=== PATIENT | female | born 1940 | race Caucasian/White ===

== ENCOUNTER → 2016-03-15 | Outpatient (CLI) | payer MEDICARE ==
[2013-06-10 19:51] VITALS: BP 173/93
[~2016-03-15] MED LIST: AMLO5TAB2 PO; AMOX500T PO; CALC-104 PO; CETI10TA22 PO; CHOL200024 PO; CHOL200044 PO; COLC0.6T34 PO; COLE1TAB2 PO; DIPH1TAB5 PO; DOXY100T PO; ESCI10TA PO; FAMO40TA4 PO; FOLI20CA PO; GUAI1TBM PO; GUAI400T46 PO; IBUP200C9 PO; LANS30CA PO; LEVO750T5 PO; MULT-658 PO; VITA1TAB PO; VITA400C6 PO
--- NOTE | 2016-03-15 14:24 | KCIC ---
Bilateral digital screening mammograms with CAD: HISTORY Routine screening. COMPARISON Comparison is made to previous examination dated 09/18/2014. FINDINGS Breast density category A. The skin and nipples show no abnormalities. No abnormal lymph nodes are seen in the axilla. The breast parenchyma is predominately fatty. There continues to be small parenchymal density in the 5 o'clock B position centrally in the left breast which has not changed. There are no new dominant masses, suspicious calcifications or architectural distortions. Benign appearing calcifications are present. IMPRESSION No evidence of malignancy. Recommend routine annual mammographic screening. This study was interpreted with the benefit of Computerized Aided Detection (CAD). Mammography is not 100% sensitive in detecting breast cancer. Therefore, a self breast exam and a clinical breast exam are very important. A negative mammogram does not negate a clinically suspicious finding and should not result in a delay in biopsying a clinically suspicious abnormality. BI-RADS category 2. Benign. This patient's information has been entered into a reminder system for the patient to be notified with the results of this examination and a target date for her next mammograms. Electronically signed by: Chey Larson MD (Mar 15, 2016 14:22:59)
--- NOTE | 2016-03-18 09:53 | KCIC ---
Left breast ultrasound: Reason for examination: Followup parenchymal density. Comparison is made to previous mammogram dated 09/18/2014 and previous ultrasound dated 10/06/2014. Ultrasound examination of the left breast was performed with attention to the lateral breast. No discrete cystic or solid nodule is identified sonographically. Impression: No focal abnormality evident sonographically in the left breast. With no change seen at the parenchymal density mammographically, routine mammographic followup is recommended. BI-RADS category 2: Benign. This patient's information has been entered into a reminder system for the patient to be notified with the results of this examination and a target date for her next mammograms. Electronically signed by: Chey Larson MD (Mar 18, 2016 09:52:03)
== END | disposition home or self-care (01) ==
LOC: KCIC MAMMO 13:02
PROVIDERS: ATTEND Internal Medicine
DX: R92.8 Other abnormal and inconclusive findings on diagnostic imaging of breast (principal)
CPT/HCPCS: 76641; G0204; 77066

== ENCOUNTER 2017-01-08 06:20 | Emergency (ER) | payer MEDICARE ==
[~2017-01-08] VITALS: Ht 162.6 cm; Wt 90.7 kg
[~2017-01-08 06:20] MED LIST changes: -ESCI10TA PO; +ESCITALOPRAM OX10 MG PO
[2017-01-08] MEDS ORDERED: IV NORMAL SALINE 500ML BAG 500 ML IV ONE (07:15)
[2017-01-08 07:16] LABS: BASO # 0.1 x10^3/uL (0.0-0.2); BASO % 1 % (0-3); EOS % 2 % (0-3); HEMOGLOBIN 14.5 g/dL (12.0-15.5); LYMPH # 1.6 x10^3/uL (1.0-4.8); LYMPH % 20 % (24-48); MEAN CORPUSCULAR HEMOGLOBIN 33 pg (25-35); MEAN CORPUSCULAR HGB CONC 34 g/dL (31-37); MEAN CORPUSCULAR VOLUME 98 fL (79-100); MONO % 8 % (0-9); NEUT % 69 % (31-73); PLATELET COUNT 254 x10^3/uL (140-400); RED CELL DISTRIBUTION WIDTH 14.2 % (11.5-14.5)
--- NOTE | 2017-01-08 07:26 | RAD ---
Two view chest History:Dizziness starting this morning . PA and lateral views of the chest are submitted. Comparison: 08/22/2013 Findings: There is no significant infiltrate, pleural effusion, or pneumothorax. There is some linear fibrotic change left lung base as seen previously. There is a round nodular opacity of the mid right hemithorax, calcified granuloma seen on previous CT. There is stable mild prominence of the left left hilum. The pericardial cardiac silhouette is within normal limits in size. Impression: There is no evidence of acute cardiopulmonary disease.
[2017-01-08 07:28] LABS: CALCIUM 9.7 mg/dL (8.5-10.1); CREATININE 1.5 mg/dL (0.6-1.0); GFR 33.9; POTASSIUM 4.3 mmol/L (3.5-5.1)
--- NOTE | 2017-01-08 07:29 | PHYS DOC ---
Past Medical History Past Medical History: Arthritis, Diverticulosis, High Cholesterol, Hypertension , TIA, Other Additional Past Medical Histor: GOUT Past Surgical History: Cholecystectomy, Hip Replacement, Knee Replacement, Tonsillectomy Additional Past Surgical Histo: colonoscopy Alcohol Use: None Drug Use: None Adult General Chief Complaint Chief Complaint: MULTIPLE COMPLAINTS HPI HPI Patient is a 76 year old female who presents to the ED with her with the complaint of dizziness. Patient has had dizziness off and on "little spells for the last 2 months. It seems to be getting worse. She has to lean or hold onto her or she would fall at times. It's described as dizziness " across her forehead". She does not have a headache. It does not worsen with movement of her head but it does worsen if she sits up. She does not get her while she is laying in bed. She has some nausea but no vomiting. She has not had a fall. She's never had this before recently has had it for maybe 2 months now. It is described as a somewhat spinning type of dizziness but not worsened by position change of her head. She states she has had some small amount of left ear pain or plugged up, she used Debrox. Also last night, she had "severe" pain in her low back, hips, and her right ankle. This lasted for about 2 hours. She did not take anything for it, it seemed to go away by itself. It was helped by sitting up very straight in a chair and worsened by bending over. This type of pain is something she's been dealing with, they believe it might be arthritis. It comes and goes. She does not take any medications for it. Patient and her state that she has had "memory problems" worsening over the last few years. Patient has some chronic right ankle pain due to a right ankle fracture a few years ago that didn't heal right. She wears a Velcro stirrup splint. Patient denies any known reason for dehydration. She's been drinking plenty of fluids and has not had vomiting or diarrhea. Patient was up all night last night "carousing". She and her went to a meeting, then went out to eat, they have been in [place], they state this is not unusual for them and they are "night owl's" and they often stay up all night in sleep during the day. PCP Dr. López Medications include allopurinol for gout, amlodipine, atorvastatin, Singulair. She last took her medications about 4:30 yesterday afternoon before they went out. She typically does take them about that time. Review of Systems Review of Systems Constitutional: Denies fever or chills [] HENT: Left ear intermitted pain and plugged up as in history of present illness Respiratory: Denies cough or shortness of breath [] Cardiovascular: Denies chest pain GI: Denies abdominal pain : Denies dysuria Musculoskeletal: As in history of present illness Neurologic: As in history of present illness All other systems were reviewed and found to be within normal limits, except as documented in this note. Current Medications Current Medications Current Medications Medications (Trade) Dose Ordered Sig/Jaylin Start Time Stop Time Status Last Admin Dose Admin Sodium Chloride 500 ml @ 500 mls/hr 1X ONCE 01/08/17 07:15 01/08/17 08:14 DC 01/08/17 07:28 500 MLS/HR Allergies Allergies Allergies Coded Allergies Type Severity Reaction Last Updated Verified Sulfa (Sulfonamide Antibiotics) Allergy Intermediate hives 06/10/13 Yes sulfamethoxazole Allergy Intermediate mouth sores 06/10/13 Yes trimethoprim Allergy Intermediate mouth sores 06/10/13 Yes Physical Exam Physical Exam Constitutional: Well developed, well nourished, no acute distress, non-toxic appearance. Alert, appropriate, mentating normally, warm and dry. Pulse ox on room air 92%. HENT: Normocephalic, atraumatic, bilateral external ears normal, normal amount of cerumen bilaterally, bilateral TMs normal without redness or dullness, oropharynx moist, nose normal. [] Eyes: conjunctiva normal, no discharge. [] Neck: Normal range of motion, no stridor. [] Cardiovascular:Heart rate regular rhythm, no murmur [] Lungs & Thorax: Bilateral breath sounds clear to auscultation without wheezes, rales, rhonchi Abdomen: Bowel sounds normal, soft, no tenderness, no masses, no pulsatile masses. [] Skin: Warm, dry, no erythema, no rash. [] Extremities: No tenderness, no cyanosis, no clubbing, ROM intact, no edema. Patient is wearing a Velcro stirrup splint on the right ankle. Neurologic: Alert and oriented X 3, normal motor function, no focal deficits noted. [] Current Patient Data Vital Signs Vital Signs Date Time Temp Pulse Resp B/P (MAP) Pulse Ox O2 Delivery O2 Flow Rate FiO2 01/08/17 06:36 97.7 72 18 171/74 (106) 94 Room Air 97.7 Lab Values Laboratory Tests Test 01/08/17 06:28 01/08/17 08:23 White Blood Count 8.0 x10^3/uL (4.0-11.0) Red Blood Count 4.40 x10^6/uL (3.50-5.40) Hemoglobin 14.5 g/dL (12.0-15.5) Hematocrit 43.0 % (36.0-47.0) Mean Corpuscular Volume 98 fL (79-100) Mean Corpuscular Hemoglobin 33 pg (25-35) Mean Corpuscular Hemoglobin Concent 34 g/dL (31-37) Red Cell Distribution Width 14.2 % (11.5-14.5) Platelet Count 254 x10^3/uL (140-400) Neutrophils (%) (Auto) 69 % (31-73) Lymphocytes (%) (Auto) 20 % (24-48) L Monocytes (%) (Auto) 8 % (0-9) Eosinophils (%) (Auto) 2 % (0-3) Basophils (%) (Auto) 1 % (0-3) Neutrophils # (Auto) 5.5 x10^3uL (1.8-7.7) Lymphocytes # (Auto) 1.6 x10^3/uL (1.0-4.8) Monocytes # (Auto) 0.7 x10^3/uL (0.0-1.1) Eosinophils # (Auto) 0.2 x10^3/uL (0.0-0.7) Basophils # (Auto) 0.1 x10^3/uL (0.0-0.2) Sodium Level 142 mmol/L (136-145) Potassium Level 4.3 mmol/L (3.5-5.1) Chloride Level 105 mmol/L (98-107) Carbon Dioxide Level 29 mmol/L (21-32) Anion Gap 8 (6-14) Blood Urea Nitrogen 31 mg/dL (7-20) H Creatinine 1.5 mg/dL (0.6-1.0) H Estimated GFR (Cockcroft-Gault) 33.9 BUN/Creatinine Ratio 21 (6-20) H Glucose Level 102 mg/dL (70-99) H Calcium Level 9.7 mg/dL (8.5-10.1) Magnesium Level 2.1 mg/dL (1.8-2.4) Total Bilirubin 0.4 mg/dL (0.2-1.0) Aspartate Amino Transferase (AST) 21 U/L (15-37) Alanine Aminotransferase (ALT) 21 U/L (14-59) Alkaline Phosphatase 84 U/L (46-116) Creatine Kinase 78 U/L (26-192) Creatine Kinase MB (Mass) 0.6 ng/mL (0.0-3.6) Creatine Kinase MB Relative Index 0.8 % (0-4) Troponin I Quantitative < 0.017 ng/mL (0.000-0.055) BE-Uue-C-Type Natriuretic Peptide 262 pg/mL (0-449) Total Protein 7.0 g/dL (6.4-8.2) Albumin 4.2 g/dL (3.4-5.0) Albumin/Globulin Ratio 1.5 (1.0-1.7) Lipase 179 U/L (73-393) Thyroid Stimulating Hormone (TSH) 4.560 uIU/mL (0.358-3.74) H Urine Collection Type Unknown Urine Color Yellow Urine Clarity Clear Urine pH 7.5 Urine Specific [place] 1.020 Urine Protein Negative mg/dL (NEG-TRACE) Urine Glucose (UA) Negative mg/dL (NEG) Urine Ketones (Stick) Negative mg/dL (NEG) Urine Blood Negative (NEG) Urine Nitrite Negative (NEG) Urine Bilirubin Negative (NEG) Urine Urobilinogen Dipstick 0.2 mg/dL (0.2 mg/dL) Urine Leukocyte Esterase Moderate (NEG) Urine RBC 1-2 /HPF (0-2) Urine WBC >40 /HPF (0-4) Urine Squamous Epithelial Cells Many /LPF Urine Bacteria Many /HPF (0-FEW) Urine Mucus Slight /LPF Laboratory Tests 01/08/17 06:28 Laboratory Tests 01/08/17 06:28 EKG EKG 12-lead EKG read by me. Sinus rhythm. Heart rate 69. There are no acute ST or T wave changes indicative of ischemia or infarction. No STEMI. No rhythm disturbance. [id number][] Radiology/Procedures Radiology/Procedures [] Course & Med Decision Making Course & Med Decision Making Pertinent Labs and Imaging studies reviewed. (See chart for details) 76-year-old female presents with the complaints of a nonspecific type of dizziness for the last 2 months, worse over the last day or 2. It has some vertiginous component does not sound like benign positional vertigo. She also had an episode of pain last night that lasted a couple of hours but resolved on its own and she does not have right now, in her low back, hips, and right ankle. It's hard to determine what that pain was and it has now been gone for several hours. We will check some blood tests, chest x-ray, CT scan of her head , EKG. She's never had any problem with fluid overloaded so we will give her a bolus of normal saline to see if that helps her dizziness at all. Patient is agreeable to this plan. CT scan read by the radiologist. Atrophy that is unchanged from previous scans. Labs relatively unremarkable. TSH is slightly high, I advised the patient we will allow Dr. López to address this as he feels is appropriate. Urinalysis is contaminated. I explained this to the patient. We agreed to wait for culture results rather than start antibiotics today. I advised patient to follow up with Dr. López. She has an appointment coming up on January 20. See instructions for plan. [] Dragon Disclaimer Dragon Disclaimer This electronic medical record was generated, in whole or in part, using a voice recognition dictation system. Departure Departure Impression: Primary Impression: Dizziness, nonspecific Referrals: CORNELIUS LÓPEZ MD (PCP) Additional Instructions: As we discussed, I would like you to follow up with Dr. López. I believe it is fine to wait until your appointment on January 20. Make sure you're staying well hydrated by drinking plenty of fluids. When you see Dr. López, discuss the following findings/recommendation with him. Your thyroid level is a little bit low. He may want to give your thyroid supplement or repeat this test or do other blood tests. Urinalysis was contaminated with skin cells. Depending on what the culture result shows depends on whether we we'll treat you with antibiotics. Call Dr. López's office on Monday or Wednesday to asked them to check the culture result for you. I recommend that you consider outpatient physical therapy specializing in dizziness, gait, and balance. They can help you with strategies and also whether or not a walker or cane might be helpful, as well as exercises and treatment of dizziness and balance symptoms. Ask Dr. López his opinion on this. PETER RIVERA MD Jan 08, 2017 07:29
--- NOTE | 2017-01-08 07:33 | EKG ---
[facility] [address] [place] [address] Test Date: 2017-01-08 Test Time: 06:30:51 Pat Name: DARYL MCKEON Department: Room: Gender: F [employer]: : 1940 Requested By: PETER RIVERA Order Number: [id number] Reading MD: Ming Bermudez Measurements Intervals [place] Rate: 69 P: SD: QRS: 26 QRSD: 80 T: 52 QT: 420 QTc: 452 Interpretive Statements SINUS RHYTYHM QRS(T) CONTOUR ABNORMALITY CONSIDER ANTEROLATERAL MYOCARDIAL DAMAGE POSSIBLY ABNORMAL ECG Electronically Signed On 01-16-2017 14:22:18 SWITCH ADJUSTER by Ming Bermudez
--- NOTE | 2017-01-08 07:33 | RAD ---
Head CT without contrast History:Dizziness for a few weeks worse today Technique: Noncontrast CT imaging was acquired of the head. RS Compliance Statement: One or more of the following individualized dose reduction techniques were utilized for this examination: 1. Automated exposure control 2. Adjustment of the mA and/or kV according to patient size 3. Use of iterative reconstruction technique Comparison: 06/19/2013 Findings: No acute intracranial hemorrhage is identified. There is again mild supratentorial atrophy. There is no intra-axial mass effect or midline shift. Ventricular size is stable, proportionate to the sulcal spaces. There is again multifocal overall moderate ill-defined low-density of the supratentorial white matter bilaterally. Mastoid air cells and visualized paranasal sinuses are aerated. There is atherosclerotic calcification of the carotid siphons bilaterally. Impression: 1. No acute intracranial abnormality is identified. There is again ill-defined low-density of the supratentorial parenchyma bilaterally probably due to chronic microvascular ischemic disease. There is generalized supratentorial atrophy.
[2017-01-08 07:34] LABS: ALBUMIN 4.2 g/dL (3.4-5.0); ALBUMIN/GLOBULIN RATIO 1.5 (1.0-1.7); MAGNESIUM 2.1 mg/dL (1.8-2.4); TOTAL BILIRUBIN 0.4 mg/dL (0.2-1.0)
[2017-01-08 07:41] LABS: CKMB MASS 0.6 ng/mL (0.0-3.6)
[2017-01-08 08:32] LABS: BILIRUBIN,URINE NEGATIVE (NEG); GLUCOSE,URINE NEGATIVE (NEG); NITRITE,URINE NEGATIVE (NEG); PH,URINE 7.5; PROTEIN,URINE NEGATIVE (NEG-TRACE); UROBILINOGEN,URINE 0.2 mg/dL (0.2 mg/dL)
[2017-01-08 08:42] LABS: BACTERIA,URINE MANY /HPF (0-FEW); SQUAMOUS EPITHELIAL CELL,UR MANY /LPF; WBC,URINE >40 /HPF (0-4)
[2017-01-08 08:56] VITALS: BP 145/65
--- NOTE | 2017-01-11 16:29 | VNOTE ---
CALL BACK NOTE CALL BACK Microbiology 01/08/17 Urine Culture - Final, Complete 01/08/17 Urine Culture Result 1 (JIAN) - Final, Complete 01/08/17 Antimicrobic Susceptibility - Final, Complete Patient has positive urine culture, she was not treated when she was in the ED. Called patient, she has no voicemail. TABATHA PORTILLO APRN Jan 11, 2017 16:29
== END 2017-01-08 09:26 | disposition home or self-care (01) ==
LOC: ER 06:20
DX: R42 Dizziness and giddiness (principal); H92.02 Otalgia, left ear; M54.5 Low back pain; E78.00 Pure hypercholesterolemia, unspecified; I10 Essential (primary) hypertension; M10.9 Gout, unspecified; Z86.73 Personal history of transient ischemic attack (TIA), and cerebral infarction without residual deficits; Z90.49 Acquired absence of other specified parts of digestive tract; Z88.2 Allergy status to sulfonamides; Z88.1 Allergy status to other antibiotic agents
CPT/HCPCS: 36415; 70450; 71020; 80053; 81001; 82553; 83690; 83735; 83880; 84443; 84484; 85025; 87086; 87186; 93005; 96360; 99285; J7040; 96374

== ENCOUNTER 2017-02-26 19:18 | Emergency (ER) | payer MEDICARE, BC ==
[2017-02-26 20:33] LABS: ADD MAN DIFF? NO
[2017-02-26 20:35] LABS: BASO % 1 % (0-3); EOS # 0.1 x10^3/uL (0.0-0.7); EOS % 1 % (0-3); HEMATOCRIT 41.5 % (36.0-47.0); HEMOGLOBIN 14.1 g/dL (12.0-15.5); LYMPH # 1.4 x10^3/uL (1.0-4.8); LYMPH % 21 % (24-48); MEAN CORPUSCULAR HEMOGLOBIN 33 pg (25-35); MEAN CORPUSCULAR HGB CONC 34 g/dL (31-37); MEAN CORPUSCULAR VOLUME 97 fL (79-100); MONO # 0.6 x10^3/uL (0.0-1.1); MONO % 9 % (0-9); NEUT # 4.6 x10^3uL (1.8-7.7); NEUT % 68 % (31-73); PLATELET COUNT 235 x10^3/uL (140-400); RED BLOOD COUNT 4.27 x10^6/uL (3.50-5.40); RED CELL DISTRIBUTION WIDTH 14.7 % (11.5-14.5); WHITE BLOOD COUNT 6.7 x10^3/uL (4.0-11.0)
[2017-02-26 20:43] LABS: ANION GAP 12 (6-14); BLOOD UREA NITROGEN 23 mg/dL (7-20); CALCIUM 9.1 mg/dL (8.5-10.1); CARBON DIOXIDE 26 mmol/L (21-32); CHLORIDE 105 mmol/L (98-107); CREATININE 1.8 mg/dL (0.6-1.0); GFR 27.4; GLUCOSE 96 mg/dL (70-99); POTASSIUM 3.7 mmol/L (3.5-5.1); SODIUM 143 mmol/L (136-145)
[2017-02-26 21:21] LABS: BILIRUBIN,URINE MODERATE (NEG); CLARITY,URINE CLOUDY; GLUCOSE,URINE NEGATIVE (NEG); NITRITE,URINE POSITIVE (NEG); PH,URINE 5.5; PROTEIN,URINE 100 mg/dL (NEG-TRACE)
[2017-02-26 21:22] LABS: COLOR,URINE DK YELLOW
[2017-02-26 21:23] LABS: BACTERIA,URINE MANY /HPF (0-FEW); HYALINE CASTS, URINE MANY /HPF
== END 2017-02-26 23:30 | disposition home or self-care (01) ==
LOC: ER 19:18
DX: N93.9 Abnormal uterine and vaginal bleeding, unspecified (principal); E78.00 Pure hypercholesterolemia, unspecified; M10.9 Gout, unspecified; I10 Essential (primary) hypertension; Z86.73 Personal history of transient ischemic attack (TIA), and cerebral infarction without residual deficits; Z90.49 Acquired absence of other specified parts of digestive tract; Z96.649 Presence of unspecified artificial hip joint; Z96.659 Presence of unspecified artificial knee joint; Z88.2 Allergy status to sulfonamides; Z88.1 Allergy status to other antibiotic agents
CPT/HCPCS: 36415; 76830; 76856; 80048; 81001; 85025; 87086; 87186; 96365; 99285-25; J0690

== ENCOUNTER → 2017-05-03 | Outpatient (CLI) | payer MEDICARE, BC | END | disposition home or self-care (01) | LOC: KCIC US 14:04 | DX: Z12.31 Encounter for screening mammogram for malignant neoplasm of breast (principal); Z13.820 Encounter for screening for osteoporosis; N39.0 Urinary tract infection, site not specified; N20.0 Calculus of kidney; M85.88 Other specified disorders of bone density and structure, other site; N18.3 Chronic kidney disease, stage 3 (moderate); Z78.0 Asymptomatic menopausal state; Z87.440 Personal history of urinary (tract) infections | CPT/HCPCS: 76770; 77067; 77080 ==

== ENCOUNTER → 2018-01-16 | Day surgery (SDC) | payer MEDICARE, BC ==
[~2018-01-16] MED LIST changes: +ALLO300T PO; -AMLO5TAB2 PO; +AMLO5TAB4 PO; +AMLO5TAB7 PO; +ATOR10TA60 PO; +CEFP200T PO; +FOLI1TAB16 PO; +IV RINGERS,LACTATED 1000ML 1,000 ML IV SCH; +MONT10TA9 PO; +PROPOFOL 40 ML IV ONE
--- NOTE | 2018-01-16 11:13 | PDOC1 ---
HISTORY & PHYSICAL H&P Betty Cortes [id number] 1940 01/10/2018 02:10 PM 02/13 [facility] [employer] [facility], [facility] OUR PATIENTS [facility] [address] [place] [address]. [phone] Patient: Betty Cortes Date of : 1940 Date: 01/10/2018 2:10 PM Visit Type: Office Visit This 77 year old female presents for abdominal pain and follow up of Tapia's esophagus. History of Present Illness: 1. abdominal pain Betty Cortes is a 77 year old female who presents for evaluation of abdominal pain. The problem is ongoing. The symptoms began 2 weeks ago. It occurs daily. The location is upper abdomen. The patient describes it as aching, bloating and gnawing. There are no aggravating factors. There are no relieving factors. The pertinent history includes: h/o Tapia's esophagus and gallstone related issue and complication. Had CBC stone removed before She is not experiencing has no pertinent negatives. Patient has history of acid reflux and Tapia's esophagus. Had not followed though her EGD before due to some social issue. INTAKE COMMENTS: Intake Comments: patient states she is here for stomach pain and nauseous PROBLEM LIST: Problem Description Onset Date Chronic Clinical Status Notes Vitamin D deficiency 07/17/2012 Y Mapped from [facility] Chronic Conditions table on 09/02/2013 by the ICD9 to SNOMED Bulk Mapping Utility. The mapped diagnosis code was Vitamin D deficiency, 268.9, added by Nadia Akhtar, with responsible provider Nadia Akhtar MD. Onset date 07/17/2012; last addressed on 07/17/2012. Benign essential hypertension 12/07/2009 Y Mapped from [facility] Chronic Conditions table on 09/02/2013 by the ICD9 to SNOMED Bulk Mapping Utility. The mapped diagnosis code was Benign essential hypertension, 401.1, added by Carmita Mejia, with responsible provider . Onset date 12/07/2009; last addressed on 08/19/2013. Gastroesophageal reflux disease 12/07/2009 Y Mapped from [facility] Chronic Conditions table on 09/02/2013 by the ICD9 to SNOMED Bulk Mapping Utility. The mapped diagnosis code was Esophageal reflux, 530.81, added by Carmita Mejia , with responsible provider . Onset date 12/07/2009; last addressed on 2013. Hyperlipidemia 12/07/2009 Y Mapped from [facility] Chronic Conditions table on 2013 by the ICD9 to SNOMED Bulk Mapping Utility. The mapped diagnosis code was Other and unspecified hyperlipidemia, 272.4, added by Carmita Mejia, with responsible provider . Onset date 12/07/2009; last addressed on 07/09/2013. Seizure 12/07/2009 Y Mapped from [facility] Chronic Conditions table on 09/02/2013 by the ICD9 to SNOMED Bulk Mapping Utility. The mapped diagnosis code was Other convulsions, 780.39, added by Carmita Mejia, with responsible provider . Onset date 12/07/2009; last addressed on 12/07/2009. Obesity 12/07/2009 Y Mapped from [facility] Chronic Conditions table on 09/02/2013 by the ICD9 to SNOMED Bulk Mapping Utility. The mapped diagnosis code was Obesity, unspecified, 278.00, added by Carmita Mejia, with responsible provider . Onset date 12/07/2009; last addressed on 06/21/2013. Anemia 12/07/2009 Y Mapped from [facility] Chronic Conditions table on 09/02/2013 by the ICD9 to SNOMED Bulk Mapping Utility. The mapped diagnosis code was Anemia, unspecified, 285.9, added by Carmita Mejia, with responsible provider . Onset date 12/07/2009; last addressed on 12/07/2009. Hypothyroidism 12/07/2009 Y Mapped from [facility] Chronic Conditions table on 2013 by the ICD9 to SNOMED Bulk Mapping Utility. The mapped diagnosis code was Unspecified acquired hypothyroidism, 244.9, added by Carmita Mejia, with responsible provider . Onset date 12/07/2009; last addressed on 02/27/2013. 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 11/17/2015 Osteoarthritis 09/01/2014 Medicare annual wellness visit, subsequent 09/01/2014 Mixed hyperlipidemia 08/10/2015 Other allergic rhinitis 05/27/2015 Dyspnea on exertion 05/27/2015 Carotid artery disease, unspecified laterality 11/09/2015 Osteopenia 05/27/2015 Y Wasp sting, accidental or unintentional, initial encounter 11/09/2015 CKD (chronic kidney disease), stage III 11/09/2015 Bipolar affective disorder in remission 11/09/2015 Seizure disorder 11/09/2015 PAST MEDICAL/SURGICAL HISTORY (Detailed) Disease/disorder Onset Date Management Date Comments Tapia's esophagus 09/07/2010 EGD with biopsy 09/07/2010 Osteoarthritis 2010 Hip replacement 2010 Tapia's esophagus EGD with Biopsy 07/15/2014 Diverticulosis colonoscopy 12/19/2013 EGD with biopsy 05/03/2012 Colonic polyps colonoscopy 09/07/2010 Tibial plateau fracture 2006 Knee surgery Uetheral repair D & C Anemia GERD Hyperlipidemia Hypertension Tonsillectomy Pneumonia 06/2013 Gastritis 08/2010 Tremors Obesity Hypothyroidism Uretheral stenosis Tapia's esophagus Hiatal hernia Gastritis GYNECOLOGIC HISTORY: Patient is postmenopausal. OBSTETRIC HISTORY: Not currently . Family History (Detailed) Relationship Family Member Name Age at Condition Onset Age Cause of Father N for heart disease N Social History: (Detailed) The patient is right-handed. Preferred language is Yoruba. The patient does not need an paraprofessional interpreter. MARITAL STATUS/FAMILY/SOCIAL SUPPORT Currently . CHILDREN Does not have children. HOME ENVIRONMENT Housing status is stable/permanent. Tobacco use status: Never smoked tobacco. Smoking status: Never smoker. TOBACCO CESSATION INFORMATION Date Counseled By Order Status Description Code Tobacco Cessation Information 06/10/2013 Paul Kovacs Tobacco cessation counseling completed Tobacco cessation counseling TOBACCO/VAPING EXPOSURE No passive smoke exposure. ALCOHOL There is no history of alcohol use. CAFFEINE The patient uses caffeine: soda - 1 cup a day. LIFESTYLE Sedentary activity level. Never exercises. DIET regular. HOME ENVIRONMENT/SAFETY The home has smoke detectors. Carbon monoxide detector at home. Uses seat belts. EXPERIENCE Patient has no experience. Medications (active prior to today) Medication Name Sig Description Start Date Stop Date Refilled Rx Elsewhere B Complex 100 SR 400 mcg Tab take 1 tab daily 04/12/2011 N Caltrate-600 Plus Vitamin D3 600 mg-400 unit Tab take 1 by Oral route twice daily 06/14/2011 N Lexapro 10 mg Tab take 1 tablet (10MG) by ORAL route every day // 08/24/2012 Y Tylenol Extra Strength 500 mg tablet take 2 tablets by Oral route bid in AM and at bedtime 01/21/2014 N TIZANIDINE HCL 4 MG TABLET TAKE 1 TABLET BY MOUTH IN THE EVENING AT BEDTIME NEEDED 11/16/2015 11/16/2015 N folic acid 400 mcg tablet take 1 tablet (0.4MG) by ORAL route every day 201707/27/2017 N Colestid 1 gram tablet take 1 Tablet by ORAL route 2 times every day 12/20/2017 12/20/2017 N amlodipine 5 mg tablet TAKE 1 TABLET BY MOUTH DAILY 01/02/2018 01/02/2018 N allopurinol 300 mg tablet take 1 tablet by ORAL route every day at [facility]S. 201701/02/2018 N Singulair 10 mg tablet TAKE 1 TABLET BY MOUTH EVERY DAY IN THE EVENING 201701/02/2018 N pantoprazole 40 mg tablet,delayed release TAKE 1 TABLET BY MOUTH two times daily 01/02/2018 01/02/2018 N atorvastatin 10 mg tablet TAKE 1 TABLET BY ORAL ROUTE EVERY DAY AT BEDTIME at bedtime 01/02/2018 01/02/2018 N Medication Reconciliation Medications reconciled today. Medication Reviewed Adherence Medication Name Sig Desc Elsewhere Status taking as directed B Complex 100 SR 400 mcg Tab take 1 tab daily N Verified taking as directed Lexapro 10 mg Tab take 1 tablet (10MG) by ORAL route every day Y Verified taking as directed Caltrate-600 Plus Vitamin D3 600 mg-400 unit Tab take 1 by Oral route twice daily N Verified taking as directed TIZANIDINE HCL 4 MG TABLET TAKE 1 TABLET BY MOUTH IN THE EVENING AT BEDTIME NEEDED N Verified taking as directed Tylenol Extra Strength 500 mg tablet take 2 tablets by Oral route bid in AM and at bedtime N Verified taking as directed folic acid 400 mcg tablet take 1 tablet (0.4MG) by ORAL route every day N Verified taking as directed Colestid 1 gram tablet take 1 Tablet by ORAL route 2 times every day N Verified taking as directed amlodipine 5 mg tablet TAKE 1 TABLET BY MOUTH DAILY N Verified taking as directed pantoprazole 40 mg tablet,delayed release TAKE 1 TABLET BY MOUTH two times daily N Verified taking as directed Singulair 10 mg tablet TAKE 1 TABLET BY MOUTH EVERY DAY IN THE EVENING N Verified taking as directed allopurinol 300 mg tablet take 1 tablet by ORAL route every day at [facility] N Verified taking as directed atorvastatin 10 mg tablet TAKE 1 TABLET BY ORAL ROUTE EVERY DAY AT BEDTIME at bedtime N Verified Medications (Added, Continued or Stopped today) Start Date Medication Directions PRN Status PRN Reason Instruction Stop Date 01/02/2018 allopurinol 300 mg tablet take 1 tablet by ORAL route every day at [facility] N CALL PATIENT WHEN READY 01/02/2018 amlodipine 5 mg tablet TAKE 1 TABLET BY MOUTH DAILY N CALL PATIENT WHEN READY 01/02/2018 atorvastatin 10 mg tablet TAKE 1 TABLET BY ORAL ROUTE EVERY DAY AT BEDTIME at bedtime N CALL PATIENT WHEN READY 04/12/2011 B Complex 100 SR 400 mcg Tab take 1 tab daily N 06/14/2011 Caltrate-600 Plus Vitamin D3 600 mg-400 unit Tab take 1 by Oral route twice daily N 12/20/2017 Colestid 1 gram tablet take 1 Tablet by ORAL route 2 times every day N 07/27/2017 folic acid 400 mcg tablet take 1 tablet (0.4MG) by ORAL route every day N Lexapro 10 mg Tab take 1 tablet (10MG) by ORAL route every day N 01/02/2018 pantoprazole 40 mg tablet,delayed release TAKE 1 TABLET BY MOUTH two times daily N CALL PATIENT WHEN READY 01/02/2018 Singulair 10 mg tablet TAKE 1 TABLET BY MOUTH EVERY DAY IN THE EVENING N CALL PATIENT WHEN READY 11/16/2015 TIZANIDINE HCL 4 MG TABLET TAKE 1 TABLET BY MOUTH IN THE EVENING AT BEDTIME NEEDED N 01/21/2014 Tylenol Extra Strength 500 mg tablet take 2 tablets by Oral route bid in AM and at bedtime N Allergies: Ingredient Reaction (Severity) Medication Name Comment SULFAMETHOXAZOLE Septra TRIMETHOPRIM Septra Review of Systems System Neg/Pos Details Constitutional Negative Chills, Fever and Malaise. ENMT Negative Sore throat. Eyes Negative Double vision. Respiratory Negative Dyspnea and Wheezing. Cardio Negative Chest pain and Irregular heartbeat/palpitations. GI Positive See HPI. GI Negative See HPI. Negative Dysuria and Hematuria. Endocrine Negative Cold intolerance and Heat intolerance. Psych Negative Anxiety. Integumentary Negative Hives and Rash. MS Negative Joint pain. Eren/Lymph Negative Easy bleeding and Easy bruising. Allergic/Immuno Negative Food allergies. Reproductive Positive The patient is post-menopausal. Vital Signs Time BP mm/Hg Pulse /min Resp /min Temp F Ht ft Ht in Ht cm Wt lb Wt kg BMI kg/ m2 BSA m2 O2 Sat% 2:45 PM 112/60 88 12 5.0 4.00 162.56 171.00 77.564 29.35 1.87 95 Measured By Time Measured by 2:45 PM Annie Swygert PHYSICAL EXAM: Exam Findings Details Constitutional Normal Well developed. Eyes Normal Conjunctiva - Right: Normal, Left: Normal. Sclera - Right: Normal, Left: Normal. Nasopharynx Normal Lips/teeth/gums - Normal. Neck Exam Normal Inspection - Normal. Thyroid gland - Normal. Respiratory Normal Inspection - Normal. Auscultation - Normal. Cardiovascular Normal Regular rate and rhythm. No murmurs, gallops, or rubs. Abdomen Normal Inspection - Normal. Anterior palpation - No guarding. No abdominal tenderness. No hepatic enlargement. No spleen enlargement. No hernia. No Ascites. Skin Normal Inspection - Normal. Extremity Normal No edema. Psychiatric Normal Orientation - Oriented to time, place, person & situation. Appropriate mood and affect. Assessment/Plan # Detail Type Description 1. Assessment Pain of upper abdomen (R10.10). Patient Plan schedule EGD at [facility] CBC, LFT, Amylase and Lipase. Plan Orders Amylase to be performed today, CBC w/diff to be performed today, Lipase to be performed today and LFT to be performed today. Further diagnostic evaluations ordered today include(s) EGD to be performed today. She is to schedule a follow-up visit with Lior Akhtar MD upon completion of work-up. The patient was checked out at 3:21 PM by staff [facility]. Co-Sign Orders Order Ordering Provider Cosigned Name Cosigned Date Cosigner Comments Amylase Lior Akhtar 01/10/2018 CBC w/diff Lior Akhtar 01/10/2018 Lipase Lior Akhtar 01/10/2018 LFT Lior Akhtar 01/10/2018 EGD Lior Akhtar 01/10/2018 follow-up visit with Lior Akhtar MD upon completion of work-up Lior Akhtar 01/10/2018 Active Patient Care Team Members Name Contact Agency Type Support Role Relationship Active Date Inactive Date Specialty David Akhtar encounter provider [facility] Nadia Akhtar MD Patient provider PCP Internal Med Document Electronically signed: Lior Akhtar MD 01/10/2018 03:28 PM Document generated by: Lior Akhtar 01/10/2018 Sheba Purdy MD, Family Practice; Jean Jack MD Internal Medicine; Gilda London MD, Internal Medicine; Nadia Akhtar MD Internal Medicine; Lior Akhtar MD, Gastroenterology; Kanu Rutledge MD, Rheumatology, [employer] ------ 01/16/18 Patient seen and examined. No change in H&P. LIOR AKHTAR MD Jan 16, 2018 11:13
[2018-01-16 12:45] VITALS: BP 166/76
--- NOTE | 2018-01-17 12:09 | PATHOLOGY ---
[facility] Accession Number: [id number] . 01 Material submitted: . PART A: ANTRUM BIOPSY PART B: DISTAL ESOPHAGUS BIOPSY . 01 Clinical history: . Abdominal pain . 02 Diagnosis: A. Gastric biopsy, antrum: - Chronic gastritis, mild. . B. Esophageal biopsy, distal esophagus: - Segments of hyperplastic squamous esophageal mucosa and acute inflammatory exudate, consistent with esophageal ulcer / ulcerative esophagitis. . (JPM:mml; 01/17/18) [facility]/01/17/2018 . 02 Comment: Sections of the gastric antral biopsy show congestion and mild superficial chronic inflammation. A properly-controlled immunoperoxidase stain for Helicobacter is negative for Helicobacter organisms. . Sections of the distal esophageal biopsy reveal segments of hyperplastic squamous esophageal mucosa and acute inflammatory exudate. The squamous mucosa shows focal intraepithelial neutrophils and a few eosinophils. The findings are consistent with an esophageal ulcer or reflux esophagitis with ulceration. There is no evidence of Tapia's change, dysplasia or malignancy. . Special stain performed: Immunoperoxidase stain for Helicobacter on A1. . (JPM:mml; 01/17/18) . 02 Electronically signed: . Hung Cueto MD, Pathologist NPI- [id number] . 01 Gross description: . A. Received in formalin labeled "Budd, Betty, antrum BX," is a single segment of richard soft tissue measuring 0.7 cm in maximum dimension. The specimen is entirely submitted in cassette A1. . B. Received in formalin labeled "Budd, Betty, distal esophagus BX," is a single segment of richard soft tissue measuring 0.4 cm in maximum dimension. The specimen is entirely submitted in cassette B1. (TSD; 01/16/2018) TOB/TOB . 02 Pathologist provided ICD-10: K29.50, K22.10 . 02 CPT . 052228, 709418, [id number] Specimen Comment: A courtesy copy of this report has been sent to Specimen Comment: [phone]. Specimen Comment: Report sent to Specimen Comment: A duplicate report has been generated due to demographic updates. Performed at: 01 [facility] [address] [facility] [address], [place] [id number] MD Fredrick Russell MD Phone: [phone] Performed at: 02 [facility] [address] [place], [place] [id number] MD Hung Cueto MD Phone: [phone]
== END | disposition home or self-care (01) ==
LOC: ENDOS 10:46
PROVIDERS: ATTEND Internal Medicine Gastroenterology
DX: K26.9 Duodenal ulcer, unspecified as acute or chronic, without hemorrhage or perforation (principal); K21.0 Gastro-esophageal reflux disease with esophagitis; K29.30 Chronic superficial gastritis without bleeding; K22.10 Ulcer of esophagus without bleeding; K44.9 Diaphragmatic hernia without obstruction or gangrene; I12.9 Hypertensive chronic kidney disease with stage 1 through stage 4 chronic kidney disease, or unspecified chronic kidney disease; N18.3 Chronic kidney disease, stage 3 (moderate); E78.2 Mixed hyperlipidemia; G40.909 Epilepsy, unspecified, not intractable, without status epilepticus; E03.9 Hypothyroidism, unspecified; E55.9 Vitamin D deficiency, unspecified; E66.9 Obesity, unspecified; D64.9 Anemia, unspecified; M19.90 Unspecified osteoarthritis, unspecified site; M85.80 Other specified disorders of bone density and structure, unspecified site; F31.70 Bipolar disorder, currently in remission, most recent episode unspecified; Z86.010 Personal history of colon polyps; Z98.890 Other specified postprocedural states; Z87.01 Personal history of pneumonia (recurrent); Z82.49 Family history of ischemic heart disease and other diseases of the circulatory system; Z79.899 Other long term (current) drug therapy; Z88.2 Allergy status to sulfonamides; Z88.1 Allergy status to other antibiotic agents; Z96.649 Presence of unspecified artificial hip joint
CPT/HCPCS: 43239; 88305; 88342; J2704

== ENCOUNTER → 2018-04-02 | Outpatient (CLI) | payer MEDICARE, BC ==
[2018-01-16 12:45] VITALS: BP 166/76
[~2018-04-02] MED LIST changes: +AMLO5TAB10 PO; -AMLO5TAB7 PO; -IV RINGERS,LACTATED 1000ML 1,000 ML IV SCH; -PROPOFOL 40 ML IV ONE
--- NOTE | 2018-04-02 16:25 | KCIC ---
CT HEAD INDICATION: Confusion, new onset memory loss COMPARISON: 01/08/2017 Exposure: One or more of the following individualized dose reduction techniques were utilized for this examination: 1. Automated exposure control 2. Adjustment of the mA and/or kV according to patient size 3. Use of iterative reconstruction technique TECHNIQUE: 5 mm contiguous axial images were obtained from the skull base to the vertex in both bone and soft tissue algorithm. FINDINGS: Moderate bilateral periventricular white matter hypodensities likely chronic small vessel ischemic disease. No evidence of acute intracranial hemorrhage. No extra-axial fluid collections. No mass effect or midline shift. Ventricular size is appropriate. Basal cisterns are patent. No fractures identified.Cervantes-white differentiation is preserved.Globes and orbits are within normal limits. Paranasal sinuses and mastoid air cells are clear. IMPRESSION: No acute intracranial findings. Electronically signed by: Robert Dasilva MD (04/02/2018 4:22 PM) [place] [id number]
== END | disposition home or self-care (01) ==
LOC: KCIC CT 15:33
PROVIDERS: ATTEND Internal Medicine
DX: R41.0 Disorientation, unspecified (principal); R41.3 Other amnesia; R27.0 Ataxia, unspecified
CPT/HCPCS: 70450

== ENCOUNTER → 2019-06-27 | Outpatient (CLI) | payer MEDICARE, BC ==
[2019-06-13 08:49] VITALS: BP 120/52
[~2019-06-27] MED LIST changes: +ACET325T9 PO; +ASPI-630 PO; -CETI10TA22 PO; +CETI10TA24 PO; +CYAN-25 PO; +GABA-585 PO; +HYDR-2869 PO; +HYDR100T24 PO; +LACT1CAP19 PO; +MAGN400T5 PO; +MEMA10TA PO; +MONT10TA49 PO; -MONT10TA9 PO; +PANT20TA2 PO; +SUCR1TAB PO
--- NOTE | 2019-06-27 11:31 | RAD ---
CHEST AP ONLY 06/27/2019 12:00 AM INDICATION: Wheezing, shortness of breath COMPARISON: 06/08/2019 TECHNIQUE: Portable frontal view of the chest is provided. FINDINGS: The cardiomediastinal silhouette is similar in appearance. Densely calcified granulomas identified in the right midlung measuring 14 mm. Small to moderate bilateral pleural effusions with adjacent compressive atelectasis versus infiltrates.. No pulmonary vascular congestion. No pneumothorax. No suspicious osseous abnormality. IMPRESSION: Constellation of findings is most suggestive of congestive heart failure with moderate bilateral pleural effusions with adjacent compressive atelectasis versus infiltrates. Recommend follow-up to resolution. Electronically signed by: Maria De Jesus Thompson MD (06/27/2019 11:28 AM) [id number]
== END ==
PROVIDERS: ATTEND Internal Medicine
DX: J84.10 Pulmonary fibrosis, unspecified (principal); J90 Pleural effusion, not elsewhere classified
CPT/HCPCS: 71045

== ENCOUNTER 2020-04-09 15:29 | Inpatient (IN) | payer MEDICARE, BC ==
[~2020-04-09] VITALS: Ht 160 cm; Wt 61.4 kg
[~2020-04-09 15:29] MED LIST changes: +AMLO-186 PO; -AMLO5TAB10 PO; -CETI10TA24 PO; +CETI10TA74 PO; -FOLI20CA PO; +FOLIC ACID20 MG PO; +VITA-47 PO; -VITA400C6 PO
--- NOTE | 2020-04-09 16:46 | RAD ---
CT HEAD AND C-SPINE WO History: Fall, pain. Comparison: MRI brain 06/09/2019, CT head 08/10/2018 Technique: Noncontrast CT of the head and cervical spine. Findings: CT HEAD: There is no evidence for intracranial mass or hemorrhage. There is no hydrocephalus or midline shift. No abnormal extra-axial fluid collections are present. Cervantes/white matter differentiation is preserved. Diffuse hypodensity of the periventricular white matter. The visualized paranasal sinuses and mastoid air cells are clear. The skull and scalp are within normal limits. Bilateral lens replacements. CT CERVICAL SPINE: Decreased osseous mineralization. There is no evidence for fracture in the cervical spine. Alignment is normal. Multilevel degenerative disc and facet disease. No destructive osseous lesions are seen. Coarse calcifications of the carotid bulbs. Impression: 1. No acute intracranial findings. 2. Degenerative changes without acute osseous abnormality of the cervical spine. ------- Exposure: One or more of the following individualized dose reduction techniques were utilized for thi s examination: 1. Automated exposure control 2. Adjustment of the mA and/or kV according to patient size 3. Use of iterative reconstruction technique. Electronically signed by: Dimas Rice MD (04/09/2020 4:43 PM) [facility]
--- NOTE | 2020-04-09 17:03 | RAD ---
CT LUMBAR SPINE RECONSTRUCTION, CT ABDOMEN+PELVIS WO History: Fall, back pain. Comparison: Lumbar spine radiographs 05/24/2019, CT abdomen and pelvis 08/08/2018. Technique: Noncontrast CT of the abdomen and pelvis. Dedicated lumbar spine CT reformats. Findings: Bibasilar atelectasis/scarring and dependent changes. Heavy calcifications of the coronary arteries, mitral valve and aortic valve. No pleural or pericardial effusion. No free intra-abdominal air or free fluid. Unremarkable liver. Surgical clips at the gallbladder bella a. Unremarkable pancreas. Spleen demonstrates a few punctate calcifications consistent with old granu lomatous disease adrenal glands are unremarkable. Normal right kidney. Severely atrophic left kidney with large calcified stone in the lower pole. Moderate hiatal hernia, increased from comparison, with gastric wall thickening. No evidence of small bowel obstruction. Descending and sigmoid: Diverticulosis without diverticulitis. Partially obscured under distended bladder is unremarkable. The uterus is surgically absent versus atrophic. Calcified fibroid versus vaginal cuff calcifications. Tortuous calcified aorta and iliac arteries without aneur ysm. No abdominopelvic adenopathy. Diffusely decreased osseous mineralization. Right hip arthroplasty. There are new compression fractur es of the T10 (10 percent anterior height loss and T11 (33 percent anterior height loss) vertebral yara dies. Redemonstrated compression fractures of the L2 and L5 vertebral bodies. No significant retropul bandar into the spinal canal. The posterior elements are intact. Small fat-containing umbilical hernia. Impression: 1. New T10 and T11 vertebral body compression fractures with 10 percent and 33 percent anterior heig ht loss respectively. 2. Moderate hiatal hernia, increased from comparison with gastric wall thickening. Correlate for ga stritis. 3. Descending and sigmoid diverticulosis without evidence for diverticulitis. ------ Exposure: One or more of the following individualized dose reduction techniques were utilized for thi s examination: 1. Automated exposure control 2. Adjustment of the mA and/or kV according to patient size 3. Use of iterative reconstruction technique. Electronically signed by: Dimas Rice MD (04/09/2020 5:00 PM) [facility]
--- NOTE | 2020-04-09 17:23 | RAD ---
XR BILATERAL HIP (WITH OR WITHOUT PELVIS) LEFT 2 VIEWS History: Reason: pain fall 15 / Spl. Instructions: / History: Comparison: CT abdomen and pelvis 04/09/2020. Technique: AP pelvis. Coned-down AP view right hip. Cone-down AP and frog-leg lateral views of the le ft hip. Findings: Right total hip arthroplasty and stable appearance without evidence for complication. Decreased osseous mineralization diffusely. There is no evidence for fracture. Alignment is normal. No destructive osseous lesions are seen. Moderate degenerative changes of the right hip with femoral acetabular joint space narrowing and nicole inal osteophytes.. Multilevel degenerative changes of the lower lumbar spine. Aortic calcifications. Calcified likely ut erine fibroid in the pelvis. Impression: 1. Intact right total hip arthroplasty. 2. Degenerative changes of the left hip without acute osseous abnormality. Electronically signed by: Dimas Rice MD (04/09/2020 5:21 PM) [facility]
[2020-04-09 17:32] LABS: BASO % 0 % (0-3); EOS # 0.3 x10^3/uL (0.0-0.7); EOS % 3 % (0-3); HEMATOCRIT 29.7 % (36.0-47.0); HEMOGLOBIN 9.3 g/dL (12.0-15.5); LYMPH # 1.1 x10^3/uL (1.0-4.8); LYMPH % 12 % (24-48); MEAN CORPUSCULAR HEMOGLOBIN 24 pg (25-35); MEAN CORPUSCULAR HGB CONC 31 g/dL (31-37); MEAN CORPUSCULAR VOLUME 77 fL (79-100); MONO # 0.6 x10^3/uL (0.0-1.1); MONO % 6 % (0-9); NEUT # 7.1 x10^3/uL (1.8-7.7); NEUT % 79 % (31-73); PLATELET COUNT 310 x10^3/uL (140-400); RED BLOOD COUNT 3.84 x10^6/uL (3.50-5.40); RED CELL DISTRIBUTION WIDTH 16.5 % (11.5-14.5)
[2020-04-09 17:44] LABS: CALCIUM 8.8 mg/dL (8.5-10.1); CREATININE 1.3 mg/dL (0.6-1.0); GFR 39.6; POTASSIUM 3.6 mmol/L (3.5-5.1)
[2020-04-09 17:49] LABS: ALBUMIN 3.6 g/dL (3.4-5.0); ALBUMIN/GLOBULIN RATIO 1.2 (1.0-1.7); TOTAL BILIRUBIN 0.5 mg/dL (0.2-1.0); TOTAL PROTEIN 6.7 g/dL (6.4-8.2)
--- NOTE | 2020-04-09 17:53 | EKG ---
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
[2020-04-09 18:41] LABS: BILIRUBIN,URINE NEGATIVE (NEG); CLARITY,URINE CLOUDY; COLOR,URINE YELLOW; NITRITE,URINE NEGATIVE (NEG); PH,URINE 5.5 (<5.0-8.0); PROTEIN,URINE NEGATIVE (NEG-TRACE); UROBILINOGEN,URINE 0.2 mg/dL (0.2 mg/dL)
[2020-04-09 18:49] LABS: BACTERIA,URINE MANY /HPF (0-FEW)
[2020-04-09 18:51] LABS: RBC,URINE 0 /HPF (0-2)
[2020-04-09] MEDS ORDERED: HALOPERIDOL LACTATE 5 MG/ML VIAL. IVP ONE (20:00)
[2020-04-09 21:13] LABS: AMPHETAMINE/METHAMPHETAMINE NEG (NEG); BARBITURATES NEG (NEG); BENZODIAZEPINES NEG (NEG); CANNABINOIDS NEG (NEG); COCAINE NEG (NEG); METHADONE NEG (NEG); OPIATES NEG (NEG); PHENCYCLIDINE NEG (NEG)
[2020-04-09] MEDS ORDERED: ONDANSETRON PF 4 MG/2 ML VIAL. IV PRN (21:30)
[2020-04-09] MEDS ORDERED: ACETAMINOPHEN 325 MG TABLET. PO PRN (21:30)
[2020-04-09] MEDS ORDERED: MORPHINE SULFATE 2 MG/ML VIAL. IV PRN (21:30)
[2020-04-09] MEDS ORDERED: cefTRIAXone IV Push 1 GM VIAL. IVP ONE (22:00)
[2020-04-09] MEDS ORDERED: IV NORMAL SALINE 1000ML BAG 1,000 ML IV ONE (22:00)
--- NOTE | 2020-04-09 22:48 | PHYS DOC ---
Past Medical History Past Medical History: Arthritis, Diverticulosis, High Cholesterol, Hypertension, TIA, Other Additional Past Medical Histor: GOUT Past Surgical History: Cholecystectomy, Hip Replacement, Knee Replacement, Tonsillectomy, Other Additional Past Surgical Histo: colonoscopy Smoking Status: Never Smoker Alcohol Use: None Drug Use: None General Adult EDM: Chief Complaint: ABDOMINAL PAIN HPI: HPI: Patient is a 79 year old female with history of hypertension, high cholesterol, presenting to the ED today from a local hotel where she resides. The hotel called EMS because patient fell last night and when they went to her room the noted patient and her had bedbug infestation. Patient is complaining of left lower quadrant abdominal pain. Unable to rate the pain for me. Unable to describe the pain. Review of Systems: Review of Systems: Constitutional: Denies fever or chills. [] Eyes: Denies change in visual acuity. [] HENT: Denies nasal congestion or sore throat. [] Respiratory: Denies cough or shortness of breath. [] Cardiovascular: Denies chest pain or edema. [] GI: Reports left lower quadrant pain, denies nausea, vomiting, bloody stools or diarrhea. [] : Denies dysuria. [] Musculoskeletal: Denies back pain or joint pain. [] Integument: Denies rash. [] Neurologic: Denies headache, focal weakness or sensory changes. [] Psychiatric: Denies depression or anxiety. [] Heart Score: Risk Factors: Risk Factors: DM, Current or recent (<one month) smoker, HTN, HLP, family history of CAD, obesity. Risk Scores: Score 0 - 3: 2.5% MACE over next 6 weeks - Discharge Home Score 4 - 6: 20.3% MACE over next 6 weeks - Admit for Clinical Observation Score 7 - 10: 72.7% MACE over next 6 weeks - Early Invasive Strategies Current Medications: Current Medications Medications (Trade) Dose Ordered Sig/Jaylin Start Time Stop Time Status Last Admin Dose Admin Acetaminophen (Tylenol) 650 mg PRN Q4HRS PRN 04/09/20 21:30 04/10/20 21:29 Ceftriaxone Sodium (Rocephin) 1 gm 1X ONCE 04/09/20 22:00 04/09/20 22:01 DC 04/09/20 21:57 1 GM Haloperidol Lactate (Haldol Inj) 5 mg 1X ONCE 04/09/20 20:00 04/09/20 20:01 DC 04/09/20 20:14 5 MG Morphine Sulfate (Morphine Sulfate) 2 mg PRN Q2HR PRN 04/09/20 21:30 04/10/20 21:29 Ondansetron HCl (Zofran) 4 mg PRN Q8HRS PRN 04/09/20 21:30 04/10/20 21:29 Sodium Chloride 1,000 ml @ 125 mls/hr 1X ONCE 04/09/20 22:00 04/10/20 05:59 04/09/20 21:57 125 MLS/HR Allergies: Allergies: Allergies Coded Allergies Type Severity Reaction Last Updated Verified Sulfa (Sulfonamide Antibiotics) Allergy Intermediate hives 01/16/18 Yes sulfamethoxazole Allergy Intermediate mouth sores 01/16/18 Yes trimethoprim Allergy Intermediate mouth sores 01/16/18 Yes Physical Exam: PE: Constitutional: Well developed, well nourished, no acute distress, non-toxic appearance. [] HENT: Normocephalic, atraumatic, bilateral external ears normal, oropharynx moist, no oral exudates, nose normal. [] Eyes: PERRLA, EOMI, conjunctiva normal, no discharge. [] Neck: Normal range of motion, no tenderness, supple, no stridor. [] Cardiovascular:Heart rate regular rhythm, no murmur [] Lungs & Thorax: Bilateral breath sounds clear to auscultation [] Abdomen: Bowel sounds normal, soft, no tenderness, no masses, no pulsatile masses. [] Skin: Covered with bedbugs rashes, bedbugs crawling on her body Back: No tenderness, no CVA tenderness. [] Extremities: No tenderness, no cyanosis, no clubbing, ROM intact, no edema. [] Neurologic: Alert and oriented X 3, normal motor function, normal sensory function, no focal deficits noted. Cranial nerves II through XII intact Psychologic: Flat affect Current Patient Data: Labs: Laboratory Tests Test 04/09/20 17:20 04/09/20 17:45 04/09/20 18:04 04/09/20 20:15 White Blood Count 9.0 x10^3/uL (4.0-11.0) Red Blood Count 3.84 x10^6/uL (3.50-5.40) Hemoglobin 9.3 g/dL (12.0-15.5) L Hematocrit 29.7 % (36.0-47.0) L Mean Corpuscular Volume 77 fL (79-100) L Mean Corpuscular Hemoglobin 24 pg (25-35) L Mean Corpuscular Hemoglobin Concent 31 g/dL (31-37) Red Cell Distribution Width 16.5 % (11.5-14.5) H Platelet Count 310 x10^3/uL (140-400) Neutrophils (%) (Auto) 79 % (31-73) H Lymphocytes (%) (Auto) 12 % (24-48) L Monocytes (%) (Auto) 6 % (0-9) Eosinophils (%) (Auto) 3 % (0-3) Basophils (%) (Auto) 0 % (0-3) Neutrophils # (Auto) 7.1 x10^3/uL (1.8-7.7) Lymphocytes # (Auto) 1.1 x10^3/uL (1.0-4.8) Monocytes # (Auto) 0.6 x10^3/uL (0.0-1.1) Eosinophils # (Auto) 0.3 x10^3/uL (0.0-0.7) Basophils # (Auto) 0.0 x10^3/uL (0.0-0.2) Sodium Level 144 mmol/L (136-145) Potassium Level 3.6 mmol/L (3.5-5.1) Chloride Level 105 mmol/L (98-107) Carbon Dioxide Level 25 mmol/L (21-32) Anion Gap 14 (6-14) Blood Urea Nitrogen 23 mg/dL (7-20) H Creatinine 1.3 mg/dL (0.6-1.0) H Estimated GFR (Cockcroft-Gault) 39.6 BUN/Creatinine Ratio 18 (6-20) Glucose Level 103 mg/dL (70-99) H Calcium Level 8.8 mg/dL (8.5-10.1) Total Bilirubin 0.5 mg/dL (0.2-1.0) Aspartate Amino Transferase (AST) 14 U/L (15-37) L Alanine Aminotransferase (ALT) 15 U/L (14-59) Alkaline Phosphatase 81 U/L (46-116) Troponin I Quantitative 0.366 ng/mL (0.000-0.055) 0.308 ng/mL (0.000-0.055) ZV-Sqs-U-Type Natriuretic Peptide 722 pg/mL (0-449) H Total Protein 6.7 g/dL (6.4-8.2) Albumin 3.6 g/dL (3.4-5.0) Albumin/Globulin Ratio 1.2 (1.0-1.7) Urine Opiates Screen Neg (NEG) Urine Methadone Screen Neg (NEG) Urine Barbiturates Neg (NEG) Urine Phencyclidine Screen Neg (NEG) Urine Amphetamine/Methamphetamine Neg (NEG) Urine Benzodiazepines Screen Neg (NEG) Urine Cocaine Screen Neg (NEG) Urine Cannabinoids Screen Neg (NEG) Urine Ethyl Alcohol Neg (NEG) Urine Collection Type Void Urine Color Yellow Urine Clarity Cloudy Urine pH 5.5 (<5.0-8.0) Urine Specific [place] 1.025 (1.000-1.030) Urine Protein Negative mg/dL (NEG-TRACE) Urine Glucose (UA) Negative mg/dL (NEG) Urine Ketones (Stick) Negative mg/dL (NEG) Urine Blood Negative (NEG) Urine Nitrite Negative (NEG) Urine Bilirubin Negative (NEG) Urine Urobilinogen Dipstick 0.2 mg/dL (0.2 mg/dL) Urine Leukocyte Esterase Small (NEG) Urine RBC 0 /HPF (0-2) Urine WBC 11-20 /HPF (0-4) Urine Squamous Epithelial Cells Many /LPF Urine Bacteria Many /HPF (0-FEW) Test 04/09/20 20:31 Ethyl Alcohol Level < 10 mg/dL (0-10) Laboratory Tests 04/09/20 17:20 Laboratory Tests 04/09/20 17:20 Vital Signs: Vital Signs Date Time Temp Pulse Resp B/P (MAP) Pulse Ox O2 Delivery O2 Flow Rate FiO2 04/09/20 18:19 76 21 146/63 (90) 97 Room Air 04/09/20 16:45 98.1 98.1 EKG: EKG: Interpreted by Dr. Najera [id number] sinus rhythm HR 77 no STEMI[] Radiology/Procedures: Radiology/Procedures: []PROCEDURE: HIP LEFT 2V WITH PELVIS XR BILATERAL HIP (WITH OR WITHOUT PELVIS) LEFT 2 VIEWS History: Reason: pain fall 15 / Spl. Instructions: / History: Comparison: CT abdomen and pelvis 04/09/2020. Technique: AP pelvis. Coned-down AP view right hip. Cone-down AP and frog-leg lateral views of the left hip. Findings: Right total hip arthroplasty and stable appearance without evidence for complication. Decreased osseous mineralization diffusely. There is no evidence for fracture. Alignment is normal. No destructive osseous lesions are seen. Moderate degenerative changes of the right hip with femoral acetabular joint s pace narrowing and marginal osteophytes.. Multilevel degenerative changes of the lower lumbar spine. Aortic calcifications. Calcified likely uterine fibroid in the pelvis. Impression: 1. Intact right total hip arthroplasty. 2. Degenerative changes of the left hip without acute osseous abnormality. Electronically signed by: Dimas Martinez MD (04/09/2020 5:21 PM) [facility] DICTATED and SIGNED BY: DIMAS MARTINEZ MD DATE: 04/09/20 [id number] 0 PROCEDURE: CT LUMBAR SPINE RECONSTRUCTION CT LUMBAR SPINE RECONSTRUCTION, CT ABDOMEN+PELVIS WO History: Fall, back pain. Comparison: Lumbar spine radiographs 05/24/2019, CT abdomen and pelvis 08/08/2018. Technique: Noncontrast CT of the abdomen and pelvis. Dedicated lumbar spine CT reformats. Findings: Bibasilar atelectasis/scarring and dependent changes. Heavy calcifications of the coronary arteries, mitral valve and aortic valve. No pleural or pericardial effusion. No free intra-abdominal air or free fluid. Unremarkable liver. Surgical clips at the gallbladder fossa. Unremarkable pancreas. Spleen demonstrates a few punctate calcifications consistent with old granulomatous disease adrenal glands are unremarkable. Normal right kidney. Severely atrophic left kidney with large calcified stone in the lower pole. Moderate hiatal hernia, increased from comparison, with gastric wall thickening. No evidence of small bowel obstruction. Descending and sigmoid: Diverticulosis without diverticulitis. Partially obscured under distended bladder is unremarkable. The uterus is surgically absent versus atrophic. Calcified fibroid versus vaginal cuff calcifications. Tortuous calcified aorta and iliac arteries without aneurysm. No abdominopelvic adenopathy. Diffusely decreased osseous mineralization. Right hip arthroplasty. There are new compression fractures of the T10 (10 percent anterior height loss and T11 (33 percent anterior height loss) vertebral bodies. Redemonstrated compression fractures of the L2 and L5 vertebral bodies. No significant retropulsion into the spinal canal. The posterior elements are intact. Small fat-containing umbilical hernia. Impression: 1. New T10 and T11 vertebral body compression fractures with 10 percent and 33 percent anterior height loss respectively. 2. Moderate hiatal hernia, increased from comparison with gastric wall thickening. Correlate for gastritis. 3. Descending and sigmoid diverticulosis without evidence for diverticulitis. ------ Exposure: One or more of the following individualized dose reduction techniques were utilized for this examination: 1. Automated exposure control 2. Adjustment of the mA and/or kV according to patient size 3. Use of iterative reconstruction technique. Electronically signed by: Dimas Martinez MD (04/09/2020 5:00 PM) [facility] DICTATED and SIGNED BY: DIMAS MARTINEZ MD DATE: 04/09/20 [id number] 0 PROCEDURE: CT HEAD AND CERVICAL SPINE WO CT HEAD AND C-SPINE WO History: Fall, pain. Comparison: MRI brain 06/09/2019, CT head 08/10/2018 Technique: Noncontrast CT of the head and cervical spine. Findings: CT HEAD: There is no evidence for intracranial mass or hemorrhage. There is no hydrocephalus or midline shift. No abnormal extra-axial fluid collections are present. Cervantes/white matter differentiation is preserved. Diffuse hypodensity of the periventricular white matter. The visualized paranasal sinuses and mastoid air cells are clear. The skull and scalp are within normal limits. Bilateral lens replacements. CT CERVICAL SPINE: Decreased osseous mineralization. There is no evidence for fracture in the cervical spine. Alignment is normal. Multilevel degenerative disc and facet disease. No destructive osseous lesions are seen. Coarse calcifications of the carotid bulbs. Impression: 1. No acute intracranial findings. 2. Degenerative changes without acute osseous abnormality of the cervical spine. ------- Exposure: One or more of the following individualized dose reduction techniques were utilized for this examination: 1. Automated exposure control 2. Adjustment of the mA and/or kV according to patient size 3. Use of iterative reconstruction technique. Electronically signed by: Dimas Martinez MD (04/09/2020 4:43 PM) [facility] DICTATED and SIGNED BY: DIMAS MARTINEZ MD DATE: 04/09/20 [id number] 0 Course & Med Decision Making: Course & Med Decision Making Pertinent Labs and Imaging studies reviewed. (See chart for details) This is a 79-year-old female patient presenting to the ED today from a local hotel where she resides with her after falling. Patient was noted to have bedbug infestation as well. She is complaining of left lower quadrant abdominal pain. CT of the head and cervical spine are negative for any acute findings. Left hip x-rays are negative for any acute findings, CT of the abdomen pelvis and lumbar spine CT noted for T10, T11 vertebral body compression fractures. UA noted for small amount of leukocytes though it appears contaminated this patient is not that alert and oriented, this could have a UTI. CBC with hemoglobin of 9.3 with hematocrit of 29.7, history of anemia. Troponin 0 0.366, no chest pain, EKG is negative. spoke with Dr. Aiken-he requested we leave this value alone Spoke with Dr. Akhtar who accepted patient for admission. He requested Rocephin IV fluids and consult to Dr. meera Lloyd Disclaimer: Gabino Disclaimer: This electronic medical record was generated, in whole or in part, using a voice recognition dictation system. Departure Departure Impression: Primary Impression: Fall Qualified Codes: W19.XXXA - Unspecified fall, initial encounter Additional Impressions: Bedbug bite with infection UTI (urinary tract infection) Qualified Codes: N39.0 - Urinary tract infection, site not specified Compression fracture of T10 vertebra Qualified Codes: S22.070A - Wedge compression fracture of t9-t10 vertebra, initial encounter for closed fracture T11 vertebral fracture Qualified Codes: S22.089A - Unspecified fracture of t11-T12 vertebra, initial encounter for closed fracture Disposition: 09 ADMITTED INPT THIS HOSP Condition: STABLE Referrals: CORNELIUS AKHTAR MD (PCP) TABATHA PORTILLO APRN Apr 09, 2020 22:47
[2020-04-09 23:05] VITALS: BP 155/75
--- NOTE | 2020-04-09 23:05 | NUR ---
The patient, DARYL MCKEON, 79 y/o, F admitted by CORNELIUS LÓPEZ MD, was given written information regarding hospital policies, unit procedures and contact persons. RN received report from Linda LAZO in the ED at 2234, patient was then transported from the ED to room 412 via gurney at 2305. RN performed a head to toe assessment at that time, VSS, afebrile, and no complaint of pain at that time. Bed is in the lowest locked position and the call light is within reach. Valuables were checked and left in the room with the patient. RN will continue to monitor the patient closely.
[2020-04-10 03:00] VITALS: BP 131/65
[2020-04-10 03:30] LABS: BASO % 1 % (0-3); EOS # 0.3 x10^3/uL (0.0-0.7); EOS % 5 % (0-3); HEMATOCRIT 27.6 % (36.0-47.0); HEMOGLOBIN 8.8 g/dL (12.0-15.5); LYMPH # 1.3 x10^3/uL (1.0-4.8); LYMPH % 22 % (24-48); MEAN CORPUSCULAR HEMOGLOBIN 24 pg (25-35); MEAN CORPUSCULAR HGB CONC 32 g/dL (31-37); MEAN CORPUSCULAR VOLUME 77 fL (79-100); MONO # 0.5 x10^3/uL (0.0-1.1); MONO % 8 % (0-9); NEUT # 3.9 x10^3/uL (1.8-7.7); NEUT % 64 % (31-73); PLATELET COUNT 276 x10^3/uL (140-400); RED BLOOD COUNT 3.61 x10^6/uL (3.50-5.40); RED CELL DISTRIBUTION WIDTH 16.4 % (11.5-14.5); WHITE BLOOD COUNT 6.1 x10^3/uL (4.0-11.0)
[2020-04-10 03:44] LABS: ALBUMIN 3.4 g/dL (3.4-5.0); ALBUMIN/GLOBULIN RATIO 1.3 (1.0-1.7); CALCIUM 8.4 mg/dL (8.5-10.1); GFR 53.6; POTASSIUM 3.4 mmol/L (3.5-5.1); TOTAL BILIRUBIN 0.4 mg/dL (0.2-1.0)
[2020-04-10 07:00] VITALS: BP 133/70
[2020-04-10 08:58] LABS: CHOLESTEROL/HDL RATIO 2.7
--- NOTE | 2020-04-10 08:58 | EKG ---
[facility] [address] [place] [address] Test Date: 2020-04-10 Test Time: 08:56:36 Pat Name: DARYL MCKEON Department: Room: [facility] Gender: F Space Controller: GLADIS : 1940 Requested By: MEL PERALTA Order Number: [id number] Reading MD: Measurements Intervals [place] Rate: 69 P: FL: QRS: 45 QRSD: 78 T: 69 QT: 398 QTc: 428 Interpretive Statements SINUS ARRHYTHMIA NO SPECIFIC ECG ABNORMALITIES RI6.02 Compared to ECG 04/09/2020 17:17:12 Sinus rhythm no longer present T-wave abnormality no longer present Possible ischemia no longer present
[2020-04-10] MEDS ORDERED: ACETAMINOPHEN 325 MG TABLET. PO PRN (09:15)
[2020-04-10] MEDS ORDERED: POTASSIUM CHLORIDE 20 MEQ in IV DEXTROSE 5 %-0.45 % NACL 1,000 ML IV SCH (09:15)
--- NOTE | 2020-04-10 10:18 | PDOC ---
Provider Note Date of Service: DATE: 04/10/20 TIME: 10:18 Provider Note H&P dictated #[id number] Justifications for Admission Other Justification CORNELIUS LÓPEZ MD Apr 10, 2020 10:18
--- NOTE | 2020-04-10 10:50 | HP ---
ADMIT DATE: 04/10/2020 HISTORY OF PRESENT ILLNESS: This 79-year-old female who lives with her in a motel because they had bed bug infestation at home, but also has the same issues in the motel room, has been gradually getting weaker. She fell at home and was brought to the Emergency Room. In the Emergency Room, the patient was noted to have left lower quadrant abdominal pain. She was noted to be confused and disheveled with poor hygiene and bed bugs. She was also noted to be dehydrated with a sodium of 144 and potassium 3.6 and today's sodium is 146 and potassium 3.4. Troponin level was elevated at 0.308 and 0.266 and actually the initial troponin was 0.366. BNP was 722. Sodium today is 146, BUN 23, creatinine 1.3. Urinalysis showed wbc's 11-20 and many bacteria. WBC count was [address] scan of head and neck showed cervical degenerative changes. CT scan of abdomen and pelvis showed T10 and T11 new vertebral body compression fractures with 10% and 33% anterior height loss respectively, also was noted to have moderate hiatal hernia with gastric wall thickening. X-rays of the hip and pelvis showed intact right total hip arthroplasty and degenerative changes of the left hip. Because of the fall, confusion and compression fractures as well as elevated troponin and UTI and dehydration, the patient was admitted for further evaluation and management. REVIEW OF SYSTEMS: The patient is slow this morning, but is appropriate and denies any pain or dyspnea. She is very weak. She denies any chest pains, palpitations, dyspnea, dizziness or abdominal pain. She denies any leg pain. She is not a good historian. Other systems reviewed and are negative. 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 The patient has had pneumonia in 05/2017, 06/2013 as well as 01/2017, also has history of tremors, urethral stenosis, cognitive deficits, frequent falls, recurrent UTI, bed bug infestation at home as well as in the motel. PAST SURGICAL HISTORY: Has urethral stenosis, has had GI workup, right total hip arthroplasty. FAMILY HISTORY: Father of heart disease. SOCIAL HISTORY: No history of smoking, alcoholism or drug abuse. The patient is currently living in a motel with her . ALLERGIES: THE PATIENT IS ALLERGIC TO SULFA AND TRIMETHOPRIM. MEDICATIONS: Reviewed and partly reconciled. We will need more information from as to what medication she is actually taking. PHYSICAL EXAMINATION: GENERAL: The patient is an elderly female who is alert, very weak, chronically ill and not in acute distress. VITAL SIGNS: Temperature 98.5, pulse 76 per minute, respirations 21 per minute, blood pressure 146/63 mmHg. The patient is responding appropriately, but she is a poor historian and has some chronic cognitive deficits. EYES: Pupils reacting to light. Conjunctivae pale. Sclerae muddy. HENT: Unremarkable. SKIN: Warm and dry. There is no cyanosis. NECK: Supple. JVP normal. No thyromegaly. Trachea midline. LUNGS: Decreased breath sounds at bases. CARDIOVASCULAR: S1, S2 regular. ABDOMEN: Soft, nontender, no guarding, no rigidity. Bowel sounds present. EXTREMITIES: No edema, no cyanosis, no calf tenderness. CENTRAL NERVOUS SYSTEM: Generalized weakness. No significant tenderness of the thoracic spine in the area of compression fractures. Range of motion is decreased. She moves extremities. LABORATORY FINDINGS: As noted earlier. IMPRESSION: 1. Non-ST elevation myocardial infarction, maybe type 2 due to demand ischemia. 2. Urinary tract infection. 3. Dehydration. 4. Acute metabolic encephalopathy. 5. Compression fractures of thoracic vertebra. 6. Physical deconditioning. 7. Dementia, on memantine. 8. Bed bug infestation. 9. Hypertension. 10. Gastroesophageal reflux disease. 11. Hiatal hernia. 12. 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 13. History of hypothyroidism. 14. Hyperlipidemia. 15. Bipolar affective disorder, in remission. 16. Seizure disorder. 17. Gastritis. 18. Diverticulosis. 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 PLAN: 1. Dehydration. Start IV fluids. 2. Hypokalemia. Replace potassium. 3. Acute metabolic encephalopathy. Continue to correct infection and electrolyte imbalance. 4. Urinary tract infection. Start IV Rocephin. 5. Non-ST elevation [place]. Consult Dr. Aiken for cardiology evaluation and management. 6. Compression fractures, recurrent falls and weakness. Order PT, OT. Fall precautions. Consult Dr. Nicole for rehab evaluation and management. For details, please refer to the orders. The patient may require a long-term correction placement, which she has declined in the past. Prognosis of this patient is very poor due to her multiple medical problems. For details, please refer to the orders. CORNELIUS LÓPEZ MD DR: PEDRITO/ben JOB#: [id number] / [id number]
[2020-04-10 11:00] VITALS: BP 111/67
--- NOTE | 2020-04-10 11:05 | CONS ---
DATE OF CONSULTATION: 04/10/2020 ATTENDING PHYSICIAN: Nadia Akhtar MD REASON FOR CONSULTATION: The patient was seen at the request of Dr. Akhtar for rehab evaluation. HISTORY OF PRESENT ILLNESS: This is a 79-year-old female known to me in the past. The patient with known gouty arthritis, diverticulosis, hypercholesterolemia, hypertension, transient ischemic attack in the past, cholecystectomy, status post right hip and right knee replacement, tonsillectomy. The patient was admitted with abdominal pain after she fell last night and EMS found her and her with bedbug infestation. She complained of left lower quadrant pain. The patient had radiological studies, which revealed new T10 and T11 vertebral body compression fracture with 10% and 30% respectively of anterior height loss, moderate hiatal hernia increased from comparison with gastric wall thickening, descending and sigmoid colon diverticulosis without evidence of diverticulitis. CT scan of the brain failed to reveal any acute abnormalities except diffuse hypodensity of the periventricular white matter. CT of the cervical spine revealed decreased osseous mineralization without any fractures, but multilevel degenerative disk disease in the past, had degenerative joint disease noted and lumbar spine CT scan revealed the above compression fractures and also multilevel degenerative disk disease and degenerative joint disease of lumbar vertebrae with probable old L2-L5 vertebral body compression fractures. X-rays of the pelvis and hip revealed intact right total hip arthroplasty and degenerative changes in her left hip. PHYSICAL EXAMINATION: On physical examination today revealed an elderly, thin built female. She is somewhat lethargic, but can be awakened. She moves all 4 extremities voluntarily where she had 4+/5 grade muscle strength. She had hand and foot intrinsic muscle atrophy. Deep tendon reflexes are 1-2+ and symmetrical with absent ankle jerks. She had crepitus on range of motion of left knee joint with associated Quiroz cyst. She had tenderness to palpation over lumbar paraspinal muscles. Straight leg raising test is negative bilaterally. No significant pain on range of motion of her hip joints. She required some help with bed mobility. I have not tested her transfers or ambulation skills at this time. Her skin is intact at this time. ASSESSMENT: Elderly female with recent fall with T11-T10 vertebral body compression fracture and lumbar sprain, superimposed on degenerative disk disease and degenerative joint disease of lumbar vertebrae. No clinical evidence of ongoing lumbar radiculopathy. The patient presents with peripheral neuropathy, also degenerative joint disease of her left hip and left knee without any significant pain and degenerative disk disease and degenerative joint disease of cervical vertebrae without any clinical evidence of cervical spinal stenosis. Recommendation to try physical modalities to get her up as tolerated, to try lumbar corset if back pain is bothering her, to also consider T11 kyphoplasty if the back pain is interfering with her mobility; at this time, it does not seem to be. Dr. Akhtar, I appreciate asking me to participate in the care of this interesting patient. I will be glad to see her for followup with you on an as-needed basis. RAHEEM LOAIZA MD DR: JEM/ben JOB#: [id number] / [id number]
--- NOTE | 2020-04-10 11:08 | PDOC2 ---
MEL PERALTA SENIOR WAREHOUSE CLERK 04/10/20 1108: CARDIAC CONSULT DATE OF CONSULT Date of Consult DATE: 04/10/20 TIME: 10:41 REASON FOR CONSULT Reason for Consult: Elevated troponin REFERRING PHYSICIAN Referring Physician: Hermilo SOURCE Source: Chart review, Patient HISTORY OF PRESENT ILLNESS HISTORY OF PRESENT ILLNESS This is a pleasant 79 yo female admitted for complains of fall and and abdominal pain. Also reside in a hotel and noted with bed bug infestation per EMS. Complains of left subcostal sharp pain mostly with palpation. Denies any chest pain, SOA. Reports no dizziness, palpitations. Reports that she fell without loss of consciousness but mainly due to her knees buckling. No fever or chills. No n/v/d. She has been living with her in [facility] for about 1 yr now. No Prior outpt cardiac follow up. No prior ischemic workup. No hx of CAD, VTE or arrhythmias, PAST MEDICAL HISTORY Cardiovascular: HTN, Hyperlipidemia, Other (carotid artery disease) Pulmonary: Pneumonia CENTRAL NERVOUS SYSTEM: Dementia, Seizure GI: Diverticulosis, GERD, Other (barrets) Heme/Onc: Anemia NOS Hepatobiliary: Cholelithiasis Psych: Bipolar Musculoskeletal: Osteoarthritis, Other (frequent falls) Rheumatologic: No pertinent hx Infectious disease: No pertinent hx ENT: No pertinent hx Renal/: Chronic renal insuff (CKD3), UTI, Other (ureteralithiasis) Endocrine: Hypothyroidism, Osteopenia Dermatology: No pertinent hx PAST SURGICAL HISTORY Past Surgical History: Cholecystectomy, Total hip replacement, Total knee replacement, Tonsillectomy, No pertinent history FAMILY HISTORY Family History: Coronary Artery Disease SOCIAL HISTORY Smoke: No ALCOHOL: none Drugs: None Lives: with Family CURRENT MEDICATIONS CURRENT MEDICATIONS Current Medications Medications (Trade) Dose Ordered Sig/Jaylin Route PRN Reason Start Time Stop Time Status Last Admin Dose Admin Haloperidol Lactate (Haldol Inj) 5 mg 1X ONCE IVP 04/09/20 20:00 04/09/20 20:01 DC 04/09/20 20:14 Ceftriaxone Sodium (Rocephin) 1 gm 1X ONCE IVP 04/09/20 22:00 04/09/20 22:01 DC 04/09/20 21:57 Sodium Chloride 1,000 ml @ 125 mls/hr 1X ONCE IV 04/09/20 22:00 04/10/20 05:59 DC 04/09/20 21:57 ALLERGIES ALLERGIES: Coded Allergies: Sulfa (Sulfonamide Antibiotics) (Verified Allergy, Intermediate, hives, 01/16/18) sulfamethoxazole (Verified Allergy, Intermediate, mouth sores, 01/16/18) trimethoprim (Verified Allergy, Intermediate, mouth sores, 01/16/18) ROS Review of System 14 point ROS evaluated with pertinent positives noted per HPI PHYSICAL EXAM General: Alert, Oriented X3, Cooperative, No acute distress HEENT: Atraumatic, Mucous membr. moist/pink Lungs: Clear to auscultation, Normal air movement Heart: Regular rate (SR), Normal S1, Normal S2, No murmurs Abdomen: Soft, No tenderness Extremities: No cyanosis, No edema, Other ([place] scatterred appears to be bug bites) Skin: No breakdown, No significant lesion Neuro: Normal speech, Sensation intact Psych/Mental Status: Mental status NL, Mood NL MUSCULOSKELETAL: Osteoarthritic changes both hands VITALS/I&O VITALS/I&O: Vital Signs Date Time Temp Pulse Resp B/P (MAP) Pulse Ox O2 Delivery O2 Flow Rate FiO2 04/10/20 07:00 98.3 64 16 133/70 (91) 95 Room Air 98.3 I & O 04/09/20 04/09/20 04/10/20 15:00 23:00 07:00 Intake Total 0 ml Output Total 300 ml Balance -300 ml LABS Lab: Laboratory Tests Test 04/09/20 17:20 04/09/20 17:45 04/09/20 18:04 04/09/20 20:15 White Blood Count 9.0 x10^3/uL (4.0-11.0) Red Blood Count 3.84 x10^6/uL (3.50-5.40) Hemoglobin 9.3 g/dL (12.0-15.5) L Hematocrit 29.7 % (36.0-47.0) L Mean Corpuscular Volume 77 fL (79-100) L Mean Corpuscular Hemoglobin 24 pg (25-35) L Mean Corpuscular Hemoglobin Concent 31 g/dL (31-37) Red Cell Distribution Width 16.5 % (11.5-14.5) H Platelet Count 310 x10^3/uL (140-400) Neutrophils (%) (Auto) 79 % (31-73) H Lymphocytes (%) (Auto) 12 % (24-48) L Monocytes (%) (Auto) 6 % (0-9) Eosinophils (%) (Auto) 3 % (0-3) Basophils (%) (Auto) 0 % (0-3) Neutrophils # (Auto) 7.1 x10^3/uL (1.8-7.7) Lymphocytes # (Auto) 1.1 x10^3/uL (1.0-4.8) Monocytes # (Auto) 0.6 x10^3/uL (0.0-1.1) Eosinophils # (Auto) 0.3 x10^3/uL (0.0-0.7) Basophils # (Auto) 0.0 x10^3/uL (0.0-0.2) Sodium Level 144 mmol/L (136-145) Potassium Level 3.6 mmol/L (3.5-5.1) Chloride Level 105 mmol/L (98-107) Carbon Dioxide Level 25 mmol/L (21-32) Anion Gap 14 (6-14) Blood Urea Nitrogen 23 mg/dL (7-20) H Creatinine 1.3 mg/dL (0.6-1.0) H Estimated GFR (Cockcroft-Gault) 39.6 BUN/Creatinine Ratio 18 (6-20) Glucose Level 103 mg/dL (70-99) H Calcium Level 8.8 mg/dL (8.5-10.1) Total Bilirubin 0.5 mg/dL (0.2-1.0) Aspartate Amino Transferase (AST) 14 U/L (15-37) L Alanine Aminotransferase (ALT) 15 U/L (14-59) Alkaline Phosphatase 81 U/L (46-116) Troponin I Quantitative 0.366 ng/mL (0.000-0.055) 0.308 ng/mL (0.000-0.055) LW-Xbo-X-Type Natriuretic Peptide 722 pg/mL (0-449) H Total Protein 6.7 g/dL (6.4-8.2) Albumin 3.6 g/dL (3.4-5.0) Albumin/Globulin Ratio 1.2 (1.0-1.7) Urine Opiates Screen Neg (NEG) Urine Methadone Screen Neg (NEG) Urine Barbiturates Neg (NEG) Urine Phencyclidine Screen Neg (NEG) Urine Amphetamine/Methamphetamine Neg (NEG) Urine Benzodiazepines Screen Neg (NEG) Urine Cocaine Screen Neg (NEG) Urine Cannabinoids Screen Neg (NEG) Urine Ethyl Alcohol Neg (NEG) Urine Collection Type Void Urine Color Yellow Urine Clarity Cloudy Urine pH 5.5 (<5.0-8.0) Urine Specific [place] 1.025 (1.000-1.030) Urine Protein Negative mg/dL (NEG-TRACE) Urine Glucose (UA) Negative mg/dL (NEG) Urine Ketones (Stick) Negative mg/dL (NEG) Urine Blood Negative (NEG) Urine Nitrite Negative (NEG) Urine Bilirubin Negative (NEG) Urine Urobilinogen Dipstick 0.2 mg/dL (0.2 mg/dL) Urine Leukocyte Esterase Small (NEG) Urine RBC 0 /HPF (0-2) Urine WBC 11-20 /HPF (0-4) Urine Squamous Epithelial Cells Many /LPF Urine Bacteria Many /HPF (0-FEW) Test 04/09/20 20:31 04/10/20 01:45 Ethyl Alcohol Level < 10 mg/dL (0-10) White Blood Count 6.1 x10^3/uL (4.0-11.0) Red Blood Count 3.61 x10^6/uL (3.50-5.40) Hemoglobin 8.8 g/dL (12.0-15.5) L Hematocrit 27.6 % (36.0-47.0) L Mean Corpuscular Volume 77 fL (79-100) L Mean Corpuscular Hemoglobin 24 pg (25-35) L Mean Corpuscular Hemoglobin Concent 32 g/dL (31-37) Red Cell Distribution Width 16.4 % (11.5-14.5) H Platelet Count 276 x10^3/uL (140-400) Neutrophils (%) (Auto) 64 % (31-73) Lymphocytes (%) (Auto) 22 % (24-48) L Monocytes (%) (Auto) 8 % (0-9) Eosinophils (%) (Auto) 5 % (0-3) H Basophils (%) (Auto) 1 % (0-3) Neutrophils # (Auto) 3.9 x10^3/uL (1.8-7.7) Lymphocytes # (Auto) 1.3 x10^3/uL (1.0-4.8) Monocytes # (Auto) 0.5 x10^3/uL (0.0-1.1) Eosinophils # (Auto) 0.3 x10^3/uL (0.0-0.7) Basophils # (Auto) 0.0 x10^3/uL (0.0-0.2) Sodium Level 146 mmol/L (136-145) H Potassium Level 3.4 mmol/L (3.5-5.1) L Chloride Level 107 mmol/L (98-107) Carbon Dioxide Level 26 mmol/L (21-32) Anion Gap 13 (6-14) Blood Urea Nitrogen 19 mg/dL (7-20) Creatinine 1.0 mg/dL (0.6-1.0) Estimated GFR (Cockcroft-Gault) 53.6 BUN/Creatinine Ratio 19 (6-20) Glucose Level 84 mg/dL (70-99) Calcium Level 8.4 mg/dL (8.5-10.1) L Total Bilirubin 0.4 mg/dL (0.2-1.0) Aspartate Amino Transferase (AST) 12 U/L (15-37) L Alanine Aminotransferase (ALT) 13 U/L (14-59) L Alkaline Phosphatase 74 U/L (46-116) Creatine Kinase 40 U/L (26-192) Troponin I Quantitative 0.266 ng/mL (0.000-0.055) Total Protein 6.0 g/dL (6.4-8.2) L Albumin 3.4 g/dL (3.4-5.0) Albumin/Globulin Ratio 1.3 (1.0-1.7) Triglycerides Level 104 mg/dL (0-150) Cholesterol Level 123 mg/dL (0-200) LDL Cholesterol, Calculated 57 mg/dL (0-100) VLDL Cholesterol, Calculated 21 mg/dL (0-40) Non-HDL Cholesterol Calculated 78 mg/dL (0-129) HDL Cholesterol 45 mg/dL (40-60) Cholesterol/HDL Ratio 2.7 Thyroid Stimulating Hormone (TSH) 2.215 uIU/mL (0.358-3.74) Laboratory Tests 04/09/20 17:20 2 01:45 Laboratory Tests 04/09/20 17:20 04/10/20 01:45 ECHOCARDIOGRAM ECHOCARDIOGRAM <Conclusion> The left ventricular systolic function is near normal. EF 50% There is mild global hypokinesis. Doppler and Color Flow revealed mild aortic regurgitation. DATE: 06/10/19 1305 ASSESSMENT/PLAN ASSESSMENT/PLAN 1. Traumatic fall with T10-T11 compression fractures. Not associated wtih presyncope/syncope 2. Hx of multiple falls 3. Reported bed bug infestation 4. NSTEMI: Subtle changes to inferior leads. Peaked at 0.3 with associated MONTSE and fall with injury. No cardiac symptoms. suspect demand mediated 5. GERD exacerbation with noted gastritis per CT 6. HTN urgency: better 7. HLP 8. Dementia 9. Abdominal pain: repeatedly denied chest pain 10. Asymptomatic SB: denies syncope nor frequent dizziness 11. Hx of carotid artery disease Recommendations 1. Will obtain TTE. Will likely need at least MPI as an inpt. High risk for failed f/u 2. ASA. Continue home norvasc and statin. PPI 3. Consider for MCOT 4. Obtain TSH, lipids. 5. Monitor rhythm, supportive care No AV maximo blocking agents. JANETTE ANTONIO MD 04/10/201908: CARDIAC CONSULT ASSESSMENT/PLAN ASSESSMENT/PLAN Patient seen and examined. Agree with SAP BASIS's assessment and plan. Traumatic fall without any LOC Slight trop elevation prob demand ischemia BP better controlled since admission Check echo to assess LVF and rule out WMA Plan outpatient MPI and event monitor recording Thank you for your consultation MEL PERALTA APRN Apr 10, 2020 11:08 JANETTE ANTONIO MD Apr 10, 2020 19:09
[2020-04-10] MEDS: ASPIRIN CHEWABLE 81 MG TABLET. PO SCH (14:14)
[2020-04-10] MEDS: MAGNESIUM OXIDE 400 MG TABLET PO SCH (14:15)
[2020-04-10] MEDS: COLESTIPOL HCL 1 GM TABLET PO SCH ×2 (14:16→20:55)
[2020-04-10] MEDS: MONTELUKAST SODIUM 10 MG TABLET. PO SCH (14:16)
[2020-04-10] MEDS: PANTOPRAZOLE 40 MG TABLET.DR. PO SCH ×2 (14:16→20:55)
[2020-04-10] MEDS: VITAMIN B COMPLEX TABLET. PO SCH (14:16)
[2020-04-10] MEDS: GABAPENTIN 100 MG CAPSULE. PO SCH ×2 (14:16→20:55)
[2020-04-10] MEDS: MEMANTINE 10 MG TABLET. PO SCH ×2 (14:17→21:00)
[2020-04-10] MEDS: LACTOBACILLUS RHAMNOSUS GG 1 CAPSULE. PO SCH ×2 (14:17→20:55)
[2020-04-10] MEDS: HEPARIN for SUB-Q USE 5,000 UNIT/ML VIAL. SQ SCH ×2 (14:18→21:01)
[2020-04-10] MEDS: CYANOCOBALAMIN (VITAMIN B-12) 1,000 MCG TABLET. PO SCH (14:19)
[2020-04-10 15:00] VITALS: BP 122/62
--- NOTE | 2020-04-10 17:06 | NUR ---
rapid covid sent to lab at [id number]. for rapid test and pcr test Addendum: 04/10/20 at 1707 by ANA PEREZ RN wrong patient enetered. covid swab not done on the pt this shift
[2020-04-10] MEDS: cefTRIAXone IV Push 1 GM VIAL. IVP SCH (17:09)
[2020-04-10 19:47] VITALS: BP 134/74
[2020-04-10] MEDS: ATORVASTATIN CALCIUM 10 MG TABLET. PO SCH (20:55)
[2020-04-10 22:00] VITALS: BP 110/56
[2020-04-11 03:54] VITALS: BP 129/68
[2020-04-11] MEDS: POTASSIUM CL 20MEQ D5-0.45NACL 1,000 ML IV SCH ×2 (04:18→17:35)
[2020-04-11 07:16] LABS: BASO # 0.1 x10^3/uL (0.0-0.2); BASO % 1 % (0-3); EOS # 0.4 x10^3/uL (0.0-0.7); EOS % 7 % (0-3); HEMATOCRIT 23.6 % (36.0-47.0); HEMOGLOBIN 7.4 g/dL (12.0-15.5); LYMPH # 1.5 x10^3/uL (1.0-4.8); LYMPH % 26 % (24-48); MEAN CORPUSCULAR HEMOGLOBIN 24 pg (25-35); MEAN CORPUSCULAR HGB CONC 31 g/dL (31-37); MEAN CORPUSCULAR VOLUME 77 fL (79-100); MONO # 0.5 x10^3/uL (0.0-1.1); MONO % 10 % (0-9); NEUT # 3.2 x10^3/uL (1.8-7.7); NEUT % 56 % (31-73); PLATELET COUNT 240 x10^3/uL (140-400); RED BLOOD COUNT 3.07 x10^6/uL (3.50-5.40); RED CELL DISTRIBUTION WIDTH 16.4 % (11.5-14.5); WHITE BLOOD COUNT 5.7 x10^3/uL (4.0-11.0)
[2020-04-11 07:29] VITALS: BP 133/54
[2020-04-11 07:38] LABS: ALBUMIN 2.6 g/dL (3.4-5.0); CREATININE 1.2 mg/dL (0.6-1.0); GFR 43.4; TOTAL BILIRUBIN 0.4 mg/dL (0.2-1.0); TOTAL PROTEIN 5.1 g/dL (6.4-8.2)
[2020-04-11] MEDS: MEMANTINE 10 MG TABLET. PO SCH ×2 (10:14→21:34)
[2020-04-11] MEDS: ASPIRIN CHEWABLE 81 MG TABLET. PO SCH (10:15)
[2020-04-11] MEDS: COLESTIPOL HCL 1 GM TABLET PO SCH ×2 (10:15→21:33)
[2020-04-11] MEDS: VITAMIN B COMPLEX TABLET. PO SCH (10:15)
[2020-04-11] MEDS: MAGNESIUM OXIDE 400 MG TABLET PO SCH (10:15)
[2020-04-11] MEDS: GABAPENTIN 100 MG CAPSULE. PO SCH ×3 (10:15→21:34)
[2020-04-11] MEDS: MONTELUKAST SODIUM 10 MG TABLET. PO SCH (10:15)
[2020-04-11] MEDS: CYANOCOBALAMIN (VITAMIN B-12) 1,000 MCG TABLET. PO SCH (10:15)
[2020-04-11] MEDS: LACTOBACILLUS RHAMNOSUS GG 1 CAPSULE. PO SCH ×2 (10:15→21:33)
[2020-04-11] MEDS: PANTOPRAZOLE 40 MG TABLET.DR. PO SCH ×2 (10:15→21:34)
[2020-04-11] MEDS: HEPARIN for SUB-Q USE 5,000 UNIT/ML VIAL. SQ SCH ×2 (10:16→21:39)
[2020-04-11 10:29] VITALS: BP 139/58
--- NOTE | 2020-04-11 11:08 | PDOC ---
PROGRESS NOTES Date of Service DATE: 04/11/20 TIME: 11:06 Subjective Subjective She denies any pain. Objective Objective Vital Signs Date Time Temp Pulse Resp B/P (MAP) Pulse Ox O2 Delivery O2 Flow Rate FiO2 04/11/20 10:29 98.4 57 16 139/58 (85) 95 Room Air 98.4 Intake and Output 04/11/20 07:00 Intake Total 150 ml Balance 150 ml Intake Oral 150 ml # Voids 2 Physical Exam Physical Exam She is supine in bed and seems to be in no acute distress and she moves all 4 extremities by herself and she got up with physical therapy and refused to try abdominal binder. Assessment Assessment Problems Medical Problems: (1) Bedbug bite with infection Status: Acute (2) Compression fracture of T10 vertebra Status: Acute (3) Fall Status: Acute (4) T11 vertebral fracture Status: Acute (5) UTI (urinary tract infection) Status: Acute Plan Plan of Care To get her up as tolerated and to SNF when medically stable. Comment Review of Relevant I have reviewed the following items ellyn (where applicable) has been applied. Labs Laboratory Tests Test 04/09/20 17:20 04/09/20 17:45 04/09/20 18:04 04/09/20 20:15 White Blood Count 9.0 x10^3/uL (4.0-11.0) Red Blood Count 3.84 x10^6/uL (3.50-5.40) Hemoglobin 9.3 g/dL (12.0-15.5) Hematocrit 29.7 % (36.0-47.0) Mean Corpuscular Volume 77 fL (79-100) Mean Corpuscular Hemoglobin 24 pg (25-35) Mean Corpuscular Hemoglobin Concent 31 g/dL (31-37) Red Cell Distribution Width 16.5 % (11.5-14.5) Platelet Count 310 x10^3/uL (140-400) Neutrophils (%) (Auto) 79 % (31-73) Lymphocytes (%) (Auto) 12 % (24-48) Monocytes (%) (Auto) 6 % (0-9) Eosinophils (%) (Auto) 3 % (0-3) Basophils (%) (Auto) 0 % (0-3) Neutrophils # (Auto) 7.1 x10^3/uL (1.8-7.7) Lymphocytes # (Auto) 1.1 x10^3/uL (1.0-4.8) Monocytes # (Auto) 0.6 x10^3/uL (0.0-1.1) Eosinophils # (Auto) 0.3 x10^3/uL (0.0-0.7) Basophils # (Auto) 0.0 x10^3/uL (0.0-0.2) Sodium Level 144 mmol/L (136-145) Potassium Level 3.6 mmol/L (3.5-5.1) Chloride Level 105 mmol/L (98-107) Carbon Dioxide Level 25 mmol/L (21-32) Anion Gap 14 (6-14) Blood Urea Nitrogen 23 mg/dL (7-20) Creatinine 1.3 mg/dL (0.6-1.0) Estimated GFR (Cockcroft-Gault) 39.6 BUN/Creatinine Ratio 18 (6-20) Glucose Level 103 mg/dL (70-99) Calcium Level 8.8 mg/dL (8.5-10.1) Total Bilirubin 0.5 mg/dL (0.2-1.0) Aspartate Amino Transf (AST/SGOT) 14 U/L (15-37) Alanine Aminotransferase (ALT/SGPT) 15 U/L (14-59) Alkaline Phosphatase 81 U/L (46-116) Troponin I Quantitative 0.366 ng/mL (0.000-0.055) 0.308 ng/mL (0.000-0.055) WT-Xsy-B-Type Natriuretic Peptide 722 pg/mL (0-449) Total Protein 6.7 g/dL (6.4-8.2) Albumin 3.6 g/dL (3.4-5.0) Albumin/Globulin Ratio 1.2 (1.0-1.7) Urine Opiates Screen Neg (NEG) Urine Methadone Screen Neg (NEG) Urine Barbiturates Neg (NEG) Urine Phencyclidine Screen Neg (NEG) Urine Amphetamine/Methamphetamine Neg (NEG) Urine Benzodiazepines Screen Neg (NEG) Urine Cocaine Screen Neg (NEG) Urine Cannabinoids Screen Neg (NEG) Urine Ethyl Alcohol Neg (NEG) Urine Collection Type Void Urine Color Yellow Urine Clarity Cloudy Urine pH 5.5 (<5.0-8.0) Urine Specific [place] 1.025 (1.000-1.030) Urine Protein Negative mg/dL (NEG-TRACE) Urine Glucose (UA) Negative mg/dL (NEG) Urine Ketones (Stick) Negative mg/dL (NEG) Urine Blood Negative (NEG) Urine Nitrite Negative (NEG) Urine Bilirubin Negative (NEG) Urine Urobilinogen Dipstick 0.2 mg/dL (0.2 mg/dL) Urine Leukocyte Esterase Small (NEG) Urine RBC 0 /HPF (0-2) Urine WBC 11-20 /HPF (0-4) Urine Squamous Epithelial Cells Many /LPF Urine Bacteria Many /HPF (0-FEW) Test 04/09/20 20:31 04/10/20 01:45 04/11/20 07:00 Ethyl Alcohol Level < 10 mg/dL (0-10) White Blood Count 6.1 x10^3/uL (4.0-11.0) 5.7 x10^3/uL (4.0-11.0) Red Blood Count 3.61 x10^6/uL (3.50-5.40) 3.07 x10^6/uL (3.50-5.40) Hemoglobin 8.8 g/dL (12.0-15.5) 7.4 g/dL (12.0-15.5) Hematocrit 27.6 % (36.0-47.0) 23.6 % (36.0-47.0) Mean Corpuscular Volume 77 fL (79-100) 77 fL (79-100) Mean Corpuscular Hemoglobin 24 pg (25-35) 24 pg (25-35) Mean Corpuscular Hemoglobin Concent 32 g/dL (31-37) 31 g/dL (31-37) Red Cell Distribution Width 16.4 % (11.5-14.5) 16.4 % (11.5-14.5) Platelet Count 276 x10^3/uL (140-400) 240 x10^3/uL (140-400) Neutrophils (%) (Auto) 64 % (31-73) 56 % (31-73) Lymphocytes (%) (Auto) 22 % (24-48) 26 % (24-48) Monocytes (%) (Auto) 8 % (0-9) 10 % (0-9) Eosinophils (%) (Auto) 5 % (0-3) 7 % (0-3) Basophils (%) (Auto) 1 % (0-3) 1 % (0-3) Neutrophils # (Auto) 3.9 x10^3/uL (1.8-7.7) 3.2 x10^3/uL (1.8-7.7) Lymphocytes # (Auto) 1.3 x10^3/uL (1.0-4.8) 1.5 x10^3/uL (1.0-4.8) Monocytes # (Auto) 0.5 x10^3/uL (0.0-1.1) 0.5 x10^3/uL (0.0-1.1) Eosinophils # (Auto) 0.3 x10^3/uL (0.0-0.7) 0.4 x10^3/uL (0.0-0.7) Basophils # (Auto) 0.0 x10^3/uL (0.0-0.2) 0.1 x10^3/uL (0.0-0.2) Sodium Level 146 mmol/L (136-145) 141 mmol/L (136-145) Potassium Level 3.4 mmol/L (3.5-5.1) 4.0 mmol/L (3.5-5.1) Chloride Level 107 mmol/L (98-107) 108 mmol/L (98-107) Carbon Dioxide Level 26 mmol/L (21-32) 25 mmol/L (21-32) Anion Gap 13 (6-14) 8 (6-14) Blood Urea Nitrogen 19 mg/dL (7-20) 19 mg/dL (7-20) Creatinine 1.0 mg/dL (0.6-1.0) 1.2 mg/dL (0.6-1.0) Estimated GFR (Cockcroft-Gault) 53.6 43.4 BUN/Creatinine Ratio 19 (6-20) 16 (6-20) Glucose Level 84 mg/dL (70-99) 185 mg/dL (70-99) Calcium Level 8.4 mg/dL (8.5-10.1) 8.0 mg/dL (8.5-10.1) Total Bilirubin 0.4 mg/dL (0.2-1.0) 0.4 mg/dL (0.2-1.0) Aspartate Amino Transf (AST/SGOT) 12 U/L (15-37) 10 U/L (15-37) Alanine Aminotransferase (ALT/SGPT) 13 U/L (14-59) 12 U/L (14-59) Alkaline Phosphatase 74 U/L (46-116) 62 U/L (46-116) Creatine Kinase 40 U/L (26-192) Troponin I Quantitative 0.266 ng/mL (0.000-0.055) Total Protein 6.0 g/dL (6.4-8.2) 5.1 g/dL (6.4-8.2) Albumin 3.4 g/dL (3.4-5.0) 2.6 g/dL (3.4-5.0) Albumin/Globulin Ratio 1.3 (1.0-1.7) 1.0 (1.0-1.7) Triglycerides Level 104 mg/dL (0-150) Cholesterol Level 123 mg/dL (0-200) LDL Cholesterol, Calculated 57 mg/dL (0-100) VLDL Cholesterol, Calculated 21 mg/dL (0-40) Non-HDL Cholesterol Calculated 78 mg/dL (0-129) HDL Cholesterol 45 mg/dL (40-60) Cholesterol/HDL Ratio 2.7 Thyroid Stimulating Hormone (TSH) 2.215 uIU/mL (0.358-3.74) Laboratory Tests Test 04/11/20 07:00 White Blood Count 5.7 x10^3/uL (4.0-11.0) Red Blood Count 3.07 x10^6/uL (3.50-5.40) Hemoglobin 7.4 g/dL (12.0-15.5) Hematocrit 23.6 % (36.0-47.0) Mean Corpuscular Volume 77 fL (79-100) Mean Corpuscular Hemoglobin 24 pg (25-35) Mean Corpuscular Hemoglobin Concent 31 g/dL (31-37) Red Cell Distribution Width 16.4 % (11.5-14.5) Platelet Count 240 x10^3/uL (140-400) Neutrophils (%) (Auto) 56 % (31-73) Lymphocytes (%) (Auto) 26 % (24-48) Monocytes (%) (Auto) 10 % (0-9) Eosinophils (%) (Auto) 7 % (0-3) Basophils (%) (Auto) 1 % (0-3) Neutrophils # (Auto) 3.2 x10^3/uL (1.8-7.7) Lymphocytes # (Auto) 1.5 x10^3/uL (1.0-4.8) Monocytes # (Auto) 0.5 x10^3/uL (0.0-1.1) Eosinophils # (Auto) 0.4 x10^3/uL (0.0-0.7) Basophils # (Auto) 0.1 x10^3/uL (0.0-0.2) Sodium Level 141 mmol/L (136-145) Potassium Level 4.0 mmol/L (3.5-5.1) Chloride Level 108 mmol/L (98-107) Carbon Dioxide Level 25 mmol/L (21-32) Anion Gap 8 (6-14) Blood Urea Nitrogen 19 mg/dL (7-20) Creatinine 1.2 mg/dL (0.6-1.0) Estimated GFR (Cockcroft-Gault) 43.4 BUN/Creatinine Ratio 16 (6-20) Glucose Level 185 mg/dL (70-99) Calcium Level 8.0 mg/dL (8.5-10.1) Total Bilirubin 0.4 mg/dL (0.2-1.0) Aspartate Amino Transf (AST/SGOT) 10 U/L (15-37) Alanine Aminotransferase (ALT/SGPT) 12 U/L (14-59) Alkaline Phosphatase 62 U/L (46-116) Total Protein 5.1 g/dL (6.4-8.2) Albumin 2.6 g/dL (3.4-5.0) Albumin/Globulin Ratio 1.0 (1.0-1.7) Medications Current Medications Haloperidol Lactate (Haldol Inj) 5 mg 1X ONCE IVP Last administered on 04/09/20at 20:14; Start 04/09/20 at 20:00; Stop 04/09/20 at 20:01; Status DC Ondansetron HCl (Zofran) 4 mg PRN Q8HRS PRN IV NAUSEA/VOMITING 1ST CHOICE; Start 04/09/20 at 21:30; Stop 04/10/20 at 21:29; Status DC Morphine Sulfate (Morphine Sulfate) 2 mg PRN Q2HR PRN IV SEVERE PAIN 7-10; Start 04/09/20 at 21:30; Stop 04/10/20 at 21:29; Status DC Acetaminophen (Tylenol) 650 mg PRN Q4HRS PRN PO FEVER > 100.3'F; Start 04/09/20 at 21:30; Stop 04/10/20 at 21:29; Status DC Ceftriaxone Sodium (Rocephin) 1 gm 1X ONCE IVP Last administered on 04/09/20at 21:57; Start 04/09/20 at 22:00; Stop 04/09/20 at 22:01; Status DC Sodium Chloride 1,000 ml @ 125 mls/hr 1X ONCE IV Last administered on 04/09/20at 21:57; Start 04/09/20 at 22:00; Stop 04/10/20 at 05:59; Status DC Acetaminophen (Tylenol) 650 mg PRN Q6HRS PRN PO HEADACHE / TEMP > 100.3'F; Start 04/10/20 at 09:15 Amlodipine Besylate (Norvasc) 5 mg DAILY PO Last administered on 04/11/20at 10:14; Start 04/10/20 at 11:00 Aspirin (Aspirin Chewable) 81 mg DAILYWBKFT PO Last administered on 04/11/20at 10:15; Start 04/10/20 at 11:00 Atorvastatin Calcium (Lipitor) 10 mg HS PO Last administered on 04/10/20at 20:55; Start 04/10/20 at 21:00 Colestipol HCl (Colestid) 1 gm BID PO Last administered on 04/11/20at 10:15; Start 04/10/20 at 11:00 Cyanocobalamin (Vitamin B-12) 1,000 mcg DAILY PO Last administered on 04/11/20at 10:15; Start 04/10/20 at 11:00 Gabapentin (Neurontin) 100 mg TID PO Last administered on 04/11/20at 10:15; Start 04/10/20 at 14:00 Lactobacillus Rhamnosus (Culturelle) 1 cap BID PO Last administered on 04/11/20at 10:15; Start 04/10/20 at 11:00 Memantine (Namenda) 5 mg BID PO Last administered on 04/11/20at 10:14; Start 04/10/20 at 11:00 Montelukast Sodium (Singulair) 10 mg DAILY PO Last administered on 04/11/20at 10:15; Start 04/10/20 at 11:00 Vitamin B Complex (Lemuel B) 1 tab DAILY PO Last administered on 04/11/20at 10:15; Start 04/10/20 at 11:00 Magnesium Oxide (Magnesium Oxide) 400 mg DAILY PO Last administered on 04/11/20at 10:15; Start 04/10/20 at 11:00 Pantoprazole Sodium (Protonix) 20 mg BID PO Last administered on 04/11/20at 10:1 5; Start 04/10/20 at 11:00 Ceftriaxone Sodium (Rocephin) 1 gm Q24H IVP Last administered on 04/10/20at 17:09; Start 04/10/20 at 18:00 Heparin Sodium (Porcine) (Heparin Sodium) 5,000 unit Q12HR SQ Last administered on 04/11/20at 10:16; Start 04/10/20 at 11:00 Potassium Chloride 20 meq/ Dextrose/Sodium Chloride 1,010 ml @ 75 mls/hr [id number] IV Last administered on 04/10/20at 14:10; Start 04/10/20 at 09:15; Stop 04/11/20 at 04:05; Status DC Potassium Chloride/Dextrose/ Sod Cl 1,000 ml @ 75 mls/hr [id number] IV Last administered on 04/11/20at 04:18; Start 04/11/20 at 04:30 Active Scripts Active Magnesium Oxide 400 Mg Tablet 1 Tab PO DAILY Hydralazine Hcl 50 Mg Tablet 1 Tab PO TID Vitamin B-12 (Cyanocobalamin (Vitamin B-12)) 1,000 Mcg Tablet 1,000 Mcg PO DAILY 30 Days Culturelle (Lactobacillus Rhamnosus Gg) 1 Each Cap.sprink 1 Cap PO BID 30 Days Gabapentin (Gabapentin) 100 Mg Capsule 100 Mg PO TID 30 Days Tylenol (Acetaminophen) 325 Mg Tablet 650 Mg PO PRN Q6HRS PRN 30 Days Aspirin 81 Mg Tab.chew 81 Mg PO DAILYWBKFT 30 Days Allopurinol 300 Mg Tablet 300 Mg PO HS D3 Dots (Cholecalciferol (Vitamin D3)) 2,000 Unit Tablet 400 Unit PO DAILY Reported Namenda (Memantine Hcl) 10 Mg Tablet 5 Mg PO BID Sucralfate 1 Gm Tablet 1 Tab PO QID Protonix (Pantoprazole Sodium) 20 Mg Tablet. 1 Tab PO BID Atorvastatin Calcium 10 Mg Tablet 10 Mg PO HS Montelukast Sodium Tablet (Montelukast Sodium) 10 Mg Tablet 10 Mg PO DAILY Amlodipine Besylate 5 Mg Tablet 5 Mg PO DAILY Escitalopram Oxalate 10 Mg Tablet 10 Mg PO DAILY Colestipol Hcl 1 Gm Tablet 1 Gm PO BID Zyrtec (Cetirizine Hcl) 10 Mg Tablet 10 Mg PO Balance B-100 (Vitamin B Complex) 1 Each Tablet 1 Each PO Citracal + D Maximum Caplet (Calcium Citrate/Vitamin D3) 1 Each Tablet 1 Each PO Vitamin E (Vitamin E (Dl,Tocopheryl Acet)) 400 Unit Capsule 400 Unit PO Centrum Silver Tablet (Multivits-Min/Fa/Lycopene/Lut) 1 Each Tablet 1 Each PO Vitals/I & O Vital Sign - Last 24 Hours 04/10/20 04/10/20 04/10/20 04/10/20 14:17 15:00 19:47 20:17 Temp 97.8 99.3 97.8 99.3 Pulse 64 70 83 Resp 18 16 B/P (MAP) 111/67 122/62 (82) 134/74 (94) Pulse Ox 94 92 O2 Delivery Room Air Room Air Room Air 04/10/20 04/11/20 04/11/20 04/11/20 22:00 03:54 07:29 10:14 Temp 98.9 98.9 98.4 98.9 98.9 98.4 Pulse 85 71 65 65 Resp 16 16 16 B/P (MAP) 110/56 (74) 129/68 (88) 133/54 (80) 133/54 Pulse Ox 91 93 94 O2 Delivery Room Air Room Air Room Air 04/11/20 10:29 Temp 98.4 98.4 Pulse 57 Resp 16 B/P (MAP) 139/58 (85) Pulse Ox 95 O2 Delivery Room Air Intake and Output 04/10/20 04/10/20 04/11/20 15:00 23:00 07:00 Intake Total 100 ml 50 ml Balance 100 ml 50 ml Justifications for Admission Other Justification RAHEEM LOAIZA MD Apr 11, 2020 11:08
--- NOTE | 2020-04-11 11:16 | PDOC ---
PROGRESS NOTES Date of Service: DATE: 04/11/20 TIME: 11:14 Subjective Subjective no new problems Objective Objective Vital Signs Date Time Temp Pulse Resp B/P (MAP) Pulse Ox O2 Delivery O2 Flow Rate FiO2 04/11/20 10:29 98.4 57 16 139/58 (85) 95 Room Air 98.4 Intake and Output 04/11/20 07:00 Intake Total 150 ml Balance 150 ml Intake Oral 150 ml # Voids 2 Physical Exam Abdomen: Soft, No tenderness Heart: Regular rate (SR), Normal S1, Normal S2, No murmurs Extremities: No cyanosis, No edema, Other (LE rodney scatterred appears to be bug bites) General: Alert, Oriented X3, Cooperative, No acute distress HEENT: Atraumatic, Mucous membr. moist/pink Lungs: Clear to auscultation, Normal air movement MUSCULOSKELETAL: Osteoarthritic changes both hands Neuro: Normal speech, Sensation intact Psych/Mental Status: Mental status NL, Mood NL Skin: No breakdown, No significant lesion Diagnosis Problem List Problems Medical Problems: (1) Bedbug bite with infection Status: Acute (2) Compression fracture of T10 vertebra Status: Acute (3) Fall Status: Acute (4) T11 vertebral fracture Status: Acute (5) UTI (urinary tract infection) Status: Acute Assessment Assessment Problems Medical Problems: (1) Bedbug bite with infection Status: Acute (2) Compression fracture of T10 vertebra Status: Acute (3) Fall Status: Acute (4) T11 vertebral fracture Status: Acute (5) UTI (urinary tract infection) Status: Acute IMPRESSION: 1. Non-ST elevation myocardial infarction, maybe type 2 due to demand ischemia. 2. Urinary tract infection. 3. Dehydration. 4. Acute metabolic encephalopathy. 5. Compression fractures of thoracic vertebra. 6. Physical deconditioning. 7. Dementia, on memantine. 8. Bed bug infestation. 9. Hypertension. 10. Gastroesophageal reflux disease. 11. Hiatal hernia. 12. 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 13. History of hypothyroidism. 14. Hyperlipidemia. 15. Bipolar affective disorder, in remission. 16. Seizure disorder. 17. Gastritis. 18. Diverticulosis. 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 PLAN:No new problems pt/ot ?SNU monday. labs good. 1. Dehydration. Start IV fluids. 2. Hypokalemia. Replace potassium. 3. Acute metabolic encephalopathy. Continue to correct infection and electrolyte imbalance. 4. Urinary tract infection. Start IV Rocephin. 5. Non-ST elevation MN. Consult Dr. Aiken for cardiology evaluation and management. 6. Compression fractures, recurrent falls and weakness. Order PT, OT. Fall precautions. Consult Dr. Nicole for rehab evaluation and management. For details, please refer to the orders. The patient may require a long-term assisted placement, which she has declined in the past. Prognosis of this patient is very poor due to her multiple medical problems. For details, please refer to the orders. PRATIP Olena LÓPEZ MD DR: PEDRITO/ben JOB#: [id number] / [id number] Plan Plan of Care Problems Medical Problems: (1) Bedbug bite with infection Status: Acute (2) Compression fracture of T10 vertebra Status: Acute (3) Fall Status: Acute (4) T11 vertebral fracture Status: Acute (5) UTI (urinary tract infection) Status: Acute Comment Review of Relevant I have reviewed the following items ellyn (where applicable) has been applied. Labs Laboratory Tests Test 04/11/20 07:00 White Blood Count 5.7 x10^3/uL (4.0-11.0) Red Blood Count 3.07 x10^6/uL (3.50-5.40) Hemoglobin 7.4 g/dL (12.0-15.5) Hematocrit 23.6 % (36.0-47.0) Mean Corpuscular Volume 77 fL (79-100) Mean Corpuscular Hemoglobin 24 pg (25-35) Mean Corpuscular Hemoglobin Concent 31 g/dL (31-37) Red Cell Distribution Width 16.4 % (11.5-14.5) Platelet Count 240 x10^3/uL (140-400) Neutrophils (%) (Auto) 56 % (31-73) Lymphocytes (%) (Auto) 26 % (24-48) Monocytes (%) (Auto) 10 % (0-9) Eosinophils (%) (Auto) 7 % (0-3) Basophils (%) (Auto) 1 % (0-3) Neutrophils # (Auto) 3.2 x10^3/uL (1.8-7.7) Lymphocytes # (Auto) 1.5 x10^3/uL (1.0-4.8) Monocytes # (Auto) 0.5 x10^3/uL (0.0-1.1) Eosinophils # (Auto) 0.4 x10^3/uL (0.0-0.7) Basophils # (Auto) 0.1 x10^3/uL (0.0-0.2) Sodium Level 141 mmol/L (136-145) Potassium Level 4.0 mmol/L (3.5-5.1) Chloride Level 108 mmol/L (98-107) Carbon Dioxide Level 25 mmol/L (21-32) Anion Gap 8 (6-14) Blood Urea Nitrogen 19 mg/dL (7-20) Creatinine 1.2 mg/dL (0.6-1.0) Estimated GFR (Cockcroft-Gault) 43.4 BUN/Creatinine Ratio 16 (6-20) Glucose Level 185 mg/dL (70-99) Calcium Level 8.0 mg/dL (8.5-10.1) Total Bilirubin 0.4 mg/dL (0.2-1.0) Aspartate Amino Transf (AST/SGOT) 10 U/L (15-37) Alanine Aminotransferase (ALT/SGPT) 12 U/L (14-59) Alkaline Phosphatase 62 U/L (46-116) Total Protein 5.1 g/dL (6.4-8.2) Albumin 2.6 g/dL (3.4-5.0) Albumin/Globulin Ratio 1.0 (1.0-1.7) Medications Current Medications Atorvastatin Calcium (Lipitor) 10 mg HS PO Last administered on 04/10/20at 20:55; Start 04/10/20 at 21:00 Ceftriaxone Sodium (Rocephin) 1 gm Q24H IVP Last administered on 04/10/20at 17:09; Start 04/10/20 at 18:00 Gabapentin (Neurontin) 100 mg TID PO Last administered on 04/11/20at 10:15; Start 04/10/20 at 14:00 Potassium Chloride/Dextrose/ Sod Cl 1,000 ml @ 75 mls/hr [id number] IV Last administered on 04/11/20at 04:18; Start 04/11/20 at 04:30 Vitals/I & O Vital Sign - Last 24 Hours 04/10/20 04/10/20 04/10/20 04/10/20 14:17 15:00 19:47 20:17 Temp 97.8 99.3 97.8 99.3 Pulse 64 70 83 Resp 18 16 B/P (MAP) 111/67 122/62 (82) 134/74 (94) Pulse Ox 94 92 O2 Delivery Room Air Room Air Room Air 04/10/20 04/11/20 04/11/20 04/11/20 22:00 03:54 07:29 10:14 Temp 98.9 98.9 98.4 98.9 98.9 98.4 Pulse 85 71 65 65 Resp 16 16 16 B/P (MAP) 110/56 (74) 129/68 (88) 133/54 (80) 133/54 Pulse Ox 91 93 94 O2 Delivery Room Air Room Air Room Air 04/11/20 10:29 Temp 98.4 98.4 Pulse 57 Resp 16 B/P (MAP) 139/58 (85) Pulse Ox 95 O2 Delivery Room Air Intake and Output 04/10/20 04/10/20 04/11/20 15:00 23:00 07:00 Intake Total 100 ml 50 ml Balance 100 ml 50 ml Justifications for Admission Other Justification FRANCINE GAN MD Apr 11, 2020 11:16
[2020-04-11 14:36] VITALS: BP 116/47
--- NOTE | 2020-04-11 17:24 | PDOC ---
PROGRESS NOTES Date of Service: DATE: 04/11/20 TIME: 17:24 Subjective Subjective No new complaints Objective Objective Vital Signs Date Time Temp Pulse Resp B/P (MAP) Pulse Ox O2 Delivery O2 Flow Rate FiO2 04/11/20 14:36 98.3 65 16 116/47 (70) 94 Room Air 98.3 Intake and Output 04/11/20 07:00 Intake Total 150 ml Balance 150 ml Intake Oral 150 ml # Voids 2 Physical Exam Abdomen: Soft, No tenderness Heart: Regular rate (SR), Normal S1, Normal S2, No murmurs Extremities: No cyanosis, No edema, Other (LE rodney scatterred appears to be bug bites) General: Alert, Oriented X3, Cooperative, No acute distress HEENT: Atraumatic, Mucous membr. moist/pink Lungs: Clear to auscultation, Normal air movement Neuro: Normal speech, Sensation intact Psych/Mental Status: Mental status NL, Mood NL Skin: No breakdown Assessment Assessment 1. Traumatic fall with T10-T11 compression fractures. Not associated wtih presyncope/syncope. Tele did not show any arrhythmias. Plan outpatient event monitor 2. Hx of multiple falls 3. Reported bed bug infestation 4. NSTEMI: Subtle changes to inferior leads. Peaked at 0.3 with associated MONTSE and fall with injury. No cardiac symptoms. suspect demand mediated. Plan ischemic evaluation as outpatient 5. GERD exacerbation with noted gastritis per CT 6. HTN urgency: better controlled 7. HLP 8. Dementia Plan Plan of Care Problems Medical Problems: (1) Bedbug bite with infection Status: Acute (2) Compression fracture of T10 vertebra Status: Acute (3) Fall Status: Acute (4) T11 vertebral fracture Status: Acute (5) UTI (urinary tract infection) Status: Acute Comment Review of Relevant I have reviewed the following items ellyn (where applicable) has been applied. Labs Laboratory Tests Test 04/11/20 07:00 White Blood Count 5.7 x10^3/uL (4.0-11.0) Red Blood Count 3.07 x10^6/uL (3.50-5.40) Hemoglobin 7.4 g/dL (12.0-15.5) Hematocrit 23.6 % (36.0-47.0) Mean Corpuscular Volume 77 fL (79-100) Mean Corpuscular Hemoglobin 24 pg (25-35) Mean Corpuscular Hemoglobin Concent 31 g/dL (31-37) Red Cell Distribution Width 16.4 % (11.5-14.5) Platelet Count 240 x10^3/uL (140-400) Neutrophils (%) (Auto) 56 % (31-73) Lymphocytes (%) (Auto) 26 % (24-48) Monocytes (%) (Auto) 10 % (0-9) Eosinophils (%) (Auto) 7 % (0-3) Basophils (%) (Auto) 1 % (0-3) Neutrophils # (Auto) 3.2 x10^3/uL (1.8-7.7) Lymphocytes # (Auto) 1.5 x10^3/uL (1.0-4.8) Monocytes # (Auto) 0.5 x10^3/uL (0.0-1.1) Eosinophils # (Auto) 0.4 x10^3/uL (0.0-0.7) Basophils # (Auto) 0.1 x10^3/uL (0.0-0.2) Sodium Level 141 mmol/L (136-145) Potassium Level 4.0 mmol/L (3.5-5.1) Chloride Level 108 mmol/L (98-107) Carbon Dioxide Level 25 mmol/L (21-32) Anion Gap 8 (6-14) Blood Urea Nitrogen 19 mg/dL (7-20) Creatinine 1.2 mg/dL (0.6-1.0) Estimated GFR (Cockcroft-Gault) 43.4 BUN/Creatinine Ratio 16 (6-20) Glucose Level 185 mg/dL (70-99) Calcium Level 8.0 mg/dL (8.5-10.1) Total Bilirubin 0.4 mg/dL (0.2-1.0) Aspartate Amino Transf (AST/SGOT) 10 U/L (15-37) Alanine Aminotransferase (ALT/SGPT) 12 U/L (14-59) Alkaline Phosphatase 62 U/L (46-116) Total Protein 5.1 g/dL (6.4-8.2) Albumin 2.6 g/dL (3.4-5.0) Albumin/Globulin Ratio 1.0 (1.0-1.7) Microbiology 04/09/20 Urine Culture - Preliminary, Resulted Medications Current Medications Atorvastatin Calcium (Lipitor) 10 mg HS PO Last administered on 04/10/20at 20:55; Start 04/10/20 at 21:00 Ceftriaxone Sodium (Rocephin) 1 gm Q24H IVP Last administered on 04/10/20at 17:09; Start 04/10/20 at 18:00 Potassium Chloride/Dextrose/ Sod Cl 1,000 ml @ 75 mls/hr [id number] IV Last administered on 04/11/20at 04:18; Start 04/11/20 at 04:30 Vitals/I & O Vital Sign - Last 24 Hours 04/10/20 04/10/20 04/10/20 04/11/20 19:47 20:17 22:00 03:54 Temp 99.3 98.9 98.9 99.3 98.9 98.9 Pulse 83 85 71 Resp 16 16 16 B/P (MAP) 134/74 (94) 110/56 (74) 129/68 (88) Pulse Ox 92 91 93 O2 Delivery Room Air Room Air Room Air Room Air 04/11/20 04/11/20 04/11/20 04/11/20 07:29 10:14 10:29 14:36 Temp 98.4 98.4 98.3 98.4 98.4 98.3 Pulse 65 65 57 65 Resp 16 16 16 B/P (MAP) 133/54 (80) 133/54 139/58 (85) 116/47 (70) Pulse Ox 94 95 94 O2 Delivery Room Air Room Air Room Air Intake and Output 04/10/20 04/10/20 04/11/20 15:00 23:00 07:00 Intake Total 100 ml 50 ml Balance 100 ml 50 ml JANETTE ANTONIO MD Apr 11, 2020 17:24
[2020-04-11] MEDS: cefTRIAXone IV Push 1 GM VIAL. IVP SCH (17:35)
[2020-04-11 19:31] VITALS: BP 135/63
[2020-04-11] MEDS: ATORVASTATIN CALCIUM 10 MG TABLET. PO SCH (21:34)
[2020-04-11 22:44] VITALS: BP 153/71
[2020-04-12 03:50] VITALS: BP 121/60
[2020-04-12] MEDS: POTASSIUM CL 20MEQ D5-0.45NACL 1,000 ML IV SCH (05:36)
[2020-04-12 07:00] VITALS: BP 140/65
[2020-04-12 08:28] LABS: BASO # 0.1 x10^3/uL (0.0-0.2); BASO % 1 % (0-3); EOS # 0.4 x10^3/uL (0.0-0.7); EOS % 7 % (0-3); HEMATOCRIT 24.3 % (36.0-47.0); HEMOGLOBIN 7.7 g/dL (12.0-15.5); LYMPH # 1.4 x10^3/uL (1.0-4.8); LYMPH % 26 % (24-48); MEAN CORPUSCULAR HEMOGLOBIN 24 pg (25-35); MEAN CORPUSCULAR HGB CONC 32 g/dL (31-37); MEAN CORPUSCULAR VOLUME 76 fL (79-100); MONO # 0.4 x10^3/uL (0.0-1.1); MONO % 9 % (0-9); NEUT # 2.9 x10^3/uL (1.8-7.7); NEUT % 57 % (31-73); PLATELET COUNT 239 x10^3/uL (140-400); RED BLOOD COUNT 3.19 x10^6/uL (3.50-5.40); RED CELL DISTRIBUTION WIDTH 16.3 % (11.5-14.5); WHITE BLOOD COUNT 5.1 x10^3/uL (4.0-11.0)
--- NOTE | 2020-04-12 08:43 | PDOC ---
PROGRESS NOTES Date of Service: DATE: 04/12/20 TIME: 08:43 Subjective Subjective feels ok,no new problems Objective Objective Vital Signs Date Time Temp Pulse Resp B/P (MAP) Pulse Ox O2 Delivery O2 Flow Rate FiO2 04/12/20 07:00 98.4 63 16 140/65 (90) 92 Room Air 98.4 Intake and Output 04/12/20 06:59 Intake Total 400 ml Balance 400 ml Intake Oral 400 ml # Voids 4 # Bowel Movements 1 Physical Exam Abdomen: Soft, No tenderness Heart: Regular rate (SR), Normal S1, Normal S2, No murmurs Extremities: No cyanosis, No edema, Other (LE chiragponsalome scatterred appears to be bug bites) General: Alert, Oriented X3, Cooperative, No acute distress HEENT: Atraumatic, Mucous membr. moist/pink Lungs: Clear to auscultation, Normal air movement Neuro: Normal speech, Sensation intact Psych/Mental Status: Mental status NL, Mood NL Skin: No breakdown Diagnosis Problem List Problems Medical Problems: (1) Bedbug bite with infection Status: Acute (2) Compression fracture of T10 vertebra Status: Acute (3) Fall Status: Acute (4) T11 vertebral fracture Status: Acute (5) UTI (urinary tract infection) Status: Acute Assessment Assessment Problems Medical Problems: (1) Bedbug bite with infection Status: Acute (2) Compression fracture of T10 vertebra Status: Acute (3) Fall Status: Acute (4) T11 vertebral fracture Status: Acute (5) UTI (urinary tract infection) Status: Acute IMPRESSION: 1. Non-ST elevation myocardial infarction, maybe type 2 due to demand ischemia. 2. Urinary tract infection. 3. Dehydration. 4. Acute metabolic encephalopathy. 5. Compression fractures of thoracic vertebra. 6. Physical deconditioning. 7. Dementia, on memantine. 8. Bed bug infestation. 9. Hypertension. 10. Gastroesophageal reflux disease. 11. Hiatal hernia. 12. 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 13. History of hypothyroidism. 14. Hyperlipidemia. 15. Bipolar affective disorder, in remission. 16. Seizure disorder. 17. Gastritis. 18. Diverticulosis. 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 PLAN: d/c iv fluids po omnicef No new problems pt/ot ?SNU monday. labs good. GREATER THAN 100,000 CFU/ML GRAM NEGATIVE RODS on 04/11/20 at 0818 FINAL ID= [ENTEROBACTER CLOACAE COMPLEX] 20,000 CFU/ML [PROTEUS MIRABILIS/PENNERI] on 04/11/20 at 0819 Three or more organisms isolated. Results consistent with colonization or contamination during the collection process. Recollection recommended using a method to minimize contamination. Testing Performed by: [address] [address] For Inquires, the Physician may contact the Microbiology department at [phone] ENTEROBACTER CLOACAE COMPLEX PROTEUS MIRABILIS/PENNERI ANTIMICROBIAL SUSCEPTIBILITY Final Comment Comment NEG JIAN 56 ENTEROBACTER CLOACAE COMPLEX ANTIBIOTIC RESULT INTERPRETATION AMPICILLIN/SULBACTAM <=4/2 R* AMIKACIN <=16 S AMPICILLIN <=8 R* AMOXICILLIN/K CLAVULANATE >16/8 R AZTREONAM <=4 S CEFTRIAXONE <=1 S CEFTAZIDIME <=1 S CEFOTAXIME <=2 S CEFOXITIN >16 R CEFAZOLIN >16 R CIPROFLOXACIN <=0.25 S CEFEPIME <=2 S CEFUROXIME 8 R* ERTAPENEM <=0.5 S NITROFURANTOIN >64 R Plan Plan of Care Problems Medical Problems: (1) Bedbug bite with infection Status: Acute (2) Compression fracture of T10 vertebra Status: Acute (3) Fall Status: Acute (4) T11 vertebral fracture Status: Acute (5) UTI (urinary tract infection) Status: Acute Comment Review of Relevant I have reviewed the following items ellyn (where applicable) has been applied. Labs Laboratory Tests Test 04/12/20 07:15 White Blood Count 5.1 x10^3/uL (4.0-11.0) Red Blood Count 3.19 x10^6/uL (3.50-5.40) Hemoglobin 7.7 g/dL (12.0-15.5) Hematocrit 24.3 % (36.0-47.0) Mean Corpuscular Volume 76 fL (79-100) Mean Corpuscular Hemoglobin 24 pg (25-35) Mean Corpuscular Hemoglobin Concent 32 g/dL (31-37) Red Cell Distribution Width 16.3 % (11.5-14.5) Platelet Count 239 x10^3/uL (140-400) Neutrophils (%) (Auto) 57 % (31-73) Lymphocytes (%) (Auto) 26 % (24-48) Monocytes (%) (Auto) 9 % (0-9) Eosinophils (%) (Auto) 7 % (0-3) Basophils (%) (Auto) 1 % (0-3) Neutrophils # (Auto) 2.9 x10^3/uL (1.8-7.7) Lymphocytes # (Auto) 1.4 x10^3/uL (1.0-4.8) Monocytes # (Auto) 0.4 x10^3/uL (0.0-1.1) Eosinophils # (Auto) 0.4 x10^3/uL (0.0-0.7) Basophils # (Auto) 0.1 x10^3/uL (0.0-0.2) Microbiology 04/09/20 Urine Culture - Preliminary, Resulted Vitals/I & O Vital Sign - Last 24 Hours 04/11/20 04/11/20 04/11/20 04/11/20 10:14 10:29 14:36 19:31 Temp 98.4 98.3 98.6 98.4 98.3 98.6 Pulse 65 57 65 75 Resp 16 16 16 B/P (MAP) 133/54 139/58 (85) 116/47 (70) 135/63 (87) Pulse Ox 95 94 92 O2 Delivery Room Air Room Air Room Air 04/11/20 04/12/20 04/12/20 22:44 03:50 07:00 Temp 97.9 99.1 98.4 97.9 99.1 98.4 Pulse 79 72 63 Resp 16 16 16 B/P (MAP) 153/71 (98) 121/60 (80) 140/65 (90) Pulse Ox 91 90 92 O2 Delivery Room Air Room Air Room Air Intake and Output 04/11/20 04/11/20 04/12/20 14:59 22:59 06:59 Intake Total 100 ml 300 ml Balance 100 ml 300 ml Justifications for Admission Other Justification FRANCINE GAN MD Apr 12, 2020 08:43
[2020-04-12] MEDS: COLESTIPOL HCL 1 GM TABLET PO SCH ×2 (09:31→21:05)
[2020-04-12] MEDS: MONTELUKAST SODIUM 10 MG TABLET. PO SCH (09:31)
[2020-04-12] MEDS: ASPIRIN CHEWABLE 81 MG TABLET. PO SCH (09:31)
[2020-04-12] MEDS: MAGNESIUM OXIDE 400 MG TABLET PO SCH (09:31)
[2020-04-12] MEDS: VITAMIN B COMPLEX TABLET. PO SCH (09:31)
[2020-04-12] MEDS: CYANOCOBALAMIN (VITAMIN B-12) 1,000 MCG TABLET. PO SCH (09:31)
[2020-04-12] MEDS: MEMANTINE 10 MG TABLET. PO SCH ×2 (09:31→21:05)
[2020-04-12] MEDS: LACTOBACILLUS RHAMNOSUS GG 1 CAPSULE. PO SCH ×2 (09:31→21:04)
[2020-04-12] MEDS: GABAPENTIN 100 MG CAPSULE. PO SCH ×3 (09:32→21:04)
[2020-04-12] MEDS: PANTOPRAZOLE 40 MG TABLET.DR. PO SCH ×2 (09:32→21:05)
[2020-04-12] MEDS: HEPARIN for SUB-Q USE 5,000 UNIT/ML VIAL. SQ SCH ×2 (09:33→21:09)
[2020-04-12 10:43] VITALS: BP 137/69
[2020-04-12] MEDS: CEFDINIR 300 MG CAPSULE PO SCH ×2 (10:43→21:04)
--- NOTE | 2020-04-12 12:25 | PDOC ---
PROGRESS NOTES Date of Service: DATE: 04/12/20 TIME: 12:24 Subjective Subjective Comfortable, no new complaints Objective Objective Vital Signs Date Time Temp Pulse Resp B/P (MAP) Pulse Ox O2 Delivery O2 Flow Rate FiO2 04/12/20 10:43 97.6 61 16 137/69 (91) 96 Room Air 97.6 Intake and Output 04/12/20 07:00 Intake Total 400 ml Balance 400 ml Intake Oral 400 ml # Voids 4 # Bowel Movements 1 Physical Exam Abdomen: Soft, No tenderness Heart: Regular rate (SR), Normal S1, Normal S2, No murmurs Extremities: No cyanosis, No edema, Other (LE [place] scatterred appears to be bug bites) General: Alert, Oriented X3, Cooperative, No acute distress HEENT: Atraumatic, Mucous membr. moist/pink Lungs: Clear to auscultation, Normal air movement Neuro: Normal speech, Sensation intact Psych/Mental Status: Mental status NL, Mood NL Skin: No breakdown Assessment Assessment 1. Traumatic fall with T10-T11 compression fractures. Not associated wtih presyncope/syncope. Tele did not show any arrhythmias. Plan outpatient event monitor 2. Hx of multiple falls 3. Reported bed bug infestation 4. NSTEMI: Subtle changes to inferior leads. Peaked at 0.3 with associated MONTSE and fall with injury. No cardiac symptoms. suspect demand mediated. Plan ischemic evaluation as outpatient 5. GERD exacerbation with noted gastritis per CT 6. HTN urgency: better controlled 7. HLP 8. Dementia Plan Plan of Care Problems Medical Problems: (1) Bedbug bite with infection Status: Acute (2) Compression fracture of T10 vertebra Status: Acute (3) Fall Status: Acute (4) T11 vertebral fracture Status: Acute (5) UTI (urinary tract infection) Status: Acute Comment Review of Relevant I have reviewed the following items ellyn (where applicable) has been applied. Labs Laboratory Tests Test 04/12/20 07:15 White Blood Count 5.1 x10^3/uL (4.0-11.0) Red Blood Count 3.19 x10^6/uL (3.50-5.40) Hemoglobin 7.7 g/dL (12.0-15.5) Hematocrit 24.3 % (36.0-47.0) Mean Corpuscular Volume 76 fL (79-100) Mean Corpuscular Hemoglobin 24 pg (25-35) Mean Corpuscular Hemoglobin Concent 32 g/dL (31-37) Red Cell Distribution Width 16.3 % (11.5-14.5) Platelet Count 239 x10^3/uL (140-400) Neutrophils (%) (Auto) 57 % (31-73) Lymphocytes (%) (Auto) 26 % (24-48) Monocytes (%) (Auto) 9 % (0-9) Eosinophils (%) (Auto) 7 % (0-3) Basophils (%) (Auto) 1 % (0-3) Neutrophils # (Auto) 2.9 x10^3/uL (1.8-7.7) Lymphocytes # (Auto) 1.4 x10^3/uL (1.0-4.8) Monocytes # (Auto) 0.4 x10^3/uL (0.0-1.1) Eosinophils # (Auto) 0.4 x10^3/uL (0.0-0.7) Basophils # (Auto) 0.1 x10^3/uL (0.0-0.2) Microbiology 04/09/20 Urine Culture - Final, Complete 04/09/20 Antimicrobic Susceptibility - Final, Complete Medications Current Medications Cefdinir (Omnicef) 300 mg BID PO Last administered on 04/12/20at 10:43; Start 04/12/20 at 09:00 Vitals/I & O Vital Sign - Last 24 Hours 04/11/20 04/11/20 04/11/20 04/12/20 14:36 19:31 22:44 03:50 Temp 98.3 98.6 97.9 99.1 98.3 98.6 97.9 99.1 Pulse 65 75 79 72 Resp 16 16 16 16 B/P (MAP) 116/47 (70) 135/63 (87) 153/71 (98) 121/60 (80) Pulse Ox 94 92 91 90 O2 Delivery Room Air Room Air Room Air Room Air 04/12/20 04/12/20 04/12/20 07:00 09:32 10:43 Temp 98.4 97.6 98.4 97.6 Pulse 63 63 61 Resp 16 16 B/P (MAP) 140/65 (90) 140/65 137/69 (91) Pulse Ox 92 96 O2 Delivery Room Air Room Air Intake and Output 04/11/20 04/11/20 04/12/20 15:00 23:00 07:00 Intake Total 100 ml 300 ml Balance 100 ml 300 ml JANETTE ANTONIO MD Apr 12, 2020 12:25
[2020-04-12 14:47] VITALS: BP 97/50
[2020-04-12 19:33] VITALS: BP 113/53
[2020-04-12] MEDS: SUCRALFATE 1 GM TABLET. PO SCH (21:05)
[2020-04-12] MEDS: ATORVASTATIN CALCIUM 10 MG TABLET. PO SCH (21:05)
[2020-04-12 23:36] VITALS: BP 119/63
[2020-04-13 03:11] VITALS: BP 120/59
[2020-04-13 07:45] VITALS: BP 139/59
[2020-04-13] MEDS: MEMANTINE 10 MG TABLET. PO SCH ×2 (08:53→21:16)
[2020-04-13] MEDS: MONTELUKAST SODIUM 10 MG TABLET. PO SCH (08:53)
[2020-04-13] MEDS: PANTOPRAZOLE 40 MG TABLET.DR. PO SCH ×2 (08:53→21:15)
[2020-04-13] MEDS: COLESTIPOL HCL 1 GM TABLET PO SCH ×2 (08:53→21:18)
[2020-04-13] MEDS: LACTOBACILLUS RHAMNOSUS GG 1 CAPSULE. PO SCH ×2 (08:54→21:16)
[2020-04-13] MEDS: VITAMIN B COMPLEX TABLET. PO SCH (08:54)
[2020-04-13] MEDS: CEFDINIR 300 MG CAPSULE PO SCH ×2 (08:54→21:16)
[2020-04-13] MEDS: MAGNESIUM OXIDE 400 MG TABLET PO SCH (08:54)
[2020-04-13] MEDS: SUCRALFATE 1 GM TABLET. PO SCH ×2 (08:54→21:16)
[2020-04-13] MEDS: CYANOCOBALAMIN (VITAMIN B-12) 1,000 MCG TABLET. PO SCH (08:54)
[2020-04-13] MEDS: ASPIRIN CHEWABLE 81 MG TABLET. PO SCH (08:54)
[2020-04-13] MEDS: HEPARIN for SUB-Q USE 5,000 UNIT/ML VIAL. SQ SCH ×2 (08:56→21:16)
[2020-04-13] MEDS: GABAPENTIN 100 MG CAPSULE. PO SCH ×3 (08:58→21:15)
--- NOTE | 2020-04-13 09:01 | PDOC ---
PROGRESS NOTES Date of Service DATE: 04/13/20 TIME: 08:58 Subjective Subjective She complains of abdominal pain. Objective Objective Vital Signs Date Time Temp Pulse Resp B/P (MAP) Pulse Ox O2 Delivery O2 Flow Rate FiO2 04/13/20 03:11 98.7 67 16 120/59 (79) 93 Room Air 98.7 Intake and Output 04/13/20 07:00 Intake Total 720 ml Balance 720 ml Intake Oral 720 ml # Voids 5 Physical Exam Physical Exam She is eating breakfast in bed with head end propped up and she did get up and walked for 25' with roller walker with physical therapy with minimal assistance. Assessment Assessment Problems Medical Problems: (1) Bedbug bite with infection Status: Acute (2) Compression fracture of T10 vertebra Status: Acute (3) Fall Status: Acute (4) T11 vertebral fracture Status: Acute (5) UTI (urinary tract infection) Status: Acute Plan Plan of Care To SNF when medically stable. Comment Review of Relevant I have reviewed the following items ellyn (where applicable) has been applied. Labs Laboratory Tests Test 04/12/20 07:15 White Blood Count 5.1 x10^3/uL (4.0-11.0) Red Blood Count 3.19 x10^6/uL (3.50-5.40) Hemoglobin 7.7 g/dL (12.0-15.5) Hematocrit 24.3 % (36.0-47.0) Mean Corpuscular Volume 76 fL (79-100) Mean Corpuscular Hemoglobin 24 pg (25-35) Mean Corpuscular Hemoglobin Concent 32 g/dL (31-37) Red Cell Distribution Width 16.3 % (11.5-14.5) Platelet Count 239 x10^3/uL (140-400) Neutrophils (%) (Auto) 57 % (31-73) Lymphocytes (%) (Auto) 26 % (24-48) Monocytes (%) (Auto) 9 % (0-9) Eosinophils (%) (Auto) 7 % (0-3) Basophils (%) (Auto) 1 % (0-3) Neutrophils # (Auto) 2.9 x10^3/uL (1.8-7.7) Lymphocytes # (Auto) 1.4 x10^3/uL (1.0-4.8) Monocytes # (Auto) 0.4 x10^3/uL (0.0-1.1) Eosinophils # (Auto) 0.4 x10^3/uL (0.0-0.7) Basophils # (Auto) 0.1 x10^3/uL (0.0-0.2) Microbiology 04/09/20 Urine Culture - Final, Complete 04/09/20 Antimicrobic Susceptibility - Final, Complete Medications Current Medications Haloperidol Lactate (Haldol Inj) 5 mg 1X ONCE IVP Last administered on 04/09/20at 20:14; Start 04/09/20 at 20:00; Stop 04/09/20 at 20:01; Status DC Ondansetron HCl (Zofran) 4 mg PRN Q8HRS PRN IV NAUSEA/VOMITING 1ST CHOICE; Start 04/09/20 at 21:30; Stop 04/10/20 at 21:29; Status DC Morphine Sulfate (Morphine Sulfate) 2 mg PRN Q2HR PRN IV SEVERE PAIN 7-10; Start 04/09/20 at 21:30; Stop 04/10/20 at 21:29; Status DC Acetaminophen (Tylenol) 650 mg PRN Q4HRS PRN PO FEVER > 100.3'F; Start 04/09/20 at 21:30; Stop 04/10/20 at 21:29; Status DC Ceftriaxone Sodium (Rocephin) 1 gm 1X ONCE IVP Last administered on 04/09/20at 21:57; Start 04/09/20 at 22:00; Stop 04/09/20 at 22:01; Status DC Sodium Chloride 1,000 ml @ 125 mls/hr 1X ONCE IV Last administered on 04/09/20at 21:57; Start 04/09/20 at 22:00; Stop 04/10/20 at 05:59; Status DC Acetaminophen (Tylenol) 650 mg PRN Q6HRS PRN PO HEADACHE / TEMP > 100.3'F; Start 04/10/20 at 09:15 Amlodipine Besylate (Norvasc) 5 mg DAILY PO Last administered on 04/12/20at 09:32; Start 04/10/20 at 11:00 Aspirin (Aspirin Chewable) 81 mg DAILYWBKFT PO Last administered on 04/12/20at 09:31; Start 04/10/20 at 11:00 Atorvastatin Calcium (Lipitor) 10 mg HS PO Last administered on 04/12/20 21:05; Start 04/10/20 at 21:00 Colestipol HCl (Colestid) 1 gm BID PO Last administered on 04/12/20 21:05; Start 04/10/20 at 11:00 Cyanocobalamin (Vitamin B-12) 1,000 mcg DAILY PO Last administered on 04/12/20 09:31; Start 04/10/20 at 11:00 Gabapentin (Neurontin) 100 mg TID PO Last administered on 04/12/20 21:04; Start 04/10/20 at 14:00 Lactobacillus Rhamnosus (Culturelle) 1 cap BID PO Last administered on 04/12/20 21:04; Start 04/10/20 at 11:00 Memantine (Namenda) 5 mg BID PO Last administered on 04/12/20 21:05; Start 04/10/20 at 11:00 Montelukast Sodium (Singulair) 10 mg DAILY PO Last administered on 04/12/20 09:31; Start 04/10/20 at 11:00 Vitamin B Complex (Lemuel B) 1 tab DAILY PO Last administered on 04/12/20 09:31; Start 04/10/20 at 11:00 Magnesium Oxide (Magnesium Oxide) 400 mg DAILY PO Last administered on 04/12/20 09:31; Start 04/10/20 at 11:00 Pantoprazole Sodium (Protonix) 20 mg BID PO Last administered on 04/12/20 21:05; Start 04/10/20 at 11:00 Ceftriaxone Sodium (Rocephin) 1 gm Q24H IVP Last administered on 04/11/20 17:35; Start 04/10/20 at 18:00; Stop 04/12/20 at 08:46; Status DC Heparin Sodium (Porcine) (Heparin Sodium) 5,000 unit Q12HR SQ Last administered on 04/12/20 21:09; Start 04/10/20 at 11:00 Potassium Chloride 20 meq/ Dextrose/Sodium Chloride 1,010 ml @ 75 mls/hr [id number] IV Last administered on 04/10/20 14:10; Start 04/10/20 at 09:15; Stop 04/11/20 at 04:05; Status DC Potassium Chloride/Dextrose/ Sod Cl 1,000 ml @ 75 mls/hr [id number] IV Last administered on 04/12/20at 05:36; Start 04/11/20 at 04:30; Stop 04/12/20 at 08:46; Status DC Cefdinir (Omnicef) 300 mg BID PO Last administered on 04/12/20at 21:04; Start 04/12/20 at 09:00 Sucralfate (Carafate) 1 gm BID PO Last administered on 04/12/20at 21:05; Start 04/12/20 at 21:00 Active Scripts Active Magnesium Oxide 400 Mg Tablet 1 Tab PO DAILY Hydralazine Hcl 50 Mg Tablet 1 Tab PO TID Vitamin B-12 (Cyanocobalamin (Vitamin B-12)) 1,000 Mcg Tablet 1,000 Mcg PO DAILY 30 Days Culturelle (Lactobacillus Rhamnosus Gg) 1 Each Cap.sprink 1 Cap PO BID 30 Days Gabapentin (Gabapentin) 100 Mg Capsule 100 Mg PO TID 30 Days Tylenol (Acetaminophen) 325 Mg Tablet 650 Mg PO PRN Q6HRS PRN 30 Days Aspirin 81 Mg Tab.chew 81 Mg PO DAILYWBKFT 30 Days Allopurinol 300 Mg Tablet 300 Mg PO HS D3 Dots (Cholecalciferol (Vitamin D3)) 2,000 Unit Tablet 400 Unit PO DAILY Reported Namenda (Memantine Hcl) 10 Mg Tablet 5 Mg PO BID Sucralfate 1 Gm Tablet 1 Tab PO QID Protonix (Pantoprazole Sodium) 20 Mg Tablet.dr 1 Tab PO BID Atorvastatin Calcium 10 Mg Tablet 10 Mg PO HS Montelukast Sodium Tablet (Montelukast Sodium) 10 Mg Tablet 10 Mg PO DAILY Amlodipine Besylate 5 Mg Tablet 5 Mg PO DAILY Escitalopram Oxalate 10 Mg Tablet 10 Mg PO DAILY Colestipol Hcl 1 Gm Tablet 1 Gm PO BID Zyrtec (Cetirizine Hcl) 10 Mg Tablet 10 Mg PO Balance B-100 (Vitamin B Complex) 1 Each Tablet 1 Each PO Citracal + D Maximum Caplet (Calcium Citrate/Vitamin D3) 1 Each Tablet 1 Each PO Vitamin E (Vitamin E (Dl,Tocopheryl Acet)) 400 Unit Capsule 400 Unit PO Centrum Silver Tablet (Multivits-Min/Fa/Lycopene/Lut) 1 Each Tablet 1 Each PO Vitals/I & O Vital Sign - Last 24 Hours 04/12/20 04/12/20 04/12/20 04/12/20 09:32 10:43 14:47 19:33 Temp 97.6 98.0 98.4 97.6 98.0 98.4 Pulse 63 61 60 72 Resp 16 16 16 B/P (MAP) 140/65 137/69 (91) 97/50 (66) 113/53 (73) Pulse Ox 96 92 92 O2 Delivery Room Air Room Air Room Air 04/12/20 04/13/20 23:36 03:11 Temp 98.9 98.7 98.9 98.7 Pulse 72 67 Resp 16 16 B/P (MAP) 119/63 (81) 120/59 (79) Pulse Ox 94 93 O2 Delivery Room Air Room Air Intake and Output 04/12/20 04/12/20 04/13/20 15:00 23:00 07:00 Intake Total 500 ml 220 ml Balance 500 ml 220 ml Justifications for Admission Other Justification RAHEEM LOAIZA MD Apr 13, 2020 09:01
--- NOTE | 2020-04-13 09:55 | CARD ---
MR#: [id number] Date of Study: 04/13/2020 Ordering Physician: MEL PERALTA, Referring Physician: MEL PERALTA Tech: Valeri Lee [facility] APPROVED REPORT EXAM: Two-dimensional and M-mode echocardiogram with Doppler and color Doppler. Other Information Quality : AverageHR: 60bpm Rhythm : NSRAtrial Fibrillation INDICATION Murmur RISK FACTORS Hypertension 2D DIMENSIONS RVDd2.8 (2.9-3.5cm)Left Atrium(2D)4.0 (1.6-4.0cm) IVSd1.1 (0.7-1.1cm)Aortic Root(2D)3.2 (2.0-3.7cm) LVDd4.3 (3.9-5.9cm)LVOT Diameter1.8 (1.8-2.4cm) PWd1.0 (0.7-1.1cm)LVDs1.8 (2.5-4.0cm) FS (%) 59.1 %SV74.9 ml LVEF(%)89.0 (>50%) Aortic Valve AoV Peak Zeus.433.7cm/sAoV VTI86.0cm AO Peak GR.75.3mmHgLVOT Peak Zeus.126.6cm/s AO Mean GR.36mmHgAVA (VMAX)0.73cm2 AI P 1/2 Omuz333jv Mitral Valve MV E Jubknwns85.0cm/sMV DECEL TSSP690uf MV A Gaqaebps07.0cm/sE/A Ratio1.1 Pulmonary Valve PV Peak Xftedwmq978.4cm/s Tricuspid Valve TR P. Jjhanfgi909uj/sTR Peak Gr.32mmHg Pulmonary Vein S1 Yjvffapv51.4cm/sD2 Erpjbgki24.7cm/s PVa sbnjubvf545rnjm LEFT VENTRICLE The left ventricle is normal size. There is mild concentric left ventricular hypertrophy. The left ve ntricular systolic function is normal. Estimated ejection fraction 60-65%. There is normal LV segment al wall motion. RIGHT VENTRICLE The right ventricle is normal size. There is normal right ventricular wall thickness. The right ventr icular systolic function is normal. ATRIA The left atrium is moderately dilated. The right atrium size is normal. The interatrial septum is int act with no evidence for an atrial septal defect or patent foramen ovale as noted on 2-D or Doppler i maging. AORTIC VALVE The aortic valve is severely calcified. Doppler and Color Flow revealed mild aortic regurgitation. Th ere is moderate to severe valvular aortic stenosis. MITRAL VALVE The mitral valve is calcified but opens well. Mitral annular calcification is mild. There is no evide nce of mitral valve prolapse. There is no mitral valve stenosis. Doppler and Color-flow revealed mild mitral regurgitation. TRICUSPID VALVE The tricuspid valve is normal in structure and function. Doppler and Color Flow revealed trace tricus pid regurgitation. Estimated PAP 42 mmHg. There is no tricuspid valve stenosis. PULMONIC VALVE The pulmonary valve is normal in structure and function. Doppler and Color Flow revealed trace to mil d pulmonic valvular regurgitation. GREAT VESSELS The aortic root is normal in size. The ascending aorta is normal in size. The IVC is normal in size a nd collapses <50% with inspiration. PERICARDIAL EFFUSION There is no evidence of significant pericardial effusion. Critical Notification Critical Value: No <Conclusion> The left ventricular systolic function is normal. Estimated ejection fraction 60-65%. There is normal LV segmental wall motion. Moderate to severe valvular aortic stenosis. Mild aortic regurgitation. Mild mitral regurgitation. Trace tricuspid regurgitation. Estimated PAP 42 mmHg. There is no evidence of significant pericardial effusion. Signed by : Ming Bermudez, Electronically Approved : 04/13/2020 09:55:16
--- NOTE | 2020-04-13 10:01 | PDOC ---
IM PROGRESS NOTES- Subjective Subjective Patient still is very forgetful and unable to express her thoughts. She is eating slowly but better. Weakness is improving. Still has some abdominal pain and back pain. Objective Vitals/I&O Vital Signs Date Time Temp Pulse Resp B/P (MAP) Pulse Ox O2 Delivery O2 Flow Rate FiO2 04/13/20 08:54 67 120/59 04/13/20 07:45 97.8 20 93 Room Air 97.8 I & O 04/12/20 04/12/20 04/13/20 15:00 23:00 07:00 Intake Total 500 ml 220 ml Balance 500 ml 220 ml Physical Exam Physical Exam General appearance - alert, very weak and forgetful. Chronically ill Mental Status - alert, forgetful Head - normal Chest - clear to auscultation, no wheezes, rales or rhonchi, symmetric air entry Heart - S1 and S2 normal Abdomen - soft, nontender Neurological - alert and forgetful Musculoskeletal -generalized weakness Extremities - no pedal edema Meds Current Medications Medications (Trade) Dose Ordered Sig/Jaylin Route PRN Reason Start Time Stop Time Status Last Admin Dose Admin Sucralfate (Carafate) 1 gm BID PO 04/12/20 21:00 04/13/20 08:54 Assessment Assessment Problems Medical Problems: (1) Bedbug bite with infection Status: Acute (2) Compression fracture of T10 vertebra Status: Acute (3) Fall Status: Acute (4) T11 vertebral fracture Status: Acute (5) UTI (urinary tract infection) Status: Acute 1. Non-ST elevation myocardial infarction, maybe type 2 due to demand ischemia. 2. Urinary tract infection. 3. Dehydration. 4. Acute metabolic encephalopathy. 5. Compression fractures of thoracic vertebra. 6. Physical deconditioning. 7. Dementia, on memantine. 8. Bed bug infestation. 9. Hypertension. 10. Gastroesophageal reflux disease. 11. Hiatal hernia. 12. 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 13. History of hypothyroidism. 14. Hyperlipidemia. 15. Bipolar affective disorder, in remission. 16. Seizure disorder. 17. Gastritis. 18. Diverticulosis. 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 PLAN: 1. Dehydration. Start IV fluids. 2. Hypokalemia. Replace potassium. 3. Acute metabolic encephalopathy. Continue to correct infection and electrolyte imbalance. 4. Urinary tract infection. Start IV Rocephin. 5. Non-ST elevation HI. Consult Dr. Aiken for cardiology evaluation and management. 6. Compression fractures, recurrent falls and weakness. Order PT, OT. Fall precautions. Consult Dr. Nicole for rehab evaluation and management. For details, please refer to the orders. The patient may require a long-term prison placement, which she has declined in the past. Prognosis of this patient is very poor due to her multiple medical problems. For details, please refer to the orders. GREATER THAN 100,000 CFU/ML GRAM NEGATIVE RODS on 04/11/20 at 0818 FINAL ID= [ENTEROBACTER CLOACAE COMPLEX] 20,000 CFU/ML [PROTEUS MIRABILIS/PENNERI] on 04/11/20 at 0819 Three or more organisms isolated. Results consistent with colonization or contamination during the collection process. Recollection recommended using a method to minimize contamination. Testing Performed by: [address] [address] For Inquires, the Physician may contact the Microbiology department at [phone] ENTEROBACTER CLOACAE COMPLEX PROTEUS MIRABILIS/PENNERI ANTIMICROBIAL SUSCEPTIBILITY Final Comment Comment NEG JIAN 56 ENTEROBACTER CLOACAE COMPLEX ANTIBIOTIC RESULT INTERPRETATION AMPICILLIN/SULBACTAM <=4/2 R* AMIKACIN <=16 S AMPICILLIN <=8 R* AMOXICILLIN/K CLAVULANATE >16/8 R AZTREONAM <=4 S CEFTRIAXONE <=1 S CEFTAZIDIME <=1 S CEFOTAXIME <=2 S CEFOXITIN >16 R CEFAZOLIN >16 R CIPROFLOXACIN <=0.25 S CEFEPIME <=2 S CEFUROXIME 8 R* ERTAPENEM <=0.5 S NITROFURANTOIN >64 R Now on p.o. cefdinir Condition, treatment and options extensively discussed with the patient and her . She needs to go to a correction unit. They are agreeable. Plan Plan For more details regarding further plans, please refer to the orders. Justifications for Admission Other Justification CORNELIUS LÓPEZ MD Apr 13, 2020 10:01
[2020-04-13] MEDS ORDERED: CEFD300C PO (10:04)
--- NOTE | 2020-04-13 10:06 | SNU/HH DC ---
DISCHARGE ORDERS DISCHARGE INFORMATION: FINAL DIAGNOSIS Problems Medical Problems: (1) Bedbug bite with infection Status: Acute (2) Compression fracture of T10 vertebra Status: Acute (3) Fall Status: Acute (4) T11 vertebral fracture Status: Acute (5) UTI (urinary tract infection) Status: Acute CONDITION ON DISCHARGE: Stable SENIOR LIVING: SNF STAY <30 DAYS: Yes POST DISCHARGE ORDERS: ACTIVITY ORDERS: Activity as tolerated (With physical therapy, Occupational Therapy and staff supervision with walker) WEIGHT BEARING STATUS: Full weight bearing DIET AFTER DISCHARGE: Regular OTHER ORDERS: Fall precautions CHECKS AFTER DISCHARGE: CHECKS AFTER DISCHARGE: Check blood press - daily FOLLOW-UP: LAB ORDERS FOR FOLLOW-UP: CBC,CMP once a week for 4 weeks. TREATMENT/EQUIPMENT ORDERS: ADAPTIVE EQUIPMENT NEEDED: None, Wheelchair Physical Therapy For: Evalulation/Treatment Occupational Therapy For: Evaluation/Treatment Speech Language Pathology For: Evaluation/Treatment DISCHARGE MEDICATIONS: Home Meds Active Scripts Cefdinir (CEFDINIR) 300 Mg Capsule, 300 MG PO BID for UTI for 5 Days, #10 CAP Prov:CORNELIUS LÓPEZ MD 04/13/20 Magnesium Oxide (MAGNESIUM OXIDE) 400 Mg Tablet, 1 TAB PO DAILY for hyponagnesemia, #30 TAB 5 Refills Prov:CORNELIUS LÓPEZ MD 06/13/19 Hydralazine Hcl (HYDRALAZINE HCL) 50 Mg Tablet, 1 TAB PO TID for hypertension, #90 TAB 5 Refills Prov:CORNELIUS LÓPEZ MD 06/10/19 Cyanocobalamin (Vitamin B-12) (VITAMIN B-12) 1,000 Mcg Tablet, 1000 MCG PO DAILY for B12 deficiency for 30 Days, #30 TAB 5 Refills Prov:CORNELIUS LÓPEZ MD 06/10/19 Lactobacillus Rhamnosus Gg (CULTURELLE) 1 Each Cap.sprink, 1 CAP PO BID for antibiotic use for 30 Days, #60 CAP Prov:CORNELIUS LÓPEZ MD 06/10/19 Gabapentin (GABAPENTIN ) 100 Mg Capsule, 100 MG PO TID for neuropathy for 30 Days, #90 CAP 5 Refills Prov:CORNELIUS LÓPEZ MD 06/10/19 Acetaminophen (TYLENOL) 325 Mg Tablet, 650 MG PO PRN Q6HRS PRN for HEADACHE / TEMP > 100.3'F for 30 Days, #120 TAB Prov:CORNELIUS LÓPEZ MD 06/10/19 Aspirin (ASPIRIN) 81 Mg Tab.chew, 81 MG PO DAILYWBKFT for Small vessel ischemia for 30 Days, #30 TAB.CHEW 5 Refills Prov:CORNELIUS LÓPEZ MD 06/10/19 Allopurinol (ALLOPURINOL) 300 Mg Tablet, 300 MG PO HS, #90 TAB Prov:MALISSA PARKER PLUG GROWER 06/12/17 Cholecalciferol (Vitamin D3) (D3 DOTS) 2,000 Unit Tablet, 400 UNIT PO DAILY, #90 TAB Prov:MALISSA PARKER PLUG GROWER 06/12/17 Reported Medications Memantine Hcl (NAMENDA) 10 Mg Tablet, 5 MG PO BID for dementia, TAB 06/07/19 Sucralfate (SUCRALFATE) 1 Gm Tablet, 1 TAB PO QID for ., #120 TAB 3 Refills 08/07/18 Pantoprazole Sodium (PROTONIX) 20 Mg Tablet.dr, 1 TAB PO BID for ., #30 TAB 08/07/18 Atorvastatin Calcium (ATORVASTATIN CALCIUM) 10 Mg Tablet, 10 MG PO HS for FOR CHOLESTEROL, #30 TAB 0 Refills 06/09/17 Montelukast Sodium (MONTELUKAST SODIUM TABLET ) 10 Mg Tablet, 10 MG PO DAILY for FOR ASTHMA, #30 TAB 0 Refills 06/09/17 Amlodipine Besylate (AMLODIPINE BESYLATE) 5 Mg Tablet, 5 MG PO DAILY, TAB 08/28/13 Escitalopram Oxalate (ESCITALOPRAM OXALATE) 10 Mg Tablet, 10 MG PO DAILY for ANTI-DEPRESSANT, #30 TAB 0 Refills 08/28/13 Colestipol Hcl (COLESTIPOL HCL) 1 Gm Tablet, 1 GM PO BID for . 08/28/13 Cetirizine Hcl (ZYRTEC) 10 Mg Tablet, 10 MG PO 08/28/13 Vitamin B Complex (BALANCE B-100) 1 Each Tablet, 1 EACH PO 08/28/13 Calcium Citrate/Vitamin D3 (CITRACAL + D MAXIMUM CAPLET) 1 Each Tablet, 1 EACH PO 08/28/13 Vitamin E (Dl,Tocopheryl Acet) (VITAMIN E) 400 Unit Capsule, 400 UNIT PO 08/28/13 Multivits-Min/Fa/Lycopene/Lut (CENTRUM SILVER TABLET) 1 Each Tablet, 1 EACH PO 08/28/13 CORNELIUS LÓPEZ MD Apr 13, 2020 10:06
[2020-04-13 11:00] VITALS: BP 105/49
--- NOTE | 2020-04-13 11:52 | PDOC ---
PAMELA ALSTON [place] 04/13/20 1152: CARDIO Progress Notes Date and Time Date of Service 04/13/20 Time of Evaluation 1150 Subjective Subjective: No Chest Pain, No shortness of breath, No Palpitations, Other (feels weak) Vitals Vitals Vital Signs Date Time Temp Pulse Resp B/P (MAP) Pulse Ox O2 Delivery O2 Flow Rate FiO2 04/13/20 08:54 67 120/59 04/13/20 07:45 97.8 20 93 Room Air 97.8 Weight Weight [ ] Input and Output Intake and Output Intake and Output 04/13/20 07:00 Intake Total 720 ml Balance 720 ml Intake Oral 720 ml # Voids 5 Microbiology Micro Microbiology 04/09/20 Urine Culture - Final, Complete 04/09/20 Antimicrobic Susceptibility - Final, Complete Physical Exam HEENT: Neck Supple W Full Motion Chest: Symmetric LUNGS: Other (diminished bases) Heart: RRR Abdomen: Soft N/T Extremities: No Edema Neurology: alert, follow commands, other (forgetful) Assessment Assessment 1. Traumatic fall with T10-T11 compression fractures. Not associated with presyncope/syncope. Tele did not show any arrhythmias. Plan outpatient event monitor 2. Hx of multiple falls 3. Reported bed bug infestation 4. NSTEMI: Subtle changes to inferior leads. Peaked at 0.3 with associated MONTSE and fall with injury. No cardiac symptoms. suspect demand mediated. 5. GERD exacerbation with noted gastritis per CT 6. HTN urgency: now controlled 7. HLP; statin 8. Dementia Recommendations Outpatient event monitor to r/o contributing arrhythmias ASA, statin therapy Plan ischemic evaluation as outpatient Follow up in our office with Dr. Bermudez as scheduled. Justicifation of Admission Dx: Justifications for Admission: Justification of Admission Dx: Yes Comments: Thoracic compression fracture Weakness Falls NSTEMI JANETTE BERMUDEZ MD 04/13/201928: CARDIO Progress Notes Assessment Assessment Patient seen and examined. Agree with [facility] CONSULTANT's assessment and plan. 2D echo showed normal LVF with moderate to severe Tele did not show any significant arrhythmias Plan outpatient ischemic eval and event monitor recording GAMALIELPAMELA BOYLE Apr 13, 2020 11:52 JANETTE BERMUDEZ MD Apr 13, 2020 19:29
--- NOTE | 2020-04-13 13:26 | NUR ---
SS following for discharge planning. SS reviewed pt chart and discussed with pt RN. Pt is from home with spouse and is currently on room air. COVID19 test pending. PT/OT recommended group home unit. Discharge orders received for group home unit. SS met with pt and pt's spouse in room to discuss discharge planning. Pt and pt's spouse agreeable to group home unit and requested referral be phoned and faxed to [facility], ; fax [phone]. SS phoned and faxed referral as requested. Pt needing COVID19 test resulted prior to discharge. SS will continue to follow for discharge planning. Addendum: 04/13/20 at 1330 by LEO CANTOR Pt and pt's spouse reported that they are currently living at [facility] in [place], [place]. [facility] notified.
[2020-04-13 15:00] VITALS: BP 139/68
[2020-04-13 19:00] VITALS: BP 118/62
[2020-04-13] MEDS: ATORVASTATIN CALCIUM 10 MG TABLET. PO SCH (21:15)
[2020-04-13 23:00] VITALS: BP 130/61
[2020-04-14 03:00] VITALS: BP 128/59
[2020-04-14 07:58] VITALS: BP 130/65
--- NOTE | 2020-04-14 08:50 | PDOC ---
PROGRESS NOTES Date of Service DATE: 04/14/20 TIME: 08:48 Subjective Subjective No new complaints. Objective Objective Vital Signs Date Time Temp Pulse Resp B/P (MAP) Pulse Ox O2 Delivery O2 Flow Rate FiO2 04/14/20 07:58 99.0 62 19 130/65 (86) 94 Room Air 99.0 Intake and Output 04/14/20 07:00 Intake Total 1000 ml Balance 1000 ml Intake Oral 1000 ml # Voids 4 # Bowel Movements 1 Physical Exam Physical Exam She is supine in bed and sleepy but can easily be awakened and she did not eat her breakfast yet. Assessment Assessment Problems Medical Problems: (1) Bedbug bite with infection Status: Acute (2) Compression fracture of T10 vertebra Status: Acute (3) Fall Status: Acute (4) T11 vertebral fracture Status: Acute (5) UTI (urinary tract infection) Status: Acute Plan Plan of Care To continue present rehab efforts as tolerated. Comment Review of Relevant I have reviewed the following items ellyn (where applicable) has been applied. Labs Microbiology 04/09/20 Urine Culture - Final, Complete 04/09/20 Antimicrobic Susceptibility - Final, Complete Medications Current Medications Haloperidol Lactate (Haldol Inj) 5 mg 1X ONCE IVP Last administered on 04/09/20at 20:14; Start 04/09/20 at 20:00; Stop 04/09/20 at 20:01; Status DC Ondansetron HCl (Zofran) 4 mg PRN Q8HRS PRN IV NAUSEA/VOMITING 1ST CHOICE; Start 04/09/20 at 21:30; Stop 04/10/20 at 21:29; Status DC Morphine Sulfate (Morphine Sulfate) 2 mg PRN Q2HR PRN IV SEVERE PAIN 7-10; Start 04/09/20 at 21:30; Stop 04/10/20 at 21:29; Status DC Acetaminophen (Tylenol) 650 mg PRN Q4HRS PRN PO FEVER > 100.3'F; Start 04/09/20 at 21:30; Stop 04/10/20 at 21:29; Status DC Ceftriaxone Sodium (Rocephin) 1 gm 1X ONCE IVP Last administered on 04/09/20at 21:57; Start 04/09/20 at 22:00; Stop 04/09/20 at 22:01; Status DC Sodium Chloride 1,000 ml @ 125 mls/hr 1X ONCE IV Last administered on 04/09/20 21:57; Start 04/09/20 at 22:00; Stop 04/10/20 at 05:59; Status DC Acetaminophen (Tylenol) 650 mg PRN Q6HRS PRN PO HEADACHE / TEMP > 100.3'F; Start 04/10/20 at 09:15 Amlodipine Besylate (Norvasc) 5 mg DAILY PO Last administered on 04/13/20 08:54; Start 04/10/20 at 11:00 Aspirin (Aspirin Chewable) 81 mg DAILYWBKFT PO Last administered on 04/13/20 08:54; Start 04/10/20 at 11:00 Atorvastatin Calcium (Lipitor) 10 mg HS PO Last administered on 04/13/20 21:15; Start 04/10/20 at 21:00 Colestipol HCl (Colestid) 1 gm BID PO Last administered on 04/13/20 21:18; Sta rt 04/10/20 at 11:00 Cyanocobalamin (Vitamin B-12) 1,000 mcg DAILY PO Last administered on 04/13/20 08:54; Start 04/10/20 at 11:00 Gabapentin (Neurontin) 100 mg TID PO Last administered on 04/13/20 21:15; Start 04/10/20 at 14:00 Lactobacillus Rhamnosus (Culturelle) 1 cap BID PO Last administered on 04/13/20 21:16; Start 04/10/20 at 11:00 Memantine (Namenda) 5 mg BID PO Last administered on 04/13/20 21:16; Start 04/10/20 at 11:00 Montelukast Sodium (Singulair) 10 mg DAILY PO Last administered on 04/13/20 08:53; Start 04/10/20 at 11:00 Vitamin B Complex (Lemuel B) 1 tab DAILY PO Last administered on 04/13/20 08:54; Start 04/10/20 at 11:00 Magnesium Oxide (Magnesium Oxide) 400 mg DAILY PO Last administered on 04/13/20 08:54; Start 04/10/20 at 11:00 Pantoprazole Sodium (Protonix) 20 mg BID PO Last administered on 04/13/20 21:15; Start 04/10/20 at 11:00 Ceftriaxone Sodium (Rocephin) 1 gm Q24H IVP Last administered on 04/11/20at 17:35; Start 04/10/20 at 18:00; Stop 04/12/20 at 08:46; Status DC Heparin Sodium (Porcine) (Heparin Sodium) 5,000 unit Q12HR SQ Last administered on 04/13/20at 21:16; Start 04/10/20 at 11:00 Potassium Chloride 20 meq/ Dextrose/Sodium Chloride 1,010 ml @ 75 mls/hr [id number] IV Last administered on 04/10/20at 14:10; Start 04/10/20 at 09:15; Stop 04/11/20 at 04:05; Status DC Potassium Chloride/Dextrose/ Sod Cl 1,000 ml @ 75 mls/hr [id number] IV Last administered on 04/12/20at 05:36; Start 04/11/20 at 04:30; Stop 04/12/20 at 08:46; Status DC Cefdinir (Omnicef) 300 mg BID PO Last administered on 04/13/20at 21:16; Start 04/12/20 at 09:00 Sucralfate (Carafate) 1 gm BID PO Last administered on 04/13/20at 21:16; Start 04/12/20 at 21:00 Active Scripts Active Cefdinir 300 Mg Capsule 300 Mg PO BID 5 Days Magnesium Oxide 400 Mg Tablet 1 Tab PO DAILY Hydralazine Hcl 50 Mg Tablet 1 Tab PO TID Vitamin B-12 (Cyanocobalamin (Vitamin B-12)) 1,000 Mcg Tablet 1,000 Mcg PO DAILY 30 Days Culturelle (Lactobacillus Rhamnosus Gg) 1 Each Cap.sprink 1 Cap PO BID 30 Days Gabapentin (Gabapentin) 100 Mg Capsule 100 Mg PO TID 30 Days Tylenol (Acetaminophen) 325 Mg Tablet 650 Mg PO PRN Q6HRS PRN 30 Days Aspirin 81 Mg Tab.chew 81 Mg PO DAILYWBKFT 30 Days Allopurinol 300 Mg Tablet 300 Mg PO HS D3 Dots (Cholecalciferol (Vitamin D3)) 2,000 Unit Tablet 400 Unit PO DAILY Reported Namenda (Memantine Hcl) 10 Mg Tablet 5 Mg PO BID Sucralfate 1 Gm Tablet 1 Tab PO QID Protonix (Pantoprazole Sodium) 20 Mg Tablet.dr 1 Tab PO BID Atorvastatin Calcium 10 Mg Tablet 10 Mg PO HS Montelukast Sodium Tablet (Montelukast Sodium) 10 Mg Tablet 10 Mg PO DAILY Amlodipine Besylate 5 Mg Tablet 5 Mg PO DAILY Escitalopram Oxalate 10 Mg Tablet 10 Mg PO DAILY Colestipol Hcl 1 Gm Tablet 1 Gm PO BID Zyrtec (Cetirizine Hcl) 10 Mg Tablet 10 Mg PO Balance B-100 (Vitamin B Complex) 1 Each Tablet 1 Each PO Citracal + D Maximum Caplet (Calcium Citrate/Vitamin D3) 1 Each Tablet 1 Each PO Vitamin E (Vitamin E (Dl,Tocopheryl Acet)) 400 Unit Capsule 400 Unit PO Centrum Silver Tablet (Multivits-Min/Fa/Lycopene/Lut) 1 Each Tablet 1 Each PO Vitals/I & O Vital Sign - Last 24 Hours 04/13/20 04/13/20 04/13/20 04/13/20 08:54 11:00 15:00 19:00 Temp 97.9 97.7 100.0 97.9 97.7 100.0 Pulse 67 60 72 68 Resp 20 18 19 B/P (MAP) 120/59 105/49 (67) 139/68 (91) 118/62 (80) Pulse Ox 94 92 93 O2 Delivery Room Air Room Air Room Air 04/13/20 04/13/20 04/14/20 04/14/20 20:00 23:00 03:00 07:58 Temp 99.0 99.6 99.0 99.0 99.6 99.0 Pulse 68 65 62 Resp 19 19 19 B/P (MAP) 130/61 (84) 128/59 (82) 130/65 (86) Pulse Ox 94 92 94 O2 Delivery Room Air Room Air Room Air Room Air l Intake and Output 04/13/20 04/13/20 04/14/20 15:00 23:00 07:00 Intake Total 400 ml 300 ml 300 ml Balance 400 ml 300 ml 300 ml Justifications for Admission Other Justification RAHEEM LOAIZA MD Apr 14, 2020 08:50
[2020-04-14] MEDS: LACTOBACILLUS RHAMNOSUS GG 1 CAPSULE. PO SCH (09:27)
[2020-04-14] MEDS: MEMANTINE 10 MG TABLET. PO SCH (09:27)
[2020-04-14] MEDS: CYANOCOBALAMIN (VITAMIN B-12) 1,000 MCG TABLET. PO SCH (09:27)
[2020-04-14] MEDS: SUCRALFATE 1 GM TABLET. PO SCH (09:27)
[2020-04-14] MEDS: MAGNESIUM OXIDE 400 MG TABLET PO SCH (09:27)
[2020-04-14] MEDS: CEFDINIR 300 MG CAPSULE PO SCH (09:27)
[2020-04-14] MEDS: ASPIRIN CHEWABLE 81 MG TABLET. PO SCH (09:27)
[2020-04-14] MEDS: VITAMIN B COMPLEX TABLET. PO SCH (09:28)
[2020-04-14] MEDS: GABAPENTIN 100 MG CAPSULE. PO SCH (09:28)
[2020-04-14] MEDS: MONTELUKAST SODIUM 10 MG TABLET. PO SCH (09:28)
[2020-04-14] MEDS: COLESTIPOL HCL 1 GM TABLET PO SCH (09:28)
[2020-04-14] MEDS: PANTOPRAZOLE 40 MG TABLET.DR. PO SCH (09:28)
--- NOTE | 2020-04-14 09:39 | PDOC ---
PROGRESS NOTES- Subjective Subjective Patient still is very forgetful and unable to express her thoughts. She is eating slowly but better. Weakness is improving. Still has some abdominal pain and back pain. She had fever last night. Objective Vitals/I&O Vital Signs Date Time Temp Pulse Resp B/P (MAP) Pulse Ox O2 Delivery O2 Flow Rate FiO2 04/14/20 09:28 80 04/14/20 07:58 99.0 19 130/65 (86) 94 Room Air 99.0 I & O 04/13/20 04/13/20 04/14/20 15:00 23:00 07:00 Intake Total 400 ml 300 ml 300 ml Balance 400 ml 300 ml 300 ml Physical Exam Physical Exam General appearance - alert, very weak and forgetful. Chronically ill Mental Status - alert, forgetful Head - normal Chest - clear to auscultation, no wheezes, rales or rhonchi, symmetric air entry Heart - S1 and S2 normal Abdomen - soft, nontender Neurological - alert and forgetful Musculoskeletal -generalized weakness Extremities - no pedal edema Assessment Assessment Problems Medical Problems: (1) Bedbug bite with infection Status: Acute (2) Compression fracture of T10 vertebra Status: Acute (3) Fall Status: Acute (4) T11 vertebral fracture Status: Acute (5) UTI (urinary tract infection) Status: Acute 1. Non-ST elevation myocardial infarction, maybe type 2 due to demand ischemia. 2. Urinary tract infection. 3. Dehydration. 4. Acute metabolic encephalopathy. 5. Compression fractures of thoracic vertebra. 6. Physical deconditioning. 7. Dementia, on memantine. 8. Bed bug infestation. 9. Hypertension. 10. Gastroesophageal reflux disease. 11. Hiatal hernia. 12. 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 13. History of hypothyroidism. 14. Hyperlipidemia. 15. Bipolar affective disorder, in remission. 16. Seizure disorder. 17. Gastritis. 18. Diverticulosis. 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 PLAN: 1. Dehydration. Start IV fluids. 2. Hypokalemia. Replace potassium. 3. Acute metabolic encephalopathy. Continue to correct infection and electrolyte imbalance. 4. Urinary tract infection. Start IV Rocephin. 5. Non-ST elevation CT. Likely demand mediated. consult Dr. Aiken for cardiology evaluation and management. Echocardiogram The left ventricular systolic function is normal. Estimated ejection fraction 60-65%. There is normal LV segmental wall motion. Moderate to severe valvular aortic stenosis. Mild aortic regurgitation. Mild mitral regurgitation. Trace tricuspid regurgitation. Estimated PAP 42 mmHg. There is no evidence of significant pericardial effusion. Patient will need to follow-up with the personnel security assistant as outpatient for ischemia evaluation. 6. Compression fractures, recurrent falls and weakness. Order PT, OT. Fall precautions. Consult Dr. Nicole for rehab evaluation and management. For details, please refer to the orders. The patient may require a long-term detention placement, which she has declined in the past. Prognosis of this patient is very poor due to her multiple medical problems. For details, please refer to the orders. GREATER THAN 100,000 CFU/ML GRAM NEGATIVE RODS on 04/11/20 at 0818 FINAL ID= [ENTEROBACTER CLOACAE COMPLEX] 20,000 CFU/ML [PROTEUS MIRABILIS/PENNERI] on 04/11/20 at 0819 Three or more organisms isolated. Results consistent with colonization or contamination during the collection process. Recollection recommended using a method to minimize contamination. Testing Performed by: [address] [address] For Inquires, the Physician may contact the Microbiology department at [phone] ENTEROBACTER CLOACAE COMPLEX PROTEUS MIRABILIS/PENNERI ANTIMICROBIAL SUSCEPTIBILITY Final Comment Comment NEG JIAN 56 ENTEROBACTER CLOACAE COMPLEX ANTIBIOTIC RESULT INTERPRETATION AMPICILLIN/SULBACTAM <=4/2 R* AMIKACIN <=16 S AMPICILLIN <=8 R* AMOXICILLIN/K CLAVULANATE >16/8 R AZTREONAM <=4 S CEFTRIAXONE <=1 S CEFTAZIDIME <=1 S CEFOTAXIME <=2 S CEFOXITIN >16 R CEFAZOLIN >16 R CIPROFLOXACIN <=0.25 S CEFEPIME <=2 S CEFUROXIME 8 R* ERTAPENEM <=0.5 S NITROFURANTOIN >64 R Condition, treatment and options discussed with the patient and her . Fever etiology not clear. Discontinue cefdinir and start Rocephin again. Consult Dr. Sergei Lowe for infectious disease evaluation and management. Hold discharge today. Plan Plan For more details regarding further plans, please refer to the orders. Justifications for Admission Other Justification CORNELIUS LÓPEZ MD Apr 14, 2020 09:39
[2020-04-14] MEDS: HEPARIN for SUB-Q USE 5,000 UNIT/ML VIAL. SQ SCH (09:41)
[2020-04-14] MEDS ORDERED: cefTRIAXone IV Push 1 GM VIAL. IVP SCH (10:00)
--- NOTE | 2020-04-14 10:34 | PDOC ---
Infectious Disease Note Vital Sign Vital Signs Vital Signs Date Time Temp Pulse Resp B/P (MAP) Pulse Ox O2 Delivery O2 Flow Rate FiO2 04/14/20 09:28 80 04/14/20 07:58 99.0 19 130/65 (86) 94 Room Air 99.0 Labs Micro Microbiology 04/09/20 Urine Culture - Final, Complete 04/09/20 Antimicrobic Susceptibility - Final, Complete Objective Assessment pt seen, consult dictated Plan Plan of Care / MIKAL FARAH MD Apr 14, 2020 10:34
[2020-04-14 10:52] LABS: BASO # 0.1 x10^3/uL (0.0-0.2); BASO % 1 % (0-3); EOS # 0.2 x10^3/uL (0.0-0.7); EOS % 4 % (0-3); HEMATOCRIT 27.2 % (36.0-47.0); HEMOGLOBIN 8.4 g/dL (12.0-15.5); LYMPH # 0.9 x10^3/uL (1.0-4.8); LYMPH % 15 % (24-48); MEAN CORPUSCULAR HEMOGLOBIN 24 pg (25-35); MEAN CORPUSCULAR HGB CONC 31 g/dL (31-37); MEAN CORPUSCULAR VOLUME 77 fL (79-100); MONO # 0.5 x10^3/uL (0.0-1.1); MONO % 7 % (0-9); NEUT # 4.5 x10^3/uL (1.8-7.7); NEUT % 73 % (31-73); PLATELET COUNT 268 x10^3/uL (140-400); RED BLOOD COUNT 3.54 x10^6/uL (3.50-5.40); RED CELL DISTRIBUTION WIDTH 16.8 % (11.5-14.5); WHITE BLOOD COUNT 6.2 x10^3/uL (4.0-11.0)
[2020-04-14 10:57] VITALS: BP 100/55
--- NOTE | 2020-04-14 10:58 | CONS ---
DATE OF CONSULTATION: 04/14/2020 REQUESTING PHYSICIAN: Nadia Akhtar MD REASON FOR CONSULTATION: Fever and UTI. HISTORY OF PRESENT ILLNESS: This is a 79-year-old very frail, debilitated female who apparently had gone to [facility] because of the bed bugs at home. There, she either fell, hence she came in, although the says that the fall was a while ago and she was brought in because of the weakness. The patient does not have any urinary symptoms, did not have any nausea, vomiting, diarrhea. More testing found that she had compression fracture. She did have a low-grade temperature of 100.0 yesterday and the patient had been receiving cefdinir that has been changed to Rocephin. Her urine culture has showed Enterobacter cloacae and Proteus. The patient is alert, awake, sitting in a chair, she says no complaints. Denies any pain. Denies any nausea, vomiting, diarrhea or urinary symptoms. No complaints. She has difficulty walking. She says she has to be very careful. PAST MEDICAL HISTORY: Positive for recurrent UTI, encephalopathy, Tapia's esophagus, vitamin D deficiency, osteoarthritis, dementia, bipolar disorder, renal insufficiency, hyperlipidemia, seizure disorder. SOCIAL HISTORY: Negative for smoking, alcohol or illicit drug use. ALLERGIES: LISTED ALLERGIC TO SULFA. CURRENT MEDICATIONS: Reviewed. REVIEW OF SYSTEMS: As in HPI. All other systems reviewed are negative. PHYSICAL EXAMINATION: GENERAL: Alert, oriented female, not in distress. VITAL SIGNS: Temperature 99.0, T-max 100.0, pulse 62, respirations 19, blood pressure 130/65. HEENT: Both pupils are round and reacting. No conjunctival lesion, no lesion in the mouth. NECK: Supple, no JVP, no lymphadenopathy. LUNGS: Clear. HEART: S1, S2 regular. ABDOMEN: Benign. EXTREMITIES: No edema, cyanosis. SKIN: Unremarkable. NEUROLOGIC: The patient does have dementia, but able to move all the extremities. LABORATORY DATA: White count is 5.1. BUN and creatinine is 19 and 1.2. Urinalysis showed 11-20 wbc's. Urine culture, as I mentioned. Abdominal CT was unremarkable other than T10-T11 compression fracture. IMPRESSION: 1. Fever. 2. Urinary tract infection. 3. Compression fracture. 4. Debility. 5. Dementia. RECOMMENDATIONS: We would use ciprofloxacin p.o. We will discontinue Rocephin and I would give for 5 days Cipro 250 p.o. b.i.d. Also, probiotics advised. Thank you very much, Dr. Akhtar, for giving me the opportunity to participate in this patient's care. MIKAL FARAH MD DR: ANGELLA/ben JOB#: [id number] / [id number]
[2020-04-14] MEDS ORDERED: CIPROFLOXACIN HCL 250 MG TABLET. PO SCH (11:00)
[2020-04-14 11:05] LABS: CALCIUM 8.4 mg/dL (8.5-10.1); CREATININE 1.1 mg/dL (0.6-1.0); POTASSIUM 3.9 mmol/L (3.5-5.1)
--- NOTE | 2020-04-14 11:51 | NUR ---
SS following up with discharge planning. SS reviewed pt chart and discussed with pt RN. Pt is currently on room air. COVID19 test pending. PT/OT [facility] Pt accepted at [facility], ; fax [phone], pending COVID19 test result. SS will continue to follow for discharge planning.
--- NOTE | 2020-04-14 13:01 | NUR ---
SS following up with discharge planning. COVID[address] negative[address] Lowe discontinued Rocephin and placed pt on PO antibiotic. Dr. Akhtar signed off on discharge. Discharge orders and negative COVID19 test phoned and faxed to [facility], ; fax [phone]. Pt will discharge today and go to [facility] at 1430 via [facility] transport, [phone]. Pt, pt's RN, and pt's spouse notified.
[2020-04-14 14:26] VITALS: BP 139/51
--- NOTE | 2020-04-14 14:46 | NUR ---
discharge: Patient assisted with dressing. No belongings with patient. Patients took all belongings home. 2 IV's removed without complications, catheter tip in tact. Report called to [facility] [phone], spoke with Taylor. Copy of chart sent with patient.
[2020-04-14] MEDS ORDERED: PANTOPRAZOLE 40 MG TABLET.DR. PO SCH (16:30)
[2020-04-14] MEDS ORDERED: SUCRALFATE 1 GM TABLET. PO SCH (22:00)
--- NOTE | 2020-04-27 09:21 | PDOC3 ---
IM DISCHARGE SUMMARY Date of Admission Date of Admission Date of Admission: Apr 09, 2020 at 20:49 Date of Discharge Date of Discharge April Primary Diagnosis Primary Diagnosis 1. Non-ST elevation myocardial infarction, maybe type 2 due to demand ischemia. 2. Urinary tract infection. 3. Dehydration. 4. Acute metabolic encephalopathy. 5. Compression fractures of thoracic vertebra. 6. Physical deconditioning. 7. Dementia, on memantine. 8. Bed bug infestation. 9. Hypertension. 10. Gastroesophageal reflux disease. 11. Hiatal hernia. 12. 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 13. History of hypothyroidism. 14. Hyperlipidemia. 15. Bipolar affective disorder, in remission. 16. Seizure disorder. 17. Gastritis. 18. Diverticulosis. 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 Consults Consults Rey Nicole MD; Zion Aiken MD; Sergei Lowe MD Brief hospital course Brief hospital course This 79-year-old female who lives with her in a motel because they had bed bug infestation at home, but also has the same issues in the motel room, has been gradually getting weaker. She fell at home and was brought to the Emergency Room. In the Emergency Room, the patient was noted to have left lower quadrant abdominal pain. She was noted to be confused and disheveled with poor hygiene and bed bugs. She was also noted to be dehydrated with a sodium of 144 and potassium 3.6 and today's sodium is 146 and potassium 3.4. Troponin level was elevated at 0.308 and 0.266 and actually the initial troponin was 0.366. BNP was 722. Sodium today is 146, BUN 23, creatinine 1.3. Urinalysis showed wbc's 11-20 and many bacteria. WBC count was [address] scan of head and neck showed cervical degenerative changes. CT scan of abdomen and pelvis showed T10 and T11 new vertebral body compression fractures with 10% and 33% anterior height loss respectively, also was noted to have moderate hiatal hernia with gastric wall thickening. X-rays of the hip and pelvis showed intact right total hip arthroplasty and degenerative changes of the left hip. Because of the fall, confusion and compression fractures as well as elevated troponin and UTI and dehydration, the patient was admitted for further evaluation and management. For more details regarding the past history, family history, social history, surgical history and other details, please refer to History and Physical. 1. Non-ST elevation myocardial infarction, maybe type 2 due to demand ischemia. 2. Urinary tract infection. 3. Dehydration. 4. Acute metabolic encephalopathy. 5. Compression fractures of thoracic vertebra. 6. Physical deconditioning. 7. Dementia, on memantine. 8. Bed bug infestation. 9. Hypertension. 10. Gastroesophageal reflux disease. 11. Hiatal hernia. 12. 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 13. History of hypothyroidism. 14. Hyperlipidemia. 15. Bipolar affective disorder, in remission. 16. Seizure disorder. 17. Gastritis. 18. Diverticulosis. 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 PLAN: 1. Dehydration. Better with IV fluids. 2. Hypokalemia. Replace potassium. 3. Acute metabolic encephalopathy. Continue to correct infection and electrolyte imbalance. 4. Urinary tract infection. Start IV Rocephin. 5. Non-ST elevation ME. Likely demand mediated. consult Dr. Aiken for cardiology evaluation and management. Echocardiogram The left ventricular systolic function is normal. Estimated ejection fraction 60-65%. There is normal LV segmental wall motion. Moderate to severe valvular aortic stenosis. Mild aortic regurgitation. Mild mitral regurgitation. Trace tricuspid regurgitation. Estimated PAP 42 mmHg. There is no evidence of significant pericardial effusion. Patient will need to follow-up with the supervisor packing as outpatient for ischemia evaluation. 6. Compression fractures, recurrent falls and weakness. Order PT, OT. Fall precautions. Consult Dr. Nicole for rehab evaluation and management. For details, please refer to the orders. The patient may require a long-term retirement placement, which she has declined in the past. Prognosis of this patient is very poor due to her multiple medical problems. For details, please refer to the orders. GREATER THAN 100,000 CFU/ML GRAM NEGATIVE RODS on 04/11/20 at 0818 FINAL ID= [ENTEROBACTER CLOACAE COMPLEX] 20,000 CFU/ML [PROTEUS MIRABILIS/PENNERI] on 04/11/20 at 0819 Three or more organisms isolated. Results consistent with colonization or contamination during the collection process. Recollection recommended using a method to minimize contamination. Testing Performed by: [address] [address] For Inquires, the Physician may contact the Microbiology department at [phone] ENTEROBACTER CLOACAE COMPLEX PROTEUS MIRABILIS/PENNERI ANTIMICROBIAL SUSCEPTIBILITY Final Comment Comment NEG JIAN 56 ENTEROBACTER CLOACAE COMPLEX ANTIBIOTIC RESULT INTERPRETATION AMPICILLIN/SULBACTAM <=4/2 R* AMIKACIN <=16 S AMPICILLIN <=8 R* AMOXICILLIN/K CLAVULANATE >16/8 R AZTREONAM <=4 S CEFTRIAXONE <=1 S CEFTAZIDIME <=1 S CEFOTAXIME <=2 S CEFOXITIN >16 R CEFAZOLIN >16 R CIPROFLOXACIN <=0.25 S CEFEPIME <=2 S CEFUROXIME 8 R* ERTAPENEM <=0.5 S NITROFURANTOIN >64 R Condition, treatment and options discussed with the patient and her . Fever etiology not clear. Discontinue cefdinir . Consult Dr. Sergei Lowe for infectious disease evaluation and management.He started her on Cipro 250 mg po bid for 5 days and the patient was discharged to SNF. She is improving. Her long and short term prognosis is poor due to her multiple medical problems. Medications Medications reviewed and reconciled for discharge. Allergy Allergies Coded Allergies Type Severity Reaction Last Updated Verified Sulfa (Sulfonamide Antibiotics) Allergy Intermediate hives 01/16/18 Yes sulfamethoxazole Allergy Intermediate mouth sores 01/16/18 Yes trimethoprim Allergy Intermediate mouth sores 01/16/18 Yes Follow up in 5 days after discharge from SNF. DISPOSITION: [facility] facility Comments Discharge Management - 35 minutes. For other details please refer to discharge instructions Justicifation of Admission Dx: Justifications for Admission: Justification of Admission Dx: Yes CORNELIUS LÓPEZ MD Apr 27, 2020 09:21
[2020-06-01] MEDS ORDERED: CEPH500C PO (10:08)
[2020-06-02] MEDS ORDERED: FERR325T14 PO (10:06)
== END 2020-04-14 14:45 | DRG 551 ==
LOC: ER 15:29 → 4 NORTH 20:49 → 2 NORTH 04-10 10:25
PROVIDERS: ADMIT Internal Medicine; ATTEND Internal Medicine
DX: S22.089A Unspecified fracture of T11-T12 vertebra, initial encounter for closed fracture (principal); I21.A1 Myocardial infarction type 2; G93.41 Metabolic encephalopathy; N17.9 Acute kidney failure, unspecified; N39.0 Urinary tract infection, site not specified; S22.070A Wedge compression fracture of T9-T10 vertebra, initial encounter for closed fracture; Z96.651 Presence of right artificial knee joint; Z96.641 Presence of right artificial hip joint; W57.XXXA Bitten or stung by nonvenomous insect and other nonvenomous arthropods, initial encounter; W18.30XA Fall on same level, unspecified, initial encounter; R29.6 Repeated falls; N35.92 Unspecified urethral stricture, female; N18.30 Chronic kidney disease, stage 3 unspecified; M85.80 Other specified disorders of bone density and structure, unspecified site; M47.816 Spondylosis without myelopathy or radiculopathy, lumbar region; M16.12 Unilateral primary osteoarthritis, left hip; K57.30 Diverticulosis of large intestine without perforation or abscess without bleeding; K44.9 Diaphragmatic hernia without obstruction or gangrene; K29.70 Gastritis, unspecified, without bleeding; K21.9 Gastro-esophageal reflux disease without esophagitis; I16.0 Hypertensive urgency; I12.9 Hypertensive chronic kidney disease with stage 1 through stage 4 chronic kidney disease, or unspecified chronic kidney disease; G62.9 Polyneuropathy, unspecified; G40.909 Epilepsy, unspecified, not intractable, without status epilepticus; F31.9 Bipolar disorder, unspecified; F03.90 Unspecified dementia, unspecified severity, without behavioral disturbance, psychotic disturbance, mood disturbance, and anxiety; E78.5 Hyperlipidemia, unspecified; E78.00 Pure hypercholesterolemia, unspecified; E03.9 Hypothyroidism, unspecified; B88.8 Other specified infestations; E86.0 Dehydration; E55.9 Vitamin D deficiency, unspecified; M10.9 Gout, unspecified; M50.30 Other cervical disc degeneration, unspecified cervical region; M51.36 Other intervertebral disc degeneration, lumbar region; E87.6 Hypokalemia; Z20.822 Contact with and (suspected) exposure to COVID-19; K22.70 Barrett's esophagus without dysplasia; I08.3 Combined rheumatic disorders of mitral, aortic and tricuspid valves; B96.4 Proteus (mirabilis) (morganii) as the cause of diseases classified elsewhere; Z87.440 Personal history of urinary (tract) infections; Z86.73 Personal history of transient ischemic attack (TIA), and cerebral infarction without residual deficits; Z91.81 History of falling; Z82.49 Family history of ischemic heart disease and other diseases of the circulatory system; Y92.009 Unspecified place in unspecified non-institutional (private) residence as the place of occurrence of the external cause; Y93.89 Activity, other specified; Y99.8 Other external cause status; Z87.01 Personal history of pneumonia (recurrent); Z90.49 Acquired absence of other specified parts of digestive tract
CPT/HCPCS: 36415; 70450; 72125; 73502; 74176; 80048; 80053; 80061; 80307; 81001; 82550; 83880; 84443; 84484; 85025; 87077; 87086; 87186; 93005; 93306; 96361; 96374; 96375; G0480; J0696; J1630; J1644; J3480; J7030; J7042; U0003; 97110-GP; 97116-GP; 97530-GO; 97530-GP; 97535-GO; 99285-25; G0378

== ENCOUNTER 2021-03-08 10:54 | Inpatient (IN) | payer MEDICARE, BC ==
[~2021-03-08] VITALS: Ht 167.6 cm; Wt 59.0 kg
[~2021-03-08 10:54] MED LIST changes: +CEFD300C PO; +CEPH500C PO; +FERR325T14 PO; +MAGN400T48 PO; -MAGN400T5 PO
[2021-03-08] MEDS ORDERED: IV NORMAL SALINE 1000ML BAG 1,000 ML IV ONE (11:15)
[2021-03-08 11:17] LABS: BILIRUBIN,URINE SMALL (NEG); CLARITY,URINE CLEAR; COLOR,URINE YELLOW; NITRITE,URINE NEGATIVE (NEG); PROTEIN,URINE 30 mg/dL (NEG-TRACE)
[2021-03-08 11:29] LABS: BACTERIA,URINE MANY /HPF (0-FEW); RBC,URINE OCC /HPF (0-2)
--- NOTE | 2021-03-08 11:39 | PHYS DOC ---
Past Medical History Past Medical History: Arthritis, Diverticulosis, High Cholesterol, Hypert ension, TIA, Other Additional Past Medical Histor: GOUT,BARAHONA'S ESOPHAGUS Past Surgical History: Cholecystectomy, Hip Replacement, Knee Replacement, Tonsillectomy, Other Additional Past Surgical Histo: colonoscopy Smoking Status: Never Smoker Alcohol Use: None Drug Use: None General Adult EDM: Chief Complaint: ABDOMINAL PAIN HPI: HPI: Patient is a 80-year-old female who presents to the emergency department today via EMS for abdominal pain. EMS reported that patient was complaining of right lower quadrant pain for the last 2 days. When asked patient states that she is having left lower quadrant pain. Patient has a history of dementia, hypertension, A. fib. She did not take her blood pressure medication today and her blood pressure is elevated. Her states that she is not on a blood thinner for her A. fib. Patient is also reporting nausea and had one episode of diarrhea today. She denies vomiting, urinary symptoms, shortness of breath, chest pain. [facility] with her who cares for her. Review of Systems: Review of Systems: Constitutional: negative unless reported in HPI Eyes: negative unless reported in HPI HENT: negative unless reported in HPI Respiratory: negative unless reported in HPI Cardiovascular: negative unless reported in HPI GI: negative unless reported in HPI : negative unless reported in HPI Musculoskeletal: negative unless reported in HPI Integument: negative unless reported in HPI Neurologic: negative unless reported in HPI Endocrine: negative unless reported in HPI Lymphatic: negative unless reported in HPI Psychiatric: negative unless reported in HPI Heart Score: C/O Chest Pain: No Risk Factors: Risk Factors: DM, Current or recent (<one month) smoker, HTN, HLP, family history of CAD, obesity. Risk Scores: Score 0 - 3: 2.5% MACE over next 6 weeks - Discharge Home Score 4 - 6: 20.3% MACE over next 6 weeks - Admit for Clinical Observation Score 7 - 10: 72.7% MACE over next 6 weeks - Early Invasive Strategies Current Medications: Current Medications Medications (Trade) Dose Ordered Sig/Jaylin Start Time Stop Time Status Last Admin Dose Admin Sodium Chloride 1,000 ml @ 1,000 mls/hr 1X ONCE 03/08/21 11:15 03/08/21 12:14 Allergies: Allergies: Allergies Coded Allergies Type Severity Reaction Last Updated Verified Sulfa (Sulfonamide Antibiotics) Allergy Intermediate hives 01/16/18 Yes sulfamethoxazole Allergy Intermediate mouth sores 01/16/18 Yes trimethoprim Allergy Intermediate mouth sores 01/16/18 Yes Physical Exam: PE: Constitutional: Well developed, well nourished, no acute distress, non-toxic appearance. [] HENT: Normocephalic, atraumatic, bilateral external ears normal, oropharynx moist, no oral exudates, nose normal. [] Eyes: PERRL, EOMI, conjunctiva normal, no discharge. [] Neck: Normal range of motion, no stridor Cardiovascular:Heart rate regular rhythm, no murmur [] Lungs & Thorax: Bilateral breath sounds clear to auscultation [] Abdomen: Bowel sounds normal, soft, no tenderness, negative Terrazas sign, no negative Rovsing sign, no rebound tenderness, no abdominal rigidity or guarding, no masses, no pulsatile masses. [] Skin: Warm, dry, no erythema, no rash. [] Back: No tenderness, no CVA tenderness. [] Extremities: No tenderness, no cyanosis, no clubbing, ROM intact, no edema. [] Neurologic: Alert and oriented X 3, normal motor function, normal sensory function, no focal deficits noted. [] Psychologic: Affect normal, judgement normal, mood normal. [] Current Patient Data: Labs: Laboratory Tests Test 03/08/21 11:08 Urine Collection Type U cath Urine Color Yellow Urine Clarity Clear Urine pH 5.0 (<5.0-8.0) Urine Specific [place] >=1.030 (1.000-1.030) Urine Protein 30 mg/dL (NEG-TRACE) Urine Glucose (UA) Negative mg/dL (NEG) Urine Ketones (Stick) 15 mg/dL (NEG) Urine Blood Negative (NEG) Urine Nitrite Negative (NEG) Urine Bilirubin Small (NEG) Urine Urobilinogen Dipstick 1.0 mg/dL (0.2 mg/dL) Urine Leukocyte Esterase Negative (NEG) Urine RBC Occ /HPF (0-2) Urine WBC 5-10 /HPF (0-4) Urine Squamous Epithelial Cells Few /LPF Urine Bacteria Many /HPF (0-FEW) Urine Mucus Slight /LPF Vital Signs: Vital Signs Date Time Temp Pulse Resp B/P (MAP) Pulse Ox O2 Delivery O2 Flow Rate FiO2 03/08/21 10:54 97.8 82 20 180/111 (134) 97 Room Air 97.8 EKG: EKG: EKG performed by ER staff at 1113 shows A. fib with a rate of 117 with PVCs, no STEMI read by Dr. Johnson [] Radiology/Procedures: Radiology/Procedures: []PROCEDURE: CT ABD PELV W/ IV CONTRST ONLY EXAM: Abdomen and pelvis CT with intravenous contrast. HISTORY: Pain. TECHNIQUE: Computed tomographic images of the abdomen and pelvis were obtained following the administration of intravenous contrast. Multiplanar reformatting was performed. *One or more of the following individualized dose reduction techniques were utilized for this examination: 1. Automated exposure control. 2. Adjustment of the mA and/or kV according to patient size. 3. Use of iterative reconstruction technique. COMPARISON: 05/28/2020. FINDINGS: Evaluation of the lower thorax demonstrates cardiomegaly and a stable small pericardial effusion. There is heavily calcified atherosclerotic plaque involving the coronary arteries. There is calcification of the aortic valve and mitral valve annulus. There is a patulous fluid-filled esophagus and moderate hiatal hernia. There are is bilateral lower lobe atelectasis with possible superimposed interstitial infiltrate. There is no consolidation. No suspicious hepatic lesion is seen. There is biliary ductal dilatation likely due to prior cholecystectomy. The pancreas is unremarkable. There are a few splenic granulomas. There is a small incidental partially calcified splenic artery aneurysm within the splenic hilum. There is mild adrenal gland thickening without a discrete lesion. The left kidney is atrophic and contains a lower pole calcification. There is no suspicious right renal lesion. There is no evidence of bowel obstruction. There is no abnormal bowel wall thickening. There is distal colonic diverticulosis. There is no diverticulitis. The bladder is nearly empty. There are calcified uterine fibroids. There is atherosclerotic plaque involving a tortuous aorta and iliac bifurcation. There is a proximal duodenal diverticulum containing gas and debris. There is a right hip arthroplasty. There is degenerative change throughout the spine. There is bone demineralization. There are chronic appearing compression fractures of T11, L2, L4 and L5 IMPRESSION: 1. Colonic diverticulosis. There is no convincing diverticulitis. 2. Patulous distal esophagus with moderate hiatal hernia. 3. Large proximal duodenal diverticulum. 4. Bilateral lower lobe atelectasis with possible superimposed interstitial infiltrate. Correlate with symptomatology. 5. Cardiomegaly with stable small pericardial effusion. 6. Left renal atrophy. Electronically signed by: Justa Rockwell MD (03/08/2021 12:26 PM) [id number] DICTATED and SIGNED BY: JUSTA ROCKWELL MD DATE: 03/08/21 [id number] Course & Med Decision Making: Course & Med Decision Making Pertinent Labs and Imaging studies reviewed. (See chart for details) [] Patient presents for abdominal pain with nausea and diarrhea. EMS reports the patient was complaining of right lower quadrant pain, now she is reporting left lower quadrant pain. Physical exam is reassuring she does not have any guarding, rebound tenderness, rigidity or tenderness with palpation of her abdomen. Work-up in the ER cystoscopy blood work, urinalysis and CT scan of abdomen and pelvis. Patient was treated with IV fluids. Patient does have a history of A. fib and is currently in A. fib with a rate of 93-1 17, patient will be referred to cardiology, she is not taking any medications for her afib. CBC unremarkable, bun elevated consistent with previous findings. UA shows 5-10 wbc, many bacteria and it was a straight cath sample. Patient will be treated for UTI with an antibiotic. patients CT scan shows diverticulosis, patulous distal esophagus which patient has hx of. Patient reports that her abdominal pain has resolved. Her BP was treated in the ER, she takes 50mg hydralazine and 5mg amlodipine at home but did not take today. Patients heart rate increased and was remaining at 130-165bpm, 5mg metoprolol ordered, this did improve her heart rate and it was 93-110bpm following. I discussed these findings with patients pcp, Dr. Akhtar and he would like patient admitted for afib rvr with a cardiology consult. I discussed these findings with patient and and they are a greeable to care plan. Case discussed with supervising physician. Gabino Disclaimer: Gabino Disclaimer: This electronic medical record was generated, in whole or in part, using a voice recognition dictation system. Departure Departure Impression: Primary Impression: UTI (urinary tract infection) Qualified Codes: N30.00 - Acute cystitis without hematuria Additional Impression: Atrial fibrillation with RVR Disposition: ADMITTED INPATIENT Admitting Physician: Cornelius Akhtar Condition: GOOD Referrals: CORNELIUS AKHTAR MD (PCP) OG BARGER MD, KIANA L APRN Mar 08, 2021 11:39
[2021-03-08 11:42] LABS: BASO # 0.1 x10^3/uL (0.0-0.2); BASO % 1 % (0-3); EOS # 0.1 x10^3/uL (0.0-0.7); EOS % 1 % (0-3); HEMATOCRIT 40.1 % (36.0-47.0); HEMOGLOBIN 12.8 g/dL (12.0-15.5); LYMPH # 1.3 x10^3/uL (1.0-4.8); LYMPH % 13 % (24-48); MEAN CORPUSCULAR HEMOGLOBIN 26 pg (25-35); MEAN CORPUSCULAR HGB CONC 32 g/dL (31-37); MEAN CORPUSCULAR VOLUME 82 fL (79-100); MONO # 0.7 x10^3/uL (0.0-1.1); MONO % 6 % (0-9); NEUT # 8.4 x10^3/uL (1.8-7.7); NEUT % 80 % (31-73); PLATELET COUNT 387 x10^3/uL (140-400); RED BLOOD COUNT 4.88 x10^6/uL (3.50-5.40); RED CELL DISTRIBUTION WIDTH 17.9 % (11.5-14.5); WHITE BLOOD COUNT 10.5 x10^3/uL (4.0-11.0)
[2021-03-08 11:47] LABS: CALCIUM 8.8 mg/dL (8.5-10.1); CREATININE 0.9 mg/dL (0.6-1.0); GFR 60.4; POTASSIUM 4.1 mmol/L (3.5-5.1)
[2021-03-08 11:53] LABS: ALBUMIN 3.1 g/dL (3.4-5.0); ALBUMIN/GLOBULIN RATIO 0.9 (1.0-1.7); TOTAL BILIRUBIN 0.6 mg/dL (0.2-1.0); TOTAL PROTEIN 6.6 g/dL (6.4-8.2)
[2021-03-08] MEDS ORDERED: CONTRAST GIVEN. MC PRN (12:00)
[2021-03-08] MEDS ORDERED: IOHEXOL 300 MG/ML 100ML VIAL. IV ONE (12:00)
--- NOTE | 2021-03-08 12:28 | RAD ---
EXAM: Abdomen and pelvis CT with intravenous contrast. HISTORY: Pain. TECHNIQUE: Computed tomographic images of the abdomen and pelvis were obtained following the administ ration of intravenous contrast. Multiplanar reformatting was performed. *One or more of the following individualized dose reduction techniques were utilized for this examina tion: 1. Automated exposure control. 2. Adjustment of the mA and/or kV according to patient size. 3. Use of iterative reconstruction technique. COMPARISON: 05/28/2020. FINDINGS: Evaluation of the lower thorax demonstrates cardiomegaly and a stable small pericardial eff usion. There is heavily calcified atherosclerotic plaque involving the coronary arteries. There is ca lcification of the aortic valve and mitral valve annulus. There is a patulous fluid-filled esophagus and moderate hiatal hernia. There are is bilateral lower lobe atelectasis with possible superimposed interstitial infiltrate. There is no consolidation. No suspicious hepatic lesion is seen. There is biliary ductal dilatation likely due to prior cholecys tectomy. The pancreas is unremarkable. There are a few splenic granulomas. There is a small incidenta l partially calcified splenic artery aneurysm within the splenic hilum. There is mild adrenal gland t hickening without a discrete lesion. The left kidney is atrophic and contains a lower pole calcificat ion. There is no suspicious right renal lesion. There is no evidence of bowel obstruction. There is no abnormal bowel wall thickening. There is dista l colonic diverticulosis. There is no diverticulitis. The bladder is nearly empty. There are calcifie d uterine fibroids. There is atherosclerotic plaque involving a tortuous aorta and iliac bifurcation. There is a proximal duodenal diverticulum containing gas and debris. There is a right hip arthroplasty. There is degenerative change throughout the spine. There is bone d emineralization. There are chronic appearing compression fractures of T11, L2, L4 and L5 IMPRESSION: 1. Colonic diverticulosis. There is no convincing diverticulitis. 2. Patulous distal esophagus with moderate hiatal hernia. 3. Large proximal duodenal diverticulum. 4. Bilateral lower lobe atelectasis with possible superimposed interstitial infiltrate. Correlate wit h symptomatology. 5. Cardiomegaly with stable small pericardial effusion. 6. Left renal atrophy. Electronically signed by: Justa Jerez MD (03/08/2021 12:26 PM) [id number]
[2021-03-08] MEDS ORDERED: hydrALAZINE 20 MG/ML VIAL. IVP ONE (12:30)
[2021-03-08] MEDS ORDERED: CEPH500T PO (12:46)
[2021-03-08] MEDS ORDERED: METOPROLOL IV PUSH 5 MG/5 ML VIAL. IVP ONE (13:00)
[2021-03-08] MEDS ORDERED: fentaNYL PF VIAL 100 MCG/2 ML VIAL IVP PRN (14:00)
[2021-03-08] MEDS ORDERED: ONDANSETRON PF 4 MG/2 ML VIAL. IVP PRN (14:00)
[2021-03-08] MEDS ORDERED: cefTRIAXone IV Push 1 GM VIAL. IVP ONE (14:00)
[2021-03-08] MEDS: IV NORMAL SALINE 1000ML BAG 1,000 ML IV SCH ×2 (14:07→23:57)
[2021-03-08 16:30] VITALS: BP 159/117
--- NOTE | 2021-03-08 18:54 | EKG ---
[facility] [address] [place] [address] Test Date: 2021-03-08 Test Time: 11:13:44 Pat Name: DARYL MCKEON Department: Room: 1 1 Gender: F Program Coordinator Executive Education: : 1940 Requested By: RAÚL CHOI Order Number: [id number] Reading MD: Measurements Intervals [place] Rate: 117 P: 90 AR: 184 QRS: 12 QRSD: 76 T: -36 QT: 298 QTc: 420 Interpretive Statements SINUS TACHYCARDIA COMPLEX(ES) WITH ABERRANT INTRAVENTRICULAR CONDUCTION VENTRICULAR PREMATURE COMPLEX(ES) ATRIAL PREMATURE COMPLEX(ES) ST & T ABNORMALITY, CONSIDER ANTERIOR ISCHEMIA OR LEFT VENTRICULAR STRAIN INFEROLATERAL ISCHEMIA OR LEFT VENTRICULAR STRAIN ABNORMAL ECG
[2021-03-08] MEDS ORDERED: ACETAMINOPHEN 325 MG TABLET. PO PRN (19:00)
--- NOTE | 2021-03-08 19:37 | PDOC ---
Provider Note Date of Service: DATE: 03/08/21 TIME: 19:36 Provider Note H&P dictated #[id number] Justifications for Admission Other Justification CORNELIUS LÓPEZ MD Mar 08, 2021 19:36
[2021-03-08 19:51] VITALS: BP 168/97
--- NOTE | 2021-03-08 20:14 | HP ---
DATE OF SERVICE: 03/08/2021 ADMIT DATE: 03/08/2021 ADMITTING PHYSICIAN: Nadia Akhtar MD HISTORY OF PRESENT ILLNESS: This 80-year-old female who has been admitted to this institution several times in the past and who lives in a hotel with her and has a history of multiple medical problems and who has not been seen in the office since her last admission in 05/2020. Her family called our office today with information that her condition was declining. She was not eating. She was much weaker and getting confused. She also had abdominal pain, especially in the right lower quadrant. She apparently has not been taking her medications regularly. In the Emergency Room, the patient was noted to have atrial fibrillation that is new onset with fast ventricular rate and she was started on IV Cardizem drip and admitted for further evaluation and management. She was also noted to have fever with urinary tract infection. Urinalysis showed 5-10 wbc's, many bacteria, negative nitrite. SARS-COVID rapid test was negative. Sodium 142, potassium 4.1, BUN 25, creatinine 0.9, calcium 8.8, albumin 3.1, lipase 108. Troponin 23. WBC count 10.5, hemoglobin 12.8, polys 80, platelet count 387,000. CT scan of abdomen and pelvis showed colonic diverticulosis, patulous distal esophagus with moderate hiatal hernia, large proximal duodenal diverticulum, bilateral lower lobe atelectasis with possible superimposed interstitial infiltrate, cardiomegaly with small pericardial effusion, left renal atrophy. Because of her change in mental status, new onset atrial fibrillation, UTI, possible pneumonia, dehydration, physical deconditioning, the patient was admitted for further evaluation and management. SYSTEMS REVIEW: The patient is a very poor historian. She is forgetful. She does know me. She admits to pain all over. She is not sure about her abdominal pain. She denies any nausea or vomiting. Her oral intake appears to be very poor. She is not eating well. She denies any dyspnea. She is coughing in the room. She is very weak, frail and forgetful. Unable to do full systems review. PAST MEDICAL HISTORY: The patient was last admitted here in 05/2020. At that time, she was treated for acute UTI, weakness, tremors, hypertension, dementia, physical deconditioning, dehydration, hyponatremia, hypokalemia, history of bedbug infestation gastroesophageal reflux disease, compression fractures of thoracic vertebra, 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, hiatal hernia, history of hypothyroidism, hyperlipidemia, bipolar affective disorder, in remission, seizure disorder, gastritis, diverticulosis, urethral stenosis. She had pneumonia in 05/2017, in 06/2013 as well as in 01/2017. She has chronic cognitive deficits. Her last echocardiogram in 05/2020 showed ejection fraction of 60-65% and [id number] aortic stenosis. PAST SURGICAL HISTORY: Urethral stenosis, had GI workup, right total hip arthroplasty. FAMILY HISTORY: Father of heart disease. SOCIAL HISTORY: No history of smoking, alcoholism, or drug abuse. She is currently living in a motel with her . She has bed issues with bedbug infestation at home as well as at the motel. ALLERGIES: THE PATIENT IS ALLERGIC TO SULFA AND TRIMETHOPRIM. MEDICATIONS: The patient is currently likely not taking any medications. I will check with her to see if she is taking any medications. Previously, she was on amlodipine 5 mg daily, aspirin 81 mg daily, atorvastatin 10 mg daily, allopurinol 300 mg daily, colestipol 1 tablet twice daily for diarrhea, vitamin B12 5000 mcg sublingual twice a week, gabapentin 100 mg 3 times a day, hydralazine 50 mg twice a day, Lexapro 10 mg daily, memantine 5 mg twice daily, montelukast 10 mg daily, pantoprazole 40 mg daily, Carafate 1 gram twice daily, tramadol 50 mg q. 6 hours p.r.n. for pain and Tylenol Extra Strength 500 mg 2 twice a day. However, I am not sure if she has not been taking any of these medications. PHYSICAL EXAMINATION: VITAL SIGNS: Temperature 99.7, pulse max was 153 per minute, blood pressure 139/110 mmHg. Currently, blood pressure is 159/117 mmHg. GENERAL: The patient is very weak, frail, malnourished, chronically ill and not in any acute distress. She is speaking very slowly and is forgetful. She is a very poor historian. EYES: Pupils reactive to light. Conjunctivae pale. Sclerae muddy. HENT: Partial exam. Mouth is dry. She has some congestion. She has been coughing. SKIN: Warm and dry. Skin turgor decreased. As per staff, she does not have any wounds. NECK: Supple. JVP normal. No thyromegaly. Trachea midline. LUNGS: Decreased breath sounds bilaterally with occasional coarse breath sounds. CARDIOVASCULAR: S1, S2, regular. ABDOMEN: Soft, nontender, no guarding, no rigidity. Bowel sounds present. EXTREMITIES: No edema. CENTRAL NERVOUS SYSTEM: Weak, but responsive, forgetful, alert. Generalized weakness, unable to follow all commands. LABORATORY FINDINGS: As noted earlier. IMPRESSION: 1. Acute urinary tract infection. 2. Likely pneumonia. COVID rapid test is negative. RT-PCR is pending. 3. Tremors. 4. Dehydration. 5. Physical deconditioning. 6. Dementia. 7. Possible aspiration pneumonia. 8. Hypertension, not controlled. 9. New onset atrial fibrillation. 10. Zogghgou-bi-aecgyz aortic stenosis. 11. History of bedbug infestation. 12. Gastroesophageal reflux disease. 13. 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 14. Compression fractures of thoracic vertebra. 15. Hiatal hernia. 16. History of hypothyroidism. 17. Hyperlipidemia. 18. Bipolar affective disorder, in remission. 19. Seizure disorder. 20. Gastritis. 21. Diverticulosis. 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 PLAN: 1. Urinary tract infection. Start IV fluids and start IV Rocephin. 2. Dehydration. Start IV fluids. 3. New onset atrial fibrillation. Consult Dr. Aiken for cardiology evaluation and management. The patient has been started on IV Cardizem drip. 4. Hypertension, not controlled. I will restart hydralazine. For details, please refer to the orders. 5. Physical deconditioning. Consult Dr. Nicole for rehab evaluation and management. 6. Dementia. Continue memantine. 7. Acute metabolic encephalopathy. Correct electrolyte imbalance, dehydration and infection. 8. Pneumonia. Consult Dr. Dasilva for pulmonary evaluation and management. The patient may be aspirating. Also, check for COVID infection. Prognosis of this patient is very poor. I will discuss with her . She will likely need to be [facility] to a pen[facility]iary [facility]. For details, please refer to the orders. AMRS BRICENO: Ira TID: [id number] MTDD
[2021-03-08 20:56] VITALS: BP 145/78
[2021-03-08] MEDS ORDERED: ENOXAPARIN 30 MG/0.3 ML SYRINGE. SQ SCH (21:00)
[2021-03-08 22:00] VITALS: BP 159/89
[2021-03-08 22:52] VITALS: BP 159/89
[2021-03-09] VITALS (13 sets, daily range): BP systolic 123–164; BP diastolic 77–99
[2021-03-09 07:53] LABS: BASO # 0.1 x10^3/uL (0.0-0.2); BASO % 1 % (0-3); EOS # 0.1 x10^3/uL (0.0-0.7); EOS % 1 % (0-3); HEMATOCRIT 36.2 % (36.0-47.0); LYMPH # 1.1 x10^3/uL (1.0-4.8); LYMPH % 16 % (24-48); MEAN CORPUSCULAR HEMOGLOBIN 27 pg (25-35); MEAN CORPUSCULAR HGB CONC 33 g/dL (31-37); MEAN CORPUSCULAR VOLUME 82 fL (79-100); MONO # 0.4 x10^3/uL (0.0-1.1); MONO % 6 % (0-9); NEUT # 5.4 x10^3/uL (1.8-7.7); NEUT % 77 % (31-73); PLATELET COUNT 329 x10^3/uL (140-400); RED BLOOD COUNT 4.43 x10^6/uL (3.50-5.40); RED CELL DISTRIBUTION WIDTH 18.1 % (11.5-14.5)
[2021-03-09 08:16] LABS: ALBUMIN/GLOBULIN RATIO 1.1 (1.0-1.7); CALCIUM 8.1 mg/dL (8.5-10.1); CREATININE 0.6 mg/dL (0.6-1.0); GFR 96.4; MAGNESIUM 1.8 mg/dL (1.8-2.4); POTASSIUM 3.8 mmol/L (3.5-5.1); TOTAL BILIRUBIN 0.6 mg/dL (0.2-1.0); TOTAL PROTEIN 5.8 g/dL (6.4-8.2)
--- NOTE | 2021-03-09 08:29 | PDOC ---
IM PROGRESS NOTES- Subjective Subjective No pain or dyspnea. She is a poor historian. Unable to do systems review. Objective Vitals/I&O Vital Signs Date Time Temp Pulse Resp B/P (MAP) Pulse Ox O2 Delivery O2 Flow Rate FiO2 03/09/21 06:15 82 154/87 (109) 03/09/21 02:54 98.6 16 95 Room Air 98.6 I & O 03/08/21 03/08/21 03/09/21 15:00 23:00 07:00 Intake Total 1000 ml 60 ml 1125 ml Balance 1000 ml 60 ml 1125 ml Physical Exam Physical Exam General Appearance - weak,chronically ill,malnourished and in no distress Chest - decreased breath sounds at bases Heart - S1 and S2 normal Abdomen - soft, non tender Neurological - confused Musculoskeletal - generalized weakness Extremities - no edema Labs Laboratory Tests Test 03/08/21 11:08 03/08/21 11:34 03/08/21 15:55 03/09/21 06:45 Urine Collection Type U cath Urine Color Yellow Urine Clarity Clear Urine pH 5.0 (<5.0-8.0) Urine Specific [place] >=1.030 (1.000-1.030) Urine Protein 30 mg/dL (NEG-TRACE) Urine Glucose (UA) Negative mg/dL (NEG) Urine Ketones (Stick) 15 mg/dL (NEG) Urine Blood Negative (NEG) Urine Nitrite Negative (NEG) Urine Bilirubin Small (NEG) Urine Urobilinogen Dipstick 1.0 mg/dL (0.2 mg/dL) Urine Leukocyte Esterase Negative (NEG) Urine RBC Occ /HPF (0-2) Urine WBC 5-10 /HPF (0-4) Urine Squamous Epithelial Cells Few /LPF Urine Bacteria Many /HPF (0-FEW) Urine Mucus Slight /LPF White Blood Count 10.5 x10^3/uL (4.0-11.0) 7.0 x10^3/uL (4.0-11.0) Red Blood Count 4.88 x10^6/uL (3.50-5.40) 4.43 x10^6/uL (3.50-5.40) Hemoglobin 12.8 g/dL (12.0-15.5) 12.0 g/dL (12.0-15.5) Hematocrit 40.1 % (36.0-47.0) 36.2 % (36.0-47.0) Mean Corpuscular Volume 82 fL (79-100) 82 fL (79-100) Mean Corpuscular Hemoglobin 26 pg (25-35) 27 pg (25-35) Mean Corpuscular Hemoglobin Concent 32 g/dL (31-37) 33 g/dL (31-37) Red Cell Distribution Width 17.9 % (11.5-14.5) H 18.1 % (11.5-14.5) H Platelet Count 387 x10^3/uL (140-400) 329 x10^3/uL (140-400) Neutrophils (%) (Auto) 80 % (31-73) H 77 % (31-73) H Lymphocytes (%) (Auto) 13 % (24-48) L 16 % (24-48) L Monocytes (%) (Auto) 6 % (0-9) 6 % (0-9) Eosinophils (%) (Auto) 1 % (0-3) 1 % (0-3) Basophils (%) (Auto) 1 % (0-3) 1 % (0-3) Neutrophils # (Auto) 8.4 x10^3/uL (1.8-7.7) H 5.4 x10^3/uL (1.8-7.7) Lymphocytes # (Auto) 1.3 x10^3/uL (1.0-4.8) 1.1 x10^3/uL (1.0-4.8) Monocytes # (Auto) 0.7 x10^3/uL (0.0-1.1) 0.4 x10^3/uL (0.0-1.1) Eosinophils # (Auto) 0.1 x10^3/uL (0.0-0.7) 0.1 x10^3/uL (0.0-0.7) Basophils # (Auto) 0.1 x10^3/uL (0.0-0.2) 0.1 x10^3/uL (0.0-0.2) Sodium Level 142 mmol/L (136-145) 141 mmol/L (136-145) Potassium Level 4.1 mmol/L (3.5-5.1) 3.8 mmol/L (3.5-5.1) Chloride Level 108 mmol/L (98-107) H 107 mmol/L (98-107) Carbon Dioxide Level 24 mmol/L (21-32) 23 mmol/L (21-32) Anion Gap 10 (6-14) 11 (6-14) Blood Urea Nitrogen 25 mg/dL (7-20) H 14 mg/dL (7-20) Creatinine 0.9 mg/dL (0.6-1.0) 0.6 mg/dL (0.6-1.0) Estimated GFR (Cockcroft-Gault) 60.4 96.4 BUN/Creatinine Ratio 28 (6-20) H 23 (6-20) H Glucose Level 103 mg/dL (70-99) H 89 mg/dL (70-99) Calcium Level 8.8 mg/dL (8.5-10.1) 8.1 mg/dL (8.5-10.1) L Total Bilirubin 0.6 mg/dL (0.2-1.0) 0.6 mg/dL (0.2-1.0) Aspartate Amino Transferase (AST) 9 U/L (15-37) L 14 U/L (15-37) L Alanine Aminotransferase (ALT) 14 U/L (14-59) 15 U/L (14-59) Alkaline Phosphatase 69 U/L (46-116) 65 U/L (46-116) Troponin I High Sensitivity 23 ng/L (4-50) Total Protein 6.6 g/dL (6.4-8.2) 5.8 g/dL (6.4-8.2) L Albumin 3.1 g/dL (3.4-5.0) L 3.0 g/dL (3.4-5.0) L Albumin/Globulin Ratio 0.9 (1.0-1.7) L 1.1 (1.0-1.7) Lipase 108 U/L (73-393) SARS-CoV-2 Antigen (Rapid) Negative (NEGATIVE) Magnesium Level 1.8 mg/dL (1.8-2.4) Laboratory Tests 03/08/21 11:34 03/09/21 06:45 Laboratory Tests 03/08/21 11:34 03/09/21 06:45 Meds Current Medications Medications (Trade) Dose Ordered Sig/Jaylin Route PRN Reason Start Time Stop Time Status Last Admin Dose Admin Sodium Chloride 1,000 ml @ 1,000 mls/hr 1X ONCE IV 03/08/21 11:15 03/08/21 12:14 DC 03/08/21 11:39 Iohexol (Omnipaque 300 Mg/ml) 75 ml 1X ONCE IV 03/08/21 12:00 03/08/21 12:01 DC 03/08/21 11:58 Hydralazine HCl (Apresoline Inj) 10 mg 1X ONCE IVP 03/08/21 12:30 03/08/21 12:31 DC 03/08/21 12:34 Metoprolol Tartrate (Lopressor Vial) 5 mg 1X ONCE IVP 03/08/21 13:00 03/08/21 13:01 DC 03/08/21 13:22 Ceftriaxone Sodium (Rocephin) 1 gm 1X ONCE IVP 03/08/21 14:00 03/08/21 14:01 DC 03/08/21 14:07 Sodium Chloride 1,000 ml @ 100 mls/hr Q10H IV 03/08/21 14:00 03/09/21 13:59 03/08/21 23:57 Diltiazem HCl 125 mg/Sodium Chloride 125 ml @ 5 mls/hr CONT PRN IV PER PROTOCOL 03/08/21 18:00 03/09/21 04:24 Enoxaparin Sodium (Lovenox 30mg Syringe) 30 mg Q24H SQ 03/08/21 21:00 03/08/21 20:51 Assessment Assessment 1. Acute urinary tract infection. 2. Likely pneumonia. COVID rapid test is negative. RT-PCR is pending. 3. Tremors. 4. Dehydration. 5. Physical deconditioning. 6. Dementia. 7. Possible aspiration pneumonia. 8. Hypertension, not controlled. 9. New onset atrial fibrillation. 10. Blyzqmjw-ag-qudrwc aortic stenosis. 11. History of bedbug infestation. 12. Gastroesophageal reflux disease. 13. 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 14. Compression fractures of thoracic vertebra. 15. Hiatal hernia. 16. History of hypothyroidism. 17. Hyperlipidemia. 18. Bipolar affective disorder, in remission. 19. Seizure disorder. 20. Gastritis. 21. Diverticulosis. 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 PLAN: 1. Urinary tract infection. Start IV fluids and start IV Rocephin. 2. Dehydration. Start IV fluids. 3. New onset atrial fibrillation. Consult Dr. Aiken for cardiology evaluation and management. The patient has been started on IV Cardizem drip. 4. Hypertension, not controlled. I will restart hydralazine.Control is improving. 5. Physical deconditioning. Consult Dr. Nicole for rehab evaluation and management. 6. Dementia. Getting worse. 7. Acute metabolic encephalopathy. Correct electrolyte imbalance, dehydration and infection. 8. Pneumonia. Consult Dr. Dasilva for pulmonary evaluation and management. The patient may be aspirating. Also, check for COVID infection. Prognosis of this patient is very poor. I discussed with her , Jose Juan- not taking medications for 3 months. Has been more confused. Condition,treatment ,options,prognosis extensively d/w him. She will likely need to be [facility] to a [facility]iary [facility]. For details, please refer to the orders. Plan Plan For more details regarding further plans, please refer to the orders. Justifications for Admission Other Justification CORNELIUS LÓPEZ MD Mar 09, 2021 08:29
[2021-03-09] MEDS ORDERED: POTASSIUM CHLORIDE 20 MEQ in IV NORMAL SALINE 1000ML BAG 1,000 ML IV SCH (08:30)
--- NOTE | 2021-03-09 08:30 | RAD ---
XR CHEST 1V INDICATION: fever . COMPARISON STUDY: Chest radiograph 05/27/2020. CT abdomen pelvis 03/08/2021 FINDINGS: Lungs: Normal lung volume. Mild interstitial prominence. Pleura: Pleural thickening versus trace effusions. Heart and Mediastinum: Cardiomegaly. Atherosclerosis of the thoracic aorta. IMPRESSION: 1. Mild interstitial prominence, which may reflect interstitial edema. 2. Pleural thickening versus trace effusions. Electronically signed by: Omkar Lopez MD (03/09/2021 8:27 AM) [id number]
[2021-03-09] MEDS: IV NORMAL SALINE 1000ML BAG 1,000 ML IV SCH (09:03)
[2021-03-09] MEDS: PANTOPRAZOLE 40 MG TABLET.DR. PO SCH (09:06)
--- NOTE | 2021-03-09 09:38 | PDOC ---
PULMONARY PROGRESS NOTES DATE: 03/09/21 TIME: 09:36 Vitals Vital Signs Date Time Temp Pulse Resp B/P (MAP) Pulse Ox O2 Delivery O2 Flow Rate FiO2 03/09/21 09:05 80 164/95 03/09/21 07:00 98.1 18 95 Room Air 98.1 General: Alert, Oriented X4 Lungs: Clear Cardiovascular: S1, S2 Abdomen: Soft, Non-tender Extremities: No Edema Labs Laboratory Tests Test 03/08/21 11:08 03/08/21 11:34 03/08/21 15:55 03/09/21 06:45 Urine Collection Type U cath Urine Color Yellow Urine Clarity Clear Urine pH 5.0 (<5.0-8.0) Urine Specific [place] >=1.030 (1.000-1.030) Urine Protein 30 mg/dL (NEG-TRACE) Urine Glucose (UA) Negative mg/dL (NEG) Urine Ketones (Stick) 15 mg/dL (NEG) Urine Blood Negative (NEG) Urine Nitrite Negative (NEG) Urine Bilirubin Small (NEG) Urine Urobilinogen Dipstick 1.0 mg/dL (0.2 mg/dL) Urine Leukocyte Esterase Negative (NEG) Urine RBC Occ /HPF (0-2) Urine WBC 5-10 /HPF (0-4) Urine Squamous Epithelial Cells Few /LPF Urine Bacteria Many /HPF (0-FEW) Urine Mucus Slight /LPF White Blood Count 10.5 x10^3/uL (4.0-11.0) 7.0 x10^3/uL (4.0-11.0) Red Blood Count 4.88 x10^6/uL (3.50-5.40) 4.43 x10^6/uL (3.50-5.40) Hemoglobin 12.8 g/dL (12.0-15.5) 12.0 g/dL (12.0-15.5) Hematocrit 40.1 % (36.0-47.0) 36.2 % (36.0-47.0) Mean Corpuscular Volume 82 fL (79-100) 82 fL (79-100) Mean Corpuscular Hemoglobin 26 pg (25-35) 27 pg (25-35) Mean Corpuscular Hemoglobin Concent 32 g/dL (31-37) 33 g/dL (31-37) Red Cell Distribution Width 17.9 % (11.5-14.5) 18.1 % (11.5-14.5) Platelet Count 387 x10^3/uL (140-400) 329 x10^3/uL (140-400) Neutrophils (%) (Auto) 80 % (31-73) 77 % (31-73) Lymphocytes (%) (Auto) 13 % (24-48) 16 % (24-48) Monocytes (%) (Auto) 6 % (0-9) 6 % (0-9) Eosinophils (%) (Auto) 1 % (0-3) 1 % (0-3) Basophils (%) (Auto) 1 % (0-3) 1 % (0-3) Neutrophils # (Auto) 8.4 x10^3/uL (1.8-7.7) 5.4 x10^3/uL (1.8-7.7) Lymphocytes # (Auto) 1.3 x10^3/uL (1.0-4.8) 1.1 x10^3/uL (1.0-4.8) Monocytes # (Auto) 0.7 x10^3/uL (0.0-1.1) 0.4 x10^3/uL (0.0-1.1) Eosinophils # (Auto) 0.1 x10^3/uL (0.0-0.7) 0.1 x10^3/uL (0.0-0.7) Basophils # (Auto) 0.1 x10^3/uL (0.0-0.2) 0.1 x10^3/uL (0.0-0.2) Sodium Level 142 mmol/L (136-145) 141 mmol/L (136-145) Potassium Level 4.1 mmol/L (3.5-5.1) 3.8 mmol/L (3.5-5.1) Chloride Level 108 mmol/L (98-107) 107 mmol/L (98-107) Carbon Dioxide Level 24 mmol/L (21-32) 23 mmol/L (21-32) Anion Gap 10 (6-14) 11 (6-14) Blood Urea Nitrogen 25 mg/dL (7-20) 14 mg/dL (7-20) Creatinine 0.9 mg/dL (0.6-1.0) 0.6 mg/dL (0.6-1.0) Estimated GFR (Cockcroft-Gault) 60.4 96.4 BUN/Creatinine Ratio 28 (6-20) 23 (6-20) Glucose Level 103 mg/dL (70-99) 89 mg/dL (70-99) Calcium Level 8.8 mg/dL (8.5-10.1) 8.1 mg/dL (8.5-10.1) Total Bilirubin 0.6 mg/dL (0.2-1.0) 0.6 mg/dL (0.2-1.0) Aspartate Amino Transf (AST/SGOT) 9 U/L (15-37) 14 U/L (15-37) Alanine Aminotransferase (ALT/SGPT) 14 U/L (14-59) 15 U/L (14-59) Alkaline Phosphatase 69 U/L (46-116) 65 U/L (46-116) Troponin I High Sensitivity 23 ng/L (4-50) Total Protein 6.6 g/dL (6.4-8.2) 5.8 g/dL (6.4-8.2) Albumin 3.1 g/dL (3.4-5.0) 3.0 g/dL (3.4-5.0) Albumin/Globulin Ratio 0.9 (1.0-1.7) 1.1 (1.0-1.7) Lipase 108 U/L (73-393) SARS-CoV-2 Antigen (Rapid) Negative (NEGATIVE) Magnesium Level 1.8 mg/dL (1.8-2.4) Vitamin B12 Level 423 pg/mL (247-911) Thyroid Stimulating Hormone (TSH) 1.285 uIU/mL (0.358-3.74) Laboratory Tests Test 03/08/21 11:08 03/08/21 11:34 03/08/21 15:55 03/09/21 06:45 Urine Collection Type U cath Urine Color Yellow Urine Clarity Clear Urine pH 5.0 (<5.0-8.0) Urine Specific [place] >=1.030 (1.000-1.030) Urine Protein 30 mg/dL (NEG-TRACE) Urine Glucose (UA) Negative mg/dL (NEG) Urine Ketones (Stick) 15 mg/dL (NEG) Urine Blood Negative (NEG) Urine Nitrite Negative (NEG) Urine Bilirubin Small (NEG) Urine Urobilinogen Dipstick 1.0 mg/dL (0.2 mg/dL) Urine Leukocyte Esterase Negative (NEG) Urine RBC Occ /HPF (0-2) Urine WBC 5-10 /HPF (0-4) Urine Squamous Epithelial Cells Few /LPF Urine Bacteria Many /HPF (0-FEW) Urine Mucus Slight /LPF White Blood Count 10.5 x10^3/uL (4.0-11.0) 7.0 x10^3/uL (4.0-11.0) Red Blood Count 4.88 x10^6/uL (3.50-5.40) 4.43 x10^6/uL (3.50-5.40) Hemoglobin 12.8 g/dL (12.0-15.5) 12.0 g/dL (12.0-15.5) Hematocrit 40.1 % (36.0-47.0) 36.2 % (36.0-47.0) Mean Corpuscular Volume 82 fL (79-100) 82 fL (79-100) Mean Corpuscular Hemoglobin 26 pg (25-35) 27 pg (25-35) Mean Corpuscular Hemoglobin Concent 32 g/dL (31-37) 33 g/dL (31-37) Red Cell Distribution Width 17.9 % (11.5-14.5) 18.1 % (11.5-14.5) Platelet Count 387 x10^3/uL (140-400) 329 x10^3/uL (140-400) Neutrophils (%) (Auto) 80 % (31-73) 77 % (31-73) Lymphocytes (%) (Auto) 13 % (24-48) 16 % (24-48) Monocytes (%) (Auto) 6 % (0-9) 6 % (0-9) Eosinophils (%) (Auto) 1 % (0-3) 1 % (0-3) Basophils (%) (Auto) 1 % (0-3) 1 % (0-3) Neutrophils # (Auto) 8.4 x10^3/uL (1.8-7.7) 5.4 x10^3/uL (1.8-7.7) Lymphocytes # (Auto) 1.3 x10^3/uL (1.0-4.8) 1.1 x10^3/uL (1.0-4.8) Monocytes # (Auto) 0.7 x10^3/uL (0.0-1.1) 0.4 x10^3/uL (0.0-1.1) Eosinophils # (Auto) 0.1 x10^3/uL (0.0-0.7) 0.1 x10^3/uL (0.0-0.7) Basophils # (Auto) 0.1 x10^3/uL (0.0-0.2) 0.1 x10^3/uL (0.0-0.2) Sodium Level 142 mmol/L (136-145) 141 mmol/L (136-145) Potassium Level 4.1 mmol/L (3.5-5.1) 3.8 mmol/L (3.5-5.1) Chloride Level 108 mmol/L (98-107) 107 mmol/L (98-107) Carbon Dioxide Level 24 mmol/L (21-32) 23 mmol/L (21-32) Anion Gap 10 (6-14) 11 (6-14) Blood Urea Nitrogen 25 mg/dL (7-20) 14 mg/dL (7-20) Creatinine 0.9 mg/dL (0.6-1.0) 0.6 mg/dL (0.6-1.0) Estimated GFR (Cockcroft-Gault) 60.4 96.4 BUN/Creatinine Ratio 28 (6-20) 23 (6-20) Glucose Level 103 mg/dL (70-99) 89 mg/dL (70-99) Calcium Level 8.8 mg/dL (8.5-10.1) 8.1 mg/dL (8.5-10.1) Total Bilirubin 0.6 mg/dL (0.2-1.0) 0.6 mg/dL (0.2-1.0) Aspartate Amino Transf (AST/SGOT) 9 U/L (15-37) 14 U/L (15-37) Alanine Aminotransferase (ALT/SGPT) 14 U/L (14-59) 15 U/L (14-59) Alkaline Phosphatase 69 U/L (46-116) 65 U/L (46-116) Troponin I High Sensitivity 23 ng/L (4-50) Total Protein 6.6 g/dL (6.4-8.2) 5.8 g/dL (6.4-8.2) Albumin 3.1 g/dL (3.4-5.0) 3.0 g/dL (3.4-5.0) Albumin/Globulin Ratio 0.9 (1.0-1.7) 1.1 (1.0-1.7) Lipase 108 U/L (73-393) SARS-CoV-2 Antigen (Rapid) Negative (NEGATIVE) Magnesium Level 1.8 mg/dL (1.8-2.4) Vitamin B12 Level 423 pg/mL (247-911) Thyroid Stimulating Hormone (TSH) 1.285 uIU/mL (0.358-3.74) Medications Active Scripts Medications Dose Route/Sig Max Daily Dose Days Date Category Ferrous Sulfate 325 Mg Tablet 1 Tab PO DAILY 06/02/20 Rx Keflex (Cephalexin) 500 Mg Capsule 1 Cap PO BID 5 06/01/20 Rx Magnesium Oxide 400 Mg Tablet 1 Tab PO DAILY 06/13/19 Rx Hydralazine Hcl 50 Mg Tablet 1 Tab PO TID 06/10/19 Rx Vitamin B-12 (Cyanocobalamin (Vitamin B-12)) 1,000 Mcg Tablet 1,000 Mcg PO DAILY 30 06/10/19 Rx Culturelle (Lactobacillus Rhamnosus Gg) 1 Each Cap.sprink 1 Cap PO BID 30 06/10/19 Rx Gabapentin (Gabapentin) 100 Mg Capsule 100 Mg PO TID 30 06/10/19 Rx Tylenol (Acetaminophen) 325 Mg Tablet 650 Mg PO PRN Q6HRS PRN 30 06/10/19 Rx Aspirin 81 Mg Tab.chew 81 Mg PO DAILYWBKFT 30 06/10/19 Rx Namenda (Memantine Hcl) 10 Mg Tablet 5 Mg PO BID 06/07/19 Reported Sucralfate 1 Gm Tablet 1 Tab PO QID 08/07/18 Reported Protonix (Pantoprazole Sodium) 20 Mg Tablet.dr 1 Tab PO BID 08/07/18 Reported Allopurinol 300 Mg Tablet 300 Mg PO HS 06/12/17 Rx D3 Dots (Cholecalciferol (Vitamin D3)) 2,000 Unit Tablet 400 Unit PO DAILY 06/12/17 Rx Atorvastatin Calcium 10 Mg Tablet 10 Mg PO HS 06/09/17 Reported Montelukast Sodium Tablet (Montelukast Sodium) 10 Mg Tablet 10 Mg PO DAILY 06/09/17 Reported Amlodipine Besylate 5 Mg Tablet 5 Mg PO DAILY 08/28/13 Reported Escitalopram Oxalate 10 Mg Tablet 10 Mg PO DAILY 08/28/13 Reported Colestipol Hcl 1 Gm Tablet 1 Gm PO BID 08/28/13 Reported Zyrtec (Cetirizine Hcl) 10 Mg Tablet 10 Mg PO 08/28/13 Reported Balance B-100 (Vitamin B Complex) 1 Each Tablet 1 Each PO 08/28/13 Reported Citracal + D Maximum Caplet (Calcium Citrate/Vitamin D3) 1 Each Tablet 1 Each PO 08/28/13 Reported Vitamin E (Vitamin E (Dl,Tocopheryl Acet)) 400 Unit Capsule 400 Unit PO 08/28/13 Reported Centrum Silver Tablet (Multivits-Min/Fa/Lycopene/Lut) 1 Each Tablet 1 Each PO 08/28/13 Reported Impression . Consult dictated Possible aspiration pneumonia Consult speech ISSAC CARLIN MD Mar 09, 2021 09:38
--- NOTE | 2021-03-09 10:24 | CONS ---
DATE OF CONSULTATION: 03/09/2021 ATTENDING PHYSICIAN: Nadia Akhtar MD REASON FOR CONSULTATION: The patient was seen at the request of Dr. Akhtar for rehab evaluation. HISTORY OF PRESENT ILLNESS: This is a 80-year-old female known to me. The patient lives in a motel with her . Had history of multiple medical problems. The patient apparently having declining medical condition, not eating, much weaker and getting confused, with abdominal pain, right lower quadrant, apparently has not been taking her medication regularly. She was found in the Emergency Room with atrial fibrillation that is new onset with fast ventricular rate and was started on IV Cardizem drip, admitted for further evaluation and treatment on 03/08/2021. Also, noted to have fever with urinary tract infection. SARS-COVID rapid test was negative. Urinalysis showed 5-10 wbc's, many bacteria, negative for nitrite. PAST MEDICAL HISTORY: The patient with known degenerative joint disease, diverticulosis, hypercholesterolemia, hypertension, previous transient ischemic attack, gouty arthritis, cholecystectomy, status post hip replacement and right knee arthroplasty, tonsillectomy. SOCIAL HISTORY: Nonsmoker. ALLERGIES: KNOWN ALLERGIC TO SULFA. PHYSICAL EXAMINATION: Today revealed an elderly, thin built female. She is alert, oriented to place and person, follows commands appropriately. Moves all 4 extremities voluntarily where she had generalized muscle weakness. Deep tendon reflexes are decreased overall with absent knee and ankle jerks. No significant pain on range of motion of her left knee. The patient had equal perception of touch and pinprick sensation bilaterally. She had exaggerated thoracic kyphotic deformity. The patient requires some help with bed mobility. I have not tested her transfers or ambulation skills at this time. ASSESSMENT: Elderly female with degenerative joint disease of left knee, chronic back pain from degenerative disk disease and degenerative joint disease, status post previous vertebral body compression fractures without any significant back pain, status post right total knee arthroplasty and hip arthroplasty, clinical evidence of peripheral neuropathy. RECOMMENDATIONS: Agree with the plans for physical therapy and occupational therapy to get her up as tolerated. Dr. Akhtar appreciate asking me to participate in the care of this interesting patient. I will be glad to see her for a followup with you on as needed basis. ИРИНА DR: Edis TID: [id number]
[2021-03-09] MEDS ORDERED: METOPROLOL IV PUSH 5 MG/5 ML VIAL. IVP PRN (11:15)
--- NOTE | 2021-03-09 11:24 | PDOC2 ---
MEL PERALTA [employer] ARCHITECT 03/09/21 1124: CARDIAC CONSULT DATE OF CONSULT Date of Consult DATE: 03/09/21 TIME: 10:48 REASON FOR CONSULT Reason for Consult: AFIB RVR REFERRING PHYSICIAN Referring Physician: Jose SOURCE Source: Chart review, Patient HISTORY OF PRESENT ILLNESS HISTORY OF PRESENT ILLNESS This is a 80 yo femlae admitted for complains of abdominal pain. Presently she is not in any distress. She is confused pleasantly. Denies any chest pain or SOA. Unclear if she has been following up with any call or contact centre team leader in regards to . She was noted with AFIB RVR which is a new onset and rate controlled with cardizem. PAST MEDICAL HISTORY Past Medical History Cardiovascular: HTN, Hyperlipidemia, Other (carotid artery disease) Pulmonary: Pneumonia CENTRAL NERVOUS SYSTEM: Dementia, Seizure GI: Diverticulosis, GERD, Other (barrets) Heme/Onc: Anemia NOS Hepatobiliary: Cholelithiasis Psych: Bipolar Musculoskeletal: Osteoarthritis, Other (frequent falls), T10-11 compression fracture Rheumatologic: No pertinent hx Infectious disease: No pertinent hx ENT: No pertinent hx Renal/: Chronic renal insuff (CKD3), UTI, Other (ureteralithiasis) Endocrine: Hypothyroidism, Osteopenia Dermatology: No pertinent hx PAST SURGICAL HISTORY Past Surgical History Cholecystectomy, Total hip replacement, Total knee replacement, Tonsillectomy FAMILY HISTORY Family History: Heart Disease SOCIAL HISTORY Smoke: No ALCOHOL: none Drugs: None Lives: with Family CURRENT MEDICATIONS CURRENT MEDICATIONS Current Medications Medications (Trade) Dose Ordered Sig/Jaylin Route PRN Reason Start Time Stop Time Status Last Admin Dose Admin Sodium Chloride 1,000 ml @ 1,000 mls/hr 1X ONCE IV 03/08/21 11:15 03/08/21 12:14 DC 03/08/21 11:39 Iohexol (Omnipaque 300 Mg/ml) 75 ml 1X ONCE IV 03/08/21 12:00 03/08/21 12:01 DC 03/08/21 11:58 Hydralazine HCl (Apresoline Inj) 10 mg 1X ONCE IVP 03/08/21 12:30 03/08/21 12:31 DC 03/08/21 12:34 Metoprolol Tartrate (Lopressor Vial) 5 mg 1X ONCE IVP 03/08/21 13:00 03/08/21 13:01 DC 03/08/21 13:22 Ceftriaxone Sodium (Rocephin) 1 gm 1X ONCE IVP 03/08/21 14:00 03/08/21 14:01 DC 03/08/21 14:07 Sodium Chloride 1,000 ml @ 100 mls/hr Q10H IV 03/08/21 14:00 03/09/21 13:59 03/08/21 23:57 Diltiazem HCl 125 mg/Sodium Chloride 125 ml @ 5 mls/hr CONT PRN IV PER PROTOCOL 03/08/21 18:00 03/09/21 04:24 Enoxaparin Sodium (Lovenox 30mg Syringe) 30 mg Q24H SQ 03/08/21 21:00 03/08/21 20:51 Pantoprazole Sodium (Protonix) 40 mg DAILYAC PO 03/09/21 07:30 03/09/21 09:06 Potassium Chloride/Sodium Chloride 1,000 ml @ 75 mls/hr [id number] IV 03/09/21 08:45 03/09/21 09:05 Hydralazine HCl (Apresoline) 50 mg TID PO 03/09/21 09:00 03/09/21 09:05 ALLERGIES ALLERGIES: Coded Allergies: Sulfa (Sulfonamide Antibiotics) (Verified Allergy, Intermediate, hives, 01/16/18) sulfamethoxazole (Verified Adverse Reaction, Intermediate, mouth sores, 03/09/21) trimethoprim (Verified Adverse Reaction, Intermediate, mouth sores, 03/09/21) ROS Review of System unreliable PHYSICAL EXAM General: Alert, Cooperative, No acute distress HEENT: Atraumatic, Mucous membr. moist/pink Lungs: Clear to auscultation, Normal air movement Heart: Other (AFIB rate controlled, 6/6 systolic murmur loudest to apex) Abdomen: Soft Extremities: No cyanosis, No edema Skin: No breakdown Neuro: Normal speech, Sensation intact Psych/Mental Status: Other (confused) MUSCULOSKELETAL: Osteoarthritic changes both hands VITALS/I&O VITALS/I&O: Vital Signs Date Time Temp Pulse Resp B/P (MAP) Pulse Ox O2 Delivery O2 Flow Rate FiO2 03/09/21 09:05 80 164/95 03/09/21 07:00 98.1 18 95 Room Air 98.1 I & O 03/08/21 03/08/21 03/09/21 15:00 23:00 07:00 Intake Total 1000 ml 60 ml 1125 ml Balance 1000 ml 60 ml 1125 ml LABS Lab: Laboratory Tests Test 03/08/21 11:08 03/08/21 11:34 03/08/21 15:55 03/09/21 06:45 Urine Collection Type U cath Urine Color Yellow Urine Clarity Clear Urine pH 5.0 (<5.0-8.0) Urine Specific [place] >=1.030 (1.000-1.030) Urine Protein 30 mg/dL (NEG-TRACE) Urine Glucose (UA) Negative mg/dL (NEG) Urine Ketones (Stick) 15 mg/dL (NEG) Urine Blood Negative (NEG) Urine Nitrite Negative (NEG) Urine Bilirubin Small (NEG) Urine Urobilinogen Dipstick 1.0 mg/dL (0.2 mg/dL) Urine Leukocyte Esterase Negative (NEG) Urine RBC Occ /HPF (0-2) Urine WBC 5-10 /HPF (0-4) Urine Squamous Epithelial Cells Few /LPF Urine Bacteria Many /HPF (0-FEW) Urine Mucus Slight /LPF White Blood Count 10.5 x10^3/uL (4.0-11.0) 7.0 x10^3/uL (4.0-11.0) Red Blood Count 4.88 x10^6/uL (3.50-5.40) 4.43 x10^6/uL (3.50-5.40) Hemoglobin 12.8 g/dL (12.0-15.5) 12.0 g/dL (12.0-15.5) Hematocrit 40.1 % (36.0-47.0) 36.2 % (36.0-47.0) Mean Corpuscular Volume 82 fL (79-100) 82 fL (79-100) Mean Corpuscular Hemoglobin 26 pg (25-35) 27 pg (25-35) Mean Corpuscular Hemoglobin Concent 32 g/dL (31-37) 33 g/dL (31-37) Red Cell Distribution Width 17.9 % (11.5-14.5) H 18.1 % (11.5-14.5) H Platelet Count 387 x10^3/uL (140-400) 329 x10^3/uL (140-400) Neutrophils (%) (Auto) 80 % (31-73) H 77 % (31-73) H Lymphocytes (%) (Auto) 13 % (24-48) L 16 % (24-48) L Monocytes (%) (Auto) 6 % (0-9) 6 % (0-9) Eosinophils (%) (Auto) 1 % (0-3) 1 % (0-3) Basophils (%) (Auto) 1 % (0-3) 1 % (0-3) Neutrophils # (Auto) 8.4 x10^3/uL (1.8-7.7) H 5.4 x10^3/uL (1.8-7.7) Lymphocytes # (Auto) 1.3 x10^3/uL (1.0-4.8) 1.1 x10^3/uL (1.0-4.8) Monocytes # (Auto) 0.7 x10^3/uL (0.0-1.1) 0.4 x10^3/uL (0.0-1.1) Eosinophils # (Auto) 0.1 x10^3/uL (0.0-0.7) 0.1 x10^3/uL (0.0-0.7) Basophils # (Auto) 0.1 x10^3/uL (0.0-0.2) 0.1 x10^3/uL (0.0-0.2) Sodium Level 142 mmol/L (136-145) 141 mmol/L (136-145) Potassium Level 4.1 mmol/L (3.5-5.1) 3.8 mmol/L (3.5-5.1) Chloride Level 108 mmol/L (98-107) H 107 mmol/L (98-107) Carbon Dioxide Level 24 mmol/L (21-32) 23 mmol/L (21-32) Anion Gap 10 (6-14) 11 (6-14) Blood Urea Nitrogen 25 mg/dL (7-20) H 14 mg/dL (7-20) Creatinine 0.9 mg/dL (0.6-1.0) 0.6 mg/dL (0.6-1.0) Estimated GFR (Cockcroft-Gault) 60.4 96.4 BUN/Creatinine Ratio 28 (6-20) H 23 (6-20) H Glucose Level 103 mg/dL (70-99) H 89 mg/dL (70-99) Calcium Level 8.8 mg/dL (8.5-10.1) 8.1 mg/dL (8.5-10.1) L Total Bilirubin 0.6 mg/dL (0.2-1.0) 0.6 mg/dL (0.2-1.0) Aspartate Amino Transferase (AST) 9 U/L (15-37) L 14 U/L (15-37) L Alanine Aminotransferase (ALT) 14 U/L (14-59) 15 U/L (14-59) Alkaline Phosphatase 69 U/L (46-116) 65 U/L (46-116) Troponin I High Sensitivity 23 ng/L (4-50) Total Protein 6.6 g/dL (6.4-8.2) 5.8 g/dL (6.4-8.2) L Albumin 3.1 g/dL (3.4-5.0) L 3.0 g/dL (3.4-5.0) L Albumin/Globulin Ratio 0.9 (1.0-1.7) L 1.1 (1.0-1.7) Lipase 108 U/L (73-393) SARS-CoV-2 RNA (SONI) Negative (Negative) SARS-CoV-2 Antigen (Rapid) Negative (NEGATIVE) Magnesium Level 1.8 mg/dL (1.8-2.4) Vitamin B12 Level 423 pg/mL (247-911) Thyroid Stimulating Hormone (TSH) 1.285 uIU/mL (0.358-3.74) Laboratory Tests 03/08/21 11:34 03/09/21 06:45 Laboratory Tests 03/08/21 11:34 03/09/21 06:45 ECHOCARDIOGRAM ECHOCARDIOGRAM <Conclusion> The left ventricular systolic function is normal. Estimated ejection fraction 60-65%. There is normal LV segmental wall motion. Moderate to severe valvular aortic stenosis. Mild aortic regurgitation. Mild mitral regurgitation. Trace tricuspid regurgitation. Estimated PAP 42 mmHg. There is no evidence of significant pericardial effusion. DATE: 04/13/20 [id number] 0 ASSESSMENT/PLAN ASSESSMENT/PLAN 1. Abdominal pain: per PCP. Patulous distal esophagus with moderate hiatal hernia and diverticulosis per CT per PCP 2. AFIB RVR; presently on cardizem drip. New in the setting of likely severe 3. : possibly severe. known prior 4. 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 Dementia 6. Hypothyrodism: per PCP Recommendations 1. DC cardizem drip, Start on metoprolol rate control. Possibly not a good candidate for anticoagulation with dementia and hx of falls. If she could supervise closely then will start on low dose eliquis for stroke prevention. Will start low dose eliquis for now and will discuss further with spouse 2. TTE with further eval . FLP. Monitor BP trend 3. Will need to clarify goals of care with spouse. SS consult 4. Unclear if she is following up with any call or contact centre team leader. She was suppose to follow up in our office about a yr but failed to show up. She will eventually need TAVR referral pending TTE. JANETTE ANTONIO MD 03/10/21 1307: CARDIAC CONSULT ASSESSMENT/PLAN ASSESSMENT/PLAN Patient seen and examined 03/09/2021 (late entry). Agree with REPAIR OPERATOR's assessment and plan. Atrial fibrillation, new onset, rate better controlled Agree with stopping Cardizem infusion and starting metoprolol for rate control She is probably a poor candidate for long-term anticoagulation Check 2D echocardiogram to assess LVEF and Continue management of abdominal pain per IM thank you for your consultation MEL PERALTA APRN Mar 09, 2021 11:24 JANETTE ANTONIO MD Mar 10, 2021 13:07
[2021-03-09] MEDS: METOPROLOL TART IMMED RELEASE 25 MG TABLET. PO SCH ×2 (11:40→21:47)
[2021-03-09] MEDS: APIXABAN 2.5 MG TABLET. PO SCH ×2 (11:40→21:46)
[2021-03-09 11:44] LABS: CHOLESTEROL/HDL RATIO 4.7
--- NOTE | 2021-03-09 13:58 | NUR ---
SS following for discharge planning. SS reviewed pt chart and discussed with pt RN. Pt is from home with spouse and is currently on room air. COVID19 negative. Pt on IV Rocephin. Cardiology and Dr. Nicole consulted. PT/OT/ST ordered. SS left voicemail for pt's spouse, Jose Juan, , to discuss discharge planning. SS will continue to follow for discharge planning.
[2021-03-09] MEDS: cefTRIAXone IV Push 1 GM VIAL. IVP SCH (13:59)
--- NOTE | 2021-03-09 14:52 | CONS ---
DATE OF CONSULTATION: 03/09/2021 ATTENDING PHYSICIAN: Nadia Akhtar MD REASON FOR CONSULTATION: The patient is seen in Pulmonary consultation at the request of Dr. Akhtar for abnormal x-ray. HISTORY OF PRESENT ILLNESS: The patient is a 80-year-old who is a very poor historian. She was admitted with weakness, confusion, abdominal discomfort. In the Emergency Room, she was noted to have AFib, new onset, with rapid ventricular response, was started on IV Cardizem drip. She was also noted to have a fever, positive UA. Rapid test for COVID-19 was negative. She had a chest x-ray, which revealed some increased interstitial lung markings. I was asked to see her in consultation. The patient denies any increasing shortness of breath. She denies fever, chills or vomiting. REVIEW OF SYSTEMS: Unobtainable secondary to the patient's poor mental status and poor historian. 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 She has a history of seizure disorder, gastritis, diverticulosis, previous pneumonia. PAST SURGICAL HISTORY: Total hip arthroplasty. FAMILY HISTORY: Heart disease. SOCIAL HISTORY: Apparently, she is currently living in the [facility] with her . CURRENT MEDICATIONS: List is reviewed. PHYSICAL EXAMINATION: VITAL SIGNS: The patient was on room air, O2 saturation was greater than 92%. HEENT: Eyes: The sclerae were nonicteric. NECK: Jugular venous distention was not elevated. No lymphadenopathy. CHEST: Full expansion. LUNGS: Crackles. CARDIOVASCULAR: Regular rate and rhythm with S1 and S2, no S3. ABDOMEN: Soft. EXTREMITIES: No clubbing, cyanosis or edema. LABORATORY DATA: SARS-CoV-2 testing was negative. UA was noted. White count was normal. Hemoglobin and hematocrit were noted. DIAGNOSTIC DATA: Chest x-ray reviewed. IMPRESSION: 1. Possible pneumonia. Abnormal x-ray compatible with possible pneumonia, chronic interstitial lung disease. 2. Urinary tract infection. 3. Deconditioning. 4. Dementia. 5. Possible aspiration pneumonia, dysphagia. PLAN: 1. Continue current empiric antibiotics. 2. Speech evaluation. 3. We will make further recommendation depending on the patient's clinical response and speech eval. SAMY DR: Antonella TID: [id number]
--- NOTE | 2021-03-09 18:48 | NUR ---
patients blood pressure at admission was 159/117 HR-118, a Addendum: 03/08/21 at 1931 by ALEJANDRO HUGGINS LPN LPN [id number] patients blood pressure was 159/117 HR-118. when retaken it was 175/108 HR-132. notified Dr. Son. He ordered a Cardizem drip per protocol. CLIFTON Allen placed the order and started the Cardizem drip.
[2021-03-10 02:40] VITALS: BP 133/85
[2021-03-10 06:05] LABS: BASO # 0.1 x10^3/uL (0.0-0.2); BASO % 1 % (0-3); EOS # 0.1 x10^3/uL (0.0-0.7); EOS % 2 % (0-3); HEMATOCRIT 33.9 % (36.0-47.0); HEMOGLOBIN 11.1 g/dL (12.0-15.5); LYMPH # 1.3 x10^3/uL (1.0-4.8); LYMPH % 18 % (24-48); MEAN CORPUSCULAR HEMOGLOBIN 27 pg (25-35); MEAN CORPUSCULAR HGB CONC 33 g/dL (31-37); MEAN CORPUSCULAR VOLUME 82 fL (79-100); MONO # 0.6 x10^3/uL (0.0-1.1); MONO % 8 % (0-9); NEUT # 5.2 x10^3/uL (1.8-7.7); NEUT % 71 % (31-73); PLATELET COUNT 344 x10^3/uL (140-400); RED BLOOD COUNT 4.14 x10^6/uL (3.50-5.40); RED CELL DISTRIBUTION WIDTH 18.1 % (11.5-14.5); WHITE BLOOD COUNT 7.4 x10^3/uL (4.0-11.0)
[2021-03-10 06:17] VITALS: BP 161/101
[2021-03-10 06:33] LABS: CREATININE 0.8 mg/dL (0.6-1.0); GFR 69.2; POTASSIUM 3.7 mmol/L (3.5-5.1)
[2021-03-10] MEDS ORDERED: PERFLUTREN PROTEIN-A MICROSPHR 0.22 MG/ML 3 ML VIAL. IV ONE (07:25)
--- NOTE | 2021-03-10 08:40 | PDOC ---
IM PROGRESS NOTES- Subjective Subjective No pain or dyspnea. She is a poor historian. Unable to do systems review. Objective Vitals/I&O Vital Signs Date Time Temp Pulse Resp B/P (MAP) Pulse Ox O2 Delivery O2 Flow Rate FiO2 03/10/21 06:17 98.3 102 18 161/101 (121) 97 Room Air 98.3 I & O 03/09/21 03/09/21 03/10/21 15:00 23:00 07:00 Intake Total 258 ml 400 ml 50 ml Balance 258 ml 400 ml 50 ml Physical Exam Physical Exam General Appearance - alert,weak and in no distress Chest - decreased breath sounds at bases Heart - S1 and S2 normal Abdomen - soft, non tender Neurological - alert and confused Musculoskeletal - generalized weakness Extremities - no edema Labs Laboratory Tests Test 03/10/21 04:55 White Blood Count 7.4 x10^3/uL (4.0-11.0) Red Blood Count 4.14 x10^6/uL (3.50-5.40) Hemoglobin 11.1 g/dL (12.0-15.5) L Hematocrit 33.9 % (36.0-47.0) L Mean Corpuscular Volume 82 fL (79-100) Mean Corpuscular Hemoglobin 27 pg (25-35) Mean Corpuscular Hemoglobin Concent 33 g/dL (31-37) Red Cell Distribution Width 18.1 % (11.5-14.5) H Platelet Count 344 x10^3/uL (140-400) Neutrophils (%) (Auto) 71 % (31-73) Lymphocytes (%) (Auto) 18 % (24-48) L Monocytes (%) (Auto) 8 % (0-9) Eosinophils (%) (Auto) 2 % (0-3) Basophils (%) (Auto) 1 % (0-3) Neutrophils # (Auto) 5.2 x10^3/uL (1.8-7.7) Lymphocytes # (Auto) 1.3 x10^3/uL (1.0-4.8) Monocytes # (Auto) 0.6 x10^3/uL (0.0-1.1) Eosinophils # (Auto) 0.1 x10^3/uL (0.0-0.7) Basophils # (Auto) 0.1 x10^3/uL (0.0-0.2) Sodium Level 142 mmol/L (136-145) Potassium Level 3.7 mmol/L (3.5-5.1) Chloride Level 111 mmol/L (98-107) H Carbon Dioxide Level 20 mmol/L (21-32) L Anion Gap 11 (6-14) Blood Urea Nitrogen 14 mg/dL (7-20) Creatinine 0.8 mg/dL (0.6-1.0) Estimated GFR (Cockcroft-Gault) 69.2 Glucose Level 95 mg/dL (70-99) Calcium Level 8.0 mg/dL (8.5-10.1) L Laboratory Tests 03/10/21 04:55 Laboratory Tests 03/10/21 04:55 Meds Current Medications Medications (Trade) Dose Ordered Sig/Jaylin Route PRN Reason Start Time Stop Time Status Last Admin Dose Admin Ceftriaxone Sodium (Rocephin) 1 gm Q24H IVP 03/09/21 14:00 03/09/21 13:59 Potassium Chloride/Sodium Chloride 1,000 ml @ 75 mls/hr [id number] IV 03/09/21 08:45 03/09/21 21:47 Hydralazine HCl (Apresoline) 50 mg TID PO 03/09/21 09:00 03/09/21 21:46 Metoprolol Tartrate (Lopressor) 25 mg BID PO 03/09/21 11:15 03/09/21 21:47 Apixaban (Eliquis) 2.5 mg BID PO 03/09/21 11:30 03/09/21 21:46 Assessment Assessment 1. Acute urinary tract infection. 2. Likely pneumonia. COVID rapid test is negative. RT-PCR is pending. 3. Tremors. 4. Dehydration. 5. Physical deconditioning. 6. Dementia. 7. Possible aspiration pneumonia. 8. Hypertension, not controlled. 9. New onset atrial fibrillation. 10. [id number] aortic stenosis. 11. History of bedbug infestation. 12. Gastroesophageal reflux disease. 13. 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 14. Compression fractures of thoracic vertebra. 15. Hiatal hernia. 16. History of hypothyroidism. 17. Hyperlipidemia. 18. Bipolar affective disorder, in remission. 19. Seizure disorder. 20. Gastritis. 21. Diverticulosis. 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 PLAN: 1. Urinary tract infection. Start IV fluids and start IV Rocephin.Urine c/s negative. 2. Dehydration. Start IV fluids.BUN,Creatinine are improving. 3. New onset atrial fibrillation. Consult Dr. Aiken for cardiology evaluation and management. The patient has been started on IV Cardizem drip. 4. Hypertension, not controlled. I will restart hydralazine.Control is improving. 5. Physical deconditioning. Consult Dr. Nicole for rehab evaluation and management. 6. Dementia. Getting worse. Restart Memantine. 7. Acute metabolic encephalopathy. Correct electrolyte imbalance, dehydration and infection. 8. Pneumonia. Consult Dr. Dasilva for pulmonary evaluation and management. The patient may be aspirating. Also, check for COVID infection. Prognosis of this patient is very poor. I discussed with her , Jose Juan on 03/09/21- not taking medications for 3 months. Has been more confused. Condit ion,treatment ,options,prognosis extensively d/w him on 03/10/21. She will likely need to be admitted to a longterm permanently. For details, please refer to the orders. Plan Plan For more details regarding further plans, please refer to the orders. Justifications for Admission Other Justification CORNELIUS LÓPEZ MD Mar 10, 2021 08:40
[2021-03-10] MEDS: MEMANTINE 5 MG TABLET. PO SCH ×2 (09:00→20:12)
[2021-03-10] MEDS: POTASSIUM CHLORIDE 20 MEQ TABLET.ER. PO SCH ×2 (09:00→09:30)
[2021-03-10] MEDS: APIXABAN 2.5 MG TABLET. PO SCH ×2 (09:00→20:11)
[2021-03-10] MEDS: METOPROLOL TART IMMED RELEASE 25 MG TABLET. PO SCH (09:00)
[2021-03-10] MEDS: PANTOPRAZOLE 40 MG TABLET.DR. PO SCH (09:01)
--- NOTE | 2021-03-10 09:42 | PDOC ---
PROGRESS NOTES Date of Service DATE: 03/10/21 TIME: 09:39 Subjective Subjective She c/o low back pain with radiation to right lower extremity. Objective Objective Vital Signs Date Time Temp Pulse Resp B/P (MAP) Pulse Ox O2 Delivery O2 Flow Rate FiO2 03/10/21 09:00 102 161/101 03/10/21 06:17 98.3 18 97 Room Air 98.3 Intake and Output 03/10/21 06:59 Intake Total 708 ml Balance 708 ml Intake Oral 708 ml # Voids 2 Physical Exam Physical Exam She is awake,sitting at edge of bed and working with occupational therapy and she requires assistance for bed mobility. Tenderness to palpation over right sacroiliac joint area. Assessment Assessment Problems Medical Problems: (1) Atrial fibrillation with RVR Status: Acute (2) UTI (urinary tract infection) Status: Acute Plan Plan of Care To try lidoderm patch and heat to low back area and she is not interested in injection to her low back. To arrange for SNF screen. Comment Review of Relevant I have reviewed the following items ellyn (where applicable) has been applied. Labs Laboratory Tests Test 03/08/21 11:08 03/08/21 11:34 03/08/21 15:55 03/09/21 06:45 Urine Collection Type U cath Urine Color Yellow Urine Clarity Clear Urine pH 5.0 (<5.0-8.0) Urine Specific [place] >=1.030 (1.000-1.030) Urine Protein 30 mg/dL (NEG-TRACE) Urine Glucose (UA) Negative mg/dL (NEG) Urine Ketones (Stick) 15 mg/dL (NEG) Urine Blood Negative (NEG) Urine Nitrite Negative (NEG) Urine Bilirubin Small (NEG) Urine Urobilinogen Dipstick 1.0 mg/dL (0.2 mg/dL) Urine Leukocyte Esterase Negative (NEG) Urine RBC Occ /HPF (0-2) Urine WBC 5-10 /HPF (0-4) Urine Squamous Epithelial Cells Few /LPF Urine Bacteria Many /HPF (0-FEW) Urine Mucus Slight /LPF White Blood Count 10.5 x10^3/uL (4.0-11.0) 7.0 x10^3/uL (4.0-11.0) Red Blood Count 4.88 x10^6/uL (3.50-5.40) 4.43 x10^6/uL (3.50-5.40) Hemoglobin 12.8 g/dL (12.0-15.5) 12.0 g/dL (12.0-15.5) Hematocrit 40.1 % (36.0-47.0) 36.2 % (36.0-47.0) Mean Corpuscular Volume 82 fL (79-100) 82 fL (79-100) Mean Corpuscular Hemoglobin 26 pg (25-35) 27 pg (25-35) Mean Corpuscular Hemoglobin Concent 32 g/dL (31-37) 33 g/dL (31-37) Red Cell Distribution Width 17.9 % (11.5-14.5) 18.1 % (11.5-14.5) Platelet Count 387 x10^3/uL (140-400) 329 x10^3/uL (140-400) Neutrophils (%) (Auto) 80 % (31-73) 77 % (31-73) Lymphocytes (%) (Auto) 13 % (24-48) 16 % (24-48) Monocytes (%) (Auto) 6 % (0-9) 6 % (0-9) Eosinophils (%) (Auto) 1 % (0-3) 1 % (0-3) Basophils (%) (Auto) 1 % (0-3) 1 % (0-3) Neutrophils # (Auto) 8.4 x10^3/uL (1.8-7.7) 5.4 x10^3/uL (1.8-7.7) Lymphocytes # (Auto) 1.3 x10^3/uL (1.0-4.8) 1.1 x10^3/uL (1.0-4.8) Monocytes # (Auto) 0.7 x10^3/uL (0.0-1.1) 0.4 x10^3/uL (0.0-1.1) Eosinophils # (Auto) 0.1 x10^3/uL (0.0-0.7) 0.1 x10^3/uL (0.0-0.7) Basophils # (Auto) 0.1 x10^3/uL (0.0-0.2) 0.1 x10^3/uL (0.0-0.2) Sodium Level 142 mmol/L (136-145) 141 mmol/L (136-145) Potassium Level 4.1 mmol/L (3.5-5.1) 3.8 mmol/L (3.5-5.1) Chloride Level 108 mmol/L (98-107) 107 mmol/L (98-107) Carbon Dioxide Level 24 mmol/L (21-32) 23 mmol/L (21-32) Anion Gap 10 (6-14) 11 (6-14) Blood Urea Nitrogen 25 mg/dL (7-20) 14 mg/dL (7-20) Creatinine 0.9 mg/dL (0.6-1.0) 0.6 mg/dL (0.6-1.0) Estimated GFR (Cockcroft-Gault) 60.4 96.4 BUN/Creatinine Ratio 28 (6-20) 23 (6-20) Glucose Level 103 mg/dL (70-99) 89 mg/dL (70-99) Calcium Level 8.8 mg/dL (8.5-10.1) 8.1 mg/dL (8.5-10.1) Total Bilirubin 0.6 mg/dL (0.2-1.0) 0.6 mg/dL (0.2-1.0) Aspartate Amino Transf (AST/SGOT) 9 U/L (15-37) 14 U/L (15-37) Alanine Aminotransferase (ALT/SGPT) 14 U/L (14-59) 15 U/L (14-59) Alkaline Phosphatase 69 U/L (46-116) 65 U/L (46-116) Troponin I High Sensitivity 23 ng/L (4-50) Total Protein 6.6 g/dL (6.4-8.2) 5.8 g/dL (6.4-8.2) Albumin 3.1 g/dL (3.4-5.0) 3.0 g/dL (3.4-5.0) Albumin/Globulin Ratio 0.9 (1.0-1.7) 1.1 (1.0-1.7) Lipase 108 U/L (73-393) SARS-CoV-2 RNA (SONI) Negative (Negative) SARS-CoV-2 Antigen (Rapid) Negative (NEGATIVE) Magnesium Level 1.8 mg/dL (1.8-2.4) Triglycerides Level 119 mg/dL (0-150) Cholesterol Level 185 mg/dL (0-200) LDL Cholesterol, Calculated 122 mg/dL (0-100) VLDL Cholesterol, Calculated 24 mg/dL (0-40) Non-HDL Cholesterol Calculated 146 mg/dL (0-129) HDL Cholesterol 39 mg/dL (40-60) Cholesterol/HDL Ratio 4.7 Vitamin B12 Level 423 pg/mL (247-911) Thyroid Stimulating Hormone (TSH) 1.285 uIU/mL (0.358-3.74) Test 03/10/21 04:55 White Blood Count 7.4 x10^3/uL (4.0-11.0) Red Blood Count 4.14 x10^6/uL (3.50-5.40) Hemoglobin 11.1 g/dL (12.0-15.5) Hematocrit 33.9 % (36.0-47.0) Mean Corpuscular Volume 82 fL (79-100) Mean Corpuscular Hemoglobin 27 pg (25-35) Mean Corpuscular Hemoglobin Concent 33 g/dL (31-37) Red Cell Distribution Width 18.1 % (11.5-14.5) Platelet Count 344 x10^3/uL (140-400) Neutrophils (%) (Auto) 71 % (31-73) Lymphocytes (%) (Auto) 18 % (24-48) Monocytes (%) (Auto) 8 % (0-9) Eosinophils (%) (Auto) 2 % (0-3) Basophils (%) (Auto) 1 % (0-3) Neutrophils # (Auto) 5.2 x10^3/uL (1.8-7.7) Lymphocytes # (Auto) 1.3 x10^3/uL (1.0-4.8) Monocytes # (Auto) 0.6 x10^3/uL (0.0-1.1) Eosinophils # (Auto) 0.1 x10^3/uL (0.0-0.7) Basophils # (Auto) 0.1 x10^3/uL (0.0-0.2) Sodium Level 142 mmol/L (136-145) Potassium Level 3.7 mmol/L (3.5-5.1) Chloride Level 111 mmol/L (98-107) Carbon Dioxide Level 20 mmol/L (21-32) Anion Gap 11 (6-14) Blood Urea Nitrogen 14 mg/dL (7-20) Creatinine 0.8 mg/dL (0.6-1.0) Estimated GFR (Cockcroft-Gault) 69.2 Glucose Level 95 mg/dL (70-99) Calcium Level 8.0 mg/dL (8.5-10.1) Laboratory Tests Test 03/10/21 04:55 White Blood Count 7.4 x10^3/uL (4.0-11.0) Red Blood Count 4.14 x10^6/uL (3.50-5.40) Hemoglobin 11.1 g/dL (12.0-15.5) Hematocrit 33.9 % (36.0-47.0) Mean Corpuscular Volume 82 fL (79-100) Mean Corpuscular Hemoglobin 27 pg (25-35) Mean Corpuscular Hemoglobin Concent 33 g/dL (31-37) Red Cell Distribution Width 18.1 % (11.5-14.5) Platelet Count 344 x10^3/uL (140-400) Neutrophils (%) (Auto) 71 % (31-73) Lymphocytes (%) (Auto) 18 % (24-48) Monocytes (%) (Auto) 8 % (0-9) Eosinophils (%) (Auto) 2 % (0-3) Basophils (%) (Auto) 1 % (0-3) Neutrophils # (Auto) 5.2 x10^3/uL (1.8-7.7) Lymphocytes # (Auto) 1.3 x10^3/uL (1.0-4.8) Monocytes # (Auto) 0.6 x10^3/uL (0.0-1.1) Eosinophils # (Auto) 0.1 x10^3/uL (0.0-0.7) Basophils # (Auto) 0.1 x10^3/uL (0.0-0.2) Sodium Level 142 mmol/L (136-145) Potassium Level 3.7 mmol/L (3.5-5.1) Chloride Level 111 mmol/L (98-107) Carbon Dioxide Level 20 mmol/L (21-32) Anion Gap 11 (6-14) Blood Urea Nitrogen 14 mg/dL (7-20) Creatinine 0.8 mg/dL (0.6-1.0) Estimated GFR (Cockcroft-Gault) 69.2 Glucose Level 95 mg/dL (70-99) Calcium Level 8.0 mg/dL (8.5-10.1) Microbiology 03/08/21 Urine Culture - Final, Complete Medications Current Medications Sodium Chloride 1,000 ml @ 1,000 mls/hr 1X ONCE IV Last administered on 03/08/21at 11:39; Start 03/08/21 at 11:15; Stop 03/08/21 at 12:14; Status DC Iohexol (Omnipaque 300 Mg/ml) 75 ml 1X ONCE IV Last administered on 03/08/21at 11:58; Start 03/08/21 at 12:00; Stop 03/08/21 at 12:01; Status DC Info (CONTRAST GIVEN -- Rx MONITORING) 1 each PRN DAILY PRN MC SEE COMMENTS; Start 03/08/21 at 12:00; Stop 03/10/21 at 11:59 Hydralazine HCl (Apresoline Inj) 10 mg 1X ONCE IVP Last administered on 03/08/21at 12:34; Start 03/08/21 at 12:30; Stop 03/08/21 at 12:31; Status DC Metoprolol Tartrate (Lopressor Vial) 5 mg 1X ONCE IVP Last administered on 03/08/21at 13:22; Start 03/08/21 at 13:00; Stop 03/08/21 at 13:01; Status DC Ceftriaxone Sodium (Rocephin) 1 gm 1X ONCE IVP Last administered on 03/08/21at 14:07; Start 03/08/21 at 14:00; Stop 03/08/21 at 14:01; Status DC Ondansetron HCl (Zofran) 4 mg PRN Q8HRS PRN IVP NAUSEA/VOMITING; Start 03/08/21 at 14:00; Stop 03/09/21 at 13:59; Status DC Fentanyl Citrate (Fentanyl 2ml Vial) 50 mcg PRN Q1HR PRN IVP PAIN; Start 03/08/21 at 14:00; Stop 03/09/21 at 13:59; Status DC Sodium Chloride 1,000 ml @ 100 mls/hr Q10H IV Last administered on 03/08/21at 23:57; Start 03/08/21 at 14:00; Stop 03/09/21 at 13:59; Status DC Diltiazem HCl 125 mg/Sodium Chloride 125 ml @ 5 mls/hr CONT PRN IV PER PROTOCOL Last administered on 03/09/21at 04:24; Start 03/08/21 at 18:00; Stop 03/09/21 at 11:19; Status DC Acetaminophen (Tylenol) 650 mg PRN Q6HRS PRN PO MILD PAIN / TEMP > 100.3'F; Start 03/08/21 at 19:00 Ceftriaxone Sodium (Rocephin) 1 gm Q24H IVP Last administered on 03/09/21at 13:59; Start 03/09/21 at 14:00 Enoxaparin Sodium (Lovenox 30mg Syringe) 30 mg Q24H SQ Last administered on 03/08/21at 20:51; Start 03/08/21 at 21:00; Stop 03/09/21 at 11:23; Status DC Pantoprazole Sodium (Protonix) 40 mg DAILYAC PO Last administered on 03/10/21at 09:01; Start 03/09/21 at 07:30 Potassium Chloride 20 meq/ Sodium Chloride 1,010 ml @ 75 mls/hr [id number] IV ; Start 03/09/21 at 08:30; Status UNV Potassium Chloride/Sodium Chloride 1,000 ml @ 75 mls/hr [id number] IV Last administered on 03/09/21at 21:47; Start 03/09/21 at 08:45 Hydralazine HCl (Apresoline) 50 mg TID PO Last administered on 03/10/21at 09:00; Start 03/09/21 at 09:00 Metoprolol Tartrate (Lopressor) 25 mg BID PO Last administered on 03/10/21at 09:00; Start 03/09/21 at 11:15 Metoprolol Tartrate (Lopressor Vial) 5 mg PRN Q5MIN PRN IVP TACHYCARDIA; Start 03/09/21 at 11:15 Apixaban (Eliquis) 2.5 mg BID PO Last administered on 03/10/21at 09:00; Start 03/09/21 at 11:30 Perflutren Protein Type A Microsphe (Optison) 0.66 mg STK-MED ONCE IV ; Start 03/10/21 at 07:25; Stop 03/10/21 at 07:26; Status DC Potassium Chloride (Klor-Con) 20 meq DAILYWBKFT PO Last administered on 03/10/21at 09:00; Start 03/10/21 at 09:30 Memantine (Namenda) 5 mg BID PO Last administered on 03/10/21at 09:00; Start 03/10/21 at 09:30 Active Scripts Active Ferrous Sulfate 325 Mg Tablet 1 Tab PO DAILY Keflex (Cephalexin) 500 Mg Capsule 1 Cap PO BID 5 Days Magnesium Oxide 400 Mg Tablet 1 Tab PO DAILY Hydralazine Hcl 50 Mg Tablet 1 Tab PO TID Vitamin B-12 (Cyanocobalamin (Vitamin B-12)) 1,000 Mcg Tablet 1,000 Mcg PO DAILY 30 Days Culturelle (Lactobacillus Rhamnosus Gg) 1 Each Cap.sprink 1 Cap PO BID 30 Days Gabapentin (Gabapentin) 100 Mg Capsule 100 Mg PO TID 30 Days Tylenol (Acetaminophen) 325 Mg Tablet 650 Mg PO PRN Q6HRS PRN 30 Days Aspirin 81 Mg Tab.chew 81 Mg PO DAILYWBKFT 30 Days Allopurinol 300 Mg Tablet 300 Mg PO HS D3 Dots (Cholecalciferol (Vitamin D3)) 2,000 Unit Tablet 400 Unit PO DAILY Reported Namenda (Memantine Hcl) 10 Mg Tablet 5 Mg PO BID Sucralfate 1 Gm Tablet 1 Tab PO QID Protonix (Pantoprazole Sodium) 20 Mg Tablet.dr 1 Tab PO BID Atorvastatin Calcium 10 Mg Tablet 10 Mg PO HS Montelukast Sodium Tablet (Montelukast Sodium) 10 Mg Tablet 10 Mg PO DAILY Amlodipine Besylate 5 Mg Tablet 5 Mg PO DAILY Escitalopram Oxalate 10 Mg Tablet 10 Mg PO DAILY Colestipol Hcl 1 Gm Tablet 1 Gm PO BID Zyrtec (Cetirizine Hcl) 10 Mg Tablet 10 Mg PO Balance B-100 (Vitamin B Complex) 1 Each Tablet 1 Each PO Citracal + D Maximum Caplet (Calcium Citrate/Vitamin D3) 1 Each Tablet 1 Each PO Vitamin E (Vitamin E (Dl,Tocopheryl Acet)) 400 Unit Capsule 400 Unit PO Centrum Silver Tablet (Multivits-Min/Fa/Lycopene/Lut) 1 Each Tablet 1 Each PO Vitals/I & O Vital Sign - Last 24 Hours 03/09/21 03/09/21 03/09/21 03/09/21 11:01 11:40 14:00 15:00 Temp 96.9 97.9 96.9 97.9 Pulse 89 89 89 75 Resp 18 16 B/P (MAP) 133/85 (101) 133/85 133/85 138/82 (100) Pulse Ox 96 95 O2 Delivery Room Air Room Air 03/09/21 03/09/21 03/09/21 03/09/21 19:35 19:43 21:46 21:47 Temp 98.0 98.0 Pulse 105 105 105 Resp 18 B/P (MAP) 150/99 (116) 150/99 150/99 Pulse Ox 98 O2 Delivery Room Air Room Air 03/09/21 03/10/21 03/10/21 03/10/21 22:20 02:40 06:17 09:00 Temp 98.1 98.0 98.3 98.1 98.0 98.3 Pulse 93 89 102 102 Resp 18 18 18 B/P (MAP) 123/77 (92) 133/85 (101) 161/101 (121) 161/101 Pulse Ox 99 95 97 O2 Delivery Room Air Room Air Room Air 03/10/21 09:00 Pulse 102 B/P (MAP) 161/101 Intake and Output 03/09/21 03/09/21 03/10/21 14:59 22:59 06:59 Intake Total 258 ml 400 ml 50 ml Balance 258 ml 400 ml 50 ml Justifications for Admission Other Justification RAHEEM LOAIZA MD Mar 10, 2021 09:42
--- NOTE | 2021-03-10 09:46 | PDOC ---
PULMONARY PROGRESS NOTES DATE: 03/10/21 TIME: 09:46 Subjective Patient not more short of air, having difficulty swallowing at times Vitals Vital Signs Date Time Temp Pulse Resp B/P (MAP) Pulse Ox O2 Delivery O2 Flow Rate FiO2 03/10/21 09:00 102 161/101 03/10/21 06:17 98.3 18 97 Room Air 98.3 ROS: No Nausea, No Chest Pain, No Abdominal Pain, No Increase Cough General: Alert Lungs: Clear Cardiovascular: S1, S2 Abdomen: Soft, Non-tender Extremities: No Edema Labs Laboratory Tests Test 03/08/21 11:08 03/08/21 11:34 03/08/21 15:55 03/09/21 06:45 Urine Collection Type U cath Urine Color Yellow Urine Clarity Clear Urine pH 5.0 (<5.0-8.0) Urine Specific [place] >=1.030 (1.000-1.030) Urine Protein 30 mg/dL (NEG-TRACE) Urine Glucose (UA) Negative mg/dL (NEG) Urine Ketones (Stick) 15 mg/dL (NEG) Urine Blood Negative (NEG) Urine Nitrite Negative (NEG) Urine Bilirubin Small (NEG) Urine Urobilinogen Dipstick 1.0 mg/dL (0.2 mg/dL) Urine Leukocyte Esterase Negative (NEG) Urine RBC Occ /HPF (0-2) Urine WBC 5-10 /HPF (0-4) Urine Squamous Epithelial Cells Few /LPF Urine Bacteria Many /HPF (0-FEW) Urine Mucus Slight /LPF White Blood Count 10.5 x10^3/uL (4.0-11.0) 7.0 x10^3/uL (4.0-11.0) Red Blood Count 4.88 x10^6/uL (3.50-5.40) 4.43 x10^6/uL (3.50-5.40) Hemoglobin 12.8 g/dL (12.0-15.5) 12.0 g/dL (12.0-15.5) Hematocrit 40.1 % (36.0-47.0) 36.2 % (36.0-47.0) Mean Corpuscular Volume 82 fL (79-100) 82 fL (79-100) Mean Corpuscular Hemoglobin 26 pg (25-35) 27 pg (25-35) Mean Corpuscular Hemoglobin Concent 32 g/dL (31-37) 33 g/dL (31-37) Red Cell Distribution Width 17.9 % (11.5-14.5) 18.1 % (11.5-14.5) Platelet Count 387 x10^3/uL (140-400) 329 x10^3/uL (140-400) Neutrophils (%) (Auto) 80 % (31-73) 77 % (31-73) Lymphocytes (%) (Auto) 13 % (24-48) 16 % (24-48) Monocytes (%) (Auto) 6 % (0-9) 6 % (0-9) Eosinophils (%) (Auto) 1 % (0-3) 1 % (0-3) Basophils (%) (Auto) 1 % (0-3) 1 % (0-3) Neutrophils # (Auto) 8.4 x10^3/uL (1.8-7.7) 5.4 x10^3/uL (1.8-7.7) Lymphocytes # (Auto) 1.3 x10^3/uL (1.0-4.8) 1.1 x10^3/uL (1.0-4.8) Monocytes # (Auto) 0.7 x10^3/uL (0.0-1.1) 0.4 x10^3/uL (0.0-1.1) Eosinophils # (Auto) 0.1 x10^3/uL (0.0-0.7) 0.1 x10^3/uL (0.0-0.7) Basophils # (Auto) 0.1 x10^3/uL (0.0-0.2) 0.1 x10^3/uL (0.0-0.2) Sodium Level 142 mmol/L (136-145) 141 mmol/L (136-145) Potassium Level 4.1 mmol/L (3.5-5.1) 3.8 mmol/L (3.5-5.1) Chloride Level 108 mmol/L (98-107) 107 mmol/L (98-107) Carbon Dioxide Level 24 mmol/L (21-32) 23 mmol/L (21-32) Anion Gap 10 (6-14) 11 (6-14) Blood Urea Nitrogen 25 mg/dL (7-20) 14 mg/dL (7-20) Creatinine 0.9 mg/dL (0.6-1.0) 0.6 mg/dL (0.6-1.0) Estimated GFR (Cockcroft-Gault) 60.4 96.4 BUN/Creatinine Ratio 28 (6-20) 23 (6-20) Glucose Level 103 mg/dL (70-99) 89 mg/dL (70-99) Calcium Level 8.8 mg/dL (8.5-10.1) 8.1 mg/dL (8.5-10.1) Total Bilirubin 0.6 mg/dL (0.2-1.0) 0.6 mg/dL (0.2-1.0) Aspartate Amino Transf (AST/SGOT) 9 U/L (15-37) 14 U/L (15-37) Alanine Aminotransferase (ALT/SGPT) 14 U/L (14-59) 15 U/L (14-59) Alkaline Phosphatase 69 U/L (46-116) 65 U/L (46-116) Troponin I High Sensitivity 23 ng/L (4-50) Total Protein 6.6 g/dL (6.4-8.2) 5.8 g/dL (6.4-8.2) Albumin 3.1 g/dL (3.4-5.0) 3.0 g/dL (3.4-5.0) Albumin/Globulin Ratio 0.9 (1.0-1.7) 1.1 (1.0-1.7) Lipase 108 U/L (73-393) SARS-CoV-2 RNA (SONI) Negative (Negative) SARS-CoV-2 Antigen (Rapid) Negative (NEGATIVE) Magnesium Level 1.8 mg/dL (1.8-2.4) Triglycerides Level 119 mg/dL (0-150) Cholesterol Level 185 mg/dL (0-200) LDL Cholesterol, Calculated 122 mg/dL (0-100) VLDL Cholesterol, Calculated 24 mg/dL (0-40) Non-HDL Cholesterol Calculated 146 mg/dL (0-129) HDL Cholesterol 39 mg/dL (40-60) Cholesterol/HDL Ratio 4.7 Vitamin B12 Level 423 pg/mL (247-911) Thyroid Stimulating Hormone (TSH) 1.285 uIU/mL (0.358-3.74) Test 03/10/21 04:55 White Blood Count 7.4 x10^3/uL (4.0-11.0) Red Blood Count 4.14 x10^6/uL (3.50-5.40) Hemoglobin 11.1 g/dL (12.0-15.5) Hematocrit 33.9 % (36.0-47.0) Mean Corpuscular Volume 82 fL (79-100) Mean Corpuscular Hemoglobin 27 pg (25-35) Mean Corpuscular Hemoglobin Concent 33 g/dL (31-37) Red Cell Distribution Width 18.1 % (11.5-14.5) Platelet Count 344 x10^3/uL (140-400) Neutrophils (%) (Auto) 71 % (31-73) Lymphocytes (%) (Auto) 18 % (24-48) Monocytes (%) (Auto) 8 % (0-9) Eosinophils (%) (Auto) 2 % (0-3) Basophils (%) (Auto) 1 % (0-3) Neutrophils # (Auto) 5.2 x10^3/uL (1.8-7.7) Lymphocytes # (Auto) 1.3 x10^3/uL (1.0-4.8) Monocytes # (Auto) 0.6 x10^3/uL (0.0-1.1) Eosinophils # (Auto) 0.1 x10^3/uL (0.0-0.7) Basophils # (Auto) 0.1 x10^3/uL (0.0-0.2) Sodium Level 142 mmol/L (136-145) Potassium Level 3.7 mmol/L (3.5-5.1) Chloride Level 111 mmol/L (98-107) Carbon Dioxide Level 20 mmol/L (21-32) Anion Gap 11 (6-14) Blood Urea Nitrogen 14 mg/dL (7-20) Creatinine 0.8 mg/dL (0.6-1.0) Estimated GFR (Cockcroft-Gault) 69.2 Glucose Level 95 mg/dL (70-99) Calcium Level 8.0 mg/dL (8.5-10.1) Laboratory Tests Test 03/10/21 04:55 White Blood Count 7.4 x10^3/uL (4.0-11.0) Red Blood Count 4.14 x10^6/uL (3.50-5.40) Hemoglobin 11.1 g/dL (12.0-15.5) Hematocrit 33.9 % (36.0-47.0) Mean Corpuscular Volume 82 fL (79-100) Mean Corpuscular Hemoglobin 27 pg (25-35) Mean Corpuscular Hemoglobin Concent 33 g/dL (31-37) Red Cell Distribution Width 18.1 % (11.5-14.5) Platelet Count 344 x10^3/uL (140-400) Neutrophils (%) (Auto) 71 % (31-73) Lymphocytes (%) (Auto) 18 % (24-48) Monocytes (%) (Auto) 8 % (0-9) Eosinophils (%) (Auto) 2 % (0-3) Basophils (%) (Auto) 1 % (0-3) Neutrophils # (Auto) 5.2 x10^3/uL (1.8-7.7) Lymphocytes # (Auto) 1.3 x10^3/uL (1.0-4.8) Monocytes # (Auto) 0.6 x10^3/uL (0.0-1.1) Eosinophils # (Auto) 0.1 x10^3/uL (0.0-0.7) Basophils # (Auto) 0.1 x10^3/uL (0.0-0.2) Sodium Level 142 mmol/L (136-145) Potassium Level 3.7 mmol/L (3.5-5.1) Chloride Level 111 mmol/L (98-107) Carbon Dioxide Level 20 mmol/L (21-32) Anion Gap 11 (6-14) Blood Urea Nitrogen 14 mg/dL (7-20) Creatinine 0.8 mg/dL (0.6-1.0) Estimated GFR (Cockcroft-Gault) 69.2 Glucose Level 95 mg/dL (70-99) Calcium Level 8.0 mg/dL (8.5-10.1) Medications Active Scripts Medications Dose Route/Sig Max Daily Dose Days Date Category Ferrous Sulfate 325 Mg Tablet 1 Tab PO DAILY 06/02/20 Rx Keflex (Cephalexin) 500 Mg Capsule 1 Cap PO BID 5 06/01/20 Rx Magnesium Oxide 400 Mg Tablet 1 Tab PO DAILY 06/13/19 Rx Hydralazine Hcl 50 Mg Tablet 1 Tab PO TID 06/10/19 Rx Vitamin B-12 (Cyanocobalamin (Vitamin B-12)) 1,000 Mcg Tablet 1,000 Mcg PO DAILY 30 06/10/19 Rx Culturelle (Lactobacillus Rhamnosus Gg) 1 Each Cap.sprink 1 Cap PO BID 30 06/10/19 Rx Gabapentin (Gabapentin) 100 Mg Capsule 100 Mg PO TID 30 06/10/19 Rx Tylenol (Acetaminophen) 325 Mg Tablet 650 Mg PO PRN Q6HRS PRN 30 06/10/19 Rx Aspirin 81 Mg Tab.chew 81 Mg PO DAILYWBKFT 30 06/10/19 Rx Namenda (Memantine Hcl) 10 Mg Tablet 5 Mg PO BID 06/07/19 Reported Sucralfate 1 Gm Tablet 1 Tab PO QID 08/07/18 Reported Protonix (Pantoprazole Sodium) 20 Mg Tablet.dr 1 Tab PO BID 08/07/18 Reported Allopurinol 300 Mg Tablet 300 Mg PO HS 06/12/17 Rx D3 Dots (Cholecalciferol (Vitamin D3)) 2,000 Unit Tablet 400 Unit PO DAILY 06/12/17 Rx Atorvastatin Calcium 10 Mg Tablet 10 Mg PO HS 06/09/17 Reported Montelukast Sodium Tablet (Montelukast Sodium) 10 Mg Tablet 10 Mg PO DAILY 06/09/17 Reported Amlodipine Besylate 5 Mg Tablet 5 Mg PO DAILY 08/28/13 Reported Escitalopram Oxalate 10 Mg Tablet 10 Mg PO DAILY 08/28/13 Reported Colestipol Hcl 1 Gm Tablet 1 Gm PO BID 08/28/13 Reported Zyrtec (Cetirizine Hcl) 10 Mg Tablet 10 Mg PO 08/28/13 Reported Balance B-100 (Vitamin B Complex) 1 Each Tablet 1 Each PO 08/28/13 Reported Citracal + D Maximum Caplet (Calcium Citrate/Vitamin D3) 1 Each Tablet 1 Each PO 08/28/13 Reported Vitamin E (Vitamin E (Dl,Tocopheryl Acet)) 400 Unit Capsule 400 Unit PO 08/28/13 Reported Centrum Silver Tablet (Multivits-Min/Fa/Lycopene/Lut) 1 Each Tablet 1 Each PO 08/28/13 Reported Impression . IMPRESSION: 1. Possible pneumonia. Abnormal x-ray compatible with possible pneumonia, chronic interstitial lung disease. 2. Urinary tract infection. 3. Deconditioning. 4. Dementia. 5. Possible aspiration pneumonia, dysphagia. Video dysphagia IMPRESSION: 1. Aspiration and penetration of multiple barium consistencies, without elicitation of a cough reflex. 2. Significant delayed initiation of swallowing and poor oral bolus formation. 3. Please refer to the separate report by the speech pathologist for clinical recommendations. Plan . Discussed with speech, video dysphagia positive for aspiration Dr. Akhtar to discuss options with Continue current support ISSAC CARLIN MD Mar 10, 2021 09:46
[2021-03-10] MEDS ORDERED: BARIUM SULFATE 40% (APPLE) 148 GM PWD. PO ONE (10:00)
--- NOTE | 2021-03-10 10:29 | NUR ---
SS following up with discharge planning. SS reviewed pt chart and discussed with pt RN. Pt is currently on room air. COVID19 negative. PO diet. Pt on IV Rocephin. PT/OT ordered. Pt having some confusion. SS spoke with pt's spouse via phone and discussed discharge planning. Pt's spouse reported that pt was in [facility], ; fax [phone], last May and would like pt to go to [facility] if recommended. SS currently awaiting PT/OT evaluations at this time. SS will continue to follow for discharge planning. Addendum: 03/10/21 at 1412 by LEO CANTOR SS PT/OT recommended prison unit. Referrals sent to [facility], [facility], and [facility]. Pt declined at [facility].
[2021-03-10 10:57] VITALS: BP 157/94
--- NOTE | 2021-03-10 11:29 | RAD ---
EXAM: Video swallow evaluation. HISTORY: Dysphagia. TECHNIQUE: Fluoroscopic imaging was performed with a speech pathologist during the oral administratio n of barium contrast of varying consistencies. 0 fluoroscopic spot images were obtained. The total fl uoroscopy time was greater than 5 minutes. COMPARISON: None. FINDINGS: There is intermittent aspiration and penetration of thin, nectar, honey thick and puree con sistencies. There is also suspected aspiration of solid barium consistency between fluoroscopic imagi ng intervals due to contrast within the airway between swallowing attempts. There is no elicitation o f a cough reflex. There is significant delayed initiation of swallowing and poor oral bolus formation . IMPRESSION: 1. Aspiration and penetration of multiple barium consistencies, without elicitation of a cough reflex . 2. Significant delayed initiation of swallowing and poor oral bolus formation. 3. Please refer to the separate report by the speech pathologist for clinical recommendations. Electronically signed by: Justa Jerez MD (03/10/2021 11:27 AM) [id number]
[2021-03-10] MEDS: METOPROLOL TART IMMED RELEASE 50 MG TABLET. PO SCH ×2 (11:30→20:12)
[2021-03-10] MEDS: LIDOCAINE (700MG/PATCH) PATCH. TD SCH (11:51)
[2021-03-10] MEDS: METOPROLOL TART IMMED RELEASE 25 MG TABLET. PO ONE ×2 (11:51→15:40)
--- NOTE | 2021-03-10 12:01 | PDOC ---
MEL PERALTA ELECTRONIC INTELLIGENCE OFFICER 03/10/21 1201: CARDIO Progress Notes Date and Time Date of Service 03/10/2021 Time of Evaluation 1030 Subjective Subjective: No Chest Pain, No shortness of breath, No Palpitations Vitals Vitals Vital Signs Date Time Temp Pulse Resp B/P (MAP) Pulse Ox O2 Delivery O2 Flow Rate FiO2 03/10/21 10:57 98.7 107 18 157/94 (115) 97 Room Air 98.7 Weight Weight [ ] Input and Output Intake and Output Intake and Output 03/10/21 07:00 Intake Total 708 ml Balance 708 ml Intake Oral 708 ml # Voids 2 Laboratory Labs Laboratory Tests Test 03/10/21 04:55 White Blood Count 7.4 x10^3/uL (4.0-11.0) Red Blood Count 4.14 x10^6/uL (3.50-5.40) Hemoglobin 11.1 g/dL (12.0-15.5) Hematocrit 33.9 % (36.0-47.0) Mean Corpuscular Volume 82 fL (79-100) Mean Corpuscular Hemoglobin 27 pg (25-35) Mean Corpuscular Hemoglobin Concent 33 g/dL (31-37) Red Cell Distribution Width 18.1 % (11.5-14.5) Platelet Count 344 x10^3/uL (140-400) Neutrophils (%) (Auto) 71 % (31-73) Lymphocytes (%) (Auto) 18 % (24-48) Monocytes (%) (Auto) 8 % (0-9) Eosinophils (%) (Auto) 2 % (0-3) Basophils (%) (Auto) 1 % (0-3) Neutrophils # (Auto) 5.2 x10^3/uL (1.8-7.7) Lymphocytes # (Auto) 1.3 x10^3/uL (1.0-4.8) Monocytes # (Auto) 0.6 x10^3/uL (0.0-1.1) Eosinophils # (Auto) 0.1 x10^3/uL (0.0-0.7) Basophils # (Auto) 0.1 x10^3/uL (0.0-0.2) Sodium Level 142 mmol/L (136-145) Potassium Level 3.7 mmol/L (3.5-5.1) Chloride Level 111 mmol/L (98-107) Carbon Dioxide Level 20 mmol/L (21-32) Anion Gap 11 (6-14) Blood Urea Nitrogen 14 mg/dL (7-20) Creatinine 0.8 mg/dL (0.6-1.0) Estimated GFR (Cockcroft-Gault) 69.2 Glucose Level 95 mg/dL (70-99) Calcium Level 8.0 mg/dL (8.5-10.1) Vitamin B12 Level 387 pg/mL (247-911) Microbiology Micro Microbiology 03/08/21 Urine Culture - Final, Complete Physical Exam HEENT: Neck Supple W Full Motion Chest: Symmetric LUNGS: Other (diminished) Heart: irregularly irregular (AFIB) Abdomen: Soft N/T Extremities: No Edema Neurology: alert, follow commands, confused Assessment Assessment 1. Abdominal pain: per PCP. Patulous distal esophagus with moderate hiatal hernia and diverticulosis per CT per PCP 2. AFIB RVR; New in the setting of likely severe . HR remains at 100-120 3. : possibly severe. known prior 4. HTN: labile 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 Dementia 6. Hypothyrodism: per PCP Recommendations 1. Increase metoprolol. DC hydralazine and start norvasc. Statin. eliquis for stroke prevention for now. Will discuss further with spouse. Not a skilled nursing candidate for anticoagulation due to fall risk and dementia but she will be supervised as she is going to rehab 2. TTE with further eval 3. Unclear if she is following up with any personal carer. She was suppose to follow up in our office about a yr but failed to show up. She will eventually need TAVR referral pending TTE. 5. SNU eval. SS on the case clarify goals of care with spouse. Justicifation of Admission Dx: Justifications for Admission: Justification of Admission Dx: Yes JANETTE ANTONIO MD 03/10/21 4425: CARDIO Progress Notes Assessment Assessment Patient seen and examined. Agree with FIRE WATCHMAN's assessment and plan. Atrial fibrillation, new onset, rate better controlled but still elevated Agree with increasing metoprolol dose She is probably a poor candidate for long-term anticoagulation Check 2D echocardiogram to assess LVEF and Continue management of abdominal pain per MEL YANG APRN Mar 10, 2021 12:01 JANETTE ANTONIO MD Mar 10, 2021 16:48
[2021-03-10 15:00] VITALS: BP 117/68
[2021-03-10] MEDS: cefTRIAXone IV Push 1 GM VIAL. IVP SCH (15:39)
[2021-03-10 19:17] VITALS: BP 160/111
[2021-03-10] MEDS ORDERED: ATORVASTATIN CALCIUM 20 MG TABLET PO SCH (21:00)
[2021-03-10] MEDS ORDERED: PATCH REMOVAL. MC SCH (21:00)
[2021-03-10 22:27] VITALS: BP 148/97
[2021-03-11 02:09] VITALS: BP 126/89
[2021-03-11 05:23] LABS: CREATININE 0.8 mg/dL (0.6-1.0); GFR 69.2; POTASSIUM 3.9 mmol/L (3.5-5.1)
[2021-03-11 07:43] VITALS: BP 149/81
--- NOTE | 2021-03-11 08:43 | PDOC ---
IM PROGRESS NOTES- Subjective Subjective No pain or dyspnea. She is a poor historian. Unable to do systems review. Objective Vitals/I&O Vital Signs Date Time Temp Pulse Resp B/P (MAP) Pulse Ox O2 Delivery O2 Flow Rate FiO2 03/11/21 07:43 97.9 99 18 149/81 (103) 97 Room Air 97.9 I & O 03/10/21 03/10/21 03/11/21 15:00 23:00 07:00 Intake Total 100 ml 420 ml 0 ml Output Total 1 ml 1 ml Balance 99 ml 419 ml 0 ml Physical Exam Physical Exam General Appearance - alert, chronically ill, weak and in no distress Chest - decreased breath sounds at bases Heart - S1 and S2 normal Abdomen - soft, non tender Neurological - alert, confused Musculoskeletal - generalized weakness Extremities - no edema Labs Laboratory Tests Test 03/11/21 04:00 Sodium Level 141 mmol/L (136-145) Potassium Level 3.9 mmol/L (3.5-5.1) Chloride Level 108 mmol/L (98-107) H Carbon Dioxide Level 23 mmol/L (21-32) Anion Gap 10 (6-14) Blood Urea Nitrogen 12 mg/dL (7-20) Creatinine 0.8 mg/dL (0.6-1.0) Estimated GFR (Cockcroft-Gault) 69.2 Glucose Level 83 mg/dL (70-99) Calcium Level 8.0 mg/dL (8.5-10.1) L Laboratory Tests 03/11/21 04:00 Meds Current Medications Medications (Trade) Dose Ordered Sig/Jaylin Route PRN Reason Start Time Stop Time Status Last Admin Dose Admin Memantine (Namenda) 5 mg BID PO 03/10/21 09:30 03/10/21 20:12 Lidocaine (Lidoderm) 1 patch DAILY TD 03/10/21 10:00 03/10/21 11:51 Miscellaneous (Lidoderm Patch Removal) 1 ea QHS MC 03/10/21 21:00 03/10/21 20:11 Barium Sulfate (Varibar Thin Liquid Apple) 148 gm 1X ONCE PO 03/10/21 10:00 03/10/21 10:01 DC 03/10/21 10:00 Metoprolol Tartrate (Lopressor) 50 mg BID PO 03/10/21 11:30 03/10/21 20:12 Metoprolol Tartrate (Lopressor) 25 mg 1X ONCE PO 03/10/21 11:30 03/10/21 11:31 DC 03/10/21 15:40 Atorvastatin Calcium (Lipitor) 20 mg QHS PO 03/10/21 21:00 03/10/21 20:11 Assessment Assessment 1. Acute urinary tract infection. 2. Likely pneumonia. COVID rapid test is negative. RT-PCR is pending. 3. Tremors. 4. Dehydration. 5. Physical deconditioning. 6. Dementia. 7. Possible aspiration pneumonia. 8. Hypertension, not controlled. 9. New onset atrial fibrillation. 10. Sugxfkxg-ui-wbdhel aortic stenosis. 11. History of bedbug infestation. 12. Gastroesophageal reflux disease. 13. 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 14. Compression fractures of thoracic vertebra. 15. Hiatal hernia. 16. History of hypothyroidism. 17. Hyperlipidemia. 18. Bipolar affective disorder, in remission. 19. Seizure disorder. 20. Gastritis. 21. Diverticulosis. 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 PLAN: 1. Urinary tract infection. Start IV fluids and start IV Rocephin.Urine c/s negative. 2. Dehydration. Start IV fluids.BUN,Creatinine are improving. 3. New onset atrial fibrillation. Consult Dr. Aiken for cardiology evaluation and management. The patient has been started on IV Cardizem drip. 4. Hypertension, not controlled. I will restart hydralazine.Control is improving. 5. Physical deconditioning. Consult Dr. Nicole for rehab evaluation and management. 6. Dementia. Getting worse. Restart Memantine. 7. Acute metabolic encephalopathy. Correct electrolyte imbalance, dehydration and infection. 8. Pneumonia. Due to aspiration. Consult Dr. Dasilva for pulmonary evaluation and management. The patient may be aspirating. Also, check for COVID infection. Video dysphagia study IMPRESSION: 1. Aspiration and penetration of multiple barium consistencies, without elicitation of a cough reflex. 2. Significant delayed initiation of swallowing and poor oral bolus formation. 3. Please refer to the separate report by the speech pathologist for clinical recommendations. Speech therapy report Initial Videoswallow Study Report Videoswallow study completed per order. Full rpt to follow after review of study. Initial findings as follows: -SILENT ASPIRATION of thin, nectar and puree consistencies; strongly suspected a spiration of solids as penetration and aspiration increasing between imaging (fluoroscopy on/off d/t time required for swallow) -Significant oropharyngeal delay of swallow impacting efficiency of intake and likely contributing to 's rpt that pt has lost weight x6 mos. -No safe diet consistency and pt is unable to follow instructions for maneuvers, strategies. Poor candidate for tx d/t inability to follow commands to participate at a level to benefit. RECOMMENDATIONS: Consider goals of care; NPO vs alt. non-oral nutrition. Full rpt to follow. Prognosis of this patient is very poor. I have extensively discussed with the patient's Jose Juan about chronic aspiration, need to be n.p.o., tube feeding, pros and cons of tube feeding versus eating, hospice care, physical therapy etc. He does not want her to have any tube feeding. He would continue oral feeding. I have recommended. Feeding with thickened liquids. I made him aware of the risks of , pneumonia, malnutrition, weight loss with aspiration. He understands that and wants to continue her oral feeding. She will likely need to be admitted to a fci permanently. He wants her transfer to long-term unit for further care when ready. Transfer to long-term unit when accepted. Change to oral Augmentin for 3 more days on discharge. Discharge management 35 minutes. For details, please refer to the orders. Plan Plan For more details regarding further plans, please refer to the orders. Justifications for Admission Other Justification CORNELIUS LÓPEZ MD Mar 11, 2021 08:43
[2021-03-11] MEDS: MEMANTINE 5 MG TABLET. PO SCH (08:46)
[2021-03-11] MEDS: PANTOPRAZOLE 40 MG TABLET.DR. PO SCH (08:47)
[2021-03-11] MEDS: POTASSIUM CHLORIDE 20 MEQ TABLET.ER. PO SCH (08:48)
[2021-03-11] MEDS: METOPROLOL TART IMMED RELEASE 50 MG TABLET. PO SCH (08:48)
[2021-03-11] MEDS: APIXABAN 2.5 MG TABLET. PO SCH (08:48)
[2021-03-11] MEDS: LIDOCAINE (700MG/PATCH) PATCH. TD SCH (08:49)
[2021-03-11] MEDS ORDERED: AMLO-186 PO (09:12)
[2021-03-11] MEDS ORDERED: AMOX1TAB58 PO (09:12)
[2021-03-11] MEDS ORDERED: ATOR10TA60 PO (09:12)
[2021-03-11] MEDS ORDERED: METO50TA6 PO (09:12)
[2021-03-11] MEDS ORDERED: APIX2.5T PO (09:12)
--- NOTE | 2021-03-11 09:16 | SNU/HH DC ---
DISCHARGE ORDERS DISCHARGE INFORMATION: FINAL DIAGNOSIS Problems Medical Problems: (1) Atrial fibrillation with RVR Status: Acute (2) UTI (urinary tract infection) Status: Acute CONDITION ON DISCHARGE: Stable LONG TERM: SNF STAY <30 DAYS: Yes POST DISCHARGE ORDERS: ACTIVITY ORDERS: Activity as tolerated (Two person assist. Needs help with physical therapy. Occupational Therapy) WEIGHT BEARING STATUS: Full weight bearing, As tolerated DIET AFTER DISCHARGE: Dysphagia 3 diet with Ensure 1 can 3 times daily. WOUND/INCISION CARE: No wound care needed OTHER ORDERS: Fall precautions CHECKS AFTER DISCHARGE: CHECKS AFTER DISCHARGE: Check blood press - daily FOLLOW-UP: PHYSICIAN FOLLOW-UP: Dr. Cornelius López in 1 week after discharge LAB ORDERS FOR FOLLOW-UP: CBC, CMP once a week for 3 weeks Additional Instructions: Fall precautions Follow precautions for aspiration. TREATMENT/EQUIPMENT ORDERS: ADAPTIVE EQUIPMENT NEEDED: None Physical Therapy For: Evalulation/Treatment Occupational Therapy For: Evaluation/Treatment Speech Language Pathology For: Evaluation/Treatment DISCHARGE MEDICATIONS: Home Meds Active Scripts Amoxicillin/Potassium Clav (AUGMENTIN 500-125 TABLET) 1 Each Tablet, 1 TAB PO BID for Pneumonia for 3 Days, #6 TAB 0 Refills Prov:CORNELIUS LÓPEZ MD 03/11/21 Metoprolol Tartrate (METOPROLOL TARTRATE) 50 Mg Tablet, 50 MG PO BID for a fib for 30 Days, #60 TAB Prov:CORNELIUS LÓPEZ MD 03/11/21 Apixaban (ELIQUIS) 2.5 Mg Tablet, 2.5 MG PO BID for A fib for 30 Days, #60 TAB Prov:CORNELIUS LÓPEZ MD 03/11/21 Atorvastatin Calcium (ATORVASTATIN CALCIUM) 10 Mg Tablet, 20 MG PO HS for FOR CHOLESTEROL, #30 TAB 0 Refills Prov:CORNELIUS LÓPEZ MD 03/11/21 Amlodipine Besylate (AMLODIPINE BESYLATE) 5 Mg Tablet, 10 MG PO DAILY for HTN for 30 Days, #60 TAB Prov:CORNELIUS LÓPEZ MD 03/11/21 Ferrous Sulfate (FERROUS SULFATE) 325 Mg Tablet, 1 TAB PO DAILY for anemia, #30 TAB 3 Refills Prov:CORNELIUS LÓPEZ MD 06/02/20 Hydralazine Hcl (HYDRALAZINE HCL) 50 Mg Tablet, 1 TAB PO TID for hypertension, #90 TAB 5 Refills Prov:CORNELIUS LÓPEZ MD 06/10/19 Cyanocobalamin (Vitamin B-12) (VITAMIN B-12) 1,000 Mcg Tablet, 1000 MCG PO DAILY for B12 deficiency for 30 Days, #30 TAB 5 Refills Prov:CORNELIUS LÓPEZ MD 06/10/19 Lactobacillus Rhamnosus Gg (CULTURELLE) 1 Each Cap.sprink, 1 CAP PO BID for antibiotic use for 30 Days, #60 CAP Prov:CORNELIUS LÓPEZ MD 06/10/19 Acetaminophen (TYLENOL) 325 Mg Tablet, 650 MG PO PRN Q6HRS PRN for HEADACHE / TEMP > 100.3'F for 30 Days, #120 TAB Prov:CORNELIUS LÓPEZ MD 06/10/19 Aspirin (ASPIRIN) 81 Mg Tab.chew, 81 MG PO DAILYWBKFT for Small vessel ischemia for 30 Days, #30 TAB.CHEW 5 Refills Prov:CORNELIUS LÓPEZ MD 06/10/19 Cholecalciferol (Vitamin D3) (D3 DOTS) 2,000 Unit Tablet, 400 UNIT PO DAILY, #90 TAB Prov:MALISSA PARKER HARDWARE INSTALLATION COORDINATOR 06/12/17 Reported Medications Memantine Hcl (NAMENDA) 10 Mg Tablet, 5 MG PO BID for dementia, TAB 06/07/19 Pantoprazole Sodium (PROTONIX) 20 Mg Tablet.dr, 1 TAB PO BID for ., #30 TAB 08/07/18 Cetirizine Hcl (ZYRTEC) 10 Mg Tablet, 10 MG PO 08/28/13 Calcium Citrate/Vitamin D3 (CITRACAL + D MAXIMUM CAPLET) 1 Each Tablet, 1 EACH PO 08/28/13 Multivits-Min/Fa/Lycopene/Lut (CENTRUM SILVER TABLET) 1 Each Tablet, 1 EACH PO 08/28/13 Discontinued Reported Medications Sucralfate (SUCRALFATE) 1 Gm Tablet, 1 TAB PO QID for ., #120 TAB 3 Refills 08/07/18 Montelukast Sodium (MONTELUKAST SODIUM TABLET ) 10 Mg Tablet, 10 MG PO DAILY for FOR ASTHMA, #30 TAB 0 Refills 06/09/17 Escitalopram Oxalate (ESCITALOPRAM OXALATE) 10 Mg Tablet, 10 MG PO DAILY for ANTI-DEPRESSANT, #30 TAB 0 Refills 08/28/13 Colestipol Hcl (COLESTIPOL HCL) 1 Gm Tablet, 1 GM PO BID for . 08/28/13 Vitamin B Complex (BALANCE B-100) 1 Each Tablet, 1 EACH PO 08/28/13 Vitamin E (Dl,Tocopheryl Acet) (VITAMIN E) 400 Unit Capsule, 400 UNIT PO 08/28/13 Discontinued Scripts Cephalexin (KEFLEX) 500 Mg Capsule, 1 CAP PO BID for UTI for 5 Days, #10 CAP Prov:CORNELIUS LÓPEZ MD 06/01/20 Magnesium Oxide (MAGNESIUM OXIDE) 400 Mg Tablet, 1 TAB PO DAILY for hyponagnesemia, #30 TAB 5 Refills Prov:CORNELIUS LÓPEZ MD 06/13/19 Gabapentin (GABAPENTIN ) 100 Mg Capsule, 100 MG PO TID for neuropathy for 30 Days, #90 CAP 5 Refills Prov:CORNELIUS LÓPEZ MD 06/10/19 Allopurinol (ALLOPURINOL) 300 Mg Tablet, 300 MG PO HS, #90 TAB Prov:MALISSA PARKER APRN 06/12/17 CORNELIUS LÓPEZ MD Mar 11, 2021 09:16
--- NOTE | 2021-03-11 09:23 | PDOC ---
PULMONARY PROGRESS NOTES DATE: 03/11/21 TIME: 09:21 Subjective Patient not more short of air, having difficulty swallowing at times Currently on room air Vitals Vital Signs Date Time Temp Pulse Resp B/P (MAP) Pulse Ox O2 Delivery O2 Flow Rate FiO2 03/11/21 08:48 99 149/81 03/11/21 07:43 97.9 18 97 Room Air 97.9 ROS: No Nausea, No Chest Pain, No Abdominal Pain, No Increase Cough General: Alert, Oriented X4 Lungs: Clear Cardiovascular: S1, S2 Abdomen: Soft, Non-tender Extremities: No Edema Skin: Warm, No Rashes Labs Laboratory Tests Test 03/10/21 04:55 03/11/21 04:00 White Blood Count 7.4 x10^3/uL (4.0-11.0) Red Blood Count 4.14 x10^6/uL (3.50-5.40) Hemoglobin 11.1 g/dL (12.0-15.5) Hematocrit 33.9 % (36.0-47.0) Mean Corpuscular Volume 82 fL (79-100) Mean Corpuscular Hemoglobin 27 pg (25-35) Mean Corpuscular Hemoglobin Concent 33 g/dL (31-37) Red Cell Distribution Width 18.1 % (11.5-14.5) Platelet Count 344 x10^3/uL (140-400) Neutrophils (%) (Auto) 71 % (31-73) Lymphocytes (%) (Auto) 18 % (24-48) Monocytes (%) (Auto) 8 % (0-9) Eosinophils (%) (Auto) 2 % (0-3) Basophils (%) (Auto) 1 % (0-3) Neutrophils # (Auto) 5.2 x10^3/uL (1.8-7.7) Lymphocytes # (Auto) 1.3 x10^3/uL (1.0-4.8) Monocytes # (Auto) 0.6 x10^3/uL (0.0-1.1) Eosinophils # (Auto) 0.1 x10^3/uL (0.0-0.7) Basophils # (Auto) 0.1 x10^3/uL (0.0-0.2) Sodium Level 142 mmol/L (136-145) 141 mmol/L (136-145) Potassium Level 3.7 mmol/L (3.5-5.1) 3.9 mmol/L (3.5-5.1) Chloride Level 111 mmol/L (98-107) 108 mmol/L (98-107) Carbon Dioxide Level 20 mmol/L (21-32) 23 mmol/L (21-32) Anion Gap 11 (6-14) 10 (6-14) Blood Urea Nitrogen 14 mg/dL (7-20) 12 mg/dL (7-20) Creatinine 0.8 mg/dL (0.6-1.0) 0.8 mg/dL (0.6-1.0) Estimated GFR (Cockcroft-Gault) 69.2 69.2 Glucose Level 95 mg/dL (70-99) 83 mg/dL (70-99) Calcium Level 8.0 mg/dL (8.5-10.1) 8.0 mg/dL (8.5-10.1) Vitamin B12 Level 387 pg/mL (247-911) Laboratory Tests Test 03/11/21 04:00 Sodium Level 141 mmol/L (136-145) Potassium Level 3.9 mmol/L (3.5-5.1) Chloride Level 108 mmol/L (98-107) Carbon Dioxide Level 23 mmol/L (21-32) Anion Gap 10 (6-14) Blood Urea Nitrogen 12 mg/dL (7-20) Creatinine 0.8 mg/dL (0.6-1.0) Estimated GFR (Cockcroft-Gault) 69.2 Glucose Level 83 mg/dL (70-99) Calcium Level 8.0 mg/dL (8.5-10.1) Medications Active Scripts Medications Dose Route/Sig Max Daily Dose Days Date Category Ferrous Sulfate 325 Mg Tablet 1 Tab PO DAILY 06/02/20 Rx Keflex (Cephalexin) 500 Mg Capsule 1 Cap PO BID 5 06/01/20 Rx Magnesium Oxide 400 Mg Tablet 1 Tab PO DAILY 06/13/19 Rx Hydralazine Hcl 50 Mg Tablet 1 Tab PO TID 06/10/19 Rx Vitamin B-12 (Cyanocobalamin (Vitamin B-12)) 1,000 Mcg Tablet 1,000 Mcg PO DAILY 30 06/10/19 Rx Culturelle (Lactobacillus Rhamnosus Gg) 1 Each Cap.sprink 1 Cap PO BID 30 06/10/19 Rx Gabapentin (Gabapentin) 100 Mg Capsule 100 Mg PO TID 30 06/10/19 Rx Tylenol (Acetaminophen) 325 Mg Tablet 650 Mg PO PRN Q6HRS PRN 30 06/10/19 Rx Aspirin 81 Mg Tab.chew 81 Mg PO DAILYWBKFT 30 06/10/19 Rx Namenda (Memantine Hcl) 10 Mg Tablet 5 Mg PO BID 06/07/19 Reported Sucralfate 1 Gm Tablet 1 Tab PO QID 08/07/18 Reported Protonix (Pantoprazole Sodium) 20 Mg Tablet.dr 1 Tab PO BID 08/07/18 Reported Allopurinol 300 Mg Tablet 300 Mg PO HS 06/12/17 Rx D3 Dots (Cholecalciferol (Vitamin D3)) 2,000 Unit Tablet 400 Unit PO DAILY 06/12/17 Rx Atorvastatin Calcium 10 Mg Tablet 10 Mg PO HS 06/09/17 Reported Montelukast Sodium Tablet (Montelukast Sodium) 10 Mg Tablet 10 Mg PO DAILY 06/09/17 Reported Amlodipine Besylate 5 Mg Tablet 5 Mg PO DAILY 08/28/13 Reported Escitalopram Oxalate 10 Mg Tablet 10 Mg PO DAILY 08/28/13 Reported Colestipol Hcl 1 Gm Tablet 1 Gm PO BID 08/28/13 Reported Zyrtec (Cetirizine Hcl) 10 Mg Tablet 10 Mg PO 08/28/13 Reported Balance B-100 (Vitamin B Complex) 1 Each Tablet 1 Each PO 08/28/13 Reported Citracal + D Maximum Caplet (Calcium Citrate/Vitamin D3) 1 Each Tablet 1 Each PO 08/28/13 Reported Vitamin E (Vitamin E (Dl,Tocopheryl Acet)) 400 Unit Capsule 400 Unit PO 08/28/13 Reported Centrum Silver Tablet (Multivits-Min/Fa/Lycopene/Lut) 1 Each Tablet 1 Each PO 08/28/13 Reported Impression . IMPRESSION: 1. Possible pneumonia. Abnormal x-ray compatible with possible pneumonia, chronic interstitial lung disease. 2. Urinary tract infection. 3. Deconditioning. 4. Dementia. 5. Possible aspiration pneumonia, dysphagia. Video dysphagia IMPRESSION: 1. Aspiration and penetration of multiple barium consistencies, without elicitation of a cough reflex. 2. Significant delayed initiation of swallowing and poor oral bolus formation. 3. Please refer to the separate report by the speech pathologist for clinical recommendations. Plan . Updated 03/11 Continue current support We will sign off at this time, please contact us with any further needs Discussed with speech, video dysphagia positive for aspiration Dr. Akhtar to discuss options with Continue current support ISSAC CARLIN MD Mar 11, 2021 09:23
[2021-03-11 10:33] VITALS: BP 131/88
--- NOTE | 2021-03-11 10:43 | NUR ---
SS following up with discharge planning. SS reviewed pt chart and discussed with pt RN. Pt is currently on room air. COVID19 negative. PT/OT recommended group home unit. Pt declined at [facility]. [place] currently on admission hold at this time. Pt accepted at [facility], ; fax [phone]. Discharge orders received for group home unit and phoned and faxed to [facility]. SS met with pt and spouse in room and discussed and both agreeable at this time. Pt will discharge today and go to [facility] 1300 [facility] 1330[facility] Pt, pt's RN, and pt's spouse notified.
--- NOTE | 2021-03-11 10:56 | PDOC ---
MEL PERALTA MOLD SETTER 03/11/21 1056: CARDIO Progress Notes Date and Time Date of Service 03/11/2021 Time of Evaluation 0930 Subjective Subjective: No Chest Pain, No shortness of breath, No Palpitations Vitals Vitals Vital Signs Date Time Temp Pulse Resp B/P (MAP) Pulse Ox O2 Delivery O2 Flow Rate FiO2 03/11/21 10:33 98.0 77 20 131/88 (102) 98 Room Air 98.0 Weight Weight [ ] Input and Output Intake and Output Intake and Output 03/11/21 07:00 Intake Total 520 ml Output Total 2 ml Balance 518 ml Intake Oral 520 ml Output Urine Total 2 ml # Voids 3 Laboratory Labs Laboratory Tests Test 03/11/21 04:00 Sodium Level 141 mmol/L (136-145) Potassium Level 3.9 mmol/L (3.5-5.1) Chloride Level 108 mmol/L (98-107) Carbon Dioxide Level 23 mmol/L (21-32) Anion Gap 10 (6-14) Blood Urea Nitrogen 12 mg/dL (7-20) Creatinine 0.8 mg/dL (0.6-1.0) Estimated GFR (Cockcroft-Gault) 69.2 Glucose Level 83 mg/dL (70-99) Calcium Level 8.0 mg/dL (8.5-10.1) Microbiology Micro Microbiology 03/08/21 Urine Culture - Final, Complete Physical Exam HEENT: Neck Supple W Full Motion Chest: Symmetric LUNGS: Other (basilar crackles) Heart: murmurs (systolic murmur 5/6), irregularly irregular (AFIB) Abdomen: Soft N/T Extremities: No Edema Neurology: alert, follow commands, confused Assessment Assessment 1. Abdominal pain: per PCP. Patulous distal esophagus with moderate hiatal hernia and diverticulosis per CT per PCP 2. AFIB RVR; rate controlled 3. Severe 4. HTN: better controlled 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 Dementia 6. Hypothyrodism: per PCP Recommendations 1. Continue metoprolol. Discussed and AFIB with spouse. Continue eliquis fos troke prevention. Awaiting full report TTE 2. TAVR referral as an outpt 3. SNU eval. 4. Secondary prevention measures Justicifation of Admission Dx: Justifications for Admission: Justification of Admission Dx: Yes JANETTE ANTONIO MD 03/11/211816: CARDIO Progress Notes Assessment Assessment Patient seen and examined. Agree with CATERING SERVER's assessment and plan. Atrial fibrillation, new onset, rate better controlled She is probably a poor candidate for long-term anticoagulation Plan outpatient referral for TAVR for MEL PERALTA APRN Mar 11, 2021 10:56 JANETTE ANTONIO MD Mar 11, 2021 18:17
== END 2021-03-11 13:08 | DRG 177 ==
LOC: ER 10:54 → ED HOLD 13:53 → 6 SOUTH 14:55
PROVIDERS: ADMIT Internal Medicine; ATTEND Internal Medicine
DX: J69.0 Pneumonitis due to inhalation of food and vomit (principal); G93.41 Metabolic encephalopathy; I31.3 Pericardial effusion (noninflammatory); M48.54XA Collapsed vertebra, not elsewhere classified, thoracic region, initial encounter for fracture; N30.00 Acute cystitis without hematuria; I48.91 Unspecified atrial fibrillation; B88.8 Other specified infestations; E03.9 Hypothyroidism, unspecified; E78.00 Pure hypercholesterolemia, unspecified; E78.5 Hyperlipidemia, unspecified; E86.0 Dehydration; F03.90 Unspecified dementia, unspecified severity, without behavioral disturbance, psychotic disturbance, mood disturbance, and anxiety; F31.9 Bipolar disorder, unspecified; G40.909 Epilepsy, unspecified, not intractable, without status epilepticus; G89.29 Other chronic pain; I12.9 Hypertensive chronic kidney disease with stage 1 through stage 4 chronic kidney disease, or unspecified chronic kidney disease; I35.0 Nonrheumatic aortic (valve) stenosis; K21.9 Gastro-esophageal reflux disease without esophagitis; K22.70 Barrett's esophagus without dysplasia; K29.70 Gastritis, unspecified, without bleeding; K44.9 Diaphragmatic hernia without obstruction or gangrene; K57.50 Diverticulosis of both small and large intestine without perforation or abscess without bleeding; M17.12 Unilateral primary osteoarthritis, left knee; M85.80 Other specified disorders of bone density and structure, unspecified site; N18.30 Chronic kidney disease, stage 3 unspecified; N35.92 Unspecified urethral stricture, female; Z20.822 Contact with and (suspected) exposure to COVID-19; Z82.49 Family history of ischemic heart disease and other diseases of the circulatory system; Z86.73 Personal history of transient ischemic attack (TIA), and cerebral infarction without residual deficits; Z87.01 Personal history of pneumonia (recurrent); Z87.440 Personal history of urinary (tract) infections; Z96.641 Presence of right artificial hip joint; Z91.14 Patient's other noncompliance with medication regimen; Z96.651 Presence of right artificial knee joint; M10.9 Gout, unspecified; M19.90 Unspecified osteoarthritis, unspecified site
CPT/HCPCS: 36415; 71045; 74177; 74230; 80048; 80053; 80061; 81001; 82607; 83690; 83735; 84443; 84484; 85025; 87086; 87426; 93005; 93306; 96361; 96374; 96375; J0360; J0696; J1650; J3480; J3490; J7030; Q9967; U0003; U0005; 92526-GN; 92610-GN; 92611-GN; 97116-GP; 97535-GO; 99285-25; C8929; G0378

== ENCOUNTER 2021-04-26 14:25 | Inpatient (IN) | payer MEDICARE, BC ==
[~2021-04-26] VITALS: Ht 162.6 cm; Wt 49.6 kg
[~2021-04-26 14:25] MED LIST changes: +AMOX1TAB58 PO; +APIX2.5T PO; +CEPH500T PO; +METO50TA6 PO
[2021-04-26] MEDS ORDERED: IV NORMAL SALINE 500ML BAG 500 ML IV ONE (14:45)
[2021-04-26 14:55] LABS: BASO # 0.1 x10^3/uL (0.0-0.2); BASO % 1 % (0-3); EOS % 0 % (0-3); HEMATOCRIT 44.7 % (36.0-47.0); HEMOGLOBIN 14.4 g/dL (12.0-15.5); LYMPH # 1.1 x10^3/uL (1.0-4.8); LYMPH % 10 % (24-48); MEAN CORPUSCULAR HEMOGLOBIN 28 pg (25-35); MEAN CORPUSCULAR HGB CONC 32 g/dL (31-37); MEAN CORPUSCULAR VOLUME 86 fL (79-100); MONO # 0.7 x10^3/uL (0.0-1.1); MONO % 7 % (0-9); NEUT # 9.5 x10^3/uL (1.8-7.7); NEUT % 83 % (31-73); PLATELET COUNT 411 x10^3/uL (140-400); RED CELL DISTRIBUTION WIDTH 18.5 % (11.5-14.5); WHITE BLOOD COUNT 11.4 x10^3/uL (4.0-11.0)
[2021-04-26 15:09] LABS: CALCIUM 9.2 mg/dL (8.5-10.1); CREATININE 0.8 mg/dL (0.6-1.0); GFR 69.2; POTASSIUM 3.9 mmol/L (3.5-5.1)
[2021-04-26 15:11] LABS: PROTHROMBIN TIME PATIENT 14.5 SEC (11.7-14.0)
[2021-04-26 15:16] LABS: ALBUMIN 3.1 g/dL (3.4-5.0); ALBUMIN/GLOBULIN RATIO 0.8 (1.0-1.7); TOTAL BILIRUBIN 0.9 mg/dL (0.2-1.0); TOTAL PROTEIN 6.8 g/dL (6.4-8.2)
--- NOTE | 2021-04-26 15:23 | RAD ---
EXAM: Chest, single view. HISTORY: Weakness. COMPARISON: 03/09/2021 FINDINGS: A frontal view of the chest is obtained. There is stable blunting of the left costophrenic angle likely due to previously demonstrated basilar pleural parenchymal scarring. There is cardiomega ly. There is dense calcification of the mitral valve annulus. There is a large calcified granuloma wi thin the lateral right mid thorax. There is no pneumothorax. IMPRESSION: Stable chronic interstitial changes with cardiomegaly and left basilar pleural parenchyma l scarring. Electronically signed by: Justa Jerez MD (04/26/2021 3:21 PM) [id number]
[2021-04-26 15:41] LABS: BILIRUBIN,URINE MODERATE (NEG); CLARITY,URINE CLEAR; COLOR,URINE YELLOW; NITRITE,URINE NEGATIVE (NEG); PH,URINE 5.5 (<5.0-8.0); PROTEIN,URINE 100 mg/dL (NEG-TRACE); UROBILINOGEN,URINE 0.2 mg/dL (0.2 mg/dL)
[2021-04-26 15:43] LABS: HYALINE CASTS, URINE MODERATE /HPF
[2021-04-26 15:44] LABS: AMORPHOUS SEDIMENT,UR PRESENT /HPF; BACTERIA,URINE 0 /HPF (0-FEW)
--- NOTE | 2021-04-26 16:01 | PHYS DOC ---
Past Medical History Past Medical History: Arthritis, Diverticulosis, High Cholesterol, Hypertension, TIA, Other Additional Past Medical Histor: GOUT,BARAHONA'S ESOPHAGUS,A-FIB/RVR Past Surgical History: Cholecystectomy, Hip Replacement, Knee Replacement, Tonsillectomy, Other Additional Past Surgical Histo: colonoscopy Smoking Status: Never Smoker Alcohol Use: None Drug Use: None Adult General Chief Complaint Chief Complaint: WEAKNESS/GENERALIZED HPI HPI The patient is a 80-year-old comorbid female with a history of hypertension, hyperlipidemia, atrial fibrillation, moderate to severe aortic stenosis, hypothyroidism, seizure disorder, bipolar affective disorder, dementia. She lives in an extended stay hotel with her and has had longstanding problems with failure to thrive and deconditioning. She has repeatedly been admitted to the hospital and repeatedly been recommended for SNF but has refused placement. She presents from her extended stay hotel for evaluation of multiple concerns. Home health evidently saw patient at her hotel room for the first time on April 23; she was hotlined by the home health nurse. [facility] report that patient has not moved or changed position in her bed since Monday. She has also not eaten in 2 days. She was found laying in bed covered in urine and stool. Upon arrival, patient is noted to be in atrial fibrillation with rapid ventricular response. She is noted to be alert and appropriately responsive, moving all extremities equally, but a little confused. She denies pain anywhere. Vital signs are appropriate aside from tachycardia. Review of Systems Review of Systems A 12 point review of systems was completed and was negative except where noted in HPI above. Current Medications Current Medications Current Medications Medications (Trade) Dose Ordered Sig/Jaylin Start Time Stop Time Status Last Admin Dose Admin Diltiazem HCl (Cardizem Iv Push) 10 mg 1X ONCE 04/26/21 14:45 04/26/21 14:46 DC 04/26/21 15:14 10 MG Diltiazem HCl 125 mg/Sodium Chloride 125 ml @ 5 mls/hr CONT PRN 04/26/21 15:45 04/26/21 15:57 5 MLS/HR Sodium Chloride 500 ml @ 500 mls/hr 1X ONCE 04/26/21 14:45 04/26/21 15:44 DC 04/26/21 15:13 500 MLS/HR Allergies Allergies Allergies Coded Allergies Type Severity Reaction Last Updated Verified Sulfa (Sulfonamide Antibiotics) Allergy Intermediate hives 01/16/18 Yes sulfamethoxazole Adverse Reaction Intermediate mouth sores 03/09/21 Yes trimethoprim Adverse Reaction Intermediate mouth sores 03/09/21 Yes Physical Exam Physical Exam 80-year-old female appearing pale, cachectic and chronically ill. Head is normocephalic and atraumatic, with temporal wasting. Neck is supple and nontender. Oropharynx is tacky. Lungs are clear to auscultation at all stations. There is a normal S1 and S2 without rubs or gallops and capillary ref ill is appropriate, less than 2 seconds globally. There is a tachycardic, irregular rhythm. Abdomen is soft, nontender nondistended. Skin is warm and dry without cyanosis, clubbing or edema. Psychiatrically, the patient demonstrates appropriate mood and affect and is alert. Neurologically, patient moves all extremities equally, is alert and responsive and no lateralizing deficits are seen. Evaluation of the extremities reveals BUEs and BLEs neurovascularly intact distally with strength out of 5, sensation intact light touch in all nerve distributions, radial, DP and PT pulses 2+ equal bilaterally, capillary refill less than 2 seconds, hands and feet warm and well-perfused. No dependent peripheral edema distally. No calf tenderness or swelling bilaterally. Homans test is negative bilaterally Current Patient Data Vital Signs Vital Signs Date Time Temp Pulse Resp B/P (MAP) Pulse Ox O2 Delivery O2 Flow Rate FiO2 04/26/21 15:29 108 24 146/87 (106) 95 Room Air 04/26/21 14:25 98.3 98.3 Lab Values Laboratory Tests Test 04/26/21 14:36 04/26/21 14:55 White Blood Count 11.4 x10^3/uL (4.0-11.0) H Red Blood Count 5.20 x10^6/uL (3.50-5.40) Hemoglobin 14.4 g/dL (12.0-15.5) Hematocrit 44.7 % (36.0-47.0) Mean Corpuscular Volume 86 fL (79-100) Mean Corpuscular Hemoglobin 28 pg (25-35) Mean Corpuscular Hemoglobin Concent 32 g/dL (31-37) Red Cell Distribution Width 18.5 % (11.5-14.5) H Platelet Count 411 x10^3/uL (140-400) H Neutrophils (%) (Auto) 83 % (31-73) H Lymphocytes (%) (Auto) 10 % (24-48) L Monocytes (%) (Auto) 7 % (0-9) Eosinophils (%) (Auto) 0 % (0-3) Basophils (%) (Auto) 1 % (0-3) Neutrophils # (Auto) 9.5 x10^3/uL (1.8-7.7) H Lymphocytes # (Auto) 1.1 x10^3/uL (1.0-4.8) Monocytes # (Auto) 0.7 x10^3/uL (0.0-1.1) Eosinophils # (Auto) 0.0 x10^3/uL (0.0-0.7) Basophils # (Auto) 0.1 x10^3/uL (0.0-0.2) Prothrombin Time 14.5 SEC (11.7-14.0) H Prothrombin Time INR 1.1 (0.8-1.1) Activated Partial Thromboplast Time 28 SEC (24-38) Sodium Level 145 mmol/L (136-145) Potassium Level 3.9 mmol/L (3.5-5.1) Chloride Level 107 mmol/L (98-107) Carbon Dioxide Level 22 mmol/L (21-32) Anion Gap 16 (6-14) H Blood Urea Nitrogen 26 mg/dL (7-20) H Creatinine 0.8 mg/dL (0.6-1.0) Estimated GFR (Cockcroft-Gault) 69.2 BUN/Creatinine Ratio 33 (6-20) H Glucose Level 105 mg/dL (70-99) H Lactic Acid Level 1.6 mmol/L (0.4-2.0) Calcium Level 9.2 mg/dL (8.5-10.1) Total Bilirubin 0.9 mg/dL (0.2-1.0) Aspartate Amino Transferase (AST) 12 U/L (15-37) L Alanine Aminotransferase (ALT) 14 U/L (14-59) Alkaline Phosphatase 85 U/L (46-116) Troponin I High Sensitivity 66 ng/L (4-50) H NB-Pkm-U-Type Natriuretic Peptide 4377 pg/mL (0-449) H Total Protein 6.8 g/dL (6.4-8.2) Albumin 3.1 g/dL (3.4-5.0) L Albumin/Globulin Ratio 0.8 (1.0-1.7) L Urine Collection Type U cath Urine Color Yellow Urine Clarity Clear Urine pH 5.5 (<5.0-8.0) Urine Specific [place] >=1.030 (1.000-1.030) Urine Protein 100 mg/dL (NEG-TRACE) Urine Glucose (UA) Negative mg/dL (NEG) Urine Ketones (Stick) 40 mg/dL (NEG) Urine Blood Small (NEG) Urine Nitrite Negative (NEG) Urine Bilirubin Moderate (NEG) Urine Urobilinogen Dipstick 0.2 mg/dL (0.2 mg/dL) Urine Leukocyte Esterase Negative (NEG) Urine RBC 6-10 /HPF (0-2) Urine WBC 1-4 /HPF (0-4) Urine Amorphous Sediment Present /HPF Urine Bacteria 0 /HPF (0-FEW) Urine Hyaline Casts Moderate /HPF Urine Mucus Marked /LPF Laboratory Tests 04/26/21 14:36 Laboratory Tests 04/26/21 14:36 EKG EKG Atrial fibrillation, rate 142, no acute ST elevation, nonspecific mild generalized ST depressions, EP interpretation. Radiology/Procedures Radiology/Procedures EXAM: Chest, single view. HISTORY: Weakness. COMPARISON: 03/09/2021 FINDINGS: A frontal view of the chest is obtained. There is stable blunting of the left costophrenic angle likely due to previously demonstrated basilar pleural parenchymal scarring. There is cardiomegaly. There is dense calcification of the mitral valve annulus. There is a large calcified granuloma within the lateral right mid thorax. There is no pneumothorax. IMPRESSION: Stable chronic interstitial changes with cardiomegaly and left basilar pleural parenchymal scarring. Electronically signed by: Justa Rockwell MD (04/26/2021 3:21 PM) [id number] DICTATED and SIGNED BY: JUSTA ROCKWELL MD DATE: 04/26/21 [id number] [] Course & Med Decision Making Course & Med Decision Making Work-up as above. Cardizem push dose transiently slowed down heart rate but it is back up. Have initiated a Cardizem drip. Have also given a single dose of IV digoxin to hopefully decrease the need for IV Cardizem over the next few hours. Patient resting comfortably in no acute distress on serial reassessments. Unfortunate situation with the patient who absolutely needs a retirement facility but has not been placed into one due to family resistance. Will readmit for attention from cardiology, social science analyst and further care. Graciously excepted for admission by Dr. Augustin. Critical care time 47 minutes for atrial fibrillation with rapid ventricular response, independent of any separately billed procedure time. Dragon Disclaimer Dragon Disclaimer This electronic medical record was generated, in whole or in part, using a voice recognition dictation system. Departure Departure Impression: Primary Impression: Atrial fibrillation with RVR Additional Impressions: Physical deconditioning Failure to thrive in adult Disposition: 09 ADMITTED INPATIENT Condition: GUARDED Referrals: CORNELIUS LÓPEZ MD (PCP) Problem Qualifiers RAJNI ROSS MD Apr 26, 2021 16:01
[2021-04-26] MEDS ORDERED: ACETAMINOPHEN 325 MG TABLET. PO PRN (16:15)
[2021-04-26] MEDS ORDERED: ONDANSETRON PF 4 MG/2 ML VIAL. IVP PRN (16:15)
[2021-04-26] MEDS ORDERED: DIGOXIN IV 500 MCG/2 ML AMPUL. IV ONE (16:45)
--- NOTE | 2021-04-26 17:17 | HP ---
DATE OF SERVICE: 04/26/2021 ADMIT DATE: 04/26/2021 CHIEF COMPLAINT: Weakness. HISTORY OF PRESENT ILLNESS: The patient is a pleasant 80-year-old female with multiple-multiple comorbidities. She also has dementia. Basically, she presented with generalized weakness. While in the ER, we noticed that she is in AFib with RVR. I have discussed the case with ER physician. We have started Cardizem drip. We are going to be consulting Cardiology. PAST MEDICAL HISTORY: Advanced age, arthritis, diverticulosis, hypertension, hyperlipidemia, TIA, dementia, Tapia's esophagitis, AFib, gout, cholecystectomy, hip replacement, knee replacement, tonsillectomy, colonoscopy. ALLERGIES: SULFA. FAMILY HISTORY: Diabetes. SOCIAL HISTORY: She does not drink, smoke or take drugs. MEDICATIONS: Reviewed, please refer to the MRAD. REVIEW OF SYSTEMS: Unable to obtain. She is too weak and confused. PHYSICAL EXAMINATION: VITALS: Within normal limits and are stable. GENERAL: She is very weak and confused. HEENT: Normal cephalic atraumatic, external auditory canals are patent. EYES: Extraocular muscles are intact, pupils are equally round and reactive to light and accommodation. MUSCULOSKELETAL: Well developed, well nourished, good range of motion. ENDOCRINE: No thyromegaly was palpated. LYMPHATICS: No cervical chain or axillary nodes were noted. HEMATOPOIETIC: No bruising. NECK: Supple, no JVD, no thyromegaly was noted. LUNGS: Clear to auscultation in all lung price without rhonchi or wheezing. HEART: She has irregular S1, S2. ABDOMEN: Soft, nontender. Positive bowel sounds no organomegaly, normal bowel sounds. EXTREMITIES: Without any cyanosis, clubbing, or edema. Pedal pulses intact, Homans sign is negative. NEUROLOGIC: She is very weak and confused. PSYCHIATRIC: She is very weak and confused. SKIN: No ulcerations or rashes, good skin turgor, no jaundice. VASCULAR: Good capillary refill, neurovascular bundle appears to be intact. ASSESSMENT AND PLAN: Atrial fibrillation with rapid ventricular response. The patient has been admitted. We started Cardizem drip. Consult Cardiology. Home meds. Deep venous thrombosis prophylaxis. Full code. Long-term prognosis is guarded. YOAN/TANESHA DR: YOAN/ben TID: [id number]
[2021-04-26 19:00] VITALS: BP 144/76
--- NOTE | 2021-04-26 19:05 | NUR ---
Pt in bed assessment completed pt denied pain vs stable pt alert and oriented to self pt reoriented to surroundings and call light pt at bedside pt help with health history as best to his ability he was not sure of her current home medications.Poc explained to him questions and concerns answered will continue to monitor pt. Pt bed alarm is set.
--- NOTE | 2021-04-26 19:32 | EKG ---
[facility] [address] [place] [address] Test Date: 2021-04-26 Test Time: 14:55:52 Pat Name: DARYL MCKEON Department: Room: Gender: F System Auditor: : 1940 Requested By: RAJNI ROSS Order Number: [id number] Reading MD: Measurements Intervals [place] Rate: 142 P: 48 MT: 102 QRS: 0 QRSD: 74 T: 209 QT: 294 QTc: 452 Interpretive Statements SINUS TACHYCARDIA LEFTWARD AXIS ST & T ABNORMALITY, CONSIDER ANTERIOR ISCHEMIA OR LEFT VENTRICULAR STRAIN LATERAL ISCHEMIA OR LEFT VENTRICULAR STRAIN INFEROLATERAL ISCHEMIA OR LEFT VENTRICULAR STRAIN ABNORMAL ECG RI6.02 No previous ECG available for comparison
[2021-04-26 20:19] VITALS: BP 112/68
[2021-04-26 21:19] VITALS: BP 146/72
[2021-04-26 22:19] VITALS: BP 118/64
[2021-04-26 22:39] VITALS: BP 118/64
[2021-04-26] MEDS ORDERED: ANTI-COAG MONITOR BY PHARMACY. MC PRN (22:45)
[2021-04-26] MEDS ORDERED: ATORVASTATIN CALCIUM 10 MG TABLET. PO SCH (23:00)
[2021-04-26 23:19] VITALS: BP 118/71
[2021-04-26] MEDS: LACTOBACILLUS RHAMNOSUS GG 1 CAPSULE. PO SCH (23:39)
[2021-04-26] MEDS: ATORVASTATIN CALCIUM 20 MG TABLET PO SCH (23:39)
[2021-04-26] MEDS: APIXABAN 2.5 MG TABLET. PO SCH (23:39)
[2021-04-26] MEDS: METOPROLOL TART IMMED RELEASE 50 MG TABLET. PO SCH (23:39)
[2021-04-26] MEDS: MEMANTINE 5 MG TABLET. PO SCH (23:39)
[2021-04-27] VITALS (12 sets, daily range): BP systolic 103–154; BP diastolic 59–98
[2021-04-27] MEDS ORDERED: dilTIAZem HCL 125 MG in IV DEXTROSE 5% 100ML 100 ML IV PRN (02:30)
--- NOTE | 2021-04-27 05:53 | EKG ---
[facility] [address] [place] [address] Test Date: 2021-04-27 Test Time: 04:37:49 Pat Name: DARYL MCKEON Department: Room: [facility] Gender: F Heavy Equipment Supervisor: ALVARO : 1940 Requested By: FRANCINE GAN Order Number: [id number] Reading MD: Measurements Intervals [place] Rate: 82 P: 118 AL: 146 QRS: -7 QRSD: 78 T: 191 QT: 420 QTc: 494 Interpretive Statements SINUS RHYTHM LEFTWARD AXIS CONSIDER RIGHT VENTRICULAR HYPERTROPHY ST & T ABNORMALITY, CONSIDER ANTERIOR ISCHEMIA OR LEFT VENTRICULAR STRAIN LATERAL ISCHEMIA OR LEFT VENTRICULAR STRAIN INFEROLATERAL ISCHEMIA OR LEFT VENTRICULAR STRAIN ABNORMAL ECG RI6.02 Compared to ECG 04/26/2021 14:55:52 Sinus tachycardia no longer present T-wave abnormality still present Possible ischemia still present
[2021-04-27] MEDS: PANTOPRAZOLE 40 MG TABLET.DR. PO SCH ×2 (06:12→15:23)
[2021-04-27 07:11] LABS: BASO # 0.1 x10^3/uL (0.0-0.2); BASO % 1 % (0-3); EOS # 0.1 x10^3/uL (0.0-0.7); EOS % 1 % (0-3); HEMATOCRIT 37.8 % (36.0-47.0); HEMOGLOBIN 12.1 g/dL (12.0-15.5); LYMPH # 0.9 x10^3/uL (1.0-4.8); LYMPH % 9 % (24-48); MEAN CORPUSCULAR HEMOGLOBIN 28 pg (25-35); MEAN CORPUSCULAR HGB CONC 32 g/dL (31-37); MEAN CORPUSCULAR VOLUME 86 fL (79-100); MONO # 0.7 x10^3/uL (0.0-1.1); MONO % 7 % (0-9); NEUT # 8.2 x10^3/uL (1.8-7.7); NEUT % 83 % (31-73); PLATELET COUNT 308 x10^3/uL (140-400); RED BLOOD COUNT 4.39 x10^6/uL (3.50-5.40); RED CELL DISTRIBUTION WIDTH 18.2 % (11.5-14.5)
[2021-04-27 07:27] LABS: ALBUMIN 2.7 g/dL (3.4-5.0); CALCIUM 8.6 mg/dL (8.5-10.1); CREATININE 0.7 mg/dL (0.6-1.0); GFR 80.7; POTASSIUM 3.5 mmol/L (3.5-5.1); TOTAL BILIRUBIN 0.8 mg/dL (0.2-1.0); TOTAL PROTEIN 5.4 g/dL (6.4-8.2)
[2021-04-27] MEDS: ASPIRIN CHEWABLE 81 MG TABLET. PO SCH (08:23)
[2021-04-27] MEDS: CYANOCOBALAMIN (VITAMIN B-12) 1,000 MCG TABLET. PO SCH (08:23)
[2021-04-27] MEDS: MEMANTINE 5 MG TABLET. PO SCH ×2 (08:23→21:10)
[2021-04-27] MEDS: CHOLECALCIFEROL (VITAMIN D3) 1,000 UNIT TABLET PO SCH (08:23)
[2021-04-27] MEDS: LACTOBACILLUS RHAMNOSUS GG 1 CAPSULE. PO SCH ×2 (08:23→21:10)
[2021-04-27] MEDS: APIXABAN 2.5 MG TABLET. PO SCH ×2 (08:23→21:10)
[2021-04-27] MEDS: METOPROLOL TART IMMED RELEASE 50 MG TABLET. PO SCH ×2 (09:00→21:10)
--- NOTE | 2021-04-27 09:30 | PDOC ---
PROGRESS NOTES Date of Service: DATE: 04/27/21 TIME: 09:26 Subjective Subjective pt seen for Dr Akhtar Objective Objective Vital Signs Date Time Temp Pulse Resp B/P (MAP) Pulse Ox O2 Delivery O2 Flow Rate FiO2 04/27/21 07:19 98.4 81 20 125/76 (92) 90 Room Air 98.4 Intake and Output 04/27/21 07:00 Intake Total 0 ml Output Total 0 ml Balance 0 ml Intake Oral 0 ml Output Urine Total 0 ml # Voids 2 Physical Exam Abdomen: Soft Heart: Normal S1, Normal S2 Extremities: No edema General: No acute distress HEENT: Atraumatic Lungs: Normal air movement MUSCULOSKELETAL: Osteoarthritic changes both hands Neck: Supple Psych/Mental Status: Mood NL Skin: No significant lesion Diagnosis Problem List Problems Medical Problems: (1) Atrial fibrillation with RVR Status: Acute (2) Failure to thrive in adult Status: Acute (3) Physical deconditioning Status: Acute Assessment Assessment Problems Medical Problems: (1) Atrial fibrillation with RVR Status: Acute (2) Failure to thrive in adult Status: Acute (3) Physical deconditioning Status: Acute IMPRESSION: 1. Atrial fibrillation. cardizam drip+eliquis Consult Dr. Aiken for cardiology evaluation and management. The patient has been started on IV Cardizem drip. 2. Hypertension, not controlled. I will restart hydralazine.Control is improving. 3. Physical deconditioning. Consult Dr. Nicole for rehab evaluation and management. 4. Dementia. Getting worse. Restart Memantine. 5. Acute metabolic encephalopathy. Correct electrolyte imbalance, dehydration 6. Pneumonia. Due to aspiration. social service consult ,needs [facility] head[facility] operator [facility] placement Plan: IV cardizam eliquis resume home meds labs ok cxr -ve urine -neg needs placement 1. Aspiration and penetration of multiple barium consistencies, without elicitation of a cough reflex. 2. Significant delayed initiation of swallowing and poor oral bolus formation. 3. Please refer to the separate report by the speech pathologist for clinical recommendations. Speech therapy report poor prognosis Plan Plan of Care Problems Medical Problems: (1) Atrial fibrillation with RVR Status: Acute (2) Failure to thrive in adult Status: Acute (3) Physical deconditioning Status: Acute Comment Review of Relevant I have reviewed the following items ellyn (where applicable) has been applied. Labs Laboratory Tests Test 04/26/21 14:36 04/26/21 14:55 04/26/21 18:30 04/26/21 21:23 White Blood Count 11.4 x10^3/uL (4.0-11.0) Red Blood Count 5.20 x10^6/uL (3.50-5.40) Hemoglobin 14.4 g/dL (12.0-15.5) Hematocrit 44.7 % (36.0-47.0) Mean Corpuscular Volume 86 fL (79-100) Mean Corpuscular Hemoglobin 28 pg (25-35) Mean Corpuscular Hemoglobin Concent 32 g/dL (31-37) Red Cell Distribution Width 18.5 % (11.5-14.5) Platelet Count 411 x10^3/uL (140-400) Neutrophils (%) (Auto) 83 % (31-73) Lymphocytes (%) (Auto) 10 % (24-48) Monocytes (%) (Auto) 7 % (0-9) Eosinophils (%) (Auto) 0 % (0-3) Basophils (%) (Auto) 1 % (0-3) Neutrophils # (Auto) 9.5 x10^3/uL (1.8-7.7) Lymphocytes # (Auto) 1.1 x10^3/uL (1.0-4.8) Monocytes # (Auto) 0.7 x10^3/uL (0.0-1.1) Eosinophils # (Auto) 0.0 x10^3/uL (0.0-0.7) Basophils # (Auto) 0.1 x10^3/uL (0.0-0.2) Prothrombin Time 14.5 SEC (11.7-14.0) Prothromb Time International Ratio 1.1 (0.8-1.1) Activated Partial Thromboplast Time 28 SEC (24-38) Sodium Level 145 mmol/L (136-145) Potassium Level 3.9 mmol/L (3.5-5.1) Chloride Level 107 mmol/L (98-107) Carbon Dioxide Level 22 mmol/L (21-32) Anion Gap 16 (6-14) Blood Urea Nitrogen 26 mg/dL (7-20) Creatinine 0.8 mg/dL (0.6-1.0) Estimated GFR (Cockcroft-Gault) 69.2 BUN/Creatinine Ratio 33 (6-20) Glucose Level 105 mg/dL (70-99) Lactic Acid Level 1.6 mmol/L (0.4-2.0) Calcium Level 9.2 mg/dL (8.5-10.1) Total Bilirubin 0.9 mg/dL (0.2-1.0) Aspartate Amino Transf (AST/SGOT) 12 U/L (15-37) Alanine Aminotransferase (ALT/SGPT) 14 U/L (14-59) Alkaline Phosphatase 85 U/L (46-116) Troponin I High Sensitivity 66 ng/L (4-50) 57 ng/L (4-50) UL-Cjx-U-Type Natriuretic Peptide 4377 pg/mL (0-449) Total Protein 6.8 g/dL (6.4-8.2) Albumin 3.1 g/dL (3.4-5.0) Albumin/Globulin Ratio 0.8 (1.0-1.7) Procalcitonin < 0.10 ng/mL (0.00-0.10) Urine Collection Type U cath Urine Color Yellow Urine Clarity Clear Urine pH 5.5 (<5.0-8.0) Urine Specific [place] >=1.030 (1.000-1.030) Urine Protein 100 mg/dL (NEG-TRACE) Urine Glucose (UA) Negative mg/dL (NEG) Urine Ketones (Stick) 40 mg/dL (NEG) Urine Blood Small (NEG) Urine Nitrite Negative (NEG) Urine Bilirubin Moderate (NEG) Urine Urobilinogen Dipstick 0.2 mg/dL (0.2 mg/dL) Urine Leukocyte Esterase Negative (NEG) Urine RBC 6-10 /HPF (0-2) Urine WBC 1-4 /HPF (0-4) Urine Amorphous Sediment Present /HPF Urine Bacteria 0 /HPF (0-FEW) Urine Hyaline Casts Moderate /HPF Urine Mucus Marked /LPF Glucose (Fingerstick) 104 mg/dL (70-99) Test 04/26/21 21:40 04/27/21 06:50 04/27/21 07:33 Troponin I High Sensitivity 63 ng/L (4-50) 63 ng/L (4-50) White Blood Count 10.0 x10^3/uL (4.0-11.0) Red Blood Count 4.39 x10^6/uL (3.50-5.40) Hemoglobin 12.1 g/dL (12.0-15.5) Hematocrit 37.8 % (36.0-47.0) Mean Corpuscular Volume 86 fL (79-100) Mean Corpuscular Hemoglobin 28 pg (25-35) Mean Corpuscular Hemoglobin Concent 32 g/dL (31-37) Red Cell Distribution Width 18.2 % (11.5-14.5) Platelet Count 308 x10^3/uL (140-400) Neutrophils (%) (Auto) 83 % (31-73) Lymphocytes (%) (Auto) 9 % (24-48) Monocytes (%) (Auto) 7 % (0-9) Eosinophils (%) (Auto) 1 % (0-3) Basophils (%) (Auto) 1 % (0-3) Neutrophils # (Auto) 8.2 x10^3/uL (1.8-7.7) Lymphocytes # (Auto) 0.9 x10^3/uL (1.0-4.8) Monocytes # (Auto) 0.7 x10^3/uL (0.0-1.1) Eosinophils # (Auto) 0.1 x10^3/uL (0.0-0.7) Basophils # (Auto) 0.1 x10^3/uL (0.0-0.2) Sodium Level 146 mmol/L (136-145) Potassium Level 3.5 mmol/L (3.5-5.1) Chloride Level 110 mmol/L (98-107) Carbon Dioxide Level 24 mmol/L (21-32) Anion Gap 12 (6-14) Blood Urea Nitrogen 23 mg/dL (7-20) Creatinine 0.7 mg/dL (0.6-1.0) Estimated GFR (Cockcroft-Gault) 80.7 BUN/Creatinine Ratio 33 (6-20) Glucose Level 107 mg/dL (70-99) Calcium Level 8.6 mg/dL (8.5-10.1) Total Bilirubin 0.8 mg/dL (0.2-1.0) Aspartate Amino Transf (AST/SGOT) 13 U/L (15-37) Alanine Aminotransferase (ALT/SGPT) 18 U/L (14-59) Alkaline Phosphatase 70 U/L (46-116) Total Protein 5.4 g/dL (6.4-8.2) Albumin 2.7 g/dL (3.4-5.0) Albumin/Globulin Ratio 1.0 (1.0-1.7) Glucose (Fingerstick) 118 mg/dL (70-99) Medications Current Medications Acetaminophen (Tylenol) 650 mg PRN Q4HRS PRN PO FEVER > 100.3'F; Start 04/26/21 at 16:15; Stop 04/26/21 at 22:41; Status DC Acetaminophen (Tylenol) 650 mg PRN Q6HRS PRN PO HEADACHE / TEMP > 100.3'F; Start 04/26/21 at 22:45 Amlodipine Besylate (Norvasc) 10 mg DAILY PO ; Start 04/27/21 at 09:00 Apixaban (Eliquis) 2.5 mg BID PO Last administered on 04/27/21at 08:23; Start 04/26/21 at 23:00 Aspirin (Aspirin Chewable) 81 mg DAILYWBKFT PO Last administered on 04/27/21at 08:23; Start 04/27/21 at 08:00 Atorvastatin Calcium (Lipitor) 20 mg HS PO ; Start 04/26/21 at 23:00; Stop 04/26/21 at 22:40; Status DC Atorvastatin Calcium (Lipitor) 20 mg HS PO Last administered on 04/26/21at 23:39; Start 04/26/21 at 23:00 Cyanocobalamin (Vitamin B-12) 1,000 mcg DAILY PO Last administered on 04/27/21at 08:23; Start 04/27/21 at 09:00 Digoxin (Lanoxin) 250 mcg 1X ONCE IV Last administered on 04/26/21at 16:45; Start 04/26/21 at 16:45; Stop 04/26/21 at 16:46; Status DC Diltiazem HCl (Cardizem Iv Push) 10 mg 1X ONCE IVP Last administered on 04/26/21at 15:14; Start 04/26/21 at 14:45; Stop 04/26/21 at 14:46; Status DC Diltiazem HCl 125 mg/Dextrose 125 ml @ 5 mls/hr CONT PRN PRN IV AFIB Last administered on 04/27/21at 02:27; Start 04/27/21 at 02:30 Diltiazem HCl 125 mg/Sodium Chloride 125 ml @ 5 mls/hr CONT PRN IV PER PROTOCOL Last administered on 04/26/21at 15:57; Start 04/26/21 at 15:45; Stop 04/27/21 at 02:18; Status DC Hydralazine HCl (Apresoline) 50 mg TID PO ; Start 04/26/21 at 23:00 Info (Anti-Coagulation Monitoring By Pharmacy) 1 each PRN DAILY PRN MC PER PROTOCOL Last administered on 04/27/21at 01:33; Start 04/26/21 at 22:45 Lactobacillus Rhamnosus (Culturelle) 1 cap BID PO Last administered on 04/27/21at 08:23; Start 04/26/21 at 23:00 Memantine (Namenda) 5 mg BID PO Last administered on 04/27/21at 08:23; Start 04/26/21 at 23:00 Metoprolol Tartrate (Lopressor) 50 mg BID PO ; Start 04/26/21 at 23:00 Ondansetron HCl (Zofran) 4 mg PRN Q8HRS PRN IVP NAUSEA/VOMITING; Start 04/26/21 at 16:15; Stop 04/27/21 at 16:14 Pantoprazole Sodium (Protonix) 40 mg BIDAC PO Last administered on 04/27/21at 06:12; Start 04/27/21 at 07:30 Sodium Chloride 500 ml @ 500 mls/hr 1X ONCE IV Last administered on 04/26/21at 15:13; Start 04/26/21 at 14:45; Stop 04/26/21 at 15:44; Status DC Vitamin D (Vitamin D3) 500 unit DAILY PO Last administered on 04/27/21at 08:23; Start 04/27/21 at 09:00 Vitals/I & O Vital Sign - Last 24 Hours 04/26/21 04/26/21 04/26/21 04/26/21 14:25 15:11 15:14 15:29 Temp 98.3 98.3 Pulse 142 148 131 108 Resp 20 32 24 B/P (MAP) 156/103 (120) 154/117 (129) 154/117 146/87 (106) Pulse Ox 96 96 95 O2 Delivery Room Air Room Air Room Air 04/26/21 04/26/21 04/26/21 04/26/21 16:29 16:44 16:45 16:48 Pulse 140 142 141 140 Resp B/P (MAP) 132/66 (88) 149/97 (114) 146/97 141/96 (111) Pulse Ox 94 94 94 O2 Delivery Room Air Room Air Room Air 04/26/21 04/26/21 04/26/21 04/26/21 17:29 17:32 19:00 19:10 Temp 97.9 97.9 Pulse 110 106 81 Resp B/P (MAP) 151/78 (102) 156/78 (104) 144/76 (98) Pulse Ox 93 94 O2 Delivery Room Air Room Air Room Air Room Air 04/26/21 04/26/21 04/26/21 04/26/21 20:19 21:19 22:19 22:39 Temp 97.7 97.7 Pulse 80 80 80 81 Resp 16 B/P (MAP) 112/68 (83) 146/72 (96) 118/64 (82) 118/64 (82) Pulse Ox 98 O2 Delivery Room Air 04/26/21 04/26/21 04/27/21 04/27/21 23:19 23:40 00:19 01:19 Pulse 82 83 82 82 B/P (MAP) 118/71 (87) 118/71 103/62 (76) 111/77 (88) 04/27/21 04/27/21 04/27/21 04/27/21 02:19 02:51 03:19 04:19 Temp 97.6 97.6 Pulse 80 82 82 Resp 16 B/P (MAP) 118/71 (87) 149/74 (99) 138/76 (96) Pulse Ox 98 O2 Delivery Room Air 04/27/21 04/27/21 04/27/21 05:22 06:19 07:19 Temp 98.4 98.4 Pulse 82 82 81 Resp 20 B/P (MAP) 125/75 (92) 124/71 (88) 125/76 (92) Pulse Ox 90 O2 Delivery Room Air Intake and Output 04/26/21 04/26/21 04/27/21 15:00 23:00 07:00 Intake Total 0 ml 0 ml Output Total 0 ml 0 ml Balance 0 ml 0 ml Justifications for Admission Other Justification FRANCINE GAN MD Apr 27, 2021 09:30
--- NOTE | 2021-04-27 13:55 | PDOC2 ---
MEL PERALTA PROJECTION TECHNICIAN 04/27/21 1355: CARDIAC CONSULT DATE OF CONSULT Date of Consult DATE: 04/27/21 TIME: 13:41 REASON FOR CONSULT Reason for Consult: AFIB RVR REFERRING PHYSICIAN Referring Physician: Linh SOURCE Source: Chart review, Patient HISTORY OF PRESENT ILLNESS HISTORY OF PRESENT ILLNESS This is a 80 yo female admitted for noted deconditioning. She has not been eating and able to take care of self. She has been residing in a hotel with spouse. Upon admission she was noted with AFIB RVR. AFIB is known. She was also recently DC from [facility]. She does not say much and not a good historian. No family at the bedside. She has not been eating even as an inpt. PAST MEDICAL HISTORY Past Medical History Cardiovascular: HTN, Hyperlipidemia, Other (carotid artery disease) Pulmonary: Pneumonia CENTRAL NERVOUS SYSTEM: Dementia, Seizure GI: Diverticulosis, GERD, Other (barrets) Heme/Onc: Anemia NOS Hepatobiliary: Cholelithiasis Psych: Bipolar Musculoskeletal: Osteoarthritis, Other (frequent falls), T10-11 compression fracture Rheumatologic: No pertinent hx Infectious disease: No pertinent hx ENT: No pertinent hx Renal/: Chronic renal insuff (CKD3), UTI, Other (ureteralithiasis) Endocrine: Hypothyroidism, Osteopenia Dermatology: No pertinent hx PAST SURGICAL HISTORY Past Surgical History Cholecystectomy, Total hip replacement, Total knee replacement, Tonsillectomy FAMILY HISTORY Family History: Heart Disease SOCIAL HISTORY Smoke: No ALCOHOL: none Drugs: None Lives: with Family CURRENT MEDICATIONS CURRENT MEDICATIONS Current Medications Medications (Trade) Dose Ordered Sig/Jaylin Route PRN Reason Start Time Stop Time Status Last Admin Dose Admin Diltiazem HCl (Cardizem Iv Push) 10 mg 1X ONCE IVP 04/26/21 14:45 04/26/21 14:46 DC 04/26/21 15:14 Sodium Chloride 500 ml @ 500 mls/hr 1X ONCE IV 04/26/21 14:45 04/26/21 15:44 DC 04/26/21 15:13 Diltiazem HCl 125 mg/Sodium Chloride 125 ml @ 5 mls/hr CONT PRN IV PER PROTOCOL 04/26/21 15:45 04/27/21 02:18 DC 04/26/21 15:57 Digoxin (Lanoxin) 250 mcg 1X ONCE IV 04/26/21 16:45 04/26/21 16:46 DC 04/26/21 16:45 Apixaban (Eliquis) 2.5 mg BID PO 04/26/21 23:00 04/27/21 08:23 Aspirin (Aspirin Chewable) 81 mg [id number] PO 04/27/21 08:00 04/27/21 08:23 Cyanocobalamin (Vitamin B-12) 1,000 mcg DAILY PO 04/27/21 09:00 04/27/21 08:23 Lactobacillus Rhamnosus (Culturelle) 1 cap BID PO 04/26/21 23:00 04/27/21 08:23 Memantine (Namenda) 5 mg BID PO 04/26/21 23:00 04/27/21 08:23 Vitamin D (Vitamin D3) 500 unit DAILY PO 04/27/21 09:00 04/27/21 08:23 Pantoprazole Sodium (Protonix) 40 mg BIDAC PO 04/27/21 07:30 04/27/21 06:12 Atorvastatin Calcium (Lipitor) 20 mg HS PO 04/26/21 23:00 04/26/21 23:39 Info (Anti-Coagulation Monitoring By Pharmacy) 1 each PRN DAILY PRN MC PER PROTOCOL 04/26/21 22:45 04/27/21 01:33 Diltiazem HCl 125 mg/Dextrose 125 ml @ 5 mls/hr CONT PRN PRN IV AFIB 04/27/21 02:30 04/27/21 02:27 ALLERGIES ALLERGIES: Coded Allergies: Sulfa (Sulfonamide Antibiotics) (Verified Allergy, Intermediate, hives, 01/16/18) sulfamethoxazole (Verified Adverse Reaction, Intermediate, mouth sores, 03/09/21) trimethoprim (Verified Adverse Reaction, Intermediate, mouth sores, 03/09/21) ROS Review of System unreliable PHYSICAL EXAM General: Alert, No acute distress, Other (kyphotic) HEENT: Atraumatic, Mucous membr. moist/pink Lungs: Other (diminished bases) Heart: Other (AFIB; systolic murmur 4/6 to ANTONIETA border) Abdomen: Soft Extremities: No cyanosis, No edema Skin: No rashes Neuro: Sensation intact Psych/Mental Status: Other (flat affect, questionable orientation) MUSCULOSKELETAL: Osteoarthritic changes both hands VITALS/I&O VITALS/I&O: Vital Signs Date Time Temp Pulse Resp B/P (MAP) Pulse Ox O2 Delivery O2 Flow Rate FiO2 04/27/21 08:00 Room Air 04/27/21 07:19 98.4 81 20 125/76 (92) 90 98.4 I & O 04/26/21 04/26/21 04/27/21 15:00 23:00 07:00 Intake Total 0 ml 0 ml Output Total 0 ml 0 ml Balance 0 ml 0 ml LABS Lab: Laboratory Tests Test 04/26/21 14:36 04/26/21 14:55 04/26/21 18:30 04/26/21 21:23 White Blood Count 11.4 x10^3/uL (4.0-11.0) H Red Blood Count 5.20 x10^6/uL (3.50-5.40) Hemoglobin 14.4 g/dL (12.0-15.5) Hematocrit 44.7 % (36.0-47.0) Mean Corpuscular Volume 86 fL (79-100) Mean Corpuscular Hemoglobin 28 pg (25-35) Mean Corpuscular Hemoglobin Concent 32 g/dL (31-37) Red Cell Distribution Width 18.5 % (11.5-14.5) H Platelet Count 411 x10^3/uL (140-400) H Neutrophils (%) (Auto) 83 % (31-73) H Lymphocytes (%) (Auto) 10 % (24-48) L Monocytes (%) (Auto) 7 % (0-9) Eosinophils (%) (Auto) 0 % (0-3) Basophils (%) (Auto) 1 % (0-3) Neutrophils # (Auto) 9.5 x10^3/uL (1.8-7.7) H Lymphocytes # (Auto) 1.1 x10^3/uL (1.0-4.8) Monocytes # (Auto) 0.7 x10^3/uL (0.0-1.1) Eosinophils # (Auto) 0.0 x10^3/uL (0.0-0.7) Basophils # (Auto) 0.1 x10^3/uL (0.0-0.2) Prothrombin Time 14.5 SEC (11.7-14.0) H Prothrombin Time INR 1.1 (0.8-1.1) Activated Partial Thromboplast Time 28 SEC (24-38) Sodium Level 145 mmol/L (136-145) Potassium Level 3.9 mmol/L (3.5-5.1) Chloride Level 107 mmol/L (98-107) Carbon Dioxide Level 22 mmol/L (21-32) Anion Gap 16 (6-14) H Blood Urea Nitrogen 26 mg/dL (7-20) H Creatinine 0.8 mg/dL (0.6-1.0) Estimated GFR (Cockcroft-Gault) 69.2 BUN/Creatinine Ratio 33 (6-20) H Glucose Level 105 mg/dL (70-99) H Lactic Acid Level 1.6 mmol/L (0.4-2.0) Calcium Level 9.2 mg/dL (8.5-10.1) Total Bilirubin 0.9 mg/dL (0.2-1.0) Aspartate Amino Transferase (AST) 12 U/L (15-37) L Alanine Aminotransferase (ALT) 14 U/L (14-59) Alkaline Phosphatase 85 U/L (46-116) Troponin I High Sensitivity 66 ng/L (4-50) H 57 ng/L (4-50) H PB-Fmg-Y-Type Natriuretic Peptide 4377 pg/mL (0-449) H Total Protein 6.8 g/dL (6.4-8.2) Albumin 3.1 g/dL (3.4-5.0) L Albumin/Globulin Ratio 0.8 (1.0-1.7) L Procalcitonin < 0.10 ng/mL (0.00-0.10) Urine Collection Type U cath Urine Color Yellow Urine Clarity Clear Urine pH 5.5 (<5.0-8.0) Urine Specific [place] >=1.030 (1.000-1.030) Urine Protein 100 mg/dL (NEG-TRACE) Urine Glucose (UA) Negative mg/dL (NEG) Urine Ketones (Stick) 40 mg/dL (NEG) Urine Blood Small (NEG) Urine Nitrite Negative (NEG) Urine Bilirubin Moderate (NEG) Urine Urobilinogen Dipstick 0.2 mg/dL (0.2 mg/dL) Urine Leukocyte Esterase Negative (NEG) Urine RBC 6-10 /HPF (0-2) Urine WBC 1-4 /HPF (0-4) Urine Amorphous Sediment Present /HPF Urine Bacteria 0 /HPF (0-FEW) Urine Hyaline Casts Moderate /HPF Urine Mucus Marked /LPF Glucose (Fingerstick) 104 mg/dL (70-99) H Test 04/26/21 21:40 04/27/21 06:50 04/27/21 07:33 04/27/21 11:48 Troponin I High Sensitivity 63 ng/L (4-50) H 63 ng/L (4-50) H White Blood Count 10.0 x10^3/uL (4.0-11.0) Red Blood Count 4.39 x10^6/uL (3.50-5.40) Hemoglobin 12.1 g/dL (12.0-15.5) Hematocrit 37.8 % (36.0-47.0) Mean Corpuscular Volume 86 fL (79-100) Mean Corpuscular Hemoglobin 28 pg (25-35) Mean Corpuscular Hemoglobin Concent 32 g/dL (31-37) Red Cell Distribution Width 18.2 % (11.5-14.5) H Platelet Count 308 x10^3/uL (140-400) Neutrophils (%) (Auto) 83 % (31-73) H Lymphocytes (%) (Auto) 9 % (24-48) L Monocytes (%) (Auto) 7 % (0-9) Eosinophils (%) (Auto) 1 % (0-3) Basophils (%) (Auto) 1 % (0-3) Neutrophils # (Auto) 8.2 x10^3/uL (1.8-7.7) H Lymphocytes # (Auto) 0.9 x10^3/uL (1.0-4.8) L Monocytes # (Auto) 0.7 x10^3/uL (0.0-1.1) Eosinophils # (Auto) 0.1 x10^3/uL (0.0-0.7) Basophils # (Auto) 0.1 x10^3/uL (0.0-0.2) Sodium Level 146 mmol/L (136-145) H Potassium Level 3.5 mmol/L (3.5-5.1) Chloride Level 110 mmol/L (98-107) H Carbon Dioxide Level 24 mmol/L (21-32) Anion Gap 12 (6-14) Blood Urea Nitrogen 23 mg/dL (7-20) H Creatinine 0.7 mg/dL (0.6-1.0) Estimated GFR (Cockcroft-Gault) 80.7 BUN/Creatinine Ratio 33 (6-20) H Glucose Level 107 mg/dL (70-99) H Calcium Level 8.6 mg/dL (8.5-10.1) Total Bilirubin 0.8 mg/dL (0.2-1.0) Aspartate Amino Transferase (AST) 13 U/L (15-37) L Alanine Aminotransferase (ALT) 18 U/L (14-59) Alkaline Phosphatase 70 U/L (46-116) Total Protein 5.4 g/dL (6.4-8.2) L Albumin 2.7 g/dL (3.4-5.0) L Albumin/Globulin Ratio 1.0 (1.0-1.7) Glucose (Fingerstick) 118 mg/dL (70-99) H 101 mg/dL (70-99) H Laboratory Tests 04/26/21 14:36 04/27/21 06:50 Laboratory Tests 04/26/21 14:36 04/27/21 06:50 ECHOCARDIOGRAM ECHOCARDIOGRAM <Conclusion> The left ventricular systolic function is normal. Estimated ejection fraction 60-65%. There is normal LV segmental wall motion. Moderate to severe valvular aortic stenosis. Mild aortic regurgitation. Mild mitral regurgitation. Trace tricuspid regurgitation. Estimated PAP 42 mmHg. There is no evidence of significant pericardial effusion. DATE: 04/13/20 [id number] 0 ASSESSMENT/PLAN ASSESSMENT/PLAN 1. Failure to thrive: remains not eating 2. AFIB RVR; rate controlled. suspect compliance issue with treatment. 3. Severe 4. HTN: better controlled 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 Dementia 6. Hypothyrodism: per PCP Recommendations 1. On cardizem drip. Restart metoprolol and IV PRN 2. Eliquis for stroke prevention 3. Secondary prevention measures. TAVR referral depending on goals of care 4. Consider hospice evaluation JANETTE ANTONIO MD 04/28/21 0741: CARDIAC CONSULT ASSESSMENT/PLAN ASSESSMENT/PLAN Patient seen and examined 04/27/2021. Agree with CONTROLLED AREA CHECKER's assessment and plan. Atrial fibrillation rate better controlled. Agree with metoprolol for rate control and continue Eliquis. Prophylaxis. Patient probably a poor candidate for any interventions on her severe aortic stenosis secondary to her comorbidities Agree with hospice evaluation Thank you for your consultation MEL PERALTA APRN Apr 27, 2021 13:55 JANETTE ANTONIO MD Apr 28, 2021 07:41
[2021-04-27] MEDS ORDERED: METOPROLOL IV PUSH 5 MG/5 ML VIAL. IVP PRN (14:00)
[2021-04-27] MEDS: ACETAMINOPHEN 325 MG TABLET. PO PRN (14:34)
--- NOTE | 2021-04-27 15:24 | NUR ---
Pt refusing certain medications throughout the day. Pt states "I don't want to do this anymore". When asked if pt could go into detail regarding what she means pt states "nevermind". Pt refusing to eat or drink, pt does allow staff to turn at times. Pt remains free from any open wounds. Slight redness to left side. Pt in bed resting at this time. Bed in low position with call light within reach.
--- NOTE | 2021-04-27 19:05 | NUR ---
Pt in bed assessment completed pt at bedside poc explained to him. Pt denied pain at this time will resume care and continue to monitor pt.Call light in reach bed alarm is set.
[2021-04-27] MEDS: ATORVASTATIN CALCIUM 20 MG TABLET PO SCH (21:10)
[2021-04-28 02:02] VITALS: BP 131/77
[2021-04-28] MEDS: PANTOPRAZOLE 40 MG TABLET.DR. PO SCH ×2 (06:02→16:30)
[2021-04-28 07:00] VITALS: BP 154/94
[2021-04-28] MEDS: MEMANTINE 5 MG TABLET. PO SCH ×2 (08:43→21:17)
[2021-04-28] MEDS: LACTOBACILLUS RHAMNOSUS GG 1 CAPSULE. PO SCH ×2 (08:43→21:17)
[2021-04-28] MEDS: ASPIRIN CHEWABLE 81 MG TABLET. PO SCH (08:43)
[2021-04-28] MEDS: CYANOCOBALAMIN (VITAMIN B-12) 1,000 MCG TABLET. PO SCH (08:43)
[2021-04-28] MEDS: METOPROLOL TART IMMED RELEASE 50 MG TABLET. PO SCH ×2 (08:44→21:18)
[2021-04-28] MEDS: CHOLECALCIFEROL (VITAMIN D3) 1,000 UNIT TABLET PO SCH (08:44)
[2021-04-28] MEDS: ACETAMINOPHEN 325 MG TABLET. PO PRN (08:44)
[2021-04-28] MEDS: APIXABAN 2.5 MG TABLET. PO SCH ×2 (08:44→21:17)
--- NOTE | 2021-04-28 09:41 | PDOC ---
PROGRESS NOTES Date of Service: DATE: 04/28/21 TIME: 09:39 Subjective Subjective not eating, declining Objective Objective Vital Signs Date Time Temp Pulse Resp B/P (MAP) Pulse Ox O2 Delivery O2 Flow Rate FiO2 04/28/21 08:44 83 154/94 04/28/21 07:00 98.2 20 93 Room Air 98.2 Intake and Output 04/28/21 07:00 Intake Total 200 ml Balance 200 ml Intake Oral 200 ml # Voids 2 Physical Exam Abdomen: Soft Heart: Other (AFIB; systolic murmur 4/6 to ANTONIETA border) Extremities: No cyanosis, No edema General: Alert, No acute distress, Other (kyphotic) HEENT: Atraumatic, Mucous membr. moist/pink Lungs: Other (diminished bases) MUSCULOSKELETAL: Osteoarthritic changes both hands Neck: Supple Neuro: Sensation intact Psych/Mental Status: Other (flat affect, questionable orientation) Skin: No rashes Diagnosis Problem List Problems Medical Problems: (1) Atrial fibrillation with RVR Status: Acute (2) Failure to thrive in adult Status: Acute (3) Physical deconditioning Status: Acute Assessment Assessment Problems Medical Problems: (1) Atrial fibrillation with RVR Status: Acute (2) Failure to thrive in adult Status: Acute (3) Physical deconditioning Status: Acute IMPRESSION: 1. Atrial fibrillation. cardizam drip+eliquis Consult Dr. Aiken for cardiology evaluation and management. The patient has been started on IV Cardizem drip. 2. Hypertension, not controlled. I will restart hydralazine.Control is improving. 3. Physical deconditioning. Consult Dr. Nicole for rehab evaluation and management. 4. Dementia. Getting worse. Restart Memantine. 5. Acute metabolic encephalopathy. Correct electrolyte imbalance, dehydration 6. Pneumonia. Due to aspiration. social service consult ,needs correction NH placement Plan:social service consult ?hospice d5w iv fluids poor prognosis spoke with RN and case packer and sealer. IV cardizam eliquis resume home meds labs ok cxr -ve urine -neg needs placement 1. Aspiration and penetration of multiple barium consistencies, without elicitation of a cough reflex. 2. Significant delayed initiation of swallowing and poor oral bolus formation. 3. Please refer to the separate report by the speech pathologist for clinical recommendations. Speech therapy report poor prognosis Plan Plan of Care Problems Medical Problems: (1) Atrial fibrillation with RVR Status: Acute (2) Failure to thrive in adult Status: Acute (3) Physical deconditioning Status: Acute Comment Review of Relevant I have reviewed the following items ellyn (where applicable) has been applied. Labs Laboratory Tests Test 04/27/21 11:48 04/27/21 17:27 04/27/21 20:21 04/28/21 05:06 Glucose (Fingerstick) 101 mg/dL (70-99) 110 mg/dL (70-99) 92 mg/dL (70-99) 106 mg/dL (70-99) Test 04/28/21 07:26 Glucose (Fingerstick) 114 mg/dL (70-99) Microbiology 04/26/21 Blood Culture - Preliminary, Resulted NO GROWTH AFTER 1 DAY Medications Current Medications Metoprolol Tartrate (Lopressor Vial) 5 mg PRN Q6HRS PRN IVP TACHYCARDIA Last administered on 04/27/21at 14:35; Start 04/27/21 at 14:00 Vitals/I & O Vital Sign - Last 24 Hours 04/27/21 04/27/21 04/27/21 04/27/21 11:00 14:35 15:00 18:55 Temp 98.4 98.3 98.6 98.4 98.3 98.6 Pulse 81 81 69 80 Resp 20 18 16 B/P (MAP) 134/69 (90) 148/82 148/82 (104) 154/98 (116) Pulse Ox 98 89 93 O2 Delivery Room Air Room Air Room Air 04/27/21 04/27/21 04/27/21 04/27/21 19:05 21:09 21:10 22:17 Temp 97.9 97.9 Pulse 83 93 73 Resp 20 B/P (MAP) 155/87 155/87 104/59 (74) Pulse Ox 94 O2 Delivery Room Air Room Air 04/28/21 04/28/21 04/28/21 04/28/21 02:02 07:00 08:43 08:44 Temp 98.0 98.2 98.0 98.2 Pulse 89 83 83 83 Resp 18 20 B/P (MAP) 131/77 (95) 154/94 (114) 154/94 154/94 Pulse Ox 94 93 O2 Delivery Room Air Room Air 04/28/21 08:44 Pulse 83 B/P (MAP) 154/94 Intake and Output 04/27/21 04/27/21 04/28/21 15:00 23:00 07:00 Intake Total 0 ml 200 ml Balance 0 ml 200 ml Justifications for Admission Other Justification FRANCINE GAN MD Apr 28, 2021 09:41
[2021-04-28 11:00] VITALS: BP 119/73
[2021-04-28] MEDS: POTASSIUM CL 20MEQ D5-0.9%NACL 1,000 ML IV SCH ×2 (11:07→21:43)
--- NOTE | 2021-04-28 12:53 | PDOC ---
MEL PERALTA LINE PAINTING MACHINE OPERATOR 04/28/21 1253: CARDIO Progress Notes Date and Time Date of Service 04/28/2021 Time of Evaluation 1245 Subjective Subjective: No Chest Pain, No shortness of breath Vitals Vitals Vital Signs Date Time Temp Pulse Resp B/P (MAP) Pulse Ox O2 Delivery O2 Flow Rate FiO2 04/28/21 11:00 96.5 82 20 119/73 (88) 95 Room Air 96.5 Weight Weight [ ] Input and Output Intake and Output Intake and Output 04/28/21 07:00 Intake Total 200 ml Balance 200 ml Intake Oral 200 ml # Voids 2 Laboratory Labs Laboratory Tests Test 04/27/21 17:27 04/27/21 20:21 04/28/21 05:06 04/28/21 07:26 Glucose (Fingerstick) 110 mg/dL (70-99) 92 mg/dL (70-99) 106 mg/dL (70-99) 114 mg/dL (70-99) Microbiology Micro Microbiology 04/26/21 Blood Culture - Preliminary, Resulted NO GROWTH AFTER 1 DAY Physical Exam HEENT: Neck Supple W Full Motion Chest: Symmetric, Other (kyphotic) LUNGS: Other (diminished bases) Heart: irregularly irregular (AFIB) Abdomen: Soft N/T Extremities: No Edema, No Calf Tenderness Neurology: alert, follow commands Assessment Assessment 1. Failure to thrive: remains not eating 2. AFIB RVR; rate controlled. suspect compliance issue with treatment. 3. Severe 4. HTN: better controlled 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 Dementia 6. Hypothyrodism: per PCP Recommendations 1. Continue metoprolol and IV PRN 2. Eliquis for stroke prevention 3. Secondary prevention measures. TAVR referral depending on goals of care 4. Consider hospice evaluation Justicifation of Admission Dx: Justifications for Admission: Justification of Admission Dx: Yes JANETTE ANTONIO MD 04/29/21 0517: CARDIO Progress Notes Assessment Assessment Patient seen and examined 04/28/2021. Agree with CUSTOMER CONTACT SPECIALIST's assessment and plan. Atrial fibrillation rate better controlled. Agree with metoprolol for rate control and continue Eliquis. Prophylaxis. Patient probably a poor candidate for any interventions on her severe aortic stenosis secondary to her comorbidities Agree with hospice evaluation MEL PERALTA LINE PAINTING MACHINE OPERATOR Apr 28, 2021 12:53 JANETTE ANTONIO MD Apr 29, 2021 05:17
[2021-04-28 15:00] VITALS: BP 124/77
[2021-04-28 19:00] VITALS: BP 137/62
[2021-04-28] MEDS: ATORVASTATIN CALCIUM 20 MG TABLET PO SCH (21:17)
[2021-04-28 22:51] VITALS: BP 113/79
[2021-04-29 02:54] VITALS: BP 118/68
[2021-04-29] MEDS: PANTOPRAZOLE 40 MG TABLET.DR. PO SCH ×2 (05:49→16:28)
[2021-04-29 07:00] VITALS: BP 169/89
[2021-04-29] MEDS: LACTOBACILLUS RHAMNOSUS GG 1 CAPSULE. PO SCH ×2 (08:55→23:05)
[2021-04-29] MEDS: CHOLECALCIFEROL (VITAMIN D3) 1,000 UNIT TABLET PO SCH (08:56)
[2021-04-29] MEDS: CYANOCOBALAMIN (VITAMIN B-12) 1,000 MCG TABLET. PO SCH (08:57)
[2021-04-29] MEDS: MEMANTINE 5 MG TABLET. PO SCH ×2 (08:59→23:05)
[2021-04-29] MEDS: APIXABAN 2.5 MG TABLET. PO SCH ×2 (09:00→23:04)
[2021-04-29] MEDS: METOPROLOL TART IMMED RELEASE 50 MG TABLET. PO SCH ×2 (09:06→23:05)
[2021-04-29] MEDS: ASPIRIN CHEWABLE 81 MG TABLET. PO SCH (09:10)
--- NOTE | 2021-04-29 09:25 | PDOC ---
IM PROGRESS NOTES- Subjective Subjective No complaints of pain or dyspnea. Patient is sleepy and a very poor historian. I am not able to continue conversation with her. Objective Vitals/I&O Vital Signs Date Time Temp Pulse Resp B/P (MAP) Pulse Ox O2 Delivery O2 Flow Rate FiO2 04/29/21 09:06 94 158/98 04/29/21 07:00 98.0 18 95 Room Air 98.0 I & O 04/28/21 04/28/21 04/29/21 15:00 23:00 07:00 Intake Total 0 ml 0 ml 160 ml Balance 0 ml 0 ml 160 ml Physical Exam Physical Exam General Appearance -chronically ill and weak. Not in any acute distress. Chest - decreased breath sounds at bases Heart - S1 and S2 irregular Abdomen - soft, non tender Neurological -forgetful and weak Musculoskeletal - generalized weakness Extremities - no edema Meds Current Medications Medications (Trade) Dose Ordered Sig/Jaylin Route PRN Reason Start Time Stop Time Status Last Admin Dose Admin Potassium Chloride/Dextrose/ Sod Cl 1,000 ml @ 75 mls/hr [id number] IV 04/28/21 10:30 04/28/21 21:43 Assessment Assessment Problems Medical Problems: (1) Atrial fibrillation with RVR Status: Acute (2) Failure to thrive in adult Status: Acute (3) Physical deconditioning Status: Acute IMPRESSION: 1. Atrial fibrillation. cardizam drip+eliquis Consult Dr. Aiken for cardiology evaluation and management. The patient has been started on IV Cardizem drip. 2. Hypertension, not controlled. I will restart hydralazine.Control is improving. 3. Physical deconditioning. Consult Dr. Nicole for rehab evaluation and management. 4. Dementia. Getting worse. Restart Memantine. 5. Acute metabolic encephalopathy. Correct electrolyte imbalance, dehydration 6. Pneumonia. Due to aspiration. 7. Severe aortic stenosis. social service consult ,needs [facility] Plan:social service consult ?hospice d5w iv fluids poor prognosis spoke with RN and case briefer. Patient was initially treated with IV Cardizem for fast ventricular rate. eliquis resume home meds labs ok cxr -ve urine -neg needs placement 1. Aspiration and penetration of multiple barium consistencies, without elicitation of a cough reflex. 2. Significant delayed initiation of swallowing and poor oral bolus formation. 3. Please refer to the separate report by the speech pathologist for clinical recommendations. Blood culture shows 1 out of 4, gram-positive cocci. Consult Dr. Sergei Lowe for infectious disease evaluation and management. Currently patient is not on any antibiotics. Urinalysis was negative. Prognosis of this patient is extremely poor due to her multiple medical problems. Discussed with extensively about hospice, comfort care, long- term care in a facility.He will think about it. She is not a candidate for intervention for severe aortic stenosis. Her oral intake is poor. For details please refer to the orders. Plan Plan For more details regarding further plans, please refer to the orders. Justifications for Admission Other Justification CORNELIUS LÓPEZ MD Apr 29, 2021 09:25
--- NOTE | 2021-04-29 09:27 | PDOC ---
MEL PERALTA JAVA APPLICATION DEVELOPER 04/29/21 0927: CARDIO Progress Notes Date and Time Date of Service 04/29/2021 Time of Evaluation 1040 Subjective Subjective: No Chest Pain, No shortness of breath Vitals Vitals Vital Signs Date Time Temp Pulse Resp B/P (MAP) Pulse Ox O2 Delivery O2 Flow Rate FiO2 04/29/21 09:06 94 158/98 04/29/21 07:00 98.0 18 95 Room Air 98.0 Weight Weight [ ] Input and Output Intake and Output Intake and Output 04/29/21 07:00 Intake Total 160 ml Balance 160 ml Intake Oral 160 ml # Voids 4 Microbiology Micro Microbiology 04/26/21 Blood Culture - Preliminary, Resulted NO GROWTH AFTER 2 DAYS Physical Exam HEENT: Neck Supple W Full Motion Chest: Symmetric, Other (kyphotic) LUNGS: Other (diminished bases) Heart: irregularly irregular (AFIB) Abdomen: Soft N/T Extremities: No Edema, No Calf Tenderness Neurology: alert, follow commands Assessment Assessment 1. Failure to thrive: remains not eating 2. AFIB RVR; rate controlled. suspect compliance issue with treatment. 3. Severe 4. HTN: better controlled 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 Dementia 6. Hypothyrodism: per PCP Recommendations 1. Continue metoprolol and IV PRN 2. Eliquis for stroke prevention 3. Secondary prevention measures. TAVR referral depending on goals of care 4. Awaiting hospice evaluation today, family meeting pending Justicifation of Admission Dx: Justifications for Admission: Justification of Admission Dx: Yes JANETTE ANTONIO MD 04/29/211: CARDIO Progress Notes Assessment Assessment Patient seen and examined. Agree with COMPOUND COATING MACHINE OFFBEARER's assessment and plan. Atrial fibrillation rate well controlled. Agree with metoprolol for rate control and continue Eliquis for stroke prophylaxis. Patient probably a poor candidate for any interventions on her severe aortic stenosis secondary to her comorbidities Awaiting hospice evaluation MEL PERALTA APRN Apr 29, 2021 09:27 JANETTE ANTONIO MD Apr 29, 2021 21:41
[2021-04-29 10:50] VITALS: BP 146/90
--- NOTE | 2021-04-29 11:10 | NUR ---
SS following for discharge planning. SS reviewed pt chart and discussed with pt RN. Pt is from home with spouse and is currently on room air. Hospice recommended. [facility], ; fax [phone], was sent referral yesterday and is meeting with pt's spouse at 1400 today. SS will continue to follow for discharge planning.
[2021-04-29] MEDS: POTASSIUM CL 20MEQ D5-0.9%NACL 1,000 ML IV SCH (12:27)
[2021-04-29] MEDS: ACETAMINOPHEN 325 MG TABLET. PO PRN (14:09)
--- NOTE | 2021-04-29 14:09 | CONS ---
DATE OF CONSULTATION: 04/29/2021 REQUESTING PHYSICIAN: Nadia Akhtar MD REASON FOR CONSULTATION: Blood culture positive. HISTORY OF PRESENT ILLNESS: This is a 80-year-old female who has dementia and significant debility, who is now in a contracted position, is not able to take care of; hence, they are here. The patient when she came in had atrial fibrillation with rapid ventricular rate; slight leukocytosis with 11,000 white count. Blood culture was done, now 1 out of 4 is positive with Gram-positive cocci. The patient off and on mumbles few words, but no meaningful conversation is possible. The patient is not on any antibiotics, not running fever. Hospice has been in the works as the patient's is having meeting with the [facility] this afternoon. No nausea, vomiting, diarrhea noted. PAST MEDICAL HISTORY: Positive for dementia, arthritis, diverticulosis, hypertension, hyperlipidemia, history of TIA, Tapia's esophagus, atrial fibrillation, has had hip replacement, knee replacement in the past. SOCIAL HISTORY: Negative for smoking, alcohol or illicit drug use. ALLERGIES: LISTED ALLERGIC TO SULFA. REVIEW OF SYSTEMS: As in HPI. All other systems reviewed are negative. PHYSICAL EXAMINATION: GENERAL: Alert, but not oriented female, not in any distress. VITAL SIGNS: Stable, afebrile. HEENT: NAD. NECK: Supple. LUNGS: Clear. HEART: S1, S2, regular. ABDOMEN: Benign. EXTREMITIES: No edema, cyanosis. The patient is in a contracted position or position. NEUROLOGIC: The patient does not follow command. LABORATORY DATA: White count is 10,000. BUN and creatinine is 23 and 0.7. Blood culture, as I mentioned. DIAGNOSTIC DATA: Chest x-ray showed chronic interstitial changes with cardiomegaly and pleural parenchymal scarring. IMPRESSION: 1. Blood culture positive 1 out of 4, Gram-positive cocci, likely to be contaminant. ID is pending. 2. Debility and old age. 3. Dementia. 4. Atrial fibrillation. RECOMMENDATIONS: Comfort care. The patient's is having a meeting with the [facility]. The patient's wants 24-hour care for the , for that, she has to go to the custodial, but apparently, he does not want to spend money for that. Thank you very much, Dr. Akhtar, for giving me opportunity to participate in this patient's care. ANGELLA/SAUL DR: Claudette TID: [id number]
--- NOTE | 2021-04-29 14:57 | NUR ---
Called Dr. Lowe about blood culture + for Staph Hominis. Was aware and no orders given.
[2021-04-29 15:35] VITALS: BP 101/59
[2021-04-29 19:33] VITALS: BP 126/66
[2021-04-29 22:47] VITALS: BP 128/66
[2021-04-29] MEDS: ATORVASTATIN CALCIUM 20 MG TABLET PO SCH (23:05)
[2021-04-30] MEDS: POTASSIUM CL 20MEQ D5-0.9%NACL 1,000 ML IV SCH (01:58)
[2021-04-30 03:41] VITALS: BP 149/99
[2021-04-30 04:55] LABS: BASO % 0 % (0-3); EOS # 0.1 x10^3/uL (0.0-0.7); EOS % 1 % (0-3); HEMATOCRIT 37.5 % (36.0-47.0); HEMOGLOBIN 11.8 g/dL (12.0-15.5); LYMPH # 0.9 x10^3/uL (1.0-4.8); LYMPH % 10 % (24-48); MEAN CORPUSCULAR HEMOGLOBIN 27 pg (25-35); MEAN CORPUSCULAR HGB CONC 31 g/dL (31-37); MEAN CORPUSCULAR VOLUME 87 fL (79-100); MONO # 0.6 x10^3/uL (0.0-1.1); MONO % 7 % (0-9); NEUT # 7.8 x10^3/uL (1.8-7.7); NEUT % 83 % (31-73); PLATELET COUNT 369 x10^3/uL (140-400); RED BLOOD COUNT 4.29 x10^6/uL (3.50-5.40); WHITE BLOOD COUNT 9.4 x10^3/uL (4.0-11.0)
[2021-04-30 05:27] LABS: CALCIUM 8.4 mg/dL (8.5-10.1); CREATININE 0.7 mg/dL (0.6-1.0); GFR 80.7; POTASSIUM 3.6 mmol/L (3.5-5.1)
[2021-04-30] MEDS: PANTOPRAZOLE 40 MG TABLET.DR. PO SCH ×2 (06:01→16:30)
[2021-04-30 07:00] VITALS: BP 145/81
[2021-04-30] MEDS: CYANOCOBALAMIN (VITAMIN B-12) 1,000 MCG TABLET. PO SCH (09:10)
[2021-04-30] MEDS: LACTOBACILLUS RHAMNOSUS GG 1 CAPSULE. PO SCH ×2 (09:10→21:19)
[2021-04-30] MEDS: CHOLECALCIFEROL (VITAMIN D3) 1,000 UNIT TABLET PO SCH (09:10)
[2021-04-30] MEDS: APIXABAN 2.5 MG TABLET. PO SCH ×2 (09:11→21:19)
[2021-04-30] MEDS: MEMANTINE 5 MG TABLET. PO SCH ×2 (09:11→21:19)
[2021-04-30] MEDS: ASPIRIN CHEWABLE 81 MG TABLET. PO SCH (09:11)
[2021-04-30] MEDS: ACETAMINOPHEN 325 MG TABLET. PO PRN (09:11)
[2021-04-30] MEDS: METOPROLOL TART IMMED RELEASE 50 MG TABLET. PO SCH ×2 (09:12→21:22)
--- NOTE | 2021-04-30 09:43 | PDOC ---
IM PROGRESS NOTES- Subjective Subjective No complaints of pain or dyspnea. Patient is sleepy and a very poor historian. I am not able to continue conversation with her. Objective Vitals/I&O Vital Signs Date Time Temp Pulse Resp B/P (MAP) Pulse Ox O2 Delivery O2 Flow Rate FiO2 04/30/21 09:12 80 145/81 04/30/21 07:00 98.1 20 92 Room Air 98.1 Physical Exam Physical Exam General Appearance -chronically ill and in no distress Chest - decreased breath sounds at bases Heart - S1 and S2 normal Abdomen - soft, non tender Neurological -sleepy and forgetful Musculoskeletal - generalized weakness Extremities - no edema Labs Laboratory Tests Test 04/30/21 04:00 White Blood Count 9.4 x10^3/uL (4.0-11.0) Red Blood Count 4.29 x10^6/uL (3.50-5.40) Hemoglobin 11.8 g/dL (12.0-15.5) L Hematocrit 37.5 % (36.0-47.0) Mean Corpuscular Volume 87 fL (79-100) Mean Corpuscular Hemoglobin 27 pg (25-35) Mean Corpuscular Hemoglobin Concent 31 g/dL (31-37) Red Cell Distribution Width 18.0 % (11.5-14.5) H Platelet Count 369 x10^3/uL (140-400) Neutrophils (%) (Auto) 83 % (31-73) H Lymphocytes (%) (Auto) 10 % (24-48) L Monocytes (%) (Auto) 7 % (0-9) Eosinophils (%) (Auto) 1 % (0-3) Basophils (%) (Auto) 0 % (0-3) Neutrophils # (Auto) 7.8 x10^3/uL (1.8-7.7) H Lymphocytes # (Auto) 0.9 x10^3/uL (1.0-4.8) L Monocytes # (Auto) 0.6 x10^3/uL (0.0-1.1) Eosinophils # (Auto) 0.1 x10^3/uL (0.0-0.7) Basophils # (Auto) 0.0 x10^3/uL (0.0-0.2) Sodium Level 149 mmol/L (136-145) H Potassium Level 3.6 mmol/L (3.5-5.1) Chloride Level 116 mmol/L (98-107) H Carbon Dioxide Level 23 mmol/L (21-32) Anion Gap 10 (6-14) Blood Urea Nitrogen 12 mg/dL (7-20) Creatinine 0.7 mg/dL (0.6-1.0) Estimated GFR (Cockcroft-Gault) 80.7 Glucose Level 126 mg/dL (70-99) H Calcium Level 8.4 mg/dL (8.5-10.1) L Laboratory Tests 04/30/21 04:00 Laboratory Tests 04/30/21 04:00 Assessment Assessment Problems Medical Problems: (1) Atrial fibrillation with RVR Status: Acute (2) Failure to thrive in adult Status: Acute (3) Physical deconditioning Status: Acute IMPRESSION: 1. Atrial fibrillation. cardizam drip+eliquis Consult Dr. Aiken for cardiology evaluation and management. The patient has been started on IV Cardizem drip. 2. Hypertension, not controlled. I will restart hydralazine.Control is improving. 3. Physical deconditioning. Consult Dr. Nicole for rehab evaluation and management. 4. Dementia. Getting worse. Restart Memantine. 5. Acute metabolic encephalopathy. Correct electrolyte imbalance, dehydration 6. Pneumonia. Due to aspiration. 7. Severe aortic stenosis. social service consult ,needs detention NH placement Plan:social service consult ?hospice d5w iv fluids poor prognosis spoke with RN and case therapist. Patient was initially treated with IV Cardizem for fast ventricular rate. eliquis resume home meds labs ok cxr -ve urine -neg needs placement 1. Aspiration and penetration of multiple barium consistencies, without elicitation of a cough reflex. 2. Significant delayed initiation of swallowing and poor oral bolus formation. 3. Please refer to the separate report by the speech pathologist for clinical recommendations. Blood culture shows 1 out of 4, gram-positive cocci. Consult Dr. Sergei Lowe for infectious disease evaluation and management. Currently patient is not on any antibiotics. Urinalysis was negative. Prognosis of this patient is extremely poor due to her multiple medical problems. Discussed with extensively on April 29, 2021 about hospice, comfort care, long-term care in a facility.He will think about it. She is not a candidate for intervention for severe aortic stenosis. Her oral intake is poor. Hyponatremia and hypokalemia. Change IV fluids. Increase potassium supplements. Discussed with manager social responsibility. The test will not go to a hotel to provide hospice care. She will look at other options. For details please refer to the orders. Plan Plan For more details regarding further plans, please refer to the orders. Justifications for Admission Other Justification Nutrition Consultation Dietary Evaluation: Recommendations by RD: Dietary education by RD, Protein supplementation Comments: diet modified to puree, honey thick liquids ensure pudding and magic cup Expected Outcomes/Goals: hospice eval Malnutrition Findings: Muscle Mass (Severe): Severe Depletion Food and Nutrition Intake (Sev: <50% est energy req 5days Body Fat Depletion (Non Severe: Mod to Severe Weight Status: Underweight CORNELIUS LÓPEZ MD Apr 30, 2021 09:43
[2021-04-30] MEDS: POTASSIUM CL 20MEQ IN D5W 1,000 ML IV SCH (10:00)
--- NOTE | 2021-04-30 10:10 | NUR ---
SS following up with discharge planning. SS reviewed pt chart and discussed with pt RN. Pt is currently on room air. Per RN, pt is not eating and not drinking and has minimal fluid intake. [facility] unable to accept unless in LTC setting or different placement. Pt does not have Medicaid. Pt and spouse currently live in the [facility] and have for quite some time. SS discussed with Dr. Akhtar. Referrals phoned and faxed to [facility], ; fax [phone], [facility], ; fax [phone], and [facility], ; fax [phone]. RN updated. SS will continue to follow for discharge planning. Addendum: 04/30/21 at 1403 by LEO CANTOR SS SS notified that pt does not qualify for [facility] at this time. Per RN, pt is currently not eating, not drinking, and is refusing medications. Pt confused. Full Code. [facility] unwilling to accept for hospice unless pt goes to LTC setting. SS contacted pt's spouse and discussed. Pt's spouse reported that they make $5000/month. He reported that he contacted [employer] and has appointment with them Monday to discuss finances and medicaid. Pt's spouse reported that he cannot afford LTC placement without Medicaid. He reported that the process could take 30-45 days. SS discussed medical status and concerns that pt is not eating or drinking and is refusing medications. Code status discussed and pt's spouse considering making pt DNR at this time. Pt's spouse requesting pt be re-evaluated for hospice house/inpatient hospice on Monday. Pt's spouse coming to hospital to discuss with pt's RN.
[2021-04-30] MEDS: POTASSIUM CHLORIDE 20 MEQ TABLET.ER. PO SCH (10:30)
[2021-04-30 11:00] VITALS: BP 157/101
--- NOTE | 2021-04-30 12:34 | PDOC ---
MEL PERALTA RIB KNITTER 04/30/21 1234: CARDIO Progress Notes Date and Time Date of Service 04/30/2021 Time of Evaluation 1220 Subjective Subjective: No Chest Pain, No shortness of breath Vitals Vitals Vital Signs Date Time Temp Pulse Resp B/P (MAP) Pulse Ox O2 Delivery O2 Flow Rate FiO2 04/30/21 11:00 97.8 88 20 157/101 (119) 93 Room Air 97.8 Weight Weight [ ] Input and Output Intake and Output Intake and Output 04/30/21 07:00 # Voids 4 Laboratory Labs Laboratory Tests Test 04/30/21 04:00 White Blood Count 9.4 x10^3/uL (4.0-11.0) Red Blood Count 4.29 x10^6/uL (3.50-5.40) Hemoglobin 11.8 g/dL (12.0-15.5) Hematocrit 37.5 % (36.0-47.0) Mean Corpuscular Volume 87 fL (79-100) Mean Corpuscular Hemoglobin 27 pg (25-35) Mean Corpuscular Hemoglobin Concent 31 g/dL (31-37) Red Cell Distribution Width 18.0 % (11.5-14.5) Platelet Count 369 x10^3/uL (140-400) Neutrophils (%) (Auto) 83 % (31-73) Lymphocytes (%) (Auto) 10 % (24-48) Monocytes (%) (Auto) 7 % (0-9) Eosinophils (%) (Auto) 1 % (0-3) Basophils (%) (Auto) 0 % (0-3) Neutrophils # (Auto) 7.8 x10^3/uL (1.8-7.7) Lymphocytes # (Auto) 0.9 x10^3/uL (1.0-4.8) Monocytes # (Auto) 0.6 x10^3/uL (0.0-1.1) Eosinophils # (Auto) 0.1 x10^3/uL (0.0-0.7) Basophils # (Auto) 0.0 x10^3/uL (0.0-0.2) Sodium Level 149 mmol/L (136-145) Potassium Level 3.6 mmol/L (3.5-5.1) Chloride Level 116 mmol/L (98-107) Carbon Dioxide Level 23 mmol/L (21-32) Anion Gap 10 (6-14) Blood Urea Nitrogen 12 mg/dL (7-20) Creatinine 0.7 mg/dL (0.6-1.0) Estimated GFR (Cockcroft-Gault) 80.7 Glucose Level 126 mg/dL (70-99) Calcium Level 8.4 mg/dL (8.5-10.1) Microbiology Micro Microbiology 04/26/21 Blood Culture - Preliminary, Resulted NO GROWTH AFTER 3 DAYS Physical Exam HEENT: Neck Supple W Full Motion Chest: Symmetric, Other (kyphotic) LUNGS: Other (diminished bases) Heart: irregularly irregular (AFIB) Abdomen: Soft N/T Extremities: No Edema, No Calf Tenderness Neurology: alert, follow commands Assessment Assessment 1. Failure to thrive: remains not eating 2. AFIB RVR; rate controlled. suspect compliance issue with treatment. 3. Severe 4. 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 Dementia 6. Hypothyrodism: per PCP Recommendations 1. Continue metoprolol and IV PRN 2. Eliquis for stroke prevention 3. Secondary prevention measures. She has been refusing her meds and meals. Poor candidate for surgical intervention. Awaiting hospice evaluation. Nothing further cardiac martini Justicifation of Admission Dx: Justifications for Admission: Justification of Admission Dx: Yes JANETTE ANTONIO MD 04/30/21 1707: CARDIO Progress Notes Assessment Assessment Patient seen and examined. Agree with SENIOR MARKET RESEARCH ANALYST's assessment and plan. Atrial fibrillation rate well controlled. Agree with metoprolol for rate control and continue Eliquis for stroke prophylaxis. Patient probably a poor candidate for any interventions on her severe aortic stenosis secondary to her comorbidities Awaiting hospice evaluation MEL PERALTA APRN Apr 30, 2021 12:34 JANETTE ANTONIO MD Apr 30, 2021 17:07
[2021-04-30 15:00] VITALS: BP 137/84
[2021-04-30 20:48] VITALS: BP 116/75
[2021-04-30] MEDS: ATORVASTATIN CALCIUM 20 MG TABLET PO SCH (21:19)
[2021-04-30 23:43] VITALS: BP 132/89
[2021-05-01] VITALS (9 sets, daily range): BP systolic 100–141; BP diastolic 63–108
[2021-05-01] MEDS: POTASSIUM CL 20MEQ IN D5W 1,000 ML IV SCH ×2 (03:01→17:54)
[2021-05-01 05:05] LABS: CALCIUM 8.2 mg/dL (8.5-10.1); CREATININE 0.6 mg/dL (0.6-1.0); GFR 96.4; POTASSIUM 3.7 mmol/L (3.5-5.1)
[2021-05-01] MEDS: PANTOPRAZOLE 40 MG TABLET.DR. PO SCH ×2 (05:40→16:30)
[2021-05-01] MEDS: POTASSIUM CHLORIDE 20 MEQ TABLET.ER. PO SCH (08:00)
[2021-05-01] MEDS: ASPIRIN CHEWABLE 81 MG TABLET. PO SCH (10:04)
[2021-05-01] MEDS: LACTOBACILLUS RHAMNOSUS GG 1 CAPSULE. PO SCH ×2 (10:04→20:49)
[2021-05-01] MEDS: METOPROLOL TART IMMED RELEASE 50 MG TABLET. PO SCH ×2 (10:04→20:49)
[2021-05-01] MEDS: CHOLECALCIFEROL (VITAMIN D3) 1,000 UNIT TABLET PO SCH (10:04)
[2021-05-01] MEDS: MEMANTINE 5 MG TABLET. PO SCH ×2 (10:05→20:49)
[2021-05-01] MEDS: CYANOCOBALAMIN (VITAMIN B-12) 1,000 MCG TABLET. PO SCH (10:05)
[2021-05-01] MEDS: APIXABAN 2.5 MG TABLET. PO SCH ×2 (10:05→20:49)
--- NOTE | 2021-05-01 10:40 | PDOC ---
PROGRESS NOTES Date of Service: DATE: 05/01/21 TIME: 10:38 Subjective Subjective refused breakfast Objective Objective Vital Signs Date Time Temp Pulse Resp B/P (MAP) Pulse Ox O2 Delivery O2 Flow Rate FiO2 05/01/21 10:05 92 127/86 05/01/21 07:00 97.8 15 92 Room Air 97.8 Intake and Output 05/01/21 07:00 Intake Total 925 ml Balance 925 ml Intake Oral 25 ml IV Total 900 ml # Voids 7 Physical Exam Physical Exam chronically sick,malnourished. Abdomen: Soft Heart: Other (AFIB; systolic murmur 4/6 to ANTONIETA border) Extremities: No cyanosis, No edema General: Alert, No acute distress, Other (kyphotic) HEENT: Atraumatic, Mucous membr. moist/pink Lungs: Other (diminished bases) MUSCULOSKELETAL: Osteoarthritic changes both hands Neck: Supple Neuro: Sensation intact Psych/Mental Status: Other (flat affect, questionable orientation) Skin: No rashes Diagnosis Problem List Problems Medical Problems: (1) Atrial fibrillation with RVR Status: Acute (2) Failure to thrive in adult Status: Acute (3) Physical deconditioning Status: Acute Assessment Assessment Problems Medical Problems: (1) Atrial fibrillation with RVR Status: Acute (2) Failure to thrive in adult Status: Acute (3) Physical deconditioning Status: Acute IMPRESSION: 1. Atrial fibrillation. cardizam drip+eliquis Consult Dr. Aiken for cardiology evaluation and management. The patient has been started on IV Cardizem drip. 2. Hypertension, not controlled. I will restart hydralazine.Control is improving. 3. Physical deconditioning. Consult Dr. Nicole for rehab evaluation and management. 4. Dementia. Getting worse. Restart Memantine. 5. Acute metabolic encephalopathy. Correct electrolyte imbalance, dehydration 6. Pneumonia. Due to aspiration. 7. Severe aortic stenosis. social service consult ,needs group home NH placement Plan:spoke with RN,needing help with feedings. social service consult ?hospice d5w iv fluids poor prognosis spoke with RN and keycase assembler. Patient was initially treated with IV Cardizem for fast ventricular rate. eliquis resume home meds labs ok cxr -ve urine -neg needs placement 1. Aspiration and penetration of multiple barium consistencies, without elicitation of a cough reflex. 2. Significant delayed initiation of swallowing and poor oral bolus formation. 3. Please refer to the separate report by the speech pathologist for clinical recommendations. Blood culture shows 1 out of 4, gram-positive cocci. Consult Dr. Sergei Lowe for infectious disease evaluation and management. Currently patient is not on any antibiotics. Urinalysis was negative. Prognosis of this patient is extremely poor due to her multiple medical problems. Discussed with extensively on April 29, 2021 about hospice, comfort care, long-term care in a facility.He will think about it. She is not a candidate for intervention for severe aortic stenosis. Her oral intake is poor. Hyponatremia and hypokalemia. Change IV fluids. Increase potassium supplements. Discussed with social service technician. The test will not go to a hotel to provide hospice care. She will look at other options. For details please refer to the orders. Plan Plan of Care Problems Medical Problems: (1) Atrial fibrillation with RVR Status: Acute (2) Failure to thrive in adult Status: Acute (3) Physical deconditioning Status: Acute Comment Review of Relevant I have reviewed the following items ellyn (where applicable) has been applied. Labs Laboratory Tests Test 05/01/21 04:45 Sodium Level 143 mmol/L (136-145) Potassium Level 3.7 mmol/L (3.5-5.1) Chloride Level 111 mmol/L (98-107) Carbon Dioxide Level 25 mmol/L (21-32) Anion Gap 7 (6-14) Blood Urea Nitrogen 8 mg/dL (7-20) Creatinine 0.6 mg/dL (0.6-1.0) Estimated GFR (Cockcroft-Gault) 96.4 Glucose Level 109 mg/dL (70-99) Calcium Level 8.2 mg/dL (8.5-10.1) Microbiology 04/26/21 Blood Culture - Preliminary, Resulted NO GROWTH AFTER 4 DAYS Vitals/I & O Vital Sign - Last 24 Hours 04/30/21 04/30/21 04/30/21 04/30/21 11:00 15:00 19:00 20:00 Temp 97.8 97.5 97.8 97.5 Pulse 88 85 Resp 20 18 B/P (MAP) 157/101 (119) 137/84 (101) Pulse Ox 93 93 O2 Delivery Room Air Room Air Room Air Room Air 3/04/30/21 04/30/21 04/30/21 20:48 21:22 21:23 23:43 Temp 97.1 98.7 97.1 98.7 Pulse 74 91 94 93 Resp B/P (MAP) 116/75 (89) 116/75 116/75 132/89 (103) Pulse Ox 94 95 O2 Delivery Room Air Room Air 05/01/21 05/01/21 05/01/21 05/01/21 03:30 03:48 06:10 07:00 Temp 97.5 97.3 97.8 97.5 97.3 97.8 Pulse 96 96 97 92 Resp 25 25 20 15 B/P (MAP) 134/84 (101) 134/84 (101) 135/88 (104) 127/86 (100) Pulse Ox 96 96 98 92 O2 Delivery Room Air Room Air Room Air Room Air 05/01/21 05/01/21 05/01/21 10:04 10:04 10:05 Pulse 92 92 92 B/P (MAP) 127/86 127/86 127/86 Intake and Output 04/30/21 04/30/21 05/01/21 15:00 23:00 07:00 Intake Total 25 ml 900 ml Balance 25 ml 900 ml Justifications for Admission Other Justification Nutrition Consultation Dietary Evaluation: Recommendations by RD: Dietary education by RD, Protein supplementation Comments: diet modified to puree, honey thick liquids ensure pudding and magic cup Expected Outcomes/Goals: hospice eval Malnutrition Findings: Muscle Mass (Severe): Severe Depletion Food and Nutrition Intake (Sev: <50% est energy req 5days Body Fat Depletion (Non Severe: Mod to Severe Weight Status: Underweight FRANCINE GAN MD May 01, 2021 10:40
--- NOTE | 2021-05-01 16:16 | PDOC ---
PROGRESS NOTES Date of Service DATE: 05/01/21 TIME: 16:14 Subjective Subjective Patient seen and examined Objective Objective Vital Signs Date Time Temp Pulse Resp B/P (MAP) Pulse Ox O2 Delivery O2 Flow Rate FiO2 05/01/21 15:00 98.4 76 16 127/79 (95) 94 Room Air 98.4 Intake and Output 05/01/21 07:00 Intake Total 925 ml Balance 925 ml Intake Oral 25 ml IV Total 900 ml # Voids 7 Physical Exam Abdomen: Normal bowel sounds Heart: Other (Irregularly irregular) General: mild distress Lungs: Other (Mildly decreased breath sounds) Assessment Assessment Problems Medical Problems: (1) Atrial fibrillation with RVR Status: Acute (2) Failure to thrive in adult Status: Acute (3) Physical deconditioning Status: Acute 1. Failure to thrive: Work-up is continuing. 2. AFIB RVR; rate controlled. Continue metoprolol and Eliquis. 3. Severe . Continue present treatment. Patient would be a poor candidate for surgical intervention. 4. HTN: mildly labile. Continuing present treatment. 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 Dementia 6. Hypothyrodism: per PCP Comment Review of Relevant I have reviewed the following items ellyn (where applicable) has been applied. Labs Laboratory Tests Test 04/30/21 04:00 05/01/21 04:45 White Blood Count 9.4 x10^3/uL (4.0-11.0) Red Blood Count 4.29 x10^6/uL (3.50-5.40) Hemoglobin 11.8 g/dL (12.0-15.5) Hematocrit 37.5 % (36.0-47.0) Mean Corpuscular Volume 87 fL (79-100) Mean Corpuscular Hemoglobin 27 pg (25-35) Mean Corpuscular Hemoglobin Concent 31 g/dL (31-37) Red Cell Distribution Width 18.0 % (11.5-14.5) Platelet Count 369 x10^3/uL (140-400) Neutrophils (%) (Auto) 83 % (31-73) Lymphocytes (%) (Auto) 10 % (24-48) Monocytes (%) (Auto) 7 % (0-9) Eosinophils (%) (Auto) 1 % (0-3) Basophils (%) (Auto) 0 % (0-3) Neutrophils # (Auto) 7.8 x10^3/uL (1.8-7.7) Lymphocytes # (Auto) 0.9 x10^3/uL (1.0-4.8) Monocytes # (Auto) 0.6 x10^3/uL (0.0-1.1) Eosinophils # (Auto) 0.1 x10^3/uL (0.0-0.7) Basophils # (Auto) 0.0 x10^3/uL (0.0-0.2) Sodium Level 149 mmol/L (136-145) 143 mmol/L (136-145) Potassium Level 3.6 mmol/L (3.5-5.1) 3.7 mmol/L (3.5-5.1) Chloride Level 116 mmol/L (98-107) 111 mmol/L (98-107) Carbon Dioxide Level 23 mmol/L (21-32) 25 mmol/L (21-32) Anion Gap 10 (6-14) 7 (6-14) Blood Urea Nitrogen 12 mg/dL (7-20) 8 mg/dL (7-20) Creatinine 0.7 mg/dL (0.6-1.0) 0.6 mg/dL (0.6-1.0) Estimated GFR (Cockcroft-Gault) 80.7 96.4 Glucose Level 126 mg/dL (70-99) 109 mg/dL (70-99) Calcium Level 8.4 mg/dL (8.5-10.1) 8.2 mg/dL (8.5-10.1) Laboratory Tests Test 05/01/21 04:45 Sodium Level 143 mmol/L (136-145) Potassium Level 3.7 mmol/L (3.5-5.1) Chloride Level 111 mmol/L (98-107) Carbon Dioxide Level 25 mmol/L (21-32) Anion Gap 7 (6-14) Blood Urea Nitrogen 8 mg/dL (7-20) Creatinine 0.6 mg/dL (0.6-1.0) Estimated GFR (Cockcroft-Gault) 96.4 Glucose Level 109 mg/dL (70-99) Calcium Level 8.2 mg/dL (8.5-10.1) Microbiology 04/26/21 Blood Culture - Preliminary, Resulted NO GROWTH AFTER 4 DAYS Medications Current Medications Diltiazem HCl (Cardizem Iv Push) 10 mg 1X ONCE IVP Last administered on 04/26/21at 15:14; Start 04/26/21 at 14:45; Stop 04/26/21 at 14:46; Status DC Sodium Chloride 500 ml @ 500 mls/hr 1X ONCE IV Last administered on 04/26/21at 15:13; Start 04/26/21 at 14:45; Stop 04/26/21 at 15:44; Status DC Diltiazem HCl 125 mg/Sodium Chloride 125 ml @ 5 mls/hr CONT PRN IV PER PROTOCOL Last administered on 04/26/21at 15:57; Start 04/26/21 at 15:45; Stop 04/27/21 at 02:18; Status DC Ondansetron HCl (Zofran) 4 mg PRN Q8HRS PRN IVP NAUSEA/VOMITING; Start 04/26/21 at 16:15; Stop 04/27/21 at 16:14; Status DC Acetaminophen (Tylenol) 650 mg PRN Q4HRS PRN PO FEVER > 100.3'F; Start 04/26/21 at 16:15; Stop 04/26/21 at 22:41; Status DC Digoxin (Lanoxin) 250 mcg 1X ONCE IV Last administered on 04/26/21at 16:45; Start 04/26/21 at 16:45; Stop 04/26/21 at 16:46; Status DC Acetaminophen (Tylenol) 650 mg PRN Q6HRS PRN PO HEADACHE / TEMP > 100.3'F Last administered on 04/30/21at 09:11; Start 04/26/21 at 22:45 Amlodipine Besylate (Norvasc) 10 mg DAILY PO Last administered on 05/01/21at 10:04; Start 04/27/21 at 09:00 Apixaban (Eliquis) 2.5 mg BID PO Last administered on 05/01/21at 10:05; Start 04/26/21 at 23:00 Aspirin (Aspirin Chewable) 81 mg DAILYWBKFT PO Last administered on 05/01/21at 10:04; Start 04/27/21 at 08:00 Atorvastatin Calcium (Lipitor) 20 mg HS PO ; Start 04/26/21 at 23:00; Stop 04/26/21 at 22:40; Status DC Cyanocobalamin (Vitamin B-12) 1,000 mcg DAILY PO Last administered on 05/01/21 10:05; Start 04/27/21 at 09:00 Hydralazine HCl (Apresoline) 50 mg TID PO Last administered on 05/01/21 10:05; Start 04/26/21 at 23:00 Lactobacillus Rhamnosus (Culturelle) 1 cap BID PO Last administered on 05/01/21at 10:04; Start 04/26/21 at 23:00 Memantine (Namenda) 5 mg BID PO Last administered on 05/01/21 10:05; Start 04/26/21 at 23:00 Metoprolol Tartrate (Lopressor) 50 mg BID PO Last administered on 05/01/21 10:04; Start 04/26/21 at 23:00 Vitamin D (Vitamin D3) 500 unit DAILY PO Last administered on 05/01/21at 10:04; Start 04/27/21 at 09:00 Pantoprazole Sodium (Protonix) 40 mg BIDAC PO Last administered on 05/01/21at 05:40; Start 04/27/21 at 07:30 Atorvastatin Calcium (Lipitor) 20 mg HS PO Last administered on 04/30/21at 21:19; Start 04/26/21 at 23:00 Info (Anti-Coagulation Monitoring By Pharmacy) 1 each PRN DAILY PRN MC PER PROTOCOL Last administered on 04/27/21at 01:33; Start 04/26/21 at 22:45 Diltiazem HCl 125 mg/Dextrose 125 ml @ 5 mls/hr CONT PRN PRN IV AFIB Last administered on 04/27/21at 02:27; Start 04/27/21 at 02:30; Stop 04/27/21 at 13:57 ; Status DC Metoprolol Tartrate (Lopressor Vial) 5 mg PRN Q6HRS PRN IVP [id number] Last administered on 04/27/21at 14:35; Start 04/27/21 at 14:00 Potassium Chloride/Dextrose/ Sod Cl 1,000 ml @ 75 mls/hr [id number] IV Last administered on 04/30/21at 01:58; Start 04/28/21 at 10:30; Stop 04/30/21 at 09:23; Status DC Potassium Chloride/Dextrose 1,000 ml @ 75 mls/hr [id number] IV Last administered on 05/01/21at 03:01; Start 04/30/21 at 10:00 Potassium Chloride (Klor-Con) 20 meq DAILYWBKFT PO ; Start 04/30/21 at 10:30 Active Scripts Active Metoprolol Tartrate 50 Mg Tablet 50 Mg PO BID 30 Days Eliquis (Apixaban) 2.5 Mg Tablet 2.5 Mg PO BID 30 Days Atorvastatin Calcium 10 Mg Tablet 20 Mg PO HS Amlodipine Besylate 5 Mg Tablet 10 Mg PO DAILY 30 Days Ferrous Sulfate 325 Mg Tablet 1 Tab PO DAILY Hydralazine Hcl 50 Mg Tablet 1 Tab PO TID Vitamin B-12 (Cyanocobalamin (Vitamin B-12)) 1,000 Mcg Tablet 1,000 Mcg PO DAILY 30 Days Culturelle (Lactobacillus Rhamnosus Gg) 1 Each Cap.sprink 1 Cap PO BID 30 Days Tylenol (Acetaminophen) 325 Mg Tablet 650 Mg PO PRN Q6HRS PRN 30 Days Aspirin 81 Mg Tab.chew 81 Mg PO DAILYWBKFT 30 Days D3 Dots (Cholecalciferol (Vitamin D3)) 2,000 Unit Tablet 400 Unit PO DAILY Reported Namenda (Memantine Hcl) 10 Mg Tablet 5 Mg PO BID Protonix (Pantoprazole Sodium) 20 Mg Tablet. 1 Tab PO BID Zyrtec (Cetirizine Hcl) 10 Mg Tablet 10 Mg PO Citracal + D Maximum Caplet (Calcium Citrate/Vitamin D3) 1 Each Tablet 1 Each PO Centrum Silver Tablet (Multivits-Min/Fa/Lycopene/Lut) 1 Each Tablet 1 Each PO Vitals/I & O Vital Sign - Last 24 Hours 04/30/21 04/30/21 04/30/21 04/30/21 19:00 20:00 20:48 21:22 Temp 97.1 97.1 Pulse 74 91 Resp 22 B/P (MAP) 116/75 (89) 116/75 Pulse Ox 94 O2 Delivery Room Air Room Air Room Air 04/30/21 04/30/21 05/01/21 05/01/21 21:23 23:43 03:30 03:48 Temp 98.7 97.5 98.7 97.5 Pulse 94 93 96 96 Resp 22 25 25 B/P (MAP) 116/75 132/89 (103) 134/84 (101) 134/84 (101) Pulse Ox 95 96 96 O2 Delivery Room Air Room Air Room Air 05/01/21 05/01/21 05/01/21 05/01/21 06:10 07:00 08:00 10:04 Temp 97.3 97.8 97.3 97.8 Pulse 97 92 92 Resp 20 15 B/P (MAP) 135/88 (104) 127/86 (100) 127/86 Pulse Ox 98 92 O2 Delivery Room Air Room Air Room Air 05/01/21 05/01/21 05/01/21 05/01/21 10:04 10:05 11:00 11:02 Temp 97.9 97.9 Pulse 92 92 98 88 Resp 23 B/P (MAP) 127/86 127/86 137/108 (118) 141/95 (110) Pulse Ox 93 O2 Delivery Room Air 05/01/21 15:00 Temp 98.4 98.4 Pulse 76 Resp 16 B/P (MAP) 127/79 (95) Pulse Ox 94 O2 Delivery Room Air Intake and Output 04/30/21 04/30/21 05/01/21 15:00 23:00 07:00 Intake Total 25 ml 900 ml Balance 25 ml 900 ml Justifications for Admission Other Justification Nutrition Consultation Dietary Evaluation: Recommendations by RD: Dietary education by RD, Protein supplementation Comments: diet modified to puree, honey thick liquids ensure pudding and magic cup Expected Outcomes/Goals: hospice eval Malnutrition Findings: Muscle Mass (Severe): Severe Depletion Food and Nutrition Intake (Sev: <50% est energy req 5days Body Fat Depletion (Non Severe: Mod to Severe Weight Status: Underweight JUVENAL OLIVA MD May 01, 2021 16:16
[2021-05-01] MEDS: ATORVASTATIN CALCIUM 20 MG TABLET PO SCH (20:48)
[2021-05-02 03:20] VITALS: BP 111/73
[2021-05-02] MEDS: PANTOPRAZOLE 40 MG TABLET.DR. PO SCH ×2 (06:11→16:30)
[2021-05-02] MEDS: POTASSIUM CL 20MEQ IN D5W 1,000 ML IV SCH ×2 (06:12→21:20)
[2021-05-02 07:35] VITALS: BP 139/90
[2021-05-02] MEDS: POTASSIUM CHLORIDE 20 MEQ TABLET.ER. PO SCH (07:52)
[2021-05-02] MEDS: CHOLECALCIFEROL (VITAMIN D3) 1,000 UNIT TABLET PO SCH (08:38)
[2021-05-02] MEDS: MEMANTINE 5 MG TABLET. PO SCH ×2 (08:38→21:20)
[2021-05-02] MEDS: APIXABAN 2.5 MG TABLET. PO SCH ×2 (08:39→21:20)
[2021-05-02] MEDS: CYANOCOBALAMIN (VITAMIN B-12) 1,000 MCG TABLET. PO SCH (08:39)
[2021-05-02] MEDS: METOPROLOL TART IMMED RELEASE 50 MG TABLET. PO SCH ×2 (08:39→21:20)
[2021-05-02] MEDS: ASPIRIN CHEWABLE 81 MG TABLET. PO SCH (08:39)
[2021-05-02] MEDS: LACTOBACILLUS RHAMNOSUS GG 1 CAPSULE. PO SCH ×2 (08:40→21:20)
--- NOTE | 2021-05-02 08:59 | PDOC ---
IM PROGRESS NOTES- Subjective Subjective No complaints of pain or dyspnea. Patient is sleepy and a very poor historian. She is not eating or drinking much. Objective Vitals/I&O Vital Signs Date Time Temp Pulse Resp B/P (MAP) Pulse Ox O2 Delivery O2 Flow Rate FiO2 05/02/21 08:39 83 139/90 05/02/21 07:35 97.7 18 92 Room Air 97.7 I & O 05/01/21 05/01/21 05/02/21 15:00 23:00 07:00 Intake Total 100 ml 118 ml 1010 ml Balance 100 ml 118 ml 1010 ml Physical Exam Physical Exam General Appearance -weak and chronically ill. She responds very slowly. Chest - decreased breath sounds at bases Heart - S1 and S2 normal Abdomen - soft, non tender Neurological -confused Musculoskeletal - generalized weakness Extremities - no edema Assessment Assessment Problems Medical Problems: (1) Atrial fibrillation with RVR Status: Acute (2) Failure to thrive in adult Status: Acute (3) Physical deconditioning Status: Acute IMPRESSION: 1. Atrial fibrillation. cardizam drip+eliquis Consult Dr. Aiken for cardiology evaluation and management. The patient has been started on IV Cardizem drip. 2. Hypertension, not controlled. I will restart hydralazine.Control is improving. 3. Physical deconditioning. Consult Dr. Nicole for rehab evaluation and management. 4. Dementia. Getting worse. Restart Memantine. 5. Acute metabolic encephalopathy. Correct electrolyte imbalance, dehydration 6. Pneumonia. Due to aspiration. 7. Severe aortic stenosis. social service consult ,needs [facility] placement Plan:spoke with RN,needing help with feedings. social service consult ?hospice d5w iv fluids poor prognosis spoke with RN and upper caser. Patient was initially treated with IV Cardizem for fast ventricular rate. eliquis resume home meds labs ok cxr -ve urine -neg needs placement 1. Aspiration and penetration of multiple barium consistencies, without elicitation of a cough reflex. 2. Significant delayed initiation of swallowing and poor oral bolus formation. 3. Please refer to the separate report by the speech pathologist for clinical recommendations. Blood culture shows 1 out of 4, gram-positive cocci. Consult Dr. Sergei Lowe for infectious disease evaluation and management. Currently patient is not on any antibiotics. Urinalysis was negative. Prognosis of this patient is extremely poor due to her multiple medical problems. Discussed with extensively on April 29, 2021 about hospice, comfort care, long-term care in a facility.He will think about it. She is not a candidate for intervention for severe aortic stenosis. Her oral intake is poor. Hypernatremia and hypokalemia. Resolved. I have encouraged the patient to eat and drink more. Discussed with family welfare social work professor. [facility] will not go to a hotel to provide hospice care. She will look at other options. For details please refer to the orders. Plan Plan For more details regarding further plans, please refer to the orders. Justifications for Admission Other Justification Nutrition Consultation Dietary Evaluation: Recommendations by RD: Dietary education by RD, Protein supplementation Comments: diet modified to puree, honey thick liquids ensure pudding and magic cup Expected Outcomes/Goals: hospice eval Malnutrition Findings: Muscle Mass (Severe): Severe Depletion Food and Nutrition Intake (Sev: <50% est energy req 5days Body Fat Depletion (Non Severe: Mod to Severe Weight Status: Underweight CORNELIUS LÓPEZ MD May 02, 2021 08:59
[2021-05-02 11:00] VITALS: BP 101/58
--- NOTE | 2021-05-02 13:09 | PDOC ---
PROGRESS NOTES Date of Service DATE: 05/02/21 TIME: 13:06 Subjective Subjective Patient seen and examined She is largely unchanged. Objective Objective Vital Signs Date Time Temp Pulse Resp B/P (MAP) Pulse Ox O2 Delivery O2 Flow Rate FiO2 05/02/21 11:00 96.7 86 18 101/58 (72) 94 Room Air 96.7 Intake and Output 05/02/21 07:00 Intake Total 1228 ml Balance 1228 ml Intake Oral 428 ml IV Total 800 ml # Voids 6 # Bowel Movements 2 Physical Exam Abdomen: Normal bowel sounds Heart: Other (Regular rhythm with a 2/6 systolic murmur) General: No acute distress Lungs: Other (Minimally decreased breath sounds) Assessment Assessment Problems Medical Problems: (1) Atrial fibrillation with RVR Status: Acute (2) Failure to thrive in adult Status: Acute (3) Physical deconditioning Status: Acute 1. Failure to thrive: Work-up and treatment are continuing. 2. AFIB RVR; rate controlled. Continue metoprolol and Eliquis. 3. Severe . Continue present treatment. Patient would be a poor candidate for surgical intervention. 4. HTN: mildly labile. Continuing present treatment. 5. CKD2-3. Monitoring lab. 6. Dementia 6. Hypothyrodism: per PCP Comment Review of Relevant I have reviewed the following items ellyn (where applicable) has been applied. Labs Laboratory Tests Test 05/01/21 04:45 Sodium Level 143 mmol/L (136-145) Potassium Level 3.7 mmol/L (3.5-5.1) Chloride Level 111 mmol/L (98-107) Carbon Dioxide Level 25 mmol/L (21-32) Anion Gap 7 (6-14) Blood Urea Nitrogen 8 mg/dL (7-20) Creatinine 0.6 mg/dL (0.6-1.0) Estimated GFR (Cockcroft-Gault) 96.4 Glucose Level 109 mg/dL (70-99) Calcium Level 8.2 mg/dL (8.5-10.1) Microbiology 04/26/21 Blood Culture - Final, Complete NO GROWTH AFTER 5 DAYS Medications Current Medications Diltiazem HCl (Cardizem Iv Push) 10 mg 1X ONCE IVP Last administered on at 15:14; Start 04/26/21 at 14:45; Stop 04/26/21 at 14:46; Status DC Sodium Chloride 500 ml @ 500 mls/hr 1X ONCE IV Last administered on 04/26/21at 15:13; Start 04/26/21 at 14:45; Stop 04/26/21 at 15:44; Status DC Diltiazem HCl 125 mg/Sodium Chloride 125 ml @ 5 mls/hr CONT PRN IV PER PROTOCOL Last administered on 04/26/21at 15:57; Start 04/26/21 at 15:45; Stop 04/27/21 at 02:18; Status DC Ondansetron HCl (Zofran) 4 mg PRN Q8HRS PRN IVP NAUSEA/VOMITING; Start 04/26/21 at 16:15; Stop 04/27/21 at 16:14; Status DC Acetaminophen (Tylenol) 650 mg PRN Q4HRS PRN PO FEVER > 100.3'F; Start 04/26/21 at 16:15; Stop 04/26/21 at 22:41; Status DC Digoxin (Lanoxin) 250 mcg 1X ONCE IV Last administered on 04/26/21at 16:45; Start 04/26/21 at 16:45; Stop 04/26/21 at 16:46; Status DC Acetaminophen (Tylenol) 650 mg PRN Q6HRS PRN PO HEADACHE / TEMP > 100.3'F Last administered on 04/30/21at 09:11; Start 04/26/21 at 22:45 Amlodipine Besylate (Norvasc) 10 mg DAILY PO Last administered on 05/02/21at 08:39; Start 04/27/21 at 09:00 Apixaban (Eliquis) 2.5 mg BID PO Last administered on 05/02/21at 08:39; Start 04/26/21 at 23:00 Aspirin (Aspirin Chewable) 81 mg DAILYWBKFT PO Last administered on 05/02/21at 08:39; Start 04/27/21 at 08:00 Atorvastatin Calcium (Lipitor) 20 mg HS PO ; Start 04/26/21 at 23:00; Stop 04/26/21 at 22:40; Status DC Cyanocobalamin (Vitamin B-12) 1,000 mcg DAILY PO Last administered on 05/02/21at 08:39; Start 04/27/21 at 09:00 Hydralazine HCl (Apresoline) 50 mg TID PO Last administered on 05/02/21 08:39; Start 04/26/21 at 23:00 Lactobacillus Rhamnosus (Culturelle) 1 cap BID PO Last administered on 05/02/21 08:40; Start 04/26/21 at 23:00 Memantine (Namenda) 5 mg BID PO Last administered on 05/02/21 08:38; Start 04/26/21 at 23:00 Metoprolol Tartrate (Lopressor) 50 mg BID PO Last administered on 05/02/21 08:39; Start 04/26/21 at 23:00 Vitamin D (Vitamin D3) 500 unit DAILY PO Last administered on 05/02/21 08:38; Start 04/27/21 at 09:00 Pantoprazole Sodium (Protonix) 40 mg BIDAC PO Last administered on 05/02/21 06:11; Start 04/27/21 at 07:30 Atorvastatin Calcium (Lipitor) 20 mg HS PO Last administered on 05/01/21 20:48; Start 04/26/21 at 23:00 Info (Anti-Coagulation Monitoring By Pharmacy) 1 each PRN DAILY PRN MC PER PROTOCOL Last administered on 04/27/21 01:33; Start 04/26/21 at 22:45 Diltiazem HCl 125 mg/Dextrose 125 ml @ 5 mls/hr CONT PRN PRN IV AFIB Last administered on 04/27/21 02:27; Start 04/27/21 at 02:30; Stop 04/27/21 at 13:57; Status DC Metoprolol Tartrate (Lopressor Vial) 5 mg PRN Q6HRS PRN IVP TACHYCARDIA Last administered on 04/27/21 14:35; Start 04/27/21 at 14:00 Potassium Chloride/Dextrose/ Sod Cl 1,000 ml @ 75 mls/hr [id number] IV Last administered on 04/30/21 01:58; Start 04/28/21 at 10:30; Stop 04/30/21 at 09:23; Status DC Potassium Chloride/Dextrose 1,000 ml @ 75 mls/hr [id number] IV Last administered on 05/02/21 06:12; Start 04/30/21 at 10:00 Potassium Chloride (Klor-Con) 20 meq DAILYWBKFT PO ; Start 04/30/21 at 10:30; Stop 05/02/21 at 09:30; Status DC Active Scripts Active Metoprolol Tartrate 50 Mg Tablet 50 Mg PO BID 30 Days Eliquis (Apixaban) 2.5 Mg Tablet 2.5 Mg PO BID 30 Days Atorvastatin Calcium 10 Mg Tablet 20 Mg PO HS Amlodipine Besylate 5 Mg Tablet 10 Mg PO DAILY 30 Days Ferrous Sulfate 325 Mg Tablet 1 Tab PO DAILY Hydralazine Hcl 50 Mg Tablet 1 Tab PO TID Vitamin B-12 (Cyanocobalamin (Vitamin B-12)) 1,000 Mcg Tablet 1,000 Mcg PO DAILY 30 Days Culturelle (Lactobacillus Rhamnosus Gg) 1 Each Cap.sprink 1 Cap PO BID 30 Days Tylenol (Acetaminophen) 325 Mg Tablet 650 Mg PO PRN Q6HRS PRN 30 Days Aspirin 81 Mg Tab.chew 81 Mg PO DAILYWBKFT 30 Days D3 Dots (Cholecalciferol (Vitamin D3)) 2,000 Unit Tablet 400 Unit PO DAILY Reported Namenda (Memantine Hcl) 10 Mg Tablet 5 Mg PO BID Protonix (Pantoprazole Sodium) 20 Mg Tablet. 1 Tab PO BID Zyrtec (Cetirizine Hcl) 10 Mg Tablet 10 Mg PO Citracal + D Maximum Caplet (Calcium Citrate/Vitamin D3) 1 Each Tablet 1 Each PO Centrum Silver Tablet (Multivits-Min/Fa/Lycopene/Lut) 1 Each Tablet 1 Each PO Vitals/I & O Vital Sign - Last 24 Hours 05/01/21 05/01/21 05/01/21 05/01/21 15:00 19:00 20:04 20:49 Temp 98.4 97.8 98.4 97.8 Pulse 76 90 97 Resp 16 21 B/P (MAP) 127/79 (95) 137/92 (107) 137/92 Pulse Ox 94 94 O2 Delivery Room Air Room Air Room Air 05/01/21 05/01/21 05/02/21 05/02/21 20:50 23:37 03:20 07:35 Temp 98.2 97.7 97.7 98.2 97.7 97.7 Pulse 97 87 88 83 Resp 14 18 18 B/P (MAP) 137/92 100/63 (75) 111/73 (86) 139/90 (106) Pulse Ox 96 93 92 O2 Delivery Room Air Room Air Room Air 05/02/21 05/02/21 05/02/21 05/02/21 08:00 08:39 08:39 08:39 Pulse 83 83 83 B/P (MAP) 139/90 139/90 139/90 O2 Delivery Room Air 05/02/21 11:00 Temp 96.7 96.7 Pulse 86 Resp 18 B/P (MAP) 101/58 (72) Pulse Ox 94 O2 Delivery Room Air Intake and Output 05/01/21 05/01/21 05/02/21 15:00 23:00 07:00 Intake Total 100 ml 118 ml 1010 ml Balance 100 ml 118 ml 1010 ml Justifications for Admission Other Justification Nutrition Consultation Dietary Evaluation: Recommendations by RD: Dietary education by RD, Protein supplementation Comments: diet modified to puree, honey thick liquids ensure pudding and magic cup Expected Outcomes/Goals: hospice eval Malnutrition Findings: Muscle Mass (Severe): Severe Depletion Food and Nutrition Intake (Sev: <50% est energy req 5days Body Fat Depletion (Non Severe: Mod to Severe Weight Status: Underweight JUVENAL OLIVA MD May 02, 2021 13:08
[2021-05-02 15:00] VITALS: BP 84/60
[2021-05-02 19:26] VITALS: BP 111/79
[2021-05-02] MEDS: ATORVASTATIN CALCIUM 20 MG TABLET PO SCH (21:20)
[2021-05-02 22:41] VITALS: BP 143/80
[2021-05-03 03:12] VITALS: BP 123/89
[2021-05-03] MEDS: POTASSIUM CL 20MEQ IN D5W 1,000 ML IV SCH ×2 (04:40→11:00)
[2021-05-03 07:00] VITALS: BP 133/97
--- NOTE | 2021-05-03 08:50 | PDOC ---
IM PROGRESS NOTES- Subjective Subjective No complaints of pain or dyspnea. Patient is sleepy and a very poor historian. She is not eating or drinking much. Objective Vitals/I&O Vital Signs Date Time Temp Pulse Resp B/P (MAP) Pulse Ox O2 Delivery O2 Flow Rate FiO2 05/03/21 07:00 97.4 97 20 133/97 (109) 95 Room Air 97.4 I & O 05/02/21 05/02/21 05/03/21 15:00 23:00 07:00 Intake Total 118 ml 200 ml Balance 118 ml 200 ml Physical Exam Physical Exam General Appearance - chronically ill and in no distress Chest - decreased breath sounds at bases Heart - S1 and S2 normal Abdomen - soft, non tender Neurological - Confused Musculoskeletal - generalized weakness Extremities - no edema Assessment Assessment Problems Medical Problems: (1) Atrial fibrillation with RVR Status: Acute (2) Failure to thrive in adult Status: Acute (3) Physical deconditioning Status: Acute IMPRESSION: 1. Atrial fibrillation. cardizam drip+eliquis Consult Dr. Aiken for cardiology evaluation and management. The patient has been started on IV Cardizem drip. 2. Hypertension, not controlled. I will restart hydralazine.Control is improving. 3. Physical deconditioning. Consult Dr. Nicole for rehab evaluation and management. 4. Dementia. Getting worse. Restart Memantine. 5. Acute metabolic encephalopathy. Correct electrolyte imbalance, dehydration 6. Pneumonia. Due to aspiration. 7. Severe aortic stenosis. social service consult ,needs care home NH placement Plan:spoke with RN,needing help with feedings. social service consult ?hospice d5w iv fluids poor prognosis spoke with RN and patient case coordinator. Patient was initially treated with IV Cardizem for fast ventricular rate. eliquis resume home meds labs ok cxr -ve urine -neg needs placement 1. Aspiration and penetration of multiple barium consistencies, without elicitation of a cough reflex. 2. Significant delayed initiation of swallowing and poor oral bolus formation. 3. Please refer to the separate report by the speech pathologist for clinical recommendations. Blood culture shows 1 out of 4, gram-positive cocci. Consult Dr. Sergei Lowe for infectious disease evaluation and management. Currently patient is not on any antibiotics. Urinalysis was negative. Prognosis of this patient is extremely poor due to her multiple medical problems. Discussed with extensively several times including today about hospice, comfort care, long-term care in a facility.He will think about it.He will talk to elder care drying supervisor today. She is not a candidate for intervention for severe aortic stenosis. Her oral intake is poor. Hypernatremia and hypokalemia. Resolved. I have encouraged the patient to eat and drink more. Discussed with 7th grade social studies teacher. [facility] will not go to a hotel to provide hospice care. She will look at other options. For details please refer to the orders. Plan Plan For more details regarding further plans, please refer to the orders. Justifications for Admission Other Justification Nutrition Consultation Dietary Evaluation: Recommendations by RD: Dietary education by RD, Protein supplementation Comments: diet modified to puree, honey thick liquids ensure pudding and magic cup Expected Outcomes/Goals: hospice eval Malnutrition Findings: Muscle Mass (Severe): Severe Depletion Food and Nutrition Intake (Sev: <50% est energy req 5days Body Fat Depletion (Non Severe: Mod to Severe Weight Status: Underweight CORNELIUS LÓPEZ MD May 03, 2021 08:50
[2021-05-03] MEDS: CHOLECALCIFEROL (VITAMIN D3) 1,000 UNIT TABLET PO SCH (09:09)
[2021-05-03] MEDS: LACTOBACILLUS RHAMNOSUS GG 1 CAPSULE. PO SCH ×2 (09:09→20:27)
[2021-05-03] MEDS: MEMANTINE 5 MG TABLET. PO SCH ×2 (09:09→20:27)
[2021-05-03] MEDS: METOPROLOL TART IMMED RELEASE 50 MG TABLET. PO SCH ×2 (09:10→20:27)
[2021-05-03] MEDS: PANTOPRAZOLE 40 MG TABLET.DR. PO SCH ×2 (09:10→16:30)
[2021-05-03] MEDS: CYANOCOBALAMIN (VITAMIN B-12) 1,000 MCG TABLET. PO SCH (09:10)
[2021-05-03] MEDS: APIXABAN 2.5 MG TABLET. PO SCH ×2 (09:10→20:27)
[2021-05-03] MEDS: ASPIRIN CHEWABLE 81 MG TABLET. PO SCH (09:10)
--- NOTE | 2021-05-03 09:14 | PDOC ---
CARDIO Progress Notes Date and Time Date of Service 05/03/21 Time of Evaluation 0910 Subjective Subjective: No Chest Pain, No shortness of breath Vitals Vitals Vital Signs Date Time Temp Pulse Resp B/P (MAP) Pulse Ox O2 Delivery O2 Flow Rate FiO2 05/03/21 09:11 97 133/97 05/03/21 07:00 97.4 20 95 Room Air 97.4 Weight Weight [ ] Input and Output Intake and Output Intake and Output 05/03/21 07:00 Intake Total 318 ml Balance 318 ml Intake Oral 318 ml # Voids 5 Microbiology Micro Microbiology 04/26/21 Blood Culture - Final, Complete NO GROWTH AFTER 5 DAYS Physical Exam HEENT: Neck Supple W Full Motion Chest: Symmetric, Other (kyphotic) LUNGS: Other (diminished bases) Heart: irregularly irregular (AFIB) Abdomen: Soft N/T Extremities: No Edema, No Calf Tenderness Neurology: alert Assessment Assessment 1. Failure to thrive 2. AFIB RVR; rate controlled. Continue metoprolol and Eliquis. 3. Severe . Continue present treatment. Patient would be a poor candidate for surgical intervention. 4. HTN: controlled 5. CKD 6. Dementia 6. Hypothyrodism: per PCP Justicifation of Admission Dx: Justifications for Admission: Justification of Admission Dx: Yes PAMELA ALSTON APRN May 03, 2021 09:14
[2021-05-03 10:16] VITALS: BP 106/64
--- NOTE | 2021-05-03 11:57 | PDOC ---
Infectious Disease Note Subjective Subjective Patient is sleepy in a position ROS ROS No nausea vomiting diarrhea or fever Vital Sign Vital Signs Vital Signs Date Time Temp Pulse Resp B/P (MAP) Pulse Ox O2 Delivery O2 Flow Rate FiO2 05/03/21 10:16 97.6 97 20 106/64 (78) 94 Room Air 97.6 Physical Exam PHYSICAL EXAM GENERAL: Alert, but not oriented female, not in any distress. VITAL SIGNS: Stable, afebrile. HEENT: NAD. NECK: Supple. LUNGS: Clear. HEART: S1, S2, regular. ABDOMEN: Benign. EXTREMITIES: No edema, cyanosis. The patient is in a contracted position or position. NEUROLOGIC: The patient does not follow command. Labs Micro Blood culture 1 out of 4 staph hominis Objective Assessment IMPRESSION: 1. Blood culture positive 1 out of 4, Gram-positive cocci, likely to be contaminant. 2. Debility and old age. 3. Dementia. 4. Atrial fibrillation. Plan Plan of Care No need for antibiotics patient can go to hospice MIKAL FARAH MD May 03, 2021 11:57
--- NOTE | 2021-05-03 14:08 | NUR ---
SS following up with discharge planning. SS reviewed pt chart and discussed with pt RN. Pt is currently on room air. DNR. Minimal eating and drinking. Total assistance needed with feeding. Cardiology and ID following. SS received notification from [facility], ; fax [phone], stating that they have spoken with pt's spouse and have discussed financial's and living situation. Pt's spouse did meet with [facility] today to discuss finances and assistance with Medicaid for pt. Pt's spouse does not make enough for LTC placement at this time. [facility] agreeable to accept pt on services and will speak with management at the [facility] to discuss services and equipment if needed. [facility] to also meet with pt's spouse and get consents. Probable discharge in the next 48 hours if all services can be arranged in the hotel setting. Pt's RN notified. SS will continue to follow for discharge planning.
[2021-05-03 15:00] VITALS: BP 86/58
[2021-05-03 19:34] VITALS: BP 103/50
[2021-05-03] MEDS: ATORVASTATIN CALCIUM 20 MG TABLET PO SCH (20:27)
[2021-05-03 23:02] VITALS: BP 118/65
[2021-05-04] MEDS: POTASSIUM CL 20MEQ IN D5W 1,000 ML IV SCH (00:52)
[2021-05-04 03:18] LABS: BASO # 0.1 x10^3/uL (0.0-0.2); BASO % 1 % (0-3); EOS # 0.1 x10^3/uL (0.0-0.7); EOS % 1 % (0-3); HEMATOCRIT 37.2 % (36.0-47.0); HEMOGLOBIN 12.3 g/dL (12.0-15.5); LYMPH # 1.6 x10^3/uL (1.0-4.8); LYMPH % 21 % (24-48); MEAN CORPUSCULAR HEMOGLOBIN 28 pg (25-35); MEAN CORPUSCULAR HGB CONC 33 g/dL (31-37); MEAN CORPUSCULAR VOLUME 85 fL (79-100); MONO # 0.6 x10^3/uL (0.0-1.1); MONO % 8 % (0-9); NEUT # 5.4 x10^3/uL (1.8-7.7); NEUT % 70 % (31-73); PLATELET COUNT 363 x10^3/uL (140-400); RED CELL DISTRIBUTION WIDTH 17.7 % (11.5-14.5); WHITE BLOOD COUNT 7.7 x10^3/uL (4.0-11.0)
[2021-05-04 03:37] LABS: ALBUMIN 2.4 g/dL (3.4-5.0); ALBUMIN/GLOBULIN RATIO 0.9 (1.0-1.7); CALCIUM 8.3 mg/dL (8.5-10.1); CREATININE 0.7 mg/dL (0.6-1.0); GFR 80.7; POTASSIUM 4.1 mmol/L (3.5-5.1); TOTAL BILIRUBIN 0.4 mg/dL (0.2-1.0); TOTAL PROTEIN 5.1 g/dL (6.4-8.2)
[2021-05-04 03:45] VITALS: BP 132/85
[2021-05-04 06:43] VITALS: BP 141/91
[2021-05-04] MEDS: METOPROLOL TART IMMED RELEASE 50 MG TABLET. PO SCH ×2 (08:14→20:58)
[2021-05-04] MEDS: LACTOBACILLUS RHAMNOSUS GG 1 CAPSULE. PO SCH ×2 (08:15→20:58)
[2021-05-04] MEDS: ASPIRIN CHEWABLE 81 MG TABLET. PO SCH (08:15)
[2021-05-04] MEDS: CYANOCOBALAMIN (VITAMIN B-12) 1,000 MCG TABLET. PO SCH (08:15)
[2021-05-04] MEDS: PANTOPRAZOLE 40 MG TABLET.DR. PO SCH ×2 (08:15→16:04)
[2021-05-04] MEDS: CHOLECALCIFEROL (VITAMIN D3) 1,000 UNIT TABLET PO SCH (08:15)
[2021-05-04] MEDS: MEMANTINE 5 MG TABLET. PO SCH ×2 (08:15→20:58)
[2021-05-04] MEDS: APIXABAN 2.5 MG TABLET. PO SCH ×2 (08:16→20:58)
--- NOTE | 2021-05-04 09:27 | PDOC ---
IM PROGRESS NOTES- Subjective Subjective No complaints of pain or dyspnea. Patient is sleepy and a very poor historian. She is not eating or drinking much. Objective Vitals/I&O Vital Signs Date Time Temp Pulse Resp B/P (MAP) Pulse Ox O2 Delivery O2 Flow Rate FiO2 05/04/21 08:15 78 141/91 05/04/21 06:43 98.8 16 98 Room Air 98.8 I & O 05/03/21 05/03/21 05/04/21 15:00 23:00 07:00 Intake Total 100 ml 60 ml 1000 ml Balance 100 ml 60 ml 1000 ml Physical Exam Physical Exam General Appearance -weak and sleepy Chest - decreased breath sounds at bases Heart - S1 and S2 normal Abdomen - soft, non tender Neurological -confused Musculoskeletal - generalized weakness Extremities - no edema Labs Laboratory Tests Test 05/04/21 03:00 White Blood Count 7.7 x10^3/uL (4.0-11.0) Red Blood Count 4.40 x10^6/uL (3.50-5.40) Hemoglobin 12.3 g/dL (12.0-15.5) Hematocrit 37.2 % (36.0-47.0) Mean Corpuscular Volume 85 fL (79-100) Mean Corpuscular Hemoglobin 28 pg (25-35) Mean Corpuscular Hemoglobin Concent 33 g/dL (31-37) Red Cell Distribution Width 17.7 % (11.5-14.5) H Platelet Count 363 x10^3/uL (140-400) Neutrophils (%) (Auto) 70 % (31-73) Lymphocytes (%) (Auto) 21 % (24-48) L Monocytes (%) (Auto) 8 % (0-9) Eosinophils (%) (Auto) 1 % (0-3) Basophils (%) (Auto) 1 % (0-3) Neutrophils # (Auto) 5.4 x10^3/uL (1.8-7.7) Lymphocytes # (Auto) 1.6 x10^3/uL (1.0-4.8) Monocytes # (Auto) 0.6 x10^3/uL (0.0-1.1) Eosinophils # (Auto) 0.1 x10^3/uL (0.0-0.7) Basophils # (Auto) 0.1 x10^3/uL (0.0-0.2) Sodium Level 141 mmol/L (136-145) Potassium Level 4.1 mmol/L (3.5-5.1) Chloride Level 107 mmol/L (98-107) Carbon Dioxide Level 26 mmol/L (21-32) Anion Gap 8 (6-14) Blood Urea Nitrogen 9 mg/dL (7-20) Creatinine 0.7 mg/dL (0.6-1.0) Estimated GFR (Cockcroft-Gault) 80.7 BUN/Creatinine Ratio 13 (6-20) Glucose Level 106 mg/dL (70-99) H Calcium Level 8.3 mg/dL (8.5-10.1) L Total Bilirubin 0.4 mg/dL (0.2-1.0) Aspartate Amino Transferase (AST) 9 U/L (15-37) L Alanine Aminotransferase (ALT) 21 U/L (14-59) Alkaline Phosphatase 62 U/L (46-116) Total Protein 5.1 g/dL (6.4-8.2) L Albumin 2.4 g/dL (3.4-5.0) L Albumin/Globulin Ratio 0.9 (1.0-1.7) L Laboratory Tests 05/04/21 03:00 Laboratory Tests 05/04/21 03:00 Assessment Assessment Problems Medical Problems: (1) Atrial fibrillation with RVR Status: Acute (2) Failure to thrive in adult Status: Acute (3) Physical deconditioning Status: Acute IMPRESSION: 1. Atrial fibrillation. cardizam drip+eliquis Consult Dr. Aiken for cardiology evaluation and management. The patient has been started on IV Cardizem drip. 2. Hypertension, not controlled. I will restart hydralazine.Control is improving. 3. Physical deconditioning. Consult Dr. Nicole for rehab evaluation and management. 4. Dementia. Getting worse. Restart Memantine. 5. Acute metabolic encephalopathy. Correct electrolyte imbalance, dehydration 6. Pneumonia. Due to aspiration. 7. Severe aortic stenosis. social service consult ,needs press tender long goods NH placement Plan:spoke with RN,needing help with feedings. social service consult ?hospice d5w iv fluids poor prognosis spoke with RN and machine adjuster leader case trim. Patient was initially treated with IV Cardizem for fast ventricular rate. eliquis resume home meds labs ok cxr -ve urine -neg needs placement 1. Aspiration and penetration of multiple barium consistencies, without elicitation of a cough reflex. 2. Significant delayed initiation of swallowing and poor oral bolus formation. 3. Please refer to the separate report by the speech pathologist for clinical recommendations. Blood culture shows 1 out of 4, gram-positive cocci. Consult Dr. Sergei Lowe for infectious disease evaluation and management. Currently patient is not on any antibiotics. Urinalysis was negative. Culture shows staph hominis likely contaminant. Prognosis of this patient is extremely poor due to her multiple medical problems. Discussed with extensively several times including today about hospice, comfort care, long-term care in a facility.He will think about it.He will talk to elder care mergers and acquisitions attorney today. She is not a candidate for intervention for severe aortic stenosis. Her oral intake is poor. Hypernatremia and hypokalemia. Resolved. I have encouraged the patient to eat and drink more. Patient spouse wants her to go back to the hotel while he makes arrangements for long-term care and apply for Medicaid. [facility] is willing to provide services in the hot. Discharge her tomorrow if the arrangements are completed. Labs reviewed and are stable. For details please refer to the orders. Plan Plan For more details regarding further plans, please refer to the orders. Justifications for Admission Other Justification Nutrition Consultation Dietary Evaluation: Recommendations by RD: Dietary education by RD, Protein supplementation Comments: diet modified to puree, honey thick liquids ensure pudding and magic cup Expected Outcomes/Goals: hospice eval Malnutrition Findings: Muscle Mass (Severe): Severe Depletion Food and Nutrition Intake (Sev: <50% est energy req 5days Body Fat Depletion (Non Severe: Mod to Severe Weight Status: Underweight CORNELIUS LÓPEZ MD May 04, 2021 09:27
--- NOTE | 2021-05-04 10:46 | NUR ---
SS following up with discharge planning. SS reviewed pt chart and discussed with pt RN. Pt is currently on room air. Pt's spouse is meeting with [facility], ; fax [phone], today between 1230 and 1300 in pt's room. Pt's spouse verified that they stay at the [facility] at [address] [place] [address]. [place] reaching out to [facility] today to discuss services. SS will continue to follow for discharge planning. Addendum: 05/04/21 at 1631 by LEO CANTOR SS Consents signed for [facility]. [facility] Management has agreed to remove one bed from room and have hospital bed in room for pt. [facility] to remove bed between 0930 and 1030 tomorrow and DME to be delivered to room after. Anticipate discharge tomorrow afternoon.
[2021-05-04 11:00] VITALS: BP 79/53
[2021-05-04 14:41] VITALS: BP 81/51
[2021-05-04] MEDS: ACETAMINOPHEN 325 MG TABLET. PO PRN (17:06)
[2021-05-04 19:00] VITALS: BP 97/62
[2021-05-04] MEDS: ATORVASTATIN CALCIUM 20 MG TABLET PO SCH (20:58)
[2021-05-04 22:50] VITALS: BP 84/53
[2021-05-05 02:59] VITALS: BP 123/66
[2021-05-05 07:00] VITALS: BP 111/59
[2021-05-05] MEDS: LACTOBACILLUS RHAMNOSUS GG 1 CAPSULE. PO SCH (09:05)
[2021-05-05] MEDS: ACETAMINOPHEN 325 MG TABLET. PO PRN (09:05)
[2021-05-05] MEDS: CYANOCOBALAMIN (VITAMIN B-12) 1,000 MCG TABLET. PO SCH (09:05)
[2021-05-05] MEDS: APIXABAN 2.5 MG TABLET. PO SCH (09:05)
[2021-05-05] MEDS: CHOLECALCIFEROL (VITAMIN D3) 1,000 UNIT TABLET PO SCH (09:05)
[2021-05-05] MEDS: MEMANTINE 5 MG TABLET. PO SCH (09:05)
[2021-05-05] MEDS: PANTOPRAZOLE 40 MG TABLET.DR. PO SCH (09:05)
[2021-05-05] MEDS: METOPROLOL TART IMMED RELEASE 50 MG TABLET. PO SCH (09:06)
[2021-05-05] MEDS: ASPIRIN CHEWABLE 81 MG TABLET. PO SCH (09:06)
--- NOTE | 2021-05-05 09:09 | PDOC3 ---
IM DISCHARGE SUMMARY Date of Admission Date of Admission Date of Admission: Apr 26, 2021 at 15:45 Date of Discharge Date of Discharge May 05, 2021 Primary Diagnosis Primary Diagnosis 1. Atrial fibrillation. cardizam drip+eliquis Consult Dr. Aiken for cardiology evaluation and management. The patient has been started on IV Cardizem drip. 2. Hypertension, not controlled. I will restart hydralazine.Control is improving. 3. Physical deconditioning. Consult Dr. Nicole for rehab evaluation and management. 4. Dementia. Getting worse. Restart Memantine. 5. Acute metabolic encephalopathy. Correct electrolyte imbalance, dehydration 6. Pneumonia. Due to aspiration. 7. Severe aortic stenosis. Consults Consults Ming Bermudez MD; Sergei Lowe MD Brief hospital course Brief hospital course She was admitted to [facility] because of atrial fibrillation with fast ventricular rate, worsening confusion and weakness. For more details regarding the past history, family history, social history, surgical history and other details, please refer to the H&P. Patient was initially treated with IV Cardizem for fast ventricular rate. She was given IV fluids. eliquis resume home meds cxr -ve urine -neg 1. Aspiration and penetration of multiple barium consistencies, without elicitation of a cough reflex. 2. Significant delayed initiation of swallowing and poor oral bolus formation. 3. Please refer to the separate report by the speech pathologist for clinical recommendations. Blood culture shows 1 out of 4, gram-positive cocci. Consult Dr. Sergei Lowe for infectious disease evaluation and management. Currently patient is not on any antibiotics. Urinalysis was negative. Culture shows staph hominis likely contaminant. Prognosis of this patient is extremely poor due to her multiple medical problems. Discussed with extensively several times about hospice, comfort care, long-term care in a facility. She is not a candidate for intervention for severe aortic stenosis. Her oral intake is poor. Hypernatremia and hypokalemia. Resolved. I have encouraged the patient to eat and drink more. Patient spouse wants her to go back to the hotel while he makes arrangements for long-term care and apply for Medicaid. [address] [place] [address] is willing to provide services in the [facility]. Discharge her today if the arrangements are completed. She will have a hospital bed at the [facility] and [facility] will provide her care. She needs to go to a alf as soon as possible as the will have a lot of difficulty providing care to her in the hotel. Condition at the time of discharge is improving but her long-term as well as short-term prognosis remains very poor. Medications Medications reviewed and reconciled for discharge. Home Meds Active Scripts Metoprolol Tartrate (METOPROLOL TARTRATE) 50 Mg Tablet, 50 MG PO BID for a fib for 30 Days, #60 TAB Prov:CORNELIUS LÓPEZ MD 03/11/21 Apixaban (ELIQUIS) 2.5 Mg Tablet, 2.5 MG PO BID for A fib for 30 Days, #60 TAB Prov:CORNELIUS LÓPEZ MD 03/11/21 Atorvastatin Calcium (ATORVASTATIN CALCIUM) 10 Mg Tablet, 20 MG PO HS for FOR CHOLESTEROL, #30 TAB 0 Refills Prov:CORNELIUS LÓPEZ MD 03/11/21 Amlodipine Besylate (AMLODIPINE BESYLATE) 5 Mg Tablet, 10 MG PO DAILY for HTN for 30 Days, #60 TAB Prov:CORNELIUS LÓPEZ MD 03/11/21 Ferrous Sulfate (FERROUS SULFATE) 325 Mg Tablet, 1 TAB PO DAILY for anemia, #30 TAB 3 Refills Prov:CORNELIUS LÓPEZ MD 06/02/20 Hydralazine Hcl (HYDRALAZINE HCL) 50 Mg Tablet, 1 TAB PO TID for hypertension, #90 TAB 5 Refills Prov:CORNELIUS LÓPEZ MD 06/10/19 Cyanocobalamin (Vitamin B-12) (VITAMIN B-12) 1,000 Mcg Tablet, 1000 MCG PO DAILY for B12 deficiency for 30 Days, #30 TAB 5 Refills Prov:CORNELIUS LÓPEZ MD 06/10/19 Lactobacillus Rhamnosus Gg (CULTURELLE) 1 Each Cap.sprink, 1 CAP PO BID for antibiotic use for 30 Days, #60 CAP Prov:CORNELIUS LÓPEZ MD 06/10/19 Acetaminophen (TYLENOL) 325 Mg Tablet, 650 MG PO PRN Q6HRS PRN for HEADACHE / TEMP > 100.3'F for 30 Days, #120 TAB Prov:CORNELIUS LÓPEZ MD 06/10/19 Aspirin (ASPIRIN) 81 Mg Tab.chew, 81 MG PO DAILYWBKFT for Small vessel ischemia for 30 Days, #30 TAB.CHEW 5 Refills Prov:CORNELIUS LÓPEZ MD 06/10/19 Cholecalciferol (Vitamin D3) (D3 DOTS) 2,000 Unit Tablet, 400 UNIT PO DAILY, #90 TAB Prov:LISAIshMALISSA SPRINGER Samara BOYLE 06/12/17 Reported Medications Memantine Hcl (NAMENDA) 10 Mg Tablet, 5 MG PO BID for dementia, TAB 06/07/19 Pantoprazole Sodium (PROTONIX) 20 Mg Tablet.dr, 1 TAB PO BID for ., #30 TAB 08/07/18 Cetirizine Hcl (ZYRTEC) 10 Mg Tablet, 10 MG PO 08/28/13 Calcium Citrate/Vitamin D3 (CITRACAL + D MAXIMUM CAPLET) 1 Each Tablet, 1 EACH PO 08/28/13 Multivits-Min/Fa/Lycopene/Lut (CENTRUM SILVER TABLET) 1 Each Tablet, 1 EACH PO 08/28/13 Allergy Allergies Coded Allergies Type Severity Reaction Last Updated Verified Sulfa (Sulfonamide Antibiotics) Allergy Intermediate hives 01/16/18 Yes sulfamethoxazole Adverse Reaction Intermediate mouth sores 03/09/21 Yes trimethoprim Adverse Reaction Intermediate mouth sores 03/09/21 Yes Follow up in 5 days. DISPOSITION: Home (With hospice) Comments Discharge Management - 35 minutes. For other details please refer to discharge instructions Justicifation of Admission Dx: Justifications for Admission: Justification of Admission Dx: Yes CORNELIUS LÓPEZ MD May 05, 2021 09:09
--- NOTE | 2021-05-05 09:23 | SNU/HH DC ---
DISCHARGE ORDERS DISCHARGE INFORMATION: FINAL DIAGNOSIS Problems Medical Problems: (1) Atrial fibrillation with RVR Status: Acute (2) Failure to thrive in adult Status: Acute (3) Physical deconditioning Status: Acute CONDITION ON DISCHARGE: Stable HOSPICE: H[facility]ICE: Yes ([facility] POST DISCHARGE ORDERS: ACTIVITY ORDERS: Activity as tolerated (Bed bound ,sit in chair as tolerated,hospital bed) WEIGHT BEARING STATUS: Full weight bearing, As tolerated DIET AFTER DISCHARGE: Dysphagia 1 diet with honey thick liquids WOUND/INCISION CARE: No wound care needed OTHER ORDERS: Fall precautions FOLLOW-UP: PHYSICIAN FOLLOW-UP: Dr.Pratip L[facility] with [facility] TREATMENT/EQUIPMENT ORDERS: ADAPTIVE EQUIPMENT NEEDED: None (Hospital Bed) DISCHARGE MEDICATIONS: Home Meds Active Scripts Metoprolol Tartrate (METOPROLOL TARTRATE) 50 Mg Tablet, 50 MG PO BID for a fib for 30 Days, #60 TAB Prov:CORNELIUS LÓPEZ MD 03/11/21 Apixaban (ELIQUIS) 2.5 Mg Tablet, 2.5 MG PO BID for A fib for 30 Days, #60 TAB Prov:CORNELIUS LÓPEZ MD 03/11/21 Atorvastatin Calcium (ATORVASTATIN CALCIUM) 10 Mg Tablet, 20 MG PO HS for FOR CHOLESTEROL, #30 TAB 0 Refills Prov:CORNELIUS LÓPEZ MD 03/11/21 Amlodipine Besylate (AMLODIPINE BESYLATE) 5 Mg Tablet, 10 MG PO DAILY for HTN for 30 Days, #60 TAB Prov:CORNELIUS LÓPEZ MD 03/11/21 Hydralazine Hcl (HYDRALAZINE HCL) 50 Mg Tablet, 1 TAB PO TID for hypertension, #90 TAB 5 Refills Prov:CORNELIUS LÓPEZ MD 06/10/19 Cyanocobalamin (Vitamin B-12) (VITAMIN B-12) 1,000 Mcg Tablet, 1000 MCG PO DAILY for B12 deficiency for 30 Days, #30 TAB 5 Refills Prov:CORNELIUS LÓPEZ MD 06/10/19 Lactobacillus Rhamnosus Gg (CULTURELLE) 1 Each Cap.sprink, 1 CAP PO BID for antibiotic use for 30 Days, #60 CAP Prov:CORNELIUS LÓPEZ MD 06/10/19 Acetaminophen (TYLENOL) 325 Mg Tablet, 650 MG PO PRN Q6HRS PRN for HEADACHE / TEMP > 100.3'F for 30 Days, #120 TAB Prov:CORNELIUS ÓLPEZ MD 06/10/19 Aspirin (ASPIRIN) 81 Mg Tab.chew, 81 MG PO DAILYWBKFT for Small vessel ischemia for 30 Days, #30 TAB.CHEW 5 Refills Prov:CORNELIUS LÓPEZ MD 06/10/19 Cholecalciferol (Vitamin D3) (D3 DOTS) 2,000 Unit Tablet, 400 UNIT PO DAILY, #90 TAB Prov:MALISSA PARKER APRN 06/12/17 Reported Medications Memantine Hcl (NAMENDA) 10 Mg Tablet, 5 MG PO BID for dementia, TAB 06/07/19 Pantoprazole Sodium (PROTONIX) 20 Mg Tablet.dr, 1 TAB PO BID for ., #30 TAB 08/07/18 Calcium Citrate/Vitamin D3 (CITRACAL + D MAXIMUM CAPLET) 1 Each Tablet, 1 EACH PO 08/28/13 Multivits-Min/Fa/Lycopene/Lut (CENTRUM SILVER TABLET) 1 Each Tablet, 1 EACH PO 08/28/13 Discontinued Reported Medications Cetirizine Hcl (ZYRTEC) 10 Mg Tablet, 10 MG PO 08/28/13 Discontinued Scripts Ferrous Sulfate (FERROUS SULFATE) 325 Mg Tablet, 1 TAB PO DAILY for anemia, #30 TAB 3 Refills Prov:CORNELIUS LÓPEZ MD 06/02/20 CORNELIUS LÓPEZ MD May 05, 2021 09:23
[2021-05-05 11:00] VITALS: BP 105/61
--- NOTE | 2021-05-05 11:33 | NUR ---
SS following up with discharge planning. SS reviewed pt chart and discussed with pt RN. Pt is currently on room air. Discharge orders received and sent to [facility], ; fax [phone]. DME delivered to room at [facility] today. Pt will discharge today and return to home with spouse and hospice between 1530 and 1600 via [employer], . Packet placed on chart. Pt's RN and pt's spouse notified.
--- NOTE | 2021-05-05 14:36 | NUR ---
Discharge Note: [facility] Discharge instructions and discharge home medications reviewed with Patient and a copy given. All questions have been answered and understanding verbalized. [facility] to meet patient and at home upon DC. Pt in stable condition at time of DC.
== END 2021-05-05 14:35 | disposition hospice, home (50) | DRG 308 ==
LOC: ER 14:25 → ED HOLD 15:45 → 6 SOUTH 18:27
PROVIDERS: ADMIT Internal Medicine; ATTEND Internal Medicine
DX: I48.91 Unspecified atrial fibrillation (principal); G93.41 Metabolic encephalopathy; J69.0 Pneumonitis due to inhalation of food and vomit; E87.0 Hyperosmolality and hypernatremia; R64 Cachexia; E46 Unspecified protein-calorie malnutrition; Z68.1 Body mass index [BMI] 19.9 or less, adult; E03.9 Hypothyroidism, unspecified; E78.00 Pure hypercholesterolemia, unspecified; E78.5 Hyperlipidemia, unspecified; E86.0 Dehydration; F03.90 Unspecified dementia, unspecified severity, without behavioral disturbance, psychotic disturbance, mood disturbance, and anxiety; F31.9 Bipolar disorder, unspecified; G40.909 Epilepsy, unspecified, not intractable, without status epilepticus; I35.0 Nonrheumatic aortic (valve) stenosis; K22.70 Barrett's esophagus without dysplasia; N18.30 Chronic kidney disease, stage 3 unspecified; R62.7 Adult failure to thrive; Z96.649 Presence of unspecified artificial hip joint; Z96.659 Presence of unspecified artificial knee joint; K21.9 Gastro-esophageal reflux disease without esophagitis; K57.90 Diverticulosis of intestine, part unspecified, without perforation or abscess without bleeding; R53.81 Other malaise; Z79.01 Long term (current) use of anticoagulants; Z83.3 Family history of diabetes mellitus; Z86.73 Personal history of transient ischemic attack (TIA), and cerebral infarction without residual deficits; Z90.49 Acquired absence of other specified parts of digestive tract; Z51.5 Encounter for palliative care; Z88.1 Allergy status to other antibiotic agents; Z88.2 Allergy status to sulfonamides; Z82.49 Family history of ischemic heart disease and other diseases of the circulatory system
CPT/HCPCS: 36415; 71045; 80048; 80053; 81001; 82962; 83605; 83880; 84145; 84484; 85025; 85610; 85730; 87040; 93005; 96365; 96366; 96375; 96376; J1160; J3480; J3490; J7040; J7060; 99291-25; G0378